=== PATIENT | male | born 1970 | race Caucasian/White ===

== ENCOUNTER 2020-11-17 01:09 | Emergency (ER) | payer SELFPAY ==
[2020-11-17] VITALS (7 sets, daily range): BP systolic 122–178; BP diastolic 88–105; PULSE 73–99; RESP 14–18; TEMP 36.5; O2SAT 95–97
--- NOTE | 2020-11-17 01:19 | ED.GENADULT ---
HPI - General Adult General Chief complaint: Overdose Stated complaint: OD Time Seen by Provider: 11/17/20 01:13 History of Present Illness HPI narrative: Patient a 50-year-old gentleman who presents the emergency department chief complaint of overdose. The patient states that he felt he was using some cocaine the night and snorted a line and then became unresponsive. Patient woke up after receiving Narcan by EMS and then started to get drowsy again and received an additional dose of Narcan. Patient was with 2 other individuals both of which required intubation. The patient currently states that is not suicidal or homicidal patient reports he is never used opiates like this before in the past Review of Systems Review of Systems: Narrative: A 10 system review of systems was completed on the patient and is negative except for what is stated in the HPI. Nursing and ancillary documentation was reviewed. [facility] Social History Social History Substance use type: crack/cocaine and methamphetamine Comments Past medical history significant for hypertension Social history the patient reports he has sporadic history of using cocaine and methamphetamine Exam Narrative: Exam Narrative: GENERAL: Well-appearing, well-nourished, and in no acute distress. HEAD: Normocephalic, atraumatic. EYES: PERRLA and EOMI. ENT: Nares clear, no rhinorrhea or epistaxis. Mucous membranes moist. NECK: Supple. CHEST: Clear to auscultation. No respiratory distress. HEART: Regular rate and rhythm. No murmur heard. Normal peripheral pulses. ABDOMEN: Soft, nontender, nondistended, normal active bowel sounds. EXTREMITIES: Normal range of motion. No edema. SKIN: Warm, dry, no rash. NEURO: No focal deficits. Alert and oriented x3. PSYCH: Normal mood and affect. Course Vital Signs Vital signs: Vital Signs Temperature 36.5 C 11/17/20 01:12 Pulse Rate 75 11/17/20 01:12 Respiratory Rate 14 11/17/20 01:12 Blood Pressure 178/105 H 11/17/20 01:12 Pulse Oximetry 97 11/17/20 01:12 Temperature 36.5 C 11/17/20 01:12 Pulse Rate 74 11/17/20 06:38 Respiratory Rate 18 11/17/20 06:38 Blood Pressure 122/102 H 11/17/20 06:38 Pulse Oximetry 95 11/17/20 06:38 Medical Decision Making Vital Signs Vital Signs: Vital Signs Temperature 36.5 C 11/17/20 01:12 Pulse Rate 75 11/17/20 01:12 Respiratory Rate 14 11/17/20 01:12 Blood Pressure 178/105 H 11/17/20 01:12 Pulse Oximetry 97 11/17/20 01:12 Temperature 36.5 C 11/17/20 01:12 Pulse Rate 74 11/17/20 06:38 Respiratory Rate 18 11/17/20 06:38 Blood Pressure 122/102 H 11/17/20 06:38 Pulse Oximetry 95 11/17/20 06:38 Discharge Plan Discharge Clinical Impression: Poisoning by opiate or related narcotic Drug overdose Qualifiers: Encounter type: initial encounter Injury intent: accidental or unintentional Qualified Code(s): T50.901A - Poisoning by unspecified drugs, medicaments and biological substances, accidental (unintentional), initial encounter Patient Disposition: Home, Self-Care Condition: Stable Instructions: Antibiotic Form, Opioid Safety (ED), Adult Overdose (ED) Follow-up/Referrals: Soham Jonas MD [Physician] - 1 Week UNKNOWN,DOCTOR [Primary Care Provider] - Time of Disposition: 04:20
--- NOTE | 2020-11-17 05:31 | PC.NURSE ---
awaiting for a ride, pt is alert and drowsey @ [facility]
--- NOTE | 2020-11-17 09:55 | PCCCNOTE ---
Pt has transportation issues; bus tokens and bus schedule provided to pt.
== END 2020-11-17 10:03 | disposition home or self-care (01) ==
PROVIDERS: Emergency Provider Emergency Medicine
DX: T50.901A Poisoning by unspecified drugs, medicaments and biological substances, accidental (unintentional), initial encounter (principal); I10 Essential (primary) hypertension
CPT/HCPCS: 99281

== ENCOUNTER 2025-07-26 06:25 | Inpatient (IN) | payer OTHER, SELFPAY ==
[2025-07-26] VITALS (14 sets, daily range): BP systolic 80–100; BP diastolic 61–82; PULSE 41–56; RESP 9–16; TEMP 34.1–36.6; O2SAT 95–99
--- NOTE | ~2025-07-26 | XR_ITS ---
XR chest 1V portable 07/26/2025 07:00 Indication: Chest pain Procedure: AP portable chest Comparison: No prior studies for comparison. Findings: Subtle upper lobe infiltrates bilaterally, suspicious for developing pneumonia. Heart size normal. No pleural effusion, edema or pneumothorax. Impression: 1: Subtle upper lobe infiltrates bilaterally, suspicious for developing pneumonia. Reviewed, dictated and finalized at location O. ECT CONTROL OFFICER Impression: 1: Subtle upper lobe infiltrates bilaterally, suspicious for developing pneumon ia.
--- NOTE | ~2025-07-26 | XR_ITS ---
XR chest ET placement 07/26/2025 10:31 Indication: Chest pain. Procedure: AP portable chest Comparison: 07/26/2025 Findings: Endotracheal tube tip 6.5 cm above the frieda. Heart size normal. There is a coronary artery stents. No focal air space disease, pulmonary edema, pleural effusion or suspected pneumothorax. No acute osseous abnormality. Impression: 1: No acute cardiopulmonary disease. Reviewed, dictated and finalized at location O. INE HOSE CUTTER Impression: 1: No acute cardiopulmonary disease.
--- NOTE | ~2025-07-26 | CT_ITS ---
EXAMINATION: CT brain wo con DATE: 07/26/2025 06:54 INDICATION: Head injury. TECHNIQUE: Computed tomography (CT) of the head was performed without intravenous contrast. The mA was adjusted according to patient size. Iterative reconstruction technique was employed. The dose-length product was 756.67 mGy-cm. COMPARISON: None FINDINGS: There is no intracranial hemorrhage, acute infarction, or abnormal intracranial mass lesion. The ventricles are normal in size. There is an old blowout fracture of medial wall of right orbit. The paranasal sinuses are clear. The mastoid air cells are normal. IMPRESSION: 1. Normal brain. Reviewed, dictated and finalized at location E. ENGER CAR CONDUCTOR IMPRESSION: 1. Normal brain.
--- NOTE | 2025-07-26 06:28 | ECG_ITS ---
Test Date: 2025-07-26 06:30:33 Measurements Intervals [place] Rate: 56 P: -73 [place]: 200 QRS: 46 QRSD: 126 T: 97 QT: 440 QTc: 425 Interpretive Statements ECTOPIC ATRIAL BRADYCARDIA BORDERLINE AV CONDUCTION DELAY INFERIOR ST ELEVATION MYOCARIDAL INJURY- ACUTE POSTERIOR INFARCT, ACUTE RECIPROCALST DEPRESSION IN ANT/HIGH LAT LEADS BASELINE ARTIFACT- I, II, III, AVR, AVL, AVF, V4-V6 ABNORMAL ECG No previous ECG available for comparison Electronically Signed On 07-26-2025 09:02:25 CHILD CARE COORDINATOR by Willie Domínguez D.O.
--- NOTE | 2025-07-26 06:38 | ED.GENADULT ---
HPI - General Adult General Chief complaint: Chest Pain Stated complaint: CP Time Seen by Provider: 07/26/25 06:38 History of Present Illness HPI narrative: patient is a 55-year-old gentleman presents emergency department with chief complaint of chest pain and syncopal episode patient reports that he had a heart attack about a month ago had a stent placed in [place] is very the patient reports he is taking Brilinta but thinks he may not have taken it today the patient states he was sitting in the car waiting for his friend to go into the gas station after they had been smoking some marijuana today the patient states that he passed out struck his head and has been diaphoretic and reports that he is having chest pain as well Related Data Home Medications ?Medication ?Instructions ?Recorded ?Confirmed ?Last Taken ?Type No Home Medications 11/17/20 11/17/20 Unknown History Allergies Allergy/AdvReac Type Severity Reaction Status Date / Time No Known Allergies Allergy Verified 11/17/20 07:48 Review of Systems Review of Systems: A 10 system review of systems was completed on the patient and is negative except for what is stated in the HPI. Nursing and ancillary documentation was reviewed. [facility] Social History Social History Substance use type: crack/cocaine and methamphetamine Exam Narrative: GENERAL: diaphoretic, well-nourished, and in moderate acute distress. HEAD: Normocephalic, blood present in the oropharynx on the chin. EYES: PERRLA and EOMI. ENT: Nares clear, no rhinorrhea or epistaxis. Mucous membranes moist. NECK: Supple. CHEST: Clear to auscultation. No respiratory distress. HEART: Regular rate and rhythm. No murmur heard. Normal peripheral pulses. ABDOMEN: Soft, nontender, nondistended, normal active bowel sounds. EXTREMITIES: Normal range of motion. No edema. SKIN: Warm, dry, no rash. NEURO: No focal deficits. Alert and oriented x3. PSYCH: Normal mood and affect. Course Vital Signs Vital signs: Vital Signs Temperature 34.1 C L 07/26/25 06:29 Pulse Rate 56 L 07/26/25 06:29 Respiratory Rate 14 07/26/25 06:29 Blood Pressure 92/62 L 07/26/25 06:29 Pulse Oximetry 96 07/26/25 06:29 Oxygen Delivery Room Air 07/26/25 06:29 Temperature 34.1 C L 07/26/25 06:29 Pulse Rate 56 L 07/26/25 06:29 Respiratory Rate 14 07/26/25 06:29 Blood Pressure 92/62 L 07/26/25 06:29 Pulse Oximetry 96 07/26/25 06:29 Oxygen Delivery Room Air 07/26/25 06:29 MDM Differential Diagnosis Differential Diagnosis: differential diagnosis include ST-elevation [place], syncope, atypical chest pain, EKG showed evidence of acute ST-elevation [place] the case was discussed with business support specialist upon EKG completion the patient was activated as an ST-elevation [place] patient will be given aspirin and heparin although the patient will undergo CT head before heparin is administered due to the possibility of intracranial hemorrhage from the patient striking his head Lab Data [facility] Lab Attestation statement: I personally reviewed the patient's lab results. Critical Care Time Critical Care Time Critical Care Time: Yes Time Type: Intermittent Initial evaluation, discuss w/ involved parties, attempting to gather old records: 20 minutes Documenting medical record: 10 minutes Review of results (EKG's, labs, imaging): 10 minutes Serial repeat bedside evaluation: 10 minutes Discussing case with multiple memebers of the care team and consultants: 10 minutes Total Critical Care Time: 60 Discharge Plan Discharge Clinical Impression: ST elevation (STEMI) myocardial infarction Patient Disposition: Still a Patient Condition: Stable Patient Language: Divehi Prescriptions: No Action No Home Medications Follow-up/Referrals: UNKNOWN,DOCTOR [Primary Care Provider]
[2025-07-26] MEDS: MORPHINE SULFATE (*CRX) 4 MG/ML INJ IV PUSH (06:44)
[2025-07-26 06:50] LABS: Hematocrit 41.5 % (42.0-52.0); Hemoglobin 13.7 g/dL (14.0-18.0); Immature Granulocyte Percent A 0.3 % (0-0.5); Lymphocytes Absolute Auto 2.69 K/mm3 (0.9-3.2); Mean Corpuscular HGB Conc 33.0 g/dl (32-36); Mean Corpuscular Hemoglobin 30.9 pg (26-34); Mean Corpuscular Volume 93.7 fl (80-100); Nucleated Red Blood Cells Absolute Auto 0.000 K/mm3 (0.0-0.012); Nucleated Red Blood Cells Perc 0.0 % (0.0-0.2); Platelet Count Result 408 k/mm3 (150-375); Red Blood Count 4.43 M/mm3 (4.6-6.20); White Blood Count 14.5 K/mm3 (4.5-10.0)
[2025-07-26] MEDS: SODIUM CHLORIDE 0.9% IV 1,000 ML 999 ML IV CONT (06:58)
[2025-07-26 07:02] LABS: INR 1.1; Prothrombin Time 14.2 Seconds (11.1-14.7)
--- NOTE | 2025-07-26 07:02 | PC.NURSE ---
pt last known well @0502
[2025-07-26 07:03] LABS: Alanine Aminotransferase 37 U/L (6-50); Albumin Level 4.2 g/dL (3.5-5.1); Alkaline Phosphatase 125 U/L (38-126); Anion Gap 9 mmol/L (4-12); Aspartate Amino Transferase 29 U/L (17-59); Bilirubin,Total 0.6 mg/dL (0.2-1.3); Blood Urea Nitrogen 22 mg/dL (9-20); Calcium 9.7 mg/dL (8.4-10.2); Carbon Dioxide 24 mmol/L (22-30); Chloride 105 mmol/L (98-107); Estimated CRCL calculation 58 ml/min; Estimated Glomerular Filt Rate > 60; Glucose 170 mg/dL (65-110); Lipase 106 U/L (23-300); Partial Thromboplastin Time 24.5 Seconds (22.3-36.8); Potassium 4.2 mmol/L (3.4-5.0); Sodium 138 mmol/L (137-145); Total Protein 7.4 g/dL (6.3-8.2)
--- OUTSIDE RECORDS SUMMARY | 2025-07-26 07:12 | XMS_ITS | Clinical Summary ---
Author Organization [facility] Address [address] [place] [address] Care Team Providers Care Survey Engineer Name Role Phone Pee Vidales MD Primary Care Provider [phone] Allergies No known active allergies Medications HYDROcodone-amaya taminophen (NORCO) 5-325 mg per tabletIndicatio ns:Pain Take 1-2 tablets by mouth every 4 (four) hours as needed for pain Do not exceed 8 tablets/day. 15 tablet 01/24/2021 Active albuterol HFA (PROVENTIL HFA,VENTOLIN HFA,PROAIR HFA) 90 mcg/actuation inhaler Inhale 2 puffs every 4 (four) hours as needed for wheezing 1 each 02/20/2022 Active benzonatate (TESSALON) 100 mg capsuleIndicati ons:Cough Take 1 capsule (100 mg total) by mouth every 8 (eight) hours 21 capsule 08/16/2023 Active promethazine-DM (PROMETHAZINE-D M) 1.25-3 mg/mL syrup Take 5 mL by mouth 4 (four) times a day as needed for cough 118 mL 08/16/2023 Active Active Problems No known active problems Surgical History Surgery Date Site/Laterality Comments HERNIA REPAIR CARPAL TUNNEL RELEASE Medical History Medical History Date Comments Hypertension Social History Tobacco Use Types Packs/Day Years Used Date Smoking Tobacco: Every Day Cigarettes Smokeless Tobacco: Never Alcohol Use Standard Drinks/Week Comments Never 0 (1 standard drink = 0.6 oz pur e alcohol) Personal Safety Answer Date Recorded Have you ever been in or are you currently in a harmful physical or emotional relationship or is someone making you feel afraid or unsafe? Denies 08/15/2023 Sex and Gender Information Value Date Recorded Sex Assigned at Not on file Legal Sex Male 6:00 PM MACHINE UMBRELLA TIPPER Gender Identity Not on file Sexual Orientation Not on file Last Filed Vital Signs Vital Sign Reading Time Taken Comments Blood Pressure 152/96 08/15/2023 11:55 PM MACHINE UMBRELLA TIPPER Pulse 112 08/15/2023 11:55 PM MACHINE UMBRELLA TIPPER Temperature 37.3 C (99.1 F) 08/15/2023 11:55 PM MACHINE UMBRELLA TIPPER Respiratory Rate 18 08/15/2023 11:55 PM MACHINE UMBRELLA TIPPER Oxygen Saturation 94% 08/15/2023 11:55 PM MACHINE UMBRELLA TIPPER Inhaled Oxygen Concentration - - Weight 72.6 kg (160 lb) 08/15/2023 11:55 PM MACHINE UMBRELLA TIPPER Height 175.3 cm (5' 9) 08/15/2023 11:55 PM MACHINE UMBRELLA TIPPER Body Mass Index 23.63 08/15/2023 11:55 PM MACHINE UMBRELLA TIPPER Plan of Treatment Health Maintenance Due Date Last Done Comments Colon Cancer Screening-Colonoscopy 1970 Depression Screening 1970 Hepatitis C Screening 1970 Prostate Cancer Screening-PSA 1970 DTaP/Tdap/Td Vaccine (1 - Tdap) 1981 Hepatitis B Screening 1988 Regular Well Visit/Exam 18-64 1988 Pneumococcal vaccine <65 (1 of 2 - PCV) 1989 Zoster Vaccine (1 of 2) 2020 Covid-19 Vaccine (3 - season) 2025, 07/01/2021 Influenza Vaccine (#1) 2025 Insurance [facility]/PPO Address: [address] [address] [facility] H[facility]/PPO Address: [address] [address] Care Teams Survey Engineer Relationship Specialty Start Date End Date Pee Vidales MD [address] [address] [place] [address] PCP - General 01/24/21
--- OUTSIDE RECORDS SUMMARY | 2025-07-26 07:12 | XMS_ITS | Encounter Summary ---
Author Organization [facility] Address [address] [place] [address] Care Team Providers Care Tank Riveter Name Role Phone BardalesJohnathan vinesfranklyn PEDRAZA Primary Care Provider [phone] Encounter Details Date Type Department Care Team (Late st Contact Info) Description 03/30/2007 Emergency [facility] Rasta Dawson MD [facility] [place] [id number] Er, Authorized P NO ADDRESS ON FILE Disturbance of Skin Sensation (Primary Dx) Social History Tobacco Use Types Packs/Day Years Used Date Smoking Tobacco: Never Assessed Sex and Gender Information Value Date Recorded Sex Assigned at Not on file Legal Sex Male 4:02 AM AEROSPACE MANAGER Gender Identity Not on file Sexual Orientation Not on file documented as of this encounter Plan of Treatment Upcoming Encounters Date Type Department Care Team (Late Contact Info) Description 09/03/2025 10:00 AM AEROSPACE MANAGER Office Visit [facility] Heart and Vascular - [address] [place] [address] Sina King DO [address] [place] [address] documented as of this encounter Visit Diagnoses Diagnosis Disturbance of skin sensation- Primary documented in this encounter Additional Health Concerns Infection Onset Date Last Indicated Resolved Time R/O Respiratory 05/19/2025 05/19/2025 05/19/2025 1 0:45 PM CDT documented as of this encounter Care Teams Tank Riveter Relationship Specialty Start Date End Date Johnathan Bardales DO [address] [place] [address] PCP - General Family Practice 05/01/25 documented as of this encounter
--- OUTSIDE RECORDS SUMMARY | 2025-07-26 07:12 | XMS_ITS | Encounter Summary ---
Author Organization [facility] Address [address] [place] [address] Care Team Providers Care Helpdesk Technician Name Role Phone JeffyTaeJohnathanrose marie Jeffers DO Primary Care Provider [phone] Encounter Details Date Type Department Care Team (Late st Contact Info) Description 07/24/2025 External Device Data [facility] ABSTRACTION Provider, Abstract NO ADDRESS ON FILE Social History Tobacco Use Types Packs/Day Years Used Date Smoking Tobacco: Every Day Cigarettes Passive Smoke Exposure: Current Alcohol Use Standard Drinks/Week Comments No 0 (1 standard drink = 0.6 oz pur e alcohol) Food Insecurity Answer Date Recorded Do you find you are eating l ess than you should because you can t pay for food? No 05/19/2025 Transportation Needs Answer Date Record ed Have you gone without health care because you didn t have a way to get there? 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 No 2024 Housing Stability Answer Date Recorded Do you worry you won t have a steady place to sleep or struggle to pay rent or mortgage? No 05/19/2025 Utility Needs Answer Date Recorded Do you have difficulty payin g for utility costs (electric, water or gas bills)? No 05/19/2025 Medication Needs Answer Date Recorded Have you skipped taking medi cation due to cost or worry you can t afford new medications? No 05/19/2025 Feeling Safe Answer Date Recorded Are you in a relationship wi th someone who hurts you emotionally and/or physically? No 05/19/2025 Food Insecurity Answer Date Recorded Patient needs follow up regardin 05/19/2025 Transportation Needs Answer Date Record ed Patient needs follow up regardin 05/19/2025 Utility Needs Answer Date Recorded Patient needs follow up regardin 05/19/2025 Sex and Gender Information Value Date Recorded Sex Assigned at Not on file Legal Sex Male 4:02 AM CLAIM ADMINISTRATOR Gender Identity Not on file Sexual Orientation Not on file documented as of this encounter Plan of Treatment Upcoming Encounters Date Type Department Care Team (Late st Contact Info) Description 09/03/2025 10:00 AM CLAIM ADMINISTRATOR Office Visit [facility] Heart and Vascular - [address] [place] [address] Sina King DO [address] [place] [address] documented as of this encounter Visit Diagnoses Not on filedocumented in this encounter Care Teams Helpdesk Technician Relationship Specialty Start Date End Date Johnathan Bardales DO [address] [place] [address] PCP - General Family Practice 05/01/25 documented as of this encounter
--- OUTSIDE RECORDS SUMMARY | 2025-07-26 07:12 | XMS_ITS | Clinical Summary ---
Author Organization [facility] Address [address] [place] [address] Phone Care Team Providers Care Styrene Dehydration Reactor Operator Name Role Phone Tae Bardalesemprasanth Jeffers DO Primary Care Provider [phone] Allergies Active Allergy Reactions Criticality Noted Date Comments Clindamycin Diarrhea Low 10/19/2012 Medications losartan (COZAAR) 100 mg tablet Take 1 Tablet (100 mg) by mouth daily. 30 Tablet 3 05/10/2025 Active ticagrelor (BRILINTA) 90 mg Tablet Take 1 Tablet (90 mg) by mouth 2 times daily. 60 Tablet 11 05/21/2025 Active aspirin (ECOTRIN EC) 81 mg Tablet, Delayed Release (E.C.) Take 1 Tablet (81 mg) by mouth daily. 05/21/2025 Active atorvastatin (LIPITOR) 40 mg tablet Take 1 Tablet (40 mg) by mouth daily. 100 Tablet 3 05/21/2025 Active amLODIPine (NORVASC) 5 mg tablet Take 1 Tablet (5 mg) by mouth daily. 90 Tablet 3 06/01/2025 Active Active Problems Problem Noted Date Diagnosed Date Coronary artery disease invo lving [place] coronary artery of [place] heart without angina pectoris 05/22/2025 Hyperlipidemia 05/21/2025 S/P coronary artery stent placement 05/21/2025 Overview (05/21/2025): 05/21/25 MILLICENT x 1 OM 1, Dr. Gabriel [facility] Chest pain 05/20/2025 Unstable angina 05/19/2025 Non-ST elevation ND (NSTEMI) 05/19/2025 Benign hypertension 05/19/2025 Shortness of breath 05/19/2025 Tobacco dependence 05/19/2025 Dental abscess 10/31/2012 Encounters Date Type Department Care Team Description 07/24/2025 External Device Data STL ABSTRACTION Provider, Abstract 07/24/2025 External Device Data STL ABSTRACTION Provider, Abstract 07/17/2025 External Device Data STL ABSTRACTION Provider, Abstract 07/11/2025 Results Follow-Up [facility] [address] [place] [address] Dara Hidalgo PA-C HOLTER MONITOR 07/10/2025 9:00 AM 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 [place] [address] Clifton Andres MD Discharge Disposition: Home or Self Care 06/19/2025 External Device Data STL ABSTRACTION Provider, Abstract 06/19/2025 External Device Data STL ABSTRACTION Provider, Abstract 06/19/2025 External Device Data STL ABSTRACTION Provider, Abstract 06/01/2025 10:40 AM CDT Office Visit [facility] - [address] [place] [address] Mahogany Rose PA Non-ST elevation ND (NSTEMI) ([facility]) (Primary Dx); Coronary artery disease involving [place] coronary artery of [place] heart without angina pectoris; Benign hypertension; Mixed hyperlipidemia; Tobacco dependence 05/23/2025 External Device Data STL ABSTRACTION Provider, Abstract 05/23/2025 External Device Data STL ABSTRACTION Provider, Abstract 05/22/2025 11:30 AM CDT - 05/22/2025 11:59 PM CDT Hospital Encounter [facility] Support Services Cardiac [address] [place] [address] Discharge Disposition: Home or Self Care 05/22/2025 External Device Data STL ABSTRACTION Provider, Abstract 05/21/2025 9:00 AM CDT - 05/21/2025 9:40 AM CDT Surgery [facility] [employer] [facility] [address] [place] [address] Heri Gabriel MD Left heart cath 05/19/2025 11:03 AM CDT - 05/22/2025 12:05 PM CDT Hospital Encounter [facility] Cardiac Telemetry [address] [place] [address] Omega Gleason MD Parker, Jaya, MD Qureshi, Rocky Rossi MD Non-ST elevation ND (NSTEMI) ([facility]) Discharge Disposition: Home or Self Care 05/19/2025 Travel 05/15/2025 External Device Data STL ABSTRACTION Provider, Abstract 05/10/2025 Nurse Triage [facility] [address] [place] [address] Johnathan Bardales DO 05/01/2025 11:00 AM CDT Office Visit [facility] [address] [place] [address] Johnathan Bardales DO Shipp, Daniel, APN Primary hypertension (Primary Dx); Elevated glucose from Last 3 Months Family History Medical History Relation Name Comments Kidney Disease Father Cancer Mother Heart Disease Paternal Grandfather Relation Name Status Comments Father Mother Paternal Grandfather Social History Tobacco Use Types Packs/Day Years Used Date Smoking Tobacco: Every Day Cigarettes Passive Smoke Exposure: Current Tobacco Cessation:Ready to Q uit: Not Asked; Counseling Given: Not Answered Alcohol Use Standard Drinks/Week Comments No 0 [...] worry about transportation for future doctor visits, sisal picker medication, etc.? 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 Gender Identity Not on file Sexual Orientation Not on file Last Filed Vital Signs Vital Sign Reading Time Taken Comments Blood Pressure 110/60 06/01/2025 10:58 AM CDT Pulse 90 06/01/2025 10:58 AM CDT Temperature 37 C (98.6 F) 05/22/2025 7:09 AM CDT Respiratory Rate 20 06/01/2025 10:58 AM CDT Oxygen Saturation 91% 05/22/2025 3:29 AM CDT Inhaled Oxygen Concentration - - Weight 72.6 kg (160 lb) 06/01/2025 10:58 AM CDT Height 172.7 cm (5' 8) 06/01/2025 10:58 AM CDT Body Mass Index 24.33 06/01/2025 10:58 AM CDT Plan of Treatment Upcoming Encounters Date Type Department Care Team (Late st Contact Info) Description 09/03/2025 10:00 AM 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 DESIGN 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 [employer]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 Office Visit [facility] - [address] [place] [address] Sina King DO [address] [place] [address] Health Maintenance Due Date Last Done Comments DTAP/TDAP/TD VACCINES (1 - Tdap) 1989 HEPATITIS B VACCINES (1 of 3 - 19+ 3-dose series) 04/03 COLORECTAL SCREENING 2015 Colorectal Cancer Screening 2015 FIT-DNA Q 3 years 2015 FIT/FOBT Q 1 year 2015 Flex Sig/CT Colonography Q 5 years 2015 ZOSTER VACCINE (1 of 2) 2020 INFLUENZA VACCINE (#1) 2025 Preventative Visit- Commercial Completed 12/27/2024 Medical Devices Implanted Type Area Anvil Worker Device Identifier Shelf Expiration Date Model / Serial / Lot Dev Closure Angioseal 6fr Vip [id number] - [id number] Implanted:Qty : 1 on 05/21/2025 by Heri Gabriel MD at [facility] Closure Device N/A: Groin TERUMO- CARDIOVASC SYS [id number] 01/16/2026 [id number] / / [id number] Stent Orsiro Bergheim [id number] [facility] Drug Eluting [id number] - [id number] Implanted:Qty : 1 on 05/21/2025 by Heri Gabriel MD at [facility] Stent N/A: Coronary [employer] 11/16/2025 [id number] / / [id number] Procedures Procedure Name Priority Date/Time Associated Diagnosis Comments HOLTER MONITOR Routine 07/10/2025 Atrial rhythm TELEMETRY REPORT 05/25/2025 10:12 AM CDT TELEMETRY REPORT 05/23/2025 10:55 AM CDT EKG 12-LEAD Pending Discharge 05/22/2025 10:28 AM CDT COMPREHENSIVE METABOLIC PANEL Routine 05/22/2025 3:49 AM CDT CBC WITH DIFFERENTIAL Routine 05/22/2025 3:49 AM CDT POC GLUCOSE Routine 05/21/2025 5:43 PM CDT ECHO COMPLETE Routine 05/21/2025 1:11 PM CDT POC GLUCOSE Routine 05/21/2025 12:08 PM CDT PERCUTANEOUS CORONARY INTERVENTION Routine 05/21/2025 9:15 AM CDT LEFT HEART CATH Routine 05/21/2025 9:15 AM CDT POC GLUCOSE Routine 05/21/2025 7:30 AM CDT POC GLUCOSE Routine 05/21/2025 4:35 AM CDT EKG 12-LEAD Pending Discharge 05/21/2025 4:24 AM CDT CBC WITH DIFFERENTIAL Routine 05/21/2025 4:03 AM CDT TROPONIN Routine 05/21/2025 3:52 AM CDT MAGNESIUM LEVEL Routine 05/21/2025 3:52 AM CDT COMPREHENSIVE METABOLIC PANEL Routine 05/21/2025 3:52 AM CDT EKG 12-LEAD Stat 05/21/2025 3:44 AM CDT XR CHEST PA OR AP 1 VW Stat 05/21/2025 3:19 AM CDT POC GLUCOSE Routine 05/21/2025 12:42 AM CDT POC GLUCOSE Routine 05/20/2025 5:50 PM CDT POC GLUCOSE Routine 05/20/2025 4:37 AM CDT TROPONIN BASELINE, 5TH GEN Stat 05/20/2025 3:57 AM CDT LIPID RFLX Routine 05/20/2025 3:57 AM CDT COMPREHENSIVE METABOLIC PANEL Routine 05/20/2025 3:57 AM CDT CBC WITH DIFFERENTIAL Routine 05/20/2025 3:57 AM CDT POC GLUCOSE Routine 05/20/2025 12:39 AM CDT CTA CHEST W AND/OR WO CONTRAST Stat 05/19/2025 7:46 PM CDT TROPONIN 6 HR, 5TH GEN Timed Study 05/19/2025 5:40 PM CDT EKG 12-LEAD Routine 05/19/2025 4:55 PM CDT RESPIRATORY PATHOGEN PCR PANEL Stat 05/19/2025 3:52 PM CDT TROPONIN 2 HR, 5TH GEN Timed Study 05/19/2025 1:08 PM CDT D-DIMER Stat 05/19/2025 12:09 PM CDT XR CHEST PA OR AP 1 VW Stat 05/19/2025 11:43 AM CDT TROPONIN BASELINE, 5TH GEN Stat 05/19/2025 11:11 AM CDT LIPASE Stat 05/19/2025 11:11 AM CDT COMPREHENSIVE METABOLIC PANEL Stat 05/19/2025 11:11 AM CDT CBC WITH DIFFERENTIAL Stat 05/19/2025 11:11 AM CDT EKG 12-LEAD Stat 05/19/2025 11:06 AM CDT CRITICAL CARE Routine 05/19/2025 11:01 AM CDT COMPREHENSIVE METABOLIC PANEL Routine 05/01/2025 11:36 AM CDT Primary hypertension TSH Routine 05/01/2025 11:36 AM CDT Primary hypertension CBC WITH DIFFERENTIAL Routine 05/01/2025 11:36 AM CDT Primary hypertension LIPID PANEL Routine 05/01/2025 11:36 AM CDT Primary hypertension HEMOGLOBIN A1C Routine 05/01/2025 11:36 AM CDT Elevated glucose from Last 3 Months Results * HOLTER MONITOR (07/10/2025) us Dara Hidalgo PA-C CARDIAC SERVICES ORDERABLE S Final Result * TELEMETRY REPORT (05/25/2025 10:12 AM CDT) Only the most recent of2 resultswithin the time period is included. us Provider Scanning ECG ORDERABLES Final Result * EKG 12-LEAD (05/22/2025 10:28 AM CDT) Only the most recent of5 resultswithin the time period is included. 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: : 1970 Requested By: OMEGA GLEASON Order Number: [id number] Reading MD: Karlo Ramos MD Measurements Intervals [place] Rate: 94 P: 85 IN: 170 QRS: -81 QRSD: 85 T: 97 QT: 344 QTc: 432 Interpretive Statements Sinus rhythm Right atrial enlargement Left atrial enlargement Inferior myocardial infarction , of indeterminate age Electronically Signed On 06-01-2025 14:08:46 CDT by Karlo Ramos MD Procedure Note Karlo Ramos MD - 06/01/[address] [address] Test Date: 2025-05-22 Pat Name: SOCORRO URBANO Department: 17 Room: [address] [place] [address] Gender: M 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: : 1970 Requested By: OMEGA GLEASON Order Number: [id number] Reading MD: Maci GREGORIO Measurements Intervals [place] Rate: 94 P: 85 IN: 170 QRS: -81 QRSD: 85 T: 97 QT: 344 QTc: 432 Interpretive Statements Sinus rhythm Right atrial enlargement Left atrial enlargement Inferior myocardial infarction , of indeterminate age Electronically Signed On 06-01-2025 14:08:46 CDT by Maci GREGORIO us Dara Hidalgo PA-C ECG ORDERABLES Final Resu lt INTERFACE SYSTEM Refer to clinic/hospital department * (ABNORMAL) CBC WITH DIFFERENTIAL (05/22/2025 3:49 AM CDT) Only the most recent of5 resultswithin the time period is included. WBC 10.1(H) 4.0 - 9.8 K/uL 05/22/2025 4:16 AM CDT [facility] Comment:ANC = 6.45K/uL RBC 5.27 4.50 - 5.40 M/uL 05/22/2025 4:16 AM CDT [facility] HEMOGLOBIN 16.0 13.6 - 16.5 g/dL 05/22/2025 4:16 AM CDT [facility] HEMATOCRIT 48.8(H) 40.0 - 48.0 % 05/22/2025 4:16 AM CDT [facility] MCV 92.6 82.0 - 99.0 fL 05/22/2025 4:16 AM CDT [facility] MCH 30.4 27.2 - 32.6 pg 05/22/2025 4:16 AM CDT [facility] MCHC 32.8 31.5 - 35.5 g/dL 05/22/2025 4:16 AM CDT [facility] RDW 11.6 11.5 - 14.5 % 05/22/2025 4:16 AM CDT [facility] RDW-STDEV 39.8 37.1 - 48.7 fL 05/22/2025 4:16 AM CDT [facility] [place] PLATELETS 356(H) 140 - 350 K/uL 05/22/2025 4:16 AM CDT [facility] [place] MPV 9.1(L) 9.3 - 12.4 fL 05/22/2025 4:16 AM CDT [facility] [place] NEUTROPHILS 64 % 05/22/2025 4:16 AM CDT [facility] [place] LYMPHOCYTES 23 % 05/22/2025 4:16 AM CDT [facility] [place] MONOCYTES 9 % 05/22/2025 4:16 AM CDT [facility] [place] EOSINOPHILS 3 % 05/22/2025 4:16 AM CDT [facility] [place] BASOPHILS 1 % 05/22/2025 4:16 AM CDT [facility] [place] IMMATURE GRANULOCYTES 1 % 05/22/2025 4:16 AM CDT [facility] [place] NEUTROPHIL ABSOLUTE 6.45 1.90 - 7.00 K/uL 05/22/2025 4:16 AM CDT [facility] [place] LYMPHOCYTE ABSOLUTE 2.30 0.70 - 4.50 K/uL 05/22/2025 4:16 AM CDT [facility] [place] MONOCYTE ABSOLUTE 0.86 0.10 - 1.30 K/uL 05/22/2025 4:16 AM CDT [facility] [place] EOSINOPHIL ABSOLUTE 0.34 0.00 - 0.70 K/uL 05/22/2025 4:16 AM CDT [facility] [place] BASOPHILS ABSOLUTE 0.06 0.00 - 0.20 K/uL 05/22/2025 4:16 AM CDT [facility] [place] IMMATURE GRANULOCYTES ABSOLUTE 0.05(H) 0.00 - 0.03 K/uL 05/22/2025 4:16 AM CDT [facility] [place] Blood Venipuncture / Unknown 05/22/2025 3:49 AM CDT 05/22/2025 4:14 AM CDT us Rocky Coles MD HEMATOLOGY ORDERABLES Final Result [facility] [place] CLIA# [id number] [address] [place] [address] * (ABNORMAL) COMPREHENSIVE METABOLIC PANEL (05/22/2025 3:49 AM CDT) Only the most recent of5 resultswithin the time period is included. SODIUM 140 136 - 145 mmol/L 05/22/2025 4:44 AM CDT [facility] [place] POTASSIUM 3.7 3.5 - 4.9 mmol/L 05/22/2025 4:44 AM CDT [facility] [place] CHLORIDE 105 98 - 107 mmol/L 05/22/2025 4:44 AM CDT [facility] [place] CO2 26 22 - 29 mmol/L 05/22/2025 4:44 AM CDT [facility] CALCIUM 9.0 8.6 - 10.2 mg/dL 05/22/2025 4:44 AM T [facility] BUN 21(H) 6 - 20 mg/dL 05/22/2025 4:44 AM CDT [facility] CREATININE 0.86 0.67 - 1.17 mg/dL 05/22/2025 4:44 AM CDT [facility] GLUCOSE 156(H) 74 - 99 mg/dL 05/22/2025 4:44 AM T [facility] TOTAL PROTEIN 6.8 6.0 - 8.3 g/dL 05/22/2025 4:44 AM CDT [facility] ALBUMIN 3.9 3.4 - 4.8 g/dL 05/22/2025 4:44 AM CDT [facility] BILIRUBIN TOTAL 0.4 0.0 - 1.0 mg/dL 05/22/2025 4:44 AM CDT [facility] ALKALINE PHOSPHATASE 112 40 - 129 U/L 05/22/2025 4:44 AM T [facility] AST 32 12 - 38 U/L 05/22/2025 4:44 AM CDT [facility] ALT 21 <41 U/L 05/22/2025 4:44 AM CDT [facility] GFR >60 >=60 mL/min/1.7 3 sq meter 05/22/2025 4:44 AM CDT [facility] Comment:eGFR calculated with 2020 CKD-EPI equation. Vegetarian diet, extremely high or low muscle mass, and may affect results. Cystatin C with Glomerular Filtration Rate is a suitable alternative for these patients. ANION GAP 9 8 - 16 mmol/L 05/22/2025 4:44 AM CDT [facility] Blood Venipuncture / Unknown 05/22/2025 3:49 AM CDT 05/22/2025 4:14 AM CDT Rocky Coles MD CHEMISTRY ORDERABLES F inal Result Performing Organization Address [facility]/ZIP Co de Phone Number [facility] CLIA# [id number] [address] [place] [address] * (ABNORMAL) POC GLUCOSE (05/21/2025 5:43 PM CDT) Only the most recent of8 resultswithin the time period is included. GLUCOSE POC 141(H) 74 - 99 mg/dL 05/21/2025 5:43 PM CDT [facility] SPECIMEN SOURCE, GLUCOSE POC Whole Blood 05/21/2025 5:43 PM CDT [facility] Blood, whole 05/21/2025 5:43 PM CDT 05/21/2025 5:52 PM CDT Rocky Coles MD POINT OF CARE TESTING Final Result Performing Organization Address [facility]/ZIP Co de Phone Number [facility] CLIA# [id number] [address] [place] [address] * ECHO COMPLETE - CONTRAST AND STRAIN IF INDICATED (05/21/2025 1:11 PM CDT) EJECTION FRACTION 60 INTERFACE SYSTEM 05/21/2025 12:1 9 PM CDT Narrative INTERFACE SYSTEM - 05/21/2025 3:28 PM CDT [address] [address] [email or web address] Transthoracic Echocardiogram Patient: Socorro Urbano Study ID: [id number] Gender: Jeanna : 1970 Age: 55 Race: JOSE Height 172.7cm Study Date: 05/21/2025 Weight: 70.9kg Access. #: [id number] BP: 160 / 95 *Referring Physician:* Mackenzie Samuel *Ordering Physician:* Mackenzie Samuel *Audiovisual Production Specialist:Josefa Quinn hot worker: Nurse: Indications: Acute Coronary Syndrome. History: Risk factors: The patient is a current tobacco user. Hypertension. STUDY CONCLUSIONS: SUMMARY: - Left ventricle: The cavity size was normal. Wall thickness was normal. Global systolic function is normal. For Epic reporting: the left ventricular ejection fraction is 60% . Diastolic function assessment consistent with abnormal left ventricular relaxation (grade 1 diastolic dysfunction). - Aortic valve: Mild regurgitation. - Mitral valve: Mild regurgitation. - Left atrium: The atrium is normal in size. - Right ventricle: The cavity size is normal. Systolic function is normal. - Tricuspid valve: Mild regurgitation. - Pulmonic valve: Mild regurgitation. - Frequent episodes of abnormally low HR - Can't rule out ASD. Cardiac Anatomy: LEFT VENTRICLE: The cavity size was normal. Wall thickness was normal. Global systolic function is normal. For Epic reporting: the left ventricular ejection fraction is 60% . Diastolic function assessment consistent with abnormal left ventricular relaxation (grade 1 diastolic dysfunction). AORTIC VALVE: Structurally normal valve. Trileaflet. Mild regurgitation. The mean systolic gradient is 3mm Hg. The peak systolic gradient is 6mm Hg. The LVOT to aortic valve VTI ratio is 0.88. The valve area is 3.0cm^2. The ratio of LVOT to aortic valve peak velocity is 0.92. AORTA: Aortic root: The root is normal-sized. MITRAL VALVE: Structurally normal valve. Mild regurgitation. The peak diastolic gradient is 2mm Hg. LEFT ATRIUM: The atrium is normal in size. RIGHT VENTRICLE: The cavity size is normal. Systolic function is normal. PULMONIC VALVE: Structurally normal valve. Mild regurgitation. TRICUSPID VALVE: Structurally normal valve. Mild regurgitation. RIGHT ATRIUM: The atrium was normal in size. SYSTEMIC VEINS: Inferior vena cava: The IVC is normal-sized. PERICARDIUM: There is no pericardial effusion. Measurements Left ventricle Value Ref IVS, ED, LAX (H) 1.1 cm 0.6 - 1.0 MOLLY, LAX (L) 2.6 cm 4.2 - 5.8 MOLLY/bsa, LAX (L) 1.4 cm/m^2 2.2 - 3.0 MOLLY, LAX chord (L) 3.7 cm 4.2 - 5.8 ESD, LAX chord (N) 2.6 cm 2.5 - 4.0 MOLLY/bsa, LAX chord (L) 2.0 cm/m^2 2.2 - 3.0 ESD/bsa, LAX chord (N) 1.4 cm/m^2 1.3 - 2.1 FS, LAX chord (N) 29 % 25 - 43 IVS, ED (H) 1.1 cm 0.6 - 1.0 PW, ED (N) 0.8 cm 0.6 - 1.0 EDV, 2-p (N) 74 ml 62 - 150 ESV, 2-p (N) 32 ml 21 - 61 EF, 2-p (N) 56 % 52 - 72 SV, 2-p 41 ml --------- SV/bsa, 2-p 22.4 ml/m^2 --------- E', lat mavis, TDI (L) 7.1 cm/sec >=10.0 E/e', lat mavis, TDI (N) 11 <=13 E', med mavis, TDI (L) 5.7 cm/sec >=7.0 E/e', med mavis, TDI 14 --------- E', avg, TDI 6.4 cm/sec --------- E/e', avg, TDI (N) 12 <=14 LVOT Value Ref Diam, S 2.1 cm --------- Area 3.5 cm^2 --------- Peak haritha, S 1.16 m/sec --------- VTI, S 21.2 cm --------- Peak grad, S 5 mm Hg --------- Right ventricle Value Ref TAPSE, MM (N) 2.1 cm >=1.7 Pressure, S 22 mm Hg --------- Left atrium Value Ref LA ID 3.0 cm --------- SI dim, A4C 4.2 cm --------- Area ES, A4C (N) 12 cm^2 <=20 Area/bsa ES, A4C 6.36 cm^2/m^2 --------- SI dim, A2C 4.1 cm --------- SI dim, shorter 4.1 cm --------- Vol, ES, 1-p A2C (N) 31 ml 18 - 58 Vol/bsa, ES, 1-p A2C (N) 17 ml/m^2 11 - 43 Vol, ES, 2-p 28 ml --------- Vol/bsa, ES, 2-p (L) 15 ml/m^2 16 - 34 Right atrium Value Ref SI dim, ES, A4C (N) 4.0 cm 3.4 - 5.3 SI dim/bsa, ES, A4C (N) 2.2 cm/m^2 1.8 - 3.0 Area, ES, A4C (N) 10 cm^2 10 - 18 Vol, ES, 1-p A4C 21 ml --------- Vol/bsa, ES, 1-p A4C (N) 12 ml/m^2 11 - 39 Aortic valve Value Ref Peak v, S 1.3 m/sec --------- Mean v, S 0.84 m/sec --------- VTI, S 24.1 cm --------- Mean grad, S 3 mm Hg --------- Peak grad, S 6 mm Hg --------- LVOT/AV, VTI ratio 0.88 --------- RACQUEL, VTI 3.0 cm^2 --------- RACQUEL/bsa, VTI 1.65 cm^2/m^2 --------- LVOT/AV, Vpeak ratio 0.92 --------- RACQUEL, Vmax 3.4 cm^2 --------- RACQUEL/bsa, Vmax 1.86 cm^2/m^2 --------- Mitral valve Value Ref Peak E 0.77 m/sec --------- Peak A 1.07 m/sec --------- Decel time 180 ms --------- Peak grad, D 2 mm Hg --------- Peak E/A ratio 0.7 --------- Pulmonic valve Value Ref Peak v, S 1 m/sec --------- Peak grad, S 4 mm Hg --------- Tricuspid valve Value Ref TR peak v (N) 1.9 m/sec <=2.8 Peak RV-RA grad, S 17 mm Hg --------- Aortic root Value Ref Root diam, 3.2 cm --------- Pulmonary artery Value Ref Pressure, S 18 mm Hg --------- Systemic veins Value Ref Estimated RA pressure 5 mm Hg --------- Legend: (L) and (H) tonya values outside specified reference range. (N) baez values inside specified reference range. Procedure data: No prior study was available for comparison. Study status: Routine. Procedure information: A transthoracic echocardiogram was performed. Image quality was adequate. The study was technically limited due to poor acoustic window availability. The parasternal window was low. Scanning was performed from the parasternal, apical, and subcostal acoustic windows. Transthoracic echocardiogram. Complete 2D, complete spectral Doppler, and color Doppler. Birthdate: Patient birthdate: 1970. Age: Patient is 55year(s) old. Sex: gender: male. Height: 172.7cm. 68in. Weight: 70.9kg. 156.4lb. Body mass index: 23.8kg/m^2. Body surface area: 1.84m^2. Blood pressure: 160/95 Patient status: Inpatient. Study date: Study date: 05/21/2025. Study time: 12:19 PM. Location: Bedside. Prepared and Electronically Authenticated Vaughn Rodriguez [id number] Procedure Note Vaughn Rodriguez DO - 05/21/2025 [place] [address] [email or web address] Transthoracic Echocardiogram Patient: Socorro Urbano Study ID: [id number] Gender: M : 1970 Age: 55 Race: CAU Height 172.7cm Study Date: 05/21/2025 Weight: 70.9kg Access. #: [id number] BP: 160 / 95 *Referring Physician:* Mackenzie Samuel *Ordering Physician:* Mackenzie Samuel *Audiovisual Production Specialist:* Josefa Nails hot worker: Nurse: Indications: Acute Coronary Syndrome. History: Risk factors: The patient is a current tobacco user. Hypertension. STUDY CONCLUSIONS: SUMMARY: - Left ventricle: The cavity size was normal. Wall thickness was normal. Global systolic function is normal. For Epic reporting: the leftventricular ejection fraction is 60% . Diastolic function assessment consistentwith abnormal left ventricular relaxation (grade 1 diastolic dysfunction). - Aortic valve: Mild regurgitation. - Mitral valve: Mild regurgitation. - Left atrium: The atrium is normal in size. - Right ventricle: The cavity size is normal. Systolic function isnormal. - Tricuspid valve: Mild regurgitation. - Pulmonic valve: Mild regurgitation. - Frequent episodes of abnormally low HR - Can't rule out ASD. Cardiac Anatomy: LEFT VENTRICLE: The cavity size was normal. Wall thickness was normal.Global systolic function is normal. For Epic reporting: the left ventricularejection fraction is 60% . Diastolic function assessment consistent with abnormalleft ventricular relaxation (grade 1 diastolic dysfunction). AORTIC VALVE: Structurally normal valve. Trileaflet. Mildregurgitation. The mean systolic gradient is 3mm Hg. The peak systolic gradient is 6mmHg. The LVOT to aortic valve VTI ratio is 0.88. The valve area is 3.0cm^2.The ratio of LVOT to aortic valve peak velocity is 0.92. AORTA: Aortic root: The root is normal-sized. MITRAL VALVE: Structurally normal valve. Mild regurgitation. Thepeak diastolic gradient is 2mm Hg. LEFT ATRIUM: The atrium is normal in size. RIGHT VENTRICLE: The cavity size is normal. Systolic function isnormal. PULMONIC VALVE: Structurally normal valve. Mild regurgitation. TRICUSPID VALVE: Structurally normal valve. Mild regurgitation. RIGHT ATRIUM: The atrium was normal in size. SYSTEMIC VEINS: Inferior vena cava: The IVC is normal-sized. PERICARDIUM: There is no pericardial effusion. Measurements Left ventricle Value Ref IVS, ED, LAX (H) 1.1 cm 0.6 - 1.0 MOLLY, LAX (L) 2.6 cm 4.2 - 5.8 MOLLY/bsa, LAX (L) 1.4 cm/m^2 2.2 - 3.0 MOLLY, LAX chord (L) 3.7 cm 4.2 - 5.8 ESD, LAX chord (N) 2.6 cm 2.5 - 4.0 MOLLY/bsa, LAX chord (L) 2.0 cm/m^2 2.2 - 3.0 ESD/bsa, LAX chord (N) 1.4 cm/m^2 1.3 - 2.1 FS, LAX chord (N) 29 % 25 - 43 IVS, ED (H) 1.1 cm 0.6 - 1.0 PW, ED (N) 0.8 cm 0.6 - 1.0 EDV, 2-p (N) 74 ml 62 - 150 ESV, 2-p (N) 32 ml 21 - 61 EF, 2-p (N) 56 % 52 - 72 SV, 2-p 41 ml --------- SV/bsa, 2-p 22.4 ml/m^2 --------- E', lat mavis, TDI (L) 7.1 cm/sec >=10.0 E/e', lat mavis, TDI (N) 11 <=13 E', med mavis, TDI (L) 5.7 cm/sec >=7.0 E/e', med mavis, TDI 14 --------- E', avg, TDI 6.4 cm/sec --------- E/e', avg, TDI (N) 12 <=14 LVOT Value Ref Diam, S 2.1 cm --------- Area 3.5 cm^2 --------- Peak haritha, S 1.16 m/sec --------- VTI, S 21.2 cm --------- Peak grad, S 5 mm Hg --------- Right ventricle Value Ref TAPSE, MM (N) 2.1 cm >=1.7 Pressure, S 22 mm Hg --------- Left atrium Value Ref LA ID 3.0 cm --------- SI dim, A4C 4.2 cm --------- Area ES, A4C (N) 12 cm^2 <=20 Area/bsa ES, A4C 6.36 cm^2/m^2 --------- SI dim, A2C 4.1 cm --------- SI dim, shorter 4.1 cm --------- Vol, ES, 1-p A2C (N) 31 ml 18 - 58 Vol/bsa, ES, 1-p A2C (N) 17 ml/m^2 11 - 43 Vol, ES, 2-p 28 ml --------- Vol/bsa, ES, 2-p (L) 15 ml/m^2 16 - 34 Right atrium Value Ref SI dim, ES, A4C (N) 4.0 cm 3.4 - 5.3 SI dim/bsa, ES, A4C (N) 2.2 cm/m^2 1.8 - 3.0 Area, ES, A4C (N) 10 cm^2 10 - 18 Vol, ES, 1-p A4C 21 ml --------- Vol/bsa, ES, 1-p A4C (N) 12 ml/m^2 11 - 39 Aortic valve Value Ref Peak v, S 1.3 m/sec --------- Mean v, S 0.84 m/sec --------- VTI, S 24.1 cm --------- Mean grad, S 3 mm Hg --------- Peak grad, S 6 mm Hg --------- LVOT/AV, VTI ratio 0.88 --------- RACQUEL, VTI 3.0 cm^2 --------- RACQUEL/bsa, VTI 1.65 cm^2/m^2 --------- LVOT/AV, Vpeak ratio 0.92 --------- RACQUEL, Vmax 3.4 cm^2 --------- RACQUEL/bsa, Vmax 1.86 cm^2/m^2 --------- Mitral valve Value Ref Peak E 0.77 m/sec --------- Peak A 1.07 m/sec --------- Decel time 180 ms --------- Peak grad, D 2 mm Hg --------- Peak E/A ratio 0.7 --------- Pulmonic valve Value Ref Peak v, S 1 m/sec --------- Peak grad, S 4 mm Hg --------- Tricuspid valve Value Ref TR peak v (N) 1.9 m/sec <=2.8 Peak RV-RA grad, S 17 mm Hg --------- Aortic root Value Ref Root diam, 3.2 cm --------- Pulmonary artery Value Ref Pressure, S 18 mm Hg --------- Systemic veins Value Ref Estimated RA pressure 5 mm Hg --------- Legend: (L) and (H) tonya values outside specified reference range. (N) baez values inside specified reference range. Procedure data: No prior study was available for comparison. Study status: Routine. Procedure information: A transthoracic echocardiogram was performed.Image quality was adequate. The study was technically limited due to pooracoustic window availability. The parasternal window was low. Scanning wasperformed from the parasternal, apical, and subcostal acoustic windows. Transthoracic echocardiogram. Complete 2D, complete spectral Doppler,and color Doppler. Birthdate: Patient birthdate: 1970. Age: Patientis 55year(s) old. Sex: gender: male. Height: 172.7cm. 68in.Weight: 70.9kg. 156.4lb. Body mass index: 23.8kg/m^2. Body surface area: 1.84m^2. Blood pressure: 160/95 Patient status: Inpatient. Studydate: Study date: 05/21/2025. Study time: 12:19 PM. Location: Bedside. Prepared and Electronically Authenticated Vaughn Rodriguez [id number] us Mackenzie MOORE ORDERABLES Bridgett martinez Result INTERFACE SYSTEM Refer to clinic/hospital department * LEFT HEART CATH, PERCUTANEOUS CORONARY INTERVENTION (05/21/2025 9:15 AM CDT) 05/21/2025 8:36 AM CDT Narrative [facility] [address] - 05/21/2025 11:15 AM CDT Successful stenting of the OM1 stenosis with 2.75 x 35 mm drug-eluting stent Procedure Details [place], [place] [employer] Procedure Note (see [employer] or dictated note for full details) Patient Name: Socorro Urbano : 1970 Date of Service: 05/21/2025 Procedures: Conscious sedation with physician supervision Left heart catheterization with coronary angiography CPT code 56808 Ultrasound guided arterial access, cpt code 70503 PCI/stenting of the 75% long OM1 stenosis with 2.75 x 35 mm Osiro MILLICENT Access Site: [email or web address] R Femoral artery Method: Access: Using ultrasound guidance, the R femoral artery was cannulated with a 6F sheath after first introduction with a micropuncture kit. Angiography: Selective coronary angiography was performed with 6F diagnostic catheters. Hemostasis: At the conclusion of the procedure the sheath was removed and hemostasis obtained using Angioseal. Conscious sedation was provided with Versed and fentanyl with my direct supervision throughout the duration of sedation (see associated documents in computer for sedation time). Complications: None Estimated Blood Loss: Minimal Findings: Coronary Angiography: LM -large and widely patent LAD -medium in size with apparent diffuse plaque but no more than 30% stenosis at any point. Very small diagonal branch with severe diffuse disease with up to 80% stenosis. There is a second diagonal branch, likely a branch of the first actually, with a long 50% stenosis. A third diagonal branch is small but patent. Cx -large and dominant vessel. OM1 with very long stenosis of to at least 75% stenosis. Just distal to the ostium of the OM1, the main circumflex demonstrates a discrete 30% stenosis. The remainder of the AV groove branch is patent as is the PDA and Co-PDA. RCA -nondominant with diffuse disease with a mid vessel discrete 50 to 60% stenosis, 2 to 3 mm in length. EDP: 9 mmHg The patient was provided systemic heparinization and had previously been loaded with Brilinta. A CLS 3.5 guide catheter was placed, a Prowater was placed into the OM1 and a BMW in the AV groove, main circumflex. The lesion was predilated followed by stenting with a 2.75 x 35 mm Orsiro drug-eluting stent at 11 franky pressure with excellent result 0% residual stenosis and JYOTHI-3 flow Final Impression: Successful stenting of the OM1 stenosis with 2.75 x 35 mm drug-eluting stent PCI RISK CSHA Frailty Score: Moderately Frail (Require assistance with all ADLs). NYHA Class: Class II: Slight limitation of physical activity. Comfortable at rest, but ordinary physical activity results in symptoms of HF. (CAMILO, walking more than 2 blocks would cause CAMILO) CV Instability: persistent ischemic symptoms (chest pain, BRADLEY). Heri Gabriel MD CUP CATH ORDERABLES Final Result [facility] [address] DOS SANTOS# [id number] [place] [phone] * (ABNORMAL) TROPONIN (05/21/2025 3:52 AM CDT) TROPONIN T, 5TH GEN 243(HH) <=15 ng/L 05/21/2025 10:18 AM CDT [facility] Blood Venipuncture / Unknown 05/21/2025 3:52 AM CDT 05/21/2025 4:22 AM CDT Narrative [facility] - 05/21/2025 10:18 AM CDT Troponin elevated. us Dara Hidalgo PA-C CHEMISTRY ORDERABLES Final Result Performing Organization Address City/[facility]/ZIP Co de Phone Number [facility] CLIA# [id number] [address] [place] [address] * MAGNESIUM LEVEL (05/21/2025 3:52 AM CDT) Pathologist [facility] [place] MAGNESIUM 1.9 1.5 - 2.5 mg/dL 05/21/2025 4:51 AM CDT [facility] Blood Venipuncture / Unknown 05/21/2025 3:52 AM CDT 05/21/2025 4:22 AM CDT Ken Rodrigues MD CHEMISTRY ORDERABLES Fin al Result Performing Organization Address City/[facility]/ZIP Co de Phone Number [facility] CLIA# [id number] [address] [place] [id number] * XR CHEST PA OR AP 1 VW (05/21/2025 3:19 AM CDT) Only the most recent of2 resultswithin the time period is included. Anatomical Region Laterality Modality Chest Computed Radiogr aphy 05/21/2025 3:19 AM CDT Impressions 05/21/2025 8:04 AM CDT IMPRESSION: 1. Normal chest. DICTATION LOCATION: Location [address] [place] [address] Narrative 05/21/2025 8:04 AM CDT XR CHEST PA OR AP 1 VW DATE: 05/21/2025 3:19 AM HISTORY: Difficulty breathing. COMPARISON: 05/19/2025. FINDINGS: No consolidation. No pleural effusion. No pneumothorax. Heart size and mediastinal contour are normal. Procedure Note Mir Patel MD - 05/21/2025 XR CHEST PA OR AP 1 VW DATE: 05/21/2025 3:19 AM HISTORY: Difficulty breathing. COMPARISON: 05/19/2025. FINDINGS: No consolidation. No pleural effusion. No pneumothorax. Heart size and mediastinal contour are normal. IMPRESSION: 1. Normal chest. DICTATION LOCATION: Location [address] [place] [address] Ken Rodrigues MD DIAGNOSTIC IMAGING ORDER JONA Final Result * (ABNORMAL) TROPONIN BASELINE, 5TH GEN (05/20/2025 3:57 AM CDT) Only the most recent of2 resultswithin the time period is included. TROPONIN T, BASELINE 5TH GEN 312(HH) <=15 ng/L 05/20/2025 8:43 AM CDT [facility] Blood Venipuncture / Unknown 05/20/2025 3:57 AM CDT 05/20/2025 4:12 AM CDT Narrative [facility] - 05/20/2025 8:43 AM CDT Troponin elevated. Vaughn Rodriguez DO CHEMISTRY ORDERABLES Fi nal Result [facility] CLIA# [id number] [address] [place] [address] * (ABNORMAL) LIPID RFLX (05/20/2025 3:57 AM CDT) CHOLESTEROL 178 <200 mg/dL [facility]25 [facility] 125 <150 mg/dL 05/20/2025 5:08 AM T [facility] HDL 38(L) 40 - 59 mg/dL 05/20/2025 5:08 AM T [facility] LDL CALCULATED 115(H) <100 mg/dL 05/20/2025 5:08 AM T [facility] NON-HDL CHOLESTEROL 140(H) <130 mg/dL 05/20/2025 5:08 AM CDT [facility] Blood Venipuncture / Unknown 05/20/2025 3:57 AM CDT 05/20/2025 4:12 AM CDT Narrative [facility] - 05/20/2025 5:08 AM CDT TOTAL CHOLESTEROL mg/dL Desirable <200 Borderline high 200-239 High >=240 TRIGLYCERIDES mg/dL Normal <150 Borderline high 150-199 High 200-499 Very high >=500 HDL CHOLESTEROL mg/dL Low <40 Normal 40-59 Desirable >=60 NON HDL CHOLESTEROL mg/dL Optimal <130 Near Optimal 130-159 Borderline High 160-189 Very High >=190 CALCULATED LDL mg/dL LDL <70, OPTIMAL if have Atherosclerotic cardiovascular disease (ASCVD) or intermediate or higher (>7.5%) 10 year risk of ASCVD including most adults with diabetes. LDL <100, Optimal in adult patients with low (<7.5%) 10 year ASCVD risk LDL 100-160, Suboptimal LDL >160, High LDL >190, Very high LDL calculated using the Friedewald equation. ATPIII Guidelines Reference Ranges for Lipid Panels (NCEP/AMA) . Mackenzie MOORE CHEMISTRY ORDERABLES Final Result [facility] CLIA# [id number] [address] [place] [address] * CTA CHEST W AND/OR WO CONTRAST (05/19/2025 7:46 PM CDT) Anatomical Region Laterality Modality Chest Computed Tomogra phy 05/19/2025 7:38 PM CDT Impressions 05/19/2025 7:57 PM CDT IMPRESSION: 1. No pulmonary embolus. 2. Mild emphysema. DICTATION LOCATION: Location 4. Narrative 05/19/2025 7:57 PM CDT EXAMINATION: CTA CHEST W AND/OR WO CONTRAST DATE: 05/19/2025 7:46 PM INDICATION: Pulmonary embolism. TECHNIQUE: Computed tomography angiography (CTA) of the chest was performed with 80 mL Isovue-300 intravenous contrast timed to evaluate the pulmonary arteries. 3D-reconstructions of the arteries were created. The mA was adjusted according to patient size, and/or iterative reconstruction technique was employed. COMPARISON: None. FINDINGS: There is mild emphysema. There is mild atelectasis bilaterally. No pleural effusion. The heart size is normal. No pericardial effusion. There is no pulmonary embolus. There is a 14 mm cyst in left kidney. There is mild thoracic spondylosis. Procedure Note Umberto Alaniz MD - 05/19/2025 EXAMINATION: CTA CHEST W AND/OR WO CONTRAST DATE: 05/19/2025 7:46 PM INDICATION: Pulmonary embolism. TECHNIQUE: Computed tomography angiography (CTA) of the chest was performed with 80 mL Isovue-300 intravenous contrast timed to evaluate the pulmonary arteries. 3D-reconstructions of the arteries were created. The mA was adjusted according to patient size, and/or iterative reconstruction technique was employed. COMPARISON: None. FINDINGS: There is mild emphysema. There is mild atelectasis bilaterally. No pleural effusion. The heart size is normal. No pericardial effusion. There is no pulmonary embolus. There is a 14 mm cyst in left kidney. There is mild thoracic spondylosis. IMPRESSION: 1. No pulmonary embolus. 2. Mild emphysema. DICTATION LOCATION: Location 4. Lencho Silvestre MD CT ORDERABLES Final Result * (ABNORMAL) TROPONIN 6 HR, 5TH GEN (05/19/2025 5:40 PM CDT) TROPONIN T, 6 HR 5TH GEN 135(HH) <=15 ng/L 05/19/2025 6:45 PM CDT [facility] DELTA 6HR TROPONIN T 119(HH) See Interp. 05/19/2025 6:45 PM CDT [facility] Blood Venipuncture / Unknown 05/19/2025 5:40 PM CDT 05/19/2025 6:04 PM CDT Narrative [facility] - 05/19/2025 6:45 PM CDT Troponin elevated. Delta significant change. Omega Gleason MD CHEMISTRY ORDERABLES Final Resu lt [facility] CLIA# [id number] [address] [place] [address] * RESPIRATORY PATHOGEN PCR PANEL (05/19/2025 3:52 PM CDT) Pathologist [facility] [place] Respiratory Pathogen PCR Panel NOT DETECTED No respiratory pathogen nucleic acids detected. 05/19/2025 10:45 PM CDT [facility] COVID-19 PCR NOT DETECTED Not Detected 05/19/2025 10:45 PM CDT [facility] Upper Respiratory ENTIRE NASOPHARYNX / Unknown Collection / Unknown 05/19/2025 3:52 PM CDT 05/19/2025 3:58 PM CDT Narrative [facility] - 05/19/2025 10:45 PM CDT The Film Array Respiratory Panel (RP2.1) is a multiplex nucleic acid detection test for 22 targets. Viruses: Adenovirus Coronavirus HKU1, NL63, 229E, and OC43 COVID-19/Severe Acute Respiratory Syndrome Coronavirus 2 Influenza A with the following subtypes: H1, H1-2009, and H3 Influenza B Human Metapneumovirus Parainfluenza virus 1, 2, 3, and 4 Respiratory Syncytial virus (RSV) Rhinovirus/Enterovirus (cannot differentiate due to genetic similarities) Bacteria: Bordetella pertussis Bordetella parapertussis Chlamydophila pneumoniae Mycoplasma pneumoniae Mackenzie MOORE MICROBIOLOGY - GENER AL ORDERABLES Final Result [facility] CLIA# [id number] [address] [facility] [place] [address] * (ABNORMAL) TROPONIN 2 HR, 5TH GEN (05/19/2025 1:08 PM CDT) TROPONIN T, 2 HR 5TH GEN 42(H) <=15 ng/L 05/19/2025 1:35 PM CDT [facility] DELTA 2HR TROPONIN T 26(HH) See Interp. 05/19/2025 1:35 PM CDT [facility] Blood Venipuncture / Unknown 05/19/2025 1:08 PM CDT 05/19/2025 1:11 PM CDT [facility] - 05/19/2025 1:35 PM CDT Troponin elevated. Delta significant change. us Omega Gleason MD CHEMISTRY ORDERABLES Final Resu lt [facility] CLIA# [id number] [address] [place] [address] * D-DIMER (05/19/2025 12:09 PM CDT) Pathologist [facility] [place] D-DIMER QUANT <0.27 <0.50 ug/mL FEU 05/19/2025 12:39 PM CDT [facility] Blood Venipuncture / Unknown 05/19/2025 12:09 PM CDT 05/19/2025 12:11 PM CDT [facility] - 05/19/2025 12:39 PM CDT D-Dimer assay cutoff value for exclusion of DVT and/or PE is <0.50 ug/mL FEU. As D-Dimer levels increase naturally with age, age stratification for patients over 50 is potentially more appropriate in determining whether a patient should undergo further evaluation for DVT and/or PE than a general cutoff of 0.50 ug/mL FEU. Clinical consideration is recommended. Age Stratified Cutoff Values: 50-60 years: 0.50-0.60 ug/mL FEU 61-70 years: 0.61-0.70 ug/mL FEU 71-80 years: 0.71-0.80 ug/mL FEU Result [facility] Omega Gleason MD HEMATOLOGY ORDERABLES Final Res ult Performing Organization Address City/[facility]/ZIP Co de Phone Number [facility] CLIA# [id number] [address] [place] [address] * LIPASE (05/19/2025 11:11 AM CDT) LIPASE 55 13 - 60 U/L 05/19/2025 11:38 AM CDT [facility] Blood Venipuncture / Unknown 05/19/2025 11:11 AM CDT 05/19/2025 11:15 AM CDT Result [facility] Omega Gleason MD CHEMISTRY ORDERABLES Final Resu lt Performing Organization Address [facility] Co de Phone Number [facility] CLIA# [id number] [address] [place] [address] * Critical Care (05/19/2025 11:01 AM CDT) Narrative Omega Gleason MD - 05/19/2025 11:01 AM CDT Omega Gleason MD 05/19/2025 2:34 PM Critical Care Performed by: Omega Gleason MD Authorized by: Omega Gleason MD Critical care provider statement: Critical care time (minutes): 43 Critical care time was exclusive of: Separately billable procedures and treating other patients Critical care was necessary to treat or prevent imminent or life-threatening deterioration of the following conditions: Chest pain-non-ST elevation ND. Critical care was time spent personally by me on the following activities: Development of treatment plan with patient or surrogate, discussions with consultants, evaluation of patient's response to treatment, examination of patient, obtaining history from patient or surrogate, ordering and performing treatments and interventions, ordering and review of laboratory studies, ordering and review of radiographic studies, pulse oximetry, re-evaluation of patient's condition and review of old charts I assumed direction of critical care for this patient from another provider in my specialty: no Care discussed with: admitting provider Result [facility] Omega Gleason MD PROCEDURE/MINOR SURGICAL ORDERA BLES Final Result * TSH (05/01/2025 11:36 AM CDT) TSH 4.48 0.40 - 4.50 mIU/L [employer] [facility] Comment: Test Performed at: [place] [id number] [place] [phone] Fadia-Sarai Garg Vo Blood 05/01/2025 11:3 6 AM CDT 05/02/2025 2:52 AM CDT Fabian Melvin NUT GRINDER CHEMISTRY ORDERABLES Final Resu lt [facility] [phone] [facility] [place] [address] [address] [place] [phone] * (ABNORMAL) HEMOGLOBIN A1C (05/01/2025 11:36 AM CDT) HEMOGLOBIN A1C 6.5(H) <5.7 % of total Hgb Rakesh [facility] Comment: For someone without known diabetes, a hemoglobin A1c value of 6.5% or greater indicates that they may have diabetes and this should be confirmed with a follow-up test. For someone with known diabetes, a value <7% indicates that their diabetes is well controlled and a value greater than or equal to 7% indicates suboptimal control. A1c targets should be individualized based on duration of diabetes, age, comorbid conditions, and other considerations. Currently, no consensus exists regarding use of hemoglobin A1c for diagnosis of diabetes for children. ESTIMATED AVERAGE GLUCOSE (MG/DL) 140 mg/dL [facility] [place] ESTIMATED AVERAGE GLUCOSE (MMOL/L) 7.7 mmol/L [facility] [place] Comment: Test Performed at: [facility] [address] [place] [phone] Fadia-Robertu Britany Vo Blood 05/01/2025 11:3 6 AM CDT 05/02/2025 2:52 AM CDT [email or web address] NUT GRINDER CHEMISTRY ORDERABLES Final Resu lt [facility] [phone] [place] [address] [address] [place] [phone] * (ABNORMAL) LIPID PANEL (05/01/2025 11:36 AM CDT) CHOLESTEROL 214(H) <200 mg/dL [facility] HDL 56 > OR = 40 mg/dL [facility] TRIGLYCERIDE 82 <150 mg/dL [facility] LDL CALCULATED 140(H) mg/dL (calc) [facility] Comment: Reference range: <100 Desirable range <100 mg/dL for primary prevention; <70 mg/dL for patients with CHD or diabetic patients with > or = 2 CHD risk factors. LDL-C is now calculated using the Alicia calculation, which is a validated novel method providing better accuracy than the Friedewald equation in the estimation of LDL-C. Mohamud SOMMERS et al. CARSON. 2013;310(19): 1078-2637 (http://education.ITADSecurity/faq/HDI127) CHOL/HDL RATIO 3.8 <5.0 (calc) [facility]akes[facility] RichardsNannette [place] NON-HDL CHOLESTEROL 158(H) <130 mg/dL (calc) [facility] Comment: For patients with diabetes plus 1 major ASCVD risk factor, treating to a non-HDL-C goal of <100 mg/dL (LDL-C of <70 mg/dL) is considered a therapeutic option. Test Performed at: [place] [address] [address] [place] [phone] Lacho Garg Blood 05/01/2025 11:3 6 AM CDT 05/02/2025 2:52 AM CDT us Fabian Charles APN CHEMISTRY ORDERABLES Final Resu lt [facility] [phone] [place] [address] [address] [place] [phone] from Last 3 Months Insurance [facility] [place] [id number] Advance Directives For more information, please contact: [phone] * Full Code (Latest Code Status on File) Date Activated Date Inactivated Comments 05/19/2025 6:50 PM 05/22/2025 2:21 PM Care Teams Styrene Dehydration Reactor Operator Relationship Specialty Start Date End Date Johnathan Bardales DO [address] [place] [address] PCP - General Family Practice 05/01/25
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
--- OUTSIDE RECORDS SUMMARY | 2025-07-26 07:12 | XMS_ITS | Encounter Summary ---
Author Organization [facility] Address [address] [place] [address] Care Team Providers Care Research Statistician Name Role Phone Johnathan Bardales Primary Care Provider [phone] Encounter Details Date Type Department Care Team (Late Contact Info) Description 12/22/2004 Outpatient Historical [facility] [id number] [facility] [address] [facility] [place] [address] Gene Tai MD [address] [facility] [address] [facility] [place] [address] Social History Tobacco Use Types Packs/Day Years Used Date Smoking Tobacco: Never Assessed Sex and Gender Information Value Date Recorded Sex Assigned at Not on file Legal Sex Male 4:02 AM VP STRATEGY Gender Identity Not on file Sexual Orientation Not on file documented as of this encounter Plan of Treatment Upcoming Encounters Date Type Department Care Team (Late Contact Info) Description 09/03/2025 10:00 AM VP STRATEGY Office Visit [facility] Heart and Vascular - [address] [place] [address] Sina King DO [address] [place] [address] documented as of this encounter Visit Diagnoses Not on filedocumented in this encounter Additional Health Concerns Infection Onset Date Last Indicated Resolved Time R/O Respiratory 05/19/2025 05/19/2025 05/19/2025 1 0:45 PM CDT documented as of this encounter Care Teams Research Statistician Relationship Specialty Start Date End Date Johnathan Bardales DO [address] [place] [address] PCP - General Family Practice 05/01/25 documented as of this encounter
--- OUTSIDE RECORDS SUMMARY | 2025-07-26 07:12 | XMS_ITS | Encounter Summary ---
Author Organization [facility] Address [address] [place] [address] Care Team Providers Care Nursery School Teacher Name Role Phone eJffyTaeJohnathanrose marie Jeffers DO Primary Care Provider [phone] Encounter Details Date Type Department Care Team [...] worry about transportation for future doctor visits, crop picker medication, etc.? No 2024 Housing Stability [...] on file Legal Sex Male 4:02 AM LOCKSMITH HELPER Gender Identity Not on file Sexual Orientation Not on file documented as of this encounter Plan of Treatment Upcoming Encounters Date Type Department Care Team (Late st Contact Info) Description 09/03/2025 10:00 AM LOCKSMITH HELPER Office Visit [facility] Heart and Vascular - [address] [place] [address] Sina King DO [address] [place] [address] documented as of this encounter Visit Diagnoses Not on filedocumented in this encounter Care Teams Nursery School Teacher Relationship Specialty Start Date End Date Johnathan Bardales DO [address] [place] [address] PCP - General Family Practice 05/01/25 documented as of this encounter
[2025-07-26 07:16] LABS: Troponin I 0.165 ng/mL (0.000-0.034)
--- NOTE | 2025-07-26 07:19 | PM.IMHP2 ---
H&P: HPI History of Present Illness Date/Time: DATE OF SERVICE 07/26/25 07:19 Chief Complaint: CHEST pain Narrative: 55-year-old patient who apparently had a heart attack a month ago in [facility]. Is a smoker. Apparently was in his truck with a friend smoking marijuana and passed out. He was having chest pain. EKG shows inferior ST elevation Past medical history: Hypertension an myocardial infarction Past surgical history: A catheterization a month ago Family history: Denies CAD Social history: Smoker. Review of Systems Review of Systems: Comfortable Constitutional: Comments: Will build Eyes: Comments: No discharge ENT: Comments: no Epistaxis Cardiovascular: Comments: Chest pain syncope Respiratory: Comments: Some dyspnea exertion Gastrointestinal: Comments: No pain Musculoskeletal: Comments: No joint swelling Integumentary/Breasts: Comments: No rash Neurologic: Comments: Had syncope. Psychiatric: Comments: Denies depression Endocrine: Comments: No polyuria Hematologic/Lymphatic: Comments: No bleeding Allergic/Immunologic: Comments: No hives PMFSH Social History Social History Substance use type: crack/cocaine and methamphetamine Meds Home Medications and Allergies Home Medications ?Medication ?Instructions ?Recorded ?Confirmed ?Type No Home Medications 11/17/20 11/17/20 History Allergies Allergy/AdvReac Type Severity Reaction Status Date / Time No Known Allergies Allergy Verified 11/17/20 07:48 Vital Signs Vital Signs - 24 hr 07/26/25 06:29 07/26/25 06:39 07/26/25 06:41 Temperature 34.1 C L 36.6 C Pulse Rate 56 L 56 L 48 L Respiratory Rate 14 16 Blood Pressure 92/62 L 92/62 L Pulse Oximetry 96 99 Oxygen Delivery Room Air 07/26/25 07:01 07/26/25 07:02 07/26/25 07:02 Temperature Pulse Rate 41 L 50 L Respiratory Rate 9 L 13 Blood Pressure 100/65 Pulse Oximetry 96 95 95 Oxygen Delivery Room Air Exam Narrative: Well-built Const: General: well developed HENMT: Head: no hematomas Eyes: Conjunctivae: conjunctivae normal Neck: Neck: full ROM Chest: Chest palpation & inspection: normal palpation of entire chest wall Resp: Auscultation: clear to auscultation bilaterally Cardio: Rhythm: regular rhythm GI: Other: No distension Back/Spine/Pelvis: Back: No CVA tenderness Skin: Other: No Rash Neuro: General: patient oriented x3 Extrem: Other: No Edema Psych: Other: Normal behavior Results Labs Labs: Short CBC 07/26/25 Range/Units 06:44 WBC 14.5 H (4.5-10.0) K/mm3 Hgb 13.7 L (14.0-18.0) g/dL Hct 41.5 L (42.0-52.0) % Plt Count 408 H (150-375) k/mm3 BMP 07/26/25 06:44 Sodium 138 Potassium 4.2 Chloride 105 Carbon Dioxide 24 BUN 22 H Creatinine 1.24 Glucose 170 H Calcium 9.7 Cardiac Enzymes 07/26/25 Range/Units 06:44 Troponin I 0.165 H* (0.000-0.034) ng/mL Liver Function 07/26/25 Range/Units 06:44 Total Bilirubin 0.6 (0.2-1.3) mg/dL AST 29 (17-59) U/L ALT 37 (6-50) U/L Alkaline Phosphatase 125 (38-126) U/L Albumin 4.2 (3.5-5.1) g/dL Assessment and Plan Assessment and plan (1) ST elevation (STEMI) myocardial infarction: Code(s): I21.3 - ST elevation (STEMI) myocardial infarction of unspecified site Status: Acute Assessment and Plan: Inferior ST-elevation with a history of a stent placed a month ago Plan Risks and benefits of cardiac catheterization discussed with the patient agrees to proceed. Will proceed in emergency fashion
--- NOTE | 2025-07-26 07:25 | PC.NURSE ---
Cath team here for pt.
--- NOTE | 2025-07-26 07:29 | WPDCARDPROC ---
Cardiac Cath Procedure Note Date of procedure:: 07/26/25 Performing physician:: Janneth Mar MD Indication:: Inferior STEMI Brief clinical history:: 55-year-old patient who apparently had a heart attack a month ago in [facility]. Apparently was in his truck with a friend smoking marijuana and passed out. He was having chest pain. EKG shows inferior ST elevation Procedure Procedure performed:: 1-Moderate sedation that started at 740 a.m. and ended at 913 am with total duration 93 minutes using 4mg of Versed and 25mcg fentanyl. The registered nurse was alecia lane 2-Selective left and right coronary angiogram. 3-Left heart catheterization with measurement of LVEDP and measurement of gradient across aortic valve. 4-LV angiogram. 5-balloon angioplasty circumflex mid portion. 6-balloon angioplasty of obtuse marginal total stent occlusion. 7-insertion of intra-aortic balloon pump from left common femoral artery site. 4-Right common femoral arterial angiogram. 5-Deployment of 6 Omani Angio-Seal to the right femoral artery. The right femoral artery was closed due to high stick. 6-left common femoral artery angiogram was done. Sedation/Medication given:: Moderate sedation. Access site:: Right common femoral artery. This was done for the angiogram and intervention. It was closed with an Angio-Seal because of high stick. Left common femoral artery. This was used for balloon pump. Estimated blood loss:: 10cc Procedure note:: After informed consent patient was brought in to screedman/laborer with the was draped and prepped in usual manner. Moderate sedation was given and the right groin was infiltrated using 1% lidocaine. six Omani sheath was obtained using micropuncture needle and the modified Seldinger technique. Selective right coronary angiogram was done using JR4 guide catheter and selective right coronary angiogram was done. Subsequently we used EBU 4 and selective left coronary angiogram was done with. Pediatric Psychiatrist 150 wire was advanced with difficulty to the distal left circumflex artery. Again we tried to pass 2.5 x 15 balloon without success as we got stuck at the site of OM stent. The obtuse marginal stent was protruding into the lumen of left circumflex artery preventing passing balloon. We managed to pass 1.25 x 15 balloon and inflated it to 15 atmospheres with 2 inflations for 25 seconds restoring blood flow to the left circumflex artery. Then I passed another Pediatric Psychiatrist 150 wire to the obtuse marginal branch. Then I used a small balloon 1.25 and inflated it the obtuse marginal branch restoring blood flow. Subsequently I tried to pass a larger balloon 2.5 x 15 to the left circumflex artery but we would get stuck at the site of OM protrusion into the left circumflex artery. I used the 3rd wire to try to passed behind the stent to the main left circumflex artery and then tried with the balloon and could not pass it. It I removed that 3rd pilot boat captain 150 wire and passed whisper wire and again try to balloon the left circumflex artery however could not pass the 2.5 mm balloon we could not pass even the 1.25 mm. At this time the JYOTHI flow was [address] segments came down and at this time we proceeded with right common femoral artery angiogram I noticed that the stick was high and I decided to close it with an Angio-Seal. Subsequently I accessed the left common femoral artery and obtained 6 Omani sheath and then five Omani pigtail was advanced into the left ventricle with measurement of LVEDP and measurement of the gradients across aortic valve. LV angiogram was done as well. Intra-aortic balloon pump was inserted through the left common femoral artery and secured in place. During the procedure the patient had 1 episode of ventricular tachycardia and was shocked restoring sinus rhythm. Findings:: 1- left coronary artery is a large artery that divides into large LAD, large circumflex artery. Left main is unremarkable 2- left anterior descending artery is a large artery that runs and wraps around the apex. Distally 50%. There is a medium size diagonal branch has 60% in the mid segment. 3- leftcircumflex artery is a large artery and codominant. It was 100% occluded in the mid segment. I noticed that the OM stent protrudes into the lumen of the left circumflex artery. It is occupying the whole diameter of the left circumflex artery. 4- right coronary artery is medium in caliber with diffuse irregularities. 5- LVEDP was 35 mm Hg and no gradient across aortic valve. 6- opening arterial pressure was 107/65 and closing pressure was 93/74 7- right femoral artery angiogram shows no significant disease in the right common femoral artery. However the stick was high. 8-left common femoral artery angiogram shows no significant disease in the left common femoral artery. 9-LV angiogram shows basal inferior hypokinesis but ejection fraction 60%. Conclusion:: -totally occluded mid left circumflex artery. Mechanism of the occlusion is that the OM stent is protruding into the lumen of the left circumflex artery occupying the whole diameter of the lumen of the left circumflex artery with stent thrombosis. Inability to open the left circumflex artery despite using smallest balloon. Assessment and Plan Assessment and plan (1) ST elevation (STEMI) myocardial infarction: Code(s): I21.3 - ST elevation (STEMI) myocardial infarction of unspecified site Status: Acute Plan -continue Integrilin. -[facility] was called and I spoke to CT surgeon at [facility] and informed that this patient will need an emergent bypass to the left circumflex artery, OM and if possible diagonal branch. However the main focus is the left circumflex artery proper. -patient needs to be transferred in an emergency fashion.
--- NOTE | 2025-07-26 07:30 | WPDMODSED ---
Moderate Sedation Note-Pt Data Patient Data Diagnosis: Inferior STEMI Present Complaint: Chest pain Procedure to be performed/Plan: Coronary Allergies Allergy/AdvReac Type Severity Reaction Status Date / Time No Known Allergies Allergy Verified 11/17/20 07:48 Home Medications ?Medication ?Instructions ?Recorded ?Confirmed ?Type No Home Medications 11/17/20 11/17/20 History Current Medications: Active Medications Sodium Chloride (Normal Saline Iv) 1,000 mls @ 999 mls/hr IV CONT .Q1H1M STA Stop: 07/26/25 07:38 Last Infusion: 07/26/25 07:26 Dose: Infused Sedation/Anesthesia: No previous sedation/anesthesia problems (including family history). [facility] Social History Social History Substance use type: crack/cocaine and methamphetamine Mod Sed Physical Exam Physical Exam Pre Procedural Exam: Normal: Appearance, Eyes, Ears, Nose, Neck, Throat, Airway, Lungs, Heart Size, Heart Rate, Heart Rhythm, Neuro Exam, Abdomen, Liver, Kidneys, Spleen, Breasts, Genitalia, Extremities and Skin Hours since solid foods: 8 Hours since liquid intake: 8 Mallampati Classification: class 1 Internal Medicine - PN: Obj Da Vital Signs Vital Signs: Vital Signs - 24 hr 07/26/25 06:29 07/26/25 06:39 07/26/25 06:41 Temperature 34.1 C L 36.6 C Pulse Rate 56 L 56 L 48 L Respiratory Rate 14 16 Blood Pressure 92/62 L 92/62 L Pulse Oximetry 96 99 Oxygen Delivery Room Air 07/26/25 07:01 07/26/25 07:02 07/26/25 07:02 Temperature Pulse Rate 41 L 50 L Respiratory Rate 9 L 13 Blood Pressure 100/65 Pulse Oximetry 96 95 95 Oxygen Delivery Room Air 07/26/25 07:05 07/26/25 07:06 07/26/25 07:09 Temperature Pulse Rate 44 L 51 L 45 L Respiratory Rate 13 10 L 11 L Blood Pressure 87/65 L 91/64 L 89/73 L Pulse Oximetry 95 96 98 Oxygen Delivery 07/26/25 07:10 07/26/25 07:12 07/26/25 07:15 Temperature Pulse Rate 49 L 51 L 46 L Respiratory Rate 14 12 11 L Blood Pressure 95/72 L 94/71 L 97/82 L Pulse Oximetry 96 96 98 Oxygen Delivery 07/26/25 07:16 07/26/25 07:17 07/26/25 07:21 Temperature Pulse Rate 45 L 46 L 43 L Respiratory Rate 11 L 12 11 L Blood Pressure 85/61 L 80/64 L Pulse Oximetry 97 98 Oxygen Delivery Intake/Output Intake/Output: Intake & Output 07/23/25 07/24/25 07/25/25 07/26/25 23:59 23:59 23:59 23:59 Intake Total 1000 Balance 1000 Meds/Results Medications: Active Medications Generic Name Dose Route Start Last Admin Trade Name Freq PRN Reason Stop Dose Admin Sodium Chloride 1,000 mls @ 999 mls/hr 07/26/25 06:38 07/26/25 07:26 Normal Saline Iv IV CONT 07/26/25 07:38 Infused .Q1H1M STA Infusion Radiology Results: ITS Impressions Head CT 07/26/25 06:56 IMPRESSION: 1. Normal brain. Labs 07/26/25 06:44 07/26/25 06:44 Labs: Laboratory Results - last 24 hr 07/26/25 06:44 WBC 14.5 H RBC 4.43 L Hgb 13.7 L Hct 41.5 L MCV 93.7 MCH 30.9 MCHC 33.0 RDW 12.4 Plt Count 408 H MPV 9.1 Immature Gran % (Auto) 0.3 Neut % (Auto) 74.5 H Lymph % (Auto) 18.6 Page % (Auto) 5.0 Eos % (Auto) 0.9 Baso % (Auto) 0.7 Lymph # (Auto) 2.69 Page # (Auto) 0.7 H Eos # (Auto) 0.1 Baso # (Auto) 0.1 Abs Immat Gran (auto) 0.05 H Absolute Neuts (auto) 10.8 H Absolute Nucleated RBC 0.000 Nucleated RBC % 0.0 PT 14.2 INR 1.1 APTT 24.5 Sodium 138 Potassium 4.2 Chloride 105 Carbon Dioxide 24 Anion Gap 9 BUN 22 H Creatinine 1.24 Estim Creat Clear Calc 58 Estimated GFR > 60 Glucose 170 H Calcium 9.7 Total Bilirubin 0.6 AST 29 ALT 37 Alkaline Phosphatase 125 Troponin I 0.165 H* Total Protein 7.4 Albumin 4.2 Lipase 106 ASA Classification/Sedation ASA Classification/Sedation ASA Class: I Emergent: No Risks: Risks, benefits and alternatives explained and patient/family accepted plan for sedation. Patient re-evaluated immediately prior to sedation.
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
--- OUTSIDE RECORDS SUMMARY | 2025-07-26 07:35 | XMS_ITS | Clinical Summary ---
Author Organization [facility] Address [address] [place] [address] Phone Care Team Providers Care Recovery Advocate Name Role Phone Tae Bardalesemprasanth Jeffers DO Primary Care Provider [phone] Allergies Active Allergy Reactions Criticality Noted Date [...] Diagnosed Date Coronary artery disease invo lving [place] coronary artery of [place] heart without angina pectoris 05/22/2025 Hyperlipidemia 05/21/2025 S/P coronary artery stent placement 05/21/2025 Overview (05/21/2025): 05/21/25 MILLICENT x 1 OM 1, Dr. Gabriel [facility]HW Chest pain 05/20/2025 Unstable angina 05/19/2025 Non-ST elevation OK (NSTEMI) 05/19/2025 Benign hypertension 05/19/2025 Shortness of breath 05/19/2025 Tobacco dependence 05/19/2025 Dental abscess 10/31/2012 Encounters Date Type Department Care Team Description 07/24/2025 External Device Data STL ABSTRACTION Provider, Abstract 07/24/2025 External Device Data STL ABSTRACTION Provider, Abstract 07/17/2025 External Device Data STL ABSTRACTION Provider, Abstract 07/11/2025 Results Follow-Up [facility] Heart and Vascular - [address] [place] [address] Dara Hidalgo PA-C HOLTER MONITOR 07/10/2025 9:00 AM FOOT CASTER - 07/10/2025 11:59 PM FOOT CASTER Hospital [facility] Support Services Cardiac [address] [place] [address] Clifton Andres MD Discharge Disposition: Home or Self Care 06/19/2025 External Device Data STL ABSTRACTION Provider, Abstract 06/19/2025 External Device Data STL ABSTRACTION Provider, Abstract 06/19/2025 External Device Data STL ABSTRACTION Provider, Abstract 06/01/2025 10:40 AM CDT Office Visit [facility] Heart and Vascular - [address] [place] [address] Mahogany Rose PA Non-ST elevation [place] (NSTEMI) (CMS/[facility]ERLY [facility]) (Primary Dx); Coronary artery disease involving [place] coronary artery of [place] heart without angina pectoris; Benign hypertension; Mixed hyperlipidemia; Tobacco dependence 05/23/2025 External Device Data STL ABSTRACTION Provider, Abstract 05/23/2025 External Device Data STL ABSTRACTION Provider, Abstract 05/22/2025 11:30 AM CDT - 05/22/2025 11:59 PM CDT Hospital En[facility] Support Services Cardiac [address] [place] [address] Discharge Disposition: Home or Self Care 05/22/2025 External Device Data STL ABSTRACTION Provider, Abstract 05/21/2025 9:00 AM CDT - 05/21/2025 9:40 AM CDT Surgery [facility] Geospatial Image Analyst [address] [place] [address] Heri Gabriel MD Left heart cath 05/19/2025 11:03 AM CDT - 05/22/2025 12:05 PM CDT Hospital Encounter [facility] Cardiac Telemetry [address] [place] [address] Omega Gleason MD Parker, Jaya, MD Qureshi, Rocky Rossi MD Non-ST elevation [place] (NSTEMI) ([facility]) Discharge Disposition: Home or Self Care 05/19/2025 Travel 05/15/2025 External Device Data STL ABSTRACTION Provider, Abstract 05/10/2025 Nurse Triage [facility] [address] [place] [address] Johnathan Bardales DO 05/01/2025 11:00 AM CDT Office Visit [facility] [address] [place] [address] Johnathan Bardales DO Shipp, Daniel, APN Primary [...] worry about transportation for future doctor visits, vegetable picker medication, etc.? No 2024 Housing Stability [...] on file Legal Sex Male 4:02 AM FOOT CASTER Gender Identity Not on file Sexual Orientation [...] st Contact Info) Description 09/03/2025 10:00 AM FOOT CASTER Office Visit [facility] Heart and Vascular - [address] [place] [address] Sina King DO [address] [place] [address] Health Maintenance Due Date Last [...] Completed 12/27/2024 Medical Devices Implanted Type Area Sports Psychologist Device Identifier Shelf Expiration Date Model / Serial / Lot Dev Closure Angioseal 6fr Vip [id number] - [id number] Implanted:Qty : 1 on 05/21/2025 by Heri Gabriel MD at [facility] Closure Device N/A: Groin TERUMO- CARDIOVASC SYS [id number] 01/16/2026 [id number] / / [id number] Stent [employer] [place] [id number] [facility] Drug Eluting [id number] - [id number] Implanted:Qty : 1 on 05/21/2025 by Heri Gabriel MD at [facility] Stent N/A: Coronary [employer] 11/16/2025 [id number] / / [id number] Procedures Procedure Name Priority Date/Time Associated Diagnosis [...] INTERFACE SYSTEM - 06/01/2025 2:08 PM CDT [address] [address] Test Date: 2025-05-22 Pat Name: SOCORRO URBANO Department: 17 Room: [address] [place] [address] Gender: M 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1970 Requested By: OMEGA GLEASON Order Number: [id number] Reading MD: Karlo Ramos MD Measurements Intervals Deary Rate: 94 P: 85 TN: 170 QRS: -81 QRSD: 85 T: 97 QT: 344 QTc: 432 Interpretive Statements Sinus rhythm Right atrial enlargement Left atrial enlargement Inferior myocardial infarction , of indeterminate age Electronically Signed On 06-01-2025 14:08:46 CDT by Karlo Ramos MD Procedure Note Karlo Ramos MD - 06/01/[address] [address] Test Date: 2025-05-22 Pat Name: SOCORRO URBANO Department: 17 Room: [address] [place] [address] Gender: M 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1970 Requested By: OMEGA GLEASON Order Number: [id number] Reading MD: Maci GREGORIO Measurements Intervals Deary Rate: 94 P: 85 TN: 170 QRS: -81 QRSD: 85 T: 97 [...] - 9.8 K/uL 05/22/2025 4:16 AM CDT [employer] [facility] Comment:ANC = 6.45K/uL RBC 5.27 4.50 - 5.40 M/uL 05/22/2025 4:16 AM CDT [employer] [facility] HEMOGLOBIN 16.0 13.6 - 16.5 g/dL 05/22/2025 4:16 AM CDT [employer] [facility] HEMATOCRIT 48.8(H) 40.0 - 48.0 % 05/22/2025 4:16 AM CDT [employer] [facility] MCV 92.6 82.0 - 99.0 fL 05/22/2025 4:16 AM CDT [employer] [facility] MCH 30.4 27.2 - 32.6 pg 05/22/2025 4:16 AM CDT [employer] [facility] MCHC 32.8 31.5 - 35.5 g/dL 05/22/2025 4:16 AM CDT [employer] [facility] RDW 11.6 11.5 - 14.5 % 05/22/2025 4:16 AM CDT [employer] [facility] RDW-STDEV 39.8 37.1 - 48.7 fL 05/22/2025 4:16 AM CDT [employer] [facility] [place] PLATELETS 356(H) 140 - 350 K/uL 05/22/2025 4:16 AM CDT [employer] [facility] [place] MPV 9.1(L) 9.3 - 12.4 fL 05/22/2025 4:16 AM CDT [employer] [facility] [place] NEUTROPHILS 64 % 05/22/2025 4:16 AM CDT [employer] [facility] [place] LYMPHOCYTES 23 % 05/22/2025 4:16 AM CDT [employer] [facility] [place] MONOCYTES 9 % 05/22/2025 4:16 AM CDT [employer] [facility] [place] EOSINOPHILS 3 % 05/22/2025 4:16 AM CDT [employer] [facility] [place] BASOPHILS 1 % 05/22/2025 4:16 AM CDT [employer] [facility] [place] IMMATURE GRANULOCYTES 1 % 05/22/2025 4:16 AM CDT [employer] [facility] [place] NEUTROPHIL ABSOLUTE 6.45 1.90 - 7.00 K/uL 05/22/2025 4:16 AM CDT [employer] [facility] [place] LYMPHOCYTE ABSOLUTE 2.30 0.70 - 4.50 K/uL 05/22/2025 4:16 AM CDT [employer] [facility] [place] MONOCYTE ABSOLUTE 0.86 0.10 - 1.30 K/uL 05/22/2025 4:16 AM CDT [employer] [facility] [place] EOSINOPHIL ABSOLUTE 0.34 0.00 - 0.70 K/uL 05/22/2025 4:16 AM CDT [employer] [facility] [place] BASOPHILS ABSOLUTE 0.06 0.00 - 0.20 K/uL 05/22/2025 4:16 AM CDT [employer] [facility] [place] IMMATURE GRANULOCYTES ABSOLUTE 0.05(H) 0.00 - 0.03 K/uL 05/22/2025 4:16 AM CDT [employer] [facility] [place] Blood Venipuncture / Unknown 05/22/2025 3:49 AM CDT 05/22/2025 4:14 AM CDT us Rocky Coles MD HEMATOLOGY ORDERABLES Final Result [facility] [place] CLIA# [id number] [address] [place] [address] * (ABNORMAL) COMPREHENSIVE METABOLIC PANEL (05/22/2025 3:49 AM CDT) Only the most recent of5 resultswithin the time period is included. SODIUM 140 136 - 145 mmol/L 05/22/2025 4:44 AM CDT [employer] [facility] [place] POTASSIUM 3.7 3.5 - 4.9 mmol/L 05/22/2025 4:44 AM CDT [facility] [place] CHLORIDE 105 98 - 107 mmol/L 05/22/2025 4:44 AM CDT [facility] [place] CO2 26 22 - 29 mmol/L 05/22/2025 4:44 AM CDT [facility] CALCIUM 9.0 8.6 - 10.2 mg/dL 05/22/2025 4:44 AM T [facility] BUN 21(H) 6 - 20 mg/dL 05/22/2025 4:44 AM CDT [facility] CREATININE 0.86 0.67 - 1.17 mg/dL 05/22/2025 4:44 AM CDT [facility] GLUCOSE 156(H) 74 - 99 mg/dL 05/22/2025 4:44 AM T [facility] TOTAL PROTEIN 6.8 6.0 - 8.3 g/dL 05/22/2025 4:44 AM CDT [facility] ALBUMIN 3.9 3.4 - 4.8 g/dL 05/22/2025 4:44 AM CDT [facility] BILIRUBIN TOTAL 0.4 0.0 - 1.0 mg/dL 05/22/2025 4:44 AM CDT [employer] [facility] ALKALINE PHOSPHATASE 112 40 - 129 U/L 05/22/2025 4:44 AM T [facility] AST 32 12 - 38 U/L 05/22/2025 4:44 AM CDT [facility] ALT 21 <41 U/L 05/22/2025 4:44 AM CDT [facility] GFR >60 >=60 mL/min/1.7 3 sq meter 05/22/2025 4:44 AM CDT [facility] [employer] [facility] Comment:eGFR calculated with 2020 CKD-EPI equation. Vegetarian diet, extremely high or low muscle mass, and may affect results. Cystatin C with Glomerular Filtration Rate is a suitable alternative for these patients. ANION GAP 9 8 - 16 mmol/L 05/22/2025 4:44 AM CDT [facility] Blood Venipuncture / Unknown 05/22/2025 3:49 AM CDT 05/22/2025 4:14 AM CDT Rocky Coles MD CHEMISTRY ORDERABLES F inal Result Performing Organization Address [facility]/ZIP Co de Phone Number [facility] CLIA# [id number] [address] [place] [address] * (ABNORMAL) POC GLUCOSE (05/21/2025 5:43 PM CDT) Only the most recent of8 resultswithin the time period is included. GLUCOSE POC 141(H) 74 - 99 mg/dL 05/21/2025 5:43 PM CDT [facility] SPECIMEN SOURCE, GLUCOSE POC Whole Blood 05/21/2025 5:43 PM CDT [facility] Blood, whole 05/21/2025 5:43 PM CDT 05/21/2025 5:52 PM CDT Rocky Coles MD POINT OF CARE TESTING Final Result Performing Organization Address [facility]/ZIP Co de Phone Number [facility] CLIA# [id number] [address] [place] [address] * ECHO COMPLETE - CONTRAST AND STRAIN IF INDICATED (05/21/2025 1:11 PM CDT) EJECTION FRACTION 60 INTERFACE SYSTEM 05/21/2025 12:1 9 PM CDT Narrative INTERFACE SYSTEM - 05/21/2025 3:28 PM CDT [address] [address] [email or web address] Transthoracic Echocardiogram Patient: Socorro Urbano Study ID: [id number] Gender: Jeanna : 1970 Age: 55 Race: JOSE Height 172.7cm Study Date: 05/21/2025 Weight: 70.9kg Access. #: [id number] BP: 160 / 95 *Referring Physician:* Mackenzie Samuel *Ordering Physician:* Mackenzie Samuel *Instructional Technology Coordinator:Josefa Quinn fiberglass container winding operator: Nurse: Indications: Acute Coronary Syndrome. History: Risk [...] Bedside. Prepared and Electronically Authenticated Vaughn Rodriguez [id number] Procedure Note Vaughn Rodriguez DO - 05/21/2025 [place] [email or web address] [email or web address] Transthoracic Echocardiogram Patient: Socorro Urbano Study ID: [id number] Gender: M : 1970 Age: 55 Race: CAU Height 172.7cm Study Date: 05/21/2025 Weight: 70.9kg Access. #: [id number] BP: 160 / 95 *Referring Physician:* Mackenzie Samuel *Ordering Physician:* Mackenzie Samuel *Instructional Technology Coordinator:* Josefa Nails fiberglass container winding operator: Nurse: Indications: Acute Coronary Syndrome. History: Risk [...] Bedside. Prepared and Electronically Authenticated Vaughn Rodriguez [id number]:27:50 us Mackenzie MOORE ORDERABLES Bridgett martinez Result INTERFACE SYSTEM Refer to clinic/hospital department * LEFT HEART CATH, PERCUTANEOUS CORONARY INTERVENTION (05/21/2025 9:15 AM CDT) 05/21/2025 8:36 AM CDT Narrative [facility] [address] - 05/21/2025 11:15 AM CDT Successful stenting of the OM1 stenosis with 2.75 x 35 mm drug-eluting stent Procedure Details [place], [place] Geospatial Image Analyst Procedure Note (see [employer] or dictated note for full details) Patient Name: Socorro Urbano : 1970 Date of Service: 05/21/2025 Procedures: Conscious sedation with physician supervision Left heart catheterization with coronary angiography CPT code 90662 Ultrasound guided arterial access, cpt code 25960 PCI/stenting of the 75% long OM1 stenosis [...] Gabriel MD CUP CATH ORDERABLES Final Result [facility] HEART AND VASC PTS [address] DOS SANTOS# [id number] [address] [place] [id number] * (ABNORMAL) TROPONIN (05/21/2025 3:52 AM CDT) TROPONIN T, 5TH GEN 243(HH) <=15 ng/L 05/21/2025 10:18 AM CDT [facility] [employer] [facility] Blood Venipuncture / Unknown 05/21/2025 3:52 AM CDT 05/21/2025 4:22 AM CDT Narrative [facility] [employer] [facility] - 05/21/2025 10:18 AM CDT Troponin elevated. us Dara Hidalgo PA-C CHEMISTRY ORDERABLES Final Result Performing Organization Address City/[facility]/ZIP Co de Phone Number [facility] [employer] [facility] CLIA# [id number] [address] [place] [address] * MAGNESIUM LEVEL (05/21/2025 3:52 AM CDT) Pathologist [facility] MAGNESIUM 1.9 1.5 - 2.5 mg/dL 05/21/2025 4:51 AM CDT [facility] [employer] [facility] Blood Venipuncture / Unknown 05/21/2025 3:52 AM CDT 05/21/2025 4:22 AM CDT Ken Rodrigues MD CHEMISTRY ORDERABLES Fin al Result Performing Organization Address City/[facility]/ZIP Co de Phone Number [facility] [employer] [facility] CLIA# [id number] [address] [place] [id number] * XR CHEST PA OR AP 1 VW (05/21/2025 3:19 AM CDT) Only the most recent of2 resultswithin the time period is included. Anatomical Region Laterality Modality Chest Computed Radiogr aphy 05/21/2025 3:19 AM CDT Impressions 05/21/2025 8:04 AM CDT IMPRESSION: 1. Normal chest. DICTATION LOCATION: Location [address] [place] [address] Narrative 05/21/2025 8:04 AM CDT XR CHEST [...] IMPRESSION: 1. Normal chest. DICTATION LOCATION: Location [address] [place] [address] Ken Rodrigues MD DIAGNOSTIC IMAGING ORDER JONA Final Result * (ABNORMAL) TROPONIN BASELINE, 5TH GEN (05/20/2025 3:57 AM CDT) Only the most recent of2 resultswithin the time period is included. TROPONIN T, BASELINE 5TH GEN 312(HH) <=15 ng/L 05/20/2025 8:43 AM CDT [facility] Blood Venipuncture / Unknown 05/20/2025 3:57 AM CDT 05/20/2025 4:12 AM CDT Narrative [facility] - 05/20/2025 8:43 AM CDT Troponin elevated. Vaughn Rodriguez DO CHEMISTRY ORDERABLES Fi nal Result [facility] CLIA# [id number] [address] [place] [address] * (ABNORMAL) LIPID RFLX (05/20/2025 3:57 AM CDT) CHOLESTEROL 178 <200 mg/dL 05/20/2025 5:[facility] TRIGLY[facility]ERIDE 125 <150 mg/dL 05/20/2025 5:08 AM T [facility] HDL 38(L) 40 - 59 mg/dL 05/20/2025 5:08 AM T [facility] LDL CALCULATED 115(H) <100 mg/dL 05/20/2025 5:08 AM T [facility] NON-HDL CHOLESTEROL 140(H) <130 mg/dL 05/20/2025 5:08 AM CDT [facility] Blood Venipuncture / Unknown 05/20/2025 3:57 AM CDT 05/20/2025 4:12 AM CDT Narrative [facility] - 05/20/2025 5:08 AM CDT TOTAL CHOLESTEROL [...] . Mackenzie MOORE CHEMISTRY ORDERABLES Final Result [facility] CLIA# [id number] [address] [place] [address] * CTA CHEST W AND/OR WO CONTRAST [...] 135(HH) <=15 ng/L 05/19/2025 6:45 PM CDT [facility] [employer] [facility] DELTA 6HR TROPONIN T 119(HH) See Interp. 05/19/2025 6:45 PM CDT [facility] [employer] [facility] Blood Venipuncture / Unknown 05/19/2025 5:40 PM CDT 05/19/2025 6:04 PM CDT Narrative [facility] - 05/19/2025 6:45 PM CDT Troponin elevated. Delta significant change. Omega Gleason MD CHEMISTRY ORDERABLES Final Resu lt [facility] [employer] [facility] CLIA# [id number] [address] [place] [address] * RESPIRATORY PATHOGEN PCR PANEL (05/19/2025 3:52 PM CDT) Pathologist [facility] Respiratory Pathogen PCR Panel NOT DETECTED No respiratory pathogen nucleic acids detected. 05/19/2025 10:45 PM CDT [facility] [employer] [facility] COVID-19 PCR NOT DETECTED Not Detected 05/19/2025 10:45 PM CDT [facility] Upper Respiratory ENTIRE NASOPHARYNX / Unknown Collection / Unknown 05/19/2025 3:52 PM CDT 05/19/2025 3:58 PM CDT Narrative [facility] - 05/19/2025 10:45 PM CDT The Film [...] MICROBIOLOGY - GENER AL ORDERABLES Final Result [facility] CLIA# [id number] [address] [place] [address] * (ABNORMAL) TROPONIN 2 HR, 5TH GEN (05/19/2025 1:08 PM CDT) TROPONIN T, 2 HR 5TH GEN 42(H) <=15 ng/L 05/19/2025 1:35 PM CDT [facility] [employer] [facility] DELTA 2HR TROPONIN T 26(HH) See Interp. 05/19/2025 1:35 PM CDT [facility] [employer] [facility] Blood Venipuncture / Unknown 05/19/2025 1:08 PM CDT 05/19/2025 1:11 PM CDT [facility] [employer] [facility] - 05/19/2025 1:35 PM CDT Troponin elevated. Delta significant change. us Omega Gleason MD CHEMISTRY ORDERABLES Final Resu lt [facility] [employer] [facility] CLIA# [id number] [address] [place] [address] * D-DIMER (05/19/2025 12:09 PM CDT) Pathologist [facility] D-DIMER QUANT <0.27 <0.50 ug/mL FEU 05/19/2025 12:39 PM CDT [facility] [employer] [facility] Blood Venipuncture / Unknown 05/19/2025 12:09 PM CDT 05/19/2025 12:11 PM CDT [facility] [employer] [facility] - 05/19/2025 12:39 PM CDT D-Dimer assay [...] FEU 71-80 years: 0.71-0.80 ug/mL FEU Result [facility] Omega Gleason MD HEMATOLOGY ORDERABLES Final Res ult Performing Organization Address City/[facility]/ZIP Co de Phone Number [facility] [employer] [facility] CLIA# [id number] [address] [place] [address] * LIPASE (05/19/2025 11:11 AM CDT) LIPASE 55 13 - 60 U/L 05/19/2025 11:38 AM CDT [facility] [employer] [facility] Blood Venipuncture / Unknown 05/19/2025 11:11 AM CDT 05/19/2025 11:15 AM CDT Result [facility] Omega Gleason MD CHEMISTRY ORDERABLES Final Resu lt Performing Organization Address [facility] Co de Phone Number [facility] [employer] [facility] CLIA# [id number] [address] [place] [address] * Critical Care (05/19/2025 11:01 AM CDT) [...] of the following conditions: Chest pain-non-ST elevation OK. Critical care was time spent personally by [...] no Care discussed with: admitting provider Result [facility] Omega Gleason MD PROCEDURE/MINOR SURGICAL ORDERA BLES Final Result * TSH (05/01/2025 11:36 AM CDT) TSH 4.48 0.40 - 4.50 mIU/L [facility]ided Interventions[facility]ero [facility] Comment: Test Performed at: [place] [id number] Administration [place] [phone] Fadia-Sarai Garg Vo Blood 05/01/2025 11:3 6 AM CDT 05/02/2025 2:52 AM CDT Fabian Melvin INPATIENT PHARMACIST CHEMISTRY ORDERABLES Final Resu lt [facility] [phone] [place] [address] Administration [place] [phone] * (ABNORMAL) HEMOGLOBIN A1C (05/01/2025 11:36 AM CDT) HEMOGLOBIN A1C 6.5(H) <5.7 % of total Hgb Rakesh [facility] [place] Comment: For someone without known diabetes, [...] children. ESTIMATED AVERAGE GLUCOSE (MG/DL) 140 mg/dL [facility] Energy[facility]ann[facility] Sutton ESTIMATED AVERAGE GLUCOSE (MMOL/L) 7.7 mmol/L [employer] [facility] Comment: Test Performed at: [facility] [address] [address] [place] [phone] Fadia-Robertu Britany Vo Blood 05/01/2025 11:3 6 AM CDT 05/02/2025 2:52 AM CDT Slated INPATIENT PHARMACIST CHEMISTRY ORDERABLES Final Resu lt [facility] [phone] [place] [address] Administration [place] [phone] * (ABNORMAL) LIPID PANEL (05/01/2025 11:36 AM CDT) CHOLESTEROL 214(H) <200 mg/dL [facility]annette [place] HDL 56 > OR = 40 mg/dL [facility] TRIGLYCERIDE 82 <150 mg/dL [facility] LDL CALCULATED 140(H) mg/dL (calc) [facility] Comment: Reference range: <100 Desirable range <100 mg/dL for primary prevention; <70 mg/dL for patients with CHD or diabetic patients with > or = 2 CHD risk factors. LDL-C is now calculated using the Alicia calculation, which is a validated novel method providing better accuracy than the Friedewald equation in the estimation of LDL-C. Mohamud SOMMERS et al. CARSON. 2013;310(19): 7785-3522 (http://education.baseclick/faq/WHJ742) CHOL/HDL RATIO 3.8 <5.0 (calc) Rakesh RichardsNannette Sutton NON-HDL CHOLESTEROL 158(H) <130 mg/dL (calc) [facility] Comment: For patients with diabetes plus 1 major ASCVD risk factor, treating to a non-HDL-C goal of <100 mg/dL (LDL-C of <70 mg/dL) is considered a therapeutic option. Test Performed at: [place] [address] Administration [place] [phone] Lacho Garg Blood 05/01/2025 11:3 6 AM CDT 05/02/2025 2:52 AM CDT us Fabian Charles APN CHEMISTRY ORDERABLES Final Resu lt [facility] [phone] [place] [address] Administration [place] [phone] from Last [address] [facility] [place] [phone] Advance Directives For more information, please contact: [phone] * Full Code (Latest Code Status on File) Date Activated Date Inactivated Comments 05/19/2025 6:50 PM 05/22/2025 2:21 PM Care Teams Recovery Advocate Relationship Specialty Start Date End Date Johnathan Bardales DO [address] [place] [address] PCP - General Family Practice 05/01/25
--- OUTSIDE RECORDS SUMMARY | 2025-07-26 07:35 | XMS_ITS | Encounter Summary ---
Author Organization [facility] Address [address] [place] [address] Care Team Providers Care Sleep Medicine Physician Name Role Phone Johnathan Bardales Primary Care Provider [phone] Encounter Details Date Type Department Care Team (Late Contact Info) Description 12/22/2004 Outpatient Historical [facility] [id number] [place] [facility] [address] [address] [facility] [place] [address] Gene Tai MD [address] [address] [facility] [place] [address] Social History Tobacco Use Types Packs/Day Years Used Date Smoking Tobacco: Never Assessed Sex and Gender Information Value Date Recorded Sex Assigned at Not on file Legal Sex Male 4:02 AM 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 Gender Identity Not on file Sexual Orientation Not on file documented as of this encounter Plan of Treatment Upcoming Encounters Date Type Department Care Team (Late Contact Info) Description 09/03/2025 10:00 AM 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 PROFESSOR Office Visit [facility] Heart and Vascular - [address] [place] [address] Sina King DO [address] [place] [address] documented as of this encounter Visit Diagnoses Not on filedocumented in this encounter Additional Health Concerns Infection Onset Date Last Indicated Resolved Time R/O Respiratory 05/19/2025 05/19/2025 05/19/2025 1 0:45 PM CDT documented as of this encounter Care Teams Sleep Medicine Physician Relationship Specialty Start Date End Date Johnathan Bardales DO [address] [place] [address] PCP - General Family Practice 05/01/25 documented as of this encounter
--- OUTSIDE RECORDS SUMMARY | 2025-07-26 07:36 | XMS_ITS | Encounter Summary ---
Author Organization [facility] Address [address] [place] [address] Care Team Providers Care Service Administrator Name Role Phone JeffyTaeJohnathanrose marie Jeffers DO Primary Care Provider [phone] Encounter Details Date Type Department Care Team [...] worry about transportation for future doctor visits, rock picker medication, etc.? 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 Heart and Vascular - [address] [place] [address] Sina King DO [address] [place] [address] documented as of this encounter Visit Diagnoses Not on filedocumented in this encounter Care Teams Service Administrator Relationship Specialty Start Date End Date Johnathan Bardales DO [address] [place] [address] PCP - General Family Practice 05/01/25 documented as of this encounter
--- OUTSIDE RECORDS SUMMARY | 2025-07-26 07:36 | XMS_ITS | Clinical Summary ---
Author Organization [facility] Address [address] [place] [address] Care Team Providers Care Materials Planning Analyst Name Role Phone Pee Vidales MD Primary Care Provider [phone] Allergies No known active allergies Medications HYDROcodone-amaya [...] on file Legal Sex Male 6:00 PM FOUNDRY SUPERINTENDANT Gender Identity Not on file Sexual Orientation Not on file Last Filed Vital Signs Vital Sign Reading Time Taken Comments Blood Pressure 152/96 08/15/2023 11:55 PM FOUNDRY SUPERINTENDANT Pulse 112 08/15/2023 11:55 PM FOUNDRY SUPERINTENDANT Temperature 37.3 C (99.1 F) 08/15/2023 11:55 PM FOUNDRY SUPERINTENDANT Respiratory Rate 18 08/15/2023 11:55 PM FOUNDRY SUPERINTENDANT Oxygen Saturation 94% 08/15/2023 11:55 PM FOUNDRY SUPERINTENDANT Inhaled Oxygen Concentration - - Weight 72.6 kg (160 lb) 08/15/2023 11:55 PM FOUNDRY SUPERINTENDANT Height 175.3 cm (5' 9) 08/15/2023 11:55 PM FOUNDRY SUPERINTENDANT Body Mass Index 23.63 08/15/2023 11:55 PM FOUNDRY SUPERINTENDANT Plan of Treatment Health Maintenance Due Date [...] 2025, 07/01/2021 Influenza Vaccine (#1) 2025 Insurance [facility] Care Teams Materials Planning Analyst Relationship Specialty Start Date End Date Pee Vidales MD [address] [facility] [address] [place] [address] PCP - General 01/24/21
--- OUTSIDE RECORDS SUMMARY | 2025-07-26 07:36 | XMS_ITS | Encounter Summary ---
Author Organization [facility] Address 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
--- OUTSIDE RECORDS SUMMARY | 2025-07-26 07:36 | XMS_ITS | Encounter Summary ---
Author Organization [facility] Address [address] [place] [address] Care Team Providers Care Behavioral Sciences Instructor Name Role Phone BardalesJohnathan vinesfranklyn PEDRAZA Primary Care Provider [phone] Encounter Details Date Type Department Care Team (Late st Contact Info) Description 03/30/2007 Emergency [facility] [place] [place] [id number] [place], Authorized P NO ADDRESS ON FILE Disturbance of Skin Sensation (Primary Dx) Social History Tobacco Use Types Packs/Day Years Used Date Smoking Tobacco: Never Assessed Sex and Gender Information Value Date Recorded Sex Assigned at Not on file 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 Gender Identity Not on file Sexual Orientation Not on file documented as of this encounter Plan of Treatment Upcoming Encounters Date Type Department Care Team (Late Contact Info) Description 09/03/2025 10:00 AM 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 Office Visit [facility] Heart and Vascular - [address] [place] [address] Sina King DO [address] [place] [address] documented as of this encounter Visit Diagnoses Diagnosis Disturbance of skin sensation- Primary documented in this encounter Additional Health Concerns Infection Onset Date Last Indicated Resolved Time R/O Respiratory 05/19/2025 05/19/2025 05/19/2025 1 0:45 PM CDT documented as of this encounter Care Teams Behavioral Sciences Instructor Relationship Specialty Start Date End Date Johnathan Bardales DO [address] [place] [address] PCP - General Family Practice 05/01/25 documented as of this encounter
--- NOTE | 2025-07-26 11:26 | WPDPROCEDUR ---
Procedures Intubation Intubation Date: 07/26/25 Intubation Time: 10:00 A pre-procedural Time-Out was completed immediately before starting the procedure and confirmed: Patient Identification, Site, Procedure, Patient Position and the Availability of Requisite Equipment: Yes Sedative: other (propofol) Mg given: 150 Paralytic: rocuronium (50) Mg given: 50 Laryngoscope: fiber optic video scope ET tube size: 7.5 Tube secured depth (cm): 24 Tube secured location: lips Tube placement confirmation: visualized tube passing through cords Patient tolerated procedure: well Intubation complications: none and hypotension Additional comments: Patient received 1000 mcg of Ammon-Synephrine to support his blood pressure during intubation
--- NOTE | 2025-07-26 11:29 | P.PNCROSS_ITS ---
Event Note Event Note Event Note: I was asked to go to the laboratory animal facility supervisor regarding Mr. Hayden due to respiratory ins ufficiency post cardiac catheterization. Patient has an intra-aortic balloon pump and is scheduled to go to [facility] for bypass surgery. As he was waiting for transportation he developed altered mental status and decreased respiratory effort requiring emergent intubation. (See procedure report) there were no acute issues or complications from the procedure except for mild hypotension which required approximately 1000 mcg of Ammon-Synephrine to support. Chest x-ray revealed adequate positioning of the endotracheal tube.
--- OUTSIDE RECORDS SUMMARY | 2025-07-26 11:33 | XMS_ITS | Encounter Summary ---
Author Organization [facility] Healthcare Address [address] [place] [address] Care Team Providers Care Food Service Counter Clerk Name Role Phone Fuad Vidales MD Primary Care Provider [phone] Reason for Referral * Consultation (Routine) - Pending Review Specialty Diagnoses / Procedures Referred By Contac t Referred To Contact Cardiac Rehabilitation Diagnoses ST 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) Aldo Rodriguez MD [address] [facility] [id number] [place] [address] Phone: tel: fax: [address] [phone] Phone: tel: fax: Referral ID Status Reason Start Date Expiration Date Visits Requested Visits Authorized [id number] Pending Review Specialty Services Required 08/25/2026 1 1 Question Answer Please select the performing region: [facility] [[id number]] Please select the performing department: [facility] REHAB [facility] [[id number]] Phase of Care HCI Intensive Intensive Intensive Cardiac Rehab may be downgraded to Phase 2 if insurance does not cover requirements for coverage # of visits: 1 PRODUCTION SUPERVISOR Reason for Visit * Auth/Cert (Routine) Specialty Diagnoses / Procedures Referred By Contac t Referred To Contact Diagnoses STEMI (ST elevation myocardial infarction) (HCC) CAD, IABP Procedures N/A Referral ID Status Reason Start Date Expiration Date Visits Re quested Visits Authorized [id number] 1 1 Encounter Details Date Type Department Care Team (Latest Contact Info) Description 07/26/2025 11:33 AM TOUR PRODUCTION SUPERVISOR - Present Hospital Encounter [facility] [address] [facility] [place] [address] Fuad Bello MD [address] [place] [address] Darrell Avalos MD [address] [place] [address] ST 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) (Primary Dx); ST elevation myocardial infarction involving left anterior descending (LAD) coronary artery (HCC) [I21.02] Social History Tobacco Use Types Packs/Day Years Used Date Smoking Tobacco: Every Day Cigarettes Smokeless Tobacco: Never Alcohol Use Standard Drinks/Week Comments Never 0 (1 standard drink = 0.6 oz pur e alcohol) Personal Safety Answer Date Recorded Have you ever been in or are you currently in a harmful physical or emotional relationship or is someone making you feel afraid or unsafe? Patient unable to answer 07/27/2025 Sex and Gender Information Value Date Recorded Sex Assigned at Not on file Legal Sex Male 6:00 PM TOUR PRODUCTION SUPERVISOR Gender Identity Not on file Sexual Orientation Not on file documented as of this encounter Last Filed Vital Signs Vital Sign Reading Time Taken Comments Blood Pressure 129/93 07/30/2025 12:00 PM TOUR PRODUCTION SUPERVISOR Pulse 101 07/30/2025 12:00 PM TOUR PRODUCTION SUPERVISOR Temperature 37.5 C (99.5 F) 07/30/2025 12:00 PM TOUR PRODUCTION SUPERVISOR Respiratory Rate 35 07/30/2025 12:00 PM TOUR PRODUCTION SUPERVISOR Oxygen Saturation 100% 07/30/2025 12:00 PM TOUR PRODUCTION SUPERVISOR Inhaled Oxygen Concentration - - Weight 75 kg (165 lb 5.5 oz) 07/27/2025 4:00 AM TOUR PRODUCTION SUPERVISOR Height 172.7 cm (5' 7.99) 07/26/2025 11:[address] Body Mass Index 25.15 07/26/2025 11:45 AM TOUR PRODUCTION SUPERVISOR documented in this encounter Functional Status * ICP/Pressure (1) Question Answer Date of Assessment Author MAP (mmHg) 104 07/30/2025 12:00 PM Aditya Guillen RN * CAGE Alcohol Assessment Question Answer Date of Assessment Author Have you ever felt the need to Cut down on your drinking? HARMEET 07/29/2025 9:00 AM Aditya Campbell RN * Difference in Last Two Jose L Scores Answer Date of Assessment Author -1 07/30/2025 9:10 AM Reagan Campbell RN * Vitals Question Answer Date of Assessment Author BP Location Right arm 07/30/2025 12:00 PM Aditya Guillen RN BP Method Automatic 07/30/2025 12:00 PM Aditya Guillen RN * [place] Fall Risk Question Answer Date of Assessment Author History of Falling 25 07/30/2025 9:10 AM Aditya Campbell RN Secondary Diagnosis 15 07/30/2025 9:10 AM Aditya Kaur RN Ambulatory Aids 0 07/30/2025 9:10 AM Aditya Tolliver RN Intravenous Therapy/Heparin/Saline Lock 20 07/30/2025 9:10 AM Reagan Campbell RN Gait/Transferring 0 07/30/2025 9:10 AM Aditya Campbell RN Mental Status 15 07/30/2025 9:10 AM Aditya Guillen RN [place] Fall Risk Score (Score >= 45 places fall precaution order) 75 07/30/2025 9:10 AM Aditya Campbell RN Prior Fall Event (Autopopulated from EMR) None found 07/30/2025 9:10 AM Jett Campbell RN * Jose L Scale Question Answer Date of Assessment Author Sensory Perceptions 2 07/30/2025 9:10 AM Aditya Kaur RN Moisture 3 07/30/2025 9:10 AM Aditya Pretty RN Activity 2 07/30/2025 9:10 AM Aditya Pretty RN Mobility 2 07/30/2025 9:10 AM Aditya Pretty RN Nutrition 2 07/30/2025 9:10 AM Aditya Pretty RN Friction and Shear 2 07/30/2025 9:10 AM Aditya Campbell RN Jose L Scale Score 13 07/30/2025 9:10 AM Aditya Campbell RN * Art Line Question Answer Date of Assessment Author Arterial Line MAP (mmHg) 84 07/30/2025 10:00 AM Aditya Campbell RN Arterial Line BP 119/65 07/30/2025 10:00 AM Aditya Campbell RN * Art Line (2) Question Answer Date of Assessment Author Arterial Line BP 2 127/38 07/26/2025 5:30 PM Yari Lazo RN Arterial Line MAP (mmHg) 2 74 07/26/2025 5:3 0 PM Yari Lazo RN * Fall Risk Interventions Question Answer Date of Assessment Author All Low Fall Interventions Applied No 07/29/2025 11:00 PM Onofre Nava RN All Low Fall Interventions EXCEPT: Call light in reach 07/29/2025 11:00 PM Onofre Nava RN All Moderate Fall Interventions Applied No 07/29/2025 11:00 PM Onofre Nava RN All Moderate Fall Risk Interventions EXCEPT: Gait belt at bedside 07/29/2025 11:00 PM Onofre Nava RN All High Fall Risk Interventions Applied No 07/29/2025 11:00 PM Onofre Nava RN All High Risk Interventions EXCEPT: Bed alarm 07/29/2025 11:00 PM Onofre Nava RN Additional Interventions Applied Over-bed table on non-exit side 07/29/2025 11:00 PM Onofre Nava RN Reason For Exception(s) intubated, sedated 07/29 11:00 PM Onofre Nava RN Reason For Exception(s) intubated/sedated 2024 11:00 PM Onofre Nava RN Reason For Exception(s) intubated, sedated 07/29 11:00 PM Onofre Nava RN * B.M.A.T. - Bedside Mobility Assessment Tool for Nurses Question Answer Date of Assessment Author Is patient able to participate in the BMAT? No 07/30/2025 9:10 AM Jett Campbell RN Reason patient is unable to participate in BMAT Bed rest orders 07/30/2025 9:10 AM Aditya Campbell RN BMAT Level Level 1 - Red 07/30/2025 9:10 AM Aditya Guillen RN Level 1 Equipment Use friction reducin g devices 07/28/2025 8:00 PM Jonathon Cowart RN * Non-Suicidal Self-Injurious Behavior Risk: Whenever possible, conduct screening in private to create a confidential environment. Question Answer Date of Assessment Author 1. Has the patient self-reported, presented with clinical signs of, or have a documented history of any of the following within the past 30 days? Active substance abuse 07/27/2025 7:50 AM Lawrence Barth RN * Self-Injurious Risk Level Answer Date of Assessment Author Low 07/27/2025 7:50 AM Brianne Barth, GEORGE * Pressure Injury Prevention Question Answer Date of Assessment Author Pressure Ulcer Prevention Interventions Keep skin clean and dry (Sensory Perception/Moisture);Plac e on pressure redistribution surface (Sensory Perception/Activity/Mobil ity);Educate caregivers regarding pressure ulcer prevention (Sensory Perception);Apply moisture barrier product (Moisture);Apply protective foam/adhesive dressing (Sensory Perception/Activity/Moist ure);Establish turning schedule (Sensory Perception/Activity/Mobil ity) 07/30/2025 9:10 AM Aditya Campbell RN 2 Nurse Skin Assessment aditya/jonathon 07/29/20 8:39 AM Aditya Campbell RN Protective Foam Dressing Location Coccyx 07/30/2025 9:10 AM Aditya Campbell RN Special Mattress Low air loss 07/30/2025 9:10 AM Aditya Campbell RN * Transdermal Patch Admission Assessment Question Answer Date of Assessment Author Transdermal Patch Assessment on Admission Not Present 07/27/2025 7:50 AM Brianne Barth RN * Integumentary Question Answer Date of Assessment Author Skin Color [place] 07/30/2025 9:10 AM Aditya Pretty RN Skin Condition/Temp Warm;Dry 07/30/2025 9:10 AM CS T Aditya Pelayo RN Skin Integrity Laceration 07/30/2025 9:10 AM Aditya Luu RN Skin Turgor Non-tenting 07/30/2025 9:10 AM Aditya Pretty RN Integumentary Additional Assessments Yes-Jose L 07/28/2025 8:00 PM Jonathon Cowart RN Integumentary (WDL) X 07/30/2025 9:10 AM Aditya Kaur RN Skin Location chin 07/30/2025 9:10 AM Aditya Guillen RN * Vitals Question Answer Date of Assessment Author BP Location Right arm 07/30/2025 12:00 PM Aditya Guillen RN BP Method Automatic 07/30/2025 12:00 PM Aditya Guillen RN * Psychosocial Question Answer Date of Assessment Author Mood Other (Comment) 07/26/2025 10:00 PM Griffin Canseco RN * Fall Risk Interventions Question Answer Date of Assessment Author All Low Fall Interventions Applied No 07/29/2025 11:00 PM Onofre Nava RN All Low Fall Interventions EXCEPT: Call light in reach 07/29/2025 11:00 PM Onofre Nava RN All Moderate Fall Interventions Applied No 07/29/2025 11:00 PM Onofre Nava RN All Moderate Fall Risk Interventions EXCEPT: Gait belt at bedside 07/29/2025 11:00 PM Onofre Nava RN All High Fall Risk Interventions Applied No 07/29/2025 11:00 PM Onofre Nava RN All High Risk Interventions EXCEPT: Bed alarm 07/29/2025 11:00 PM Onofre Nava RN Additional Interventions Applied Over-bed table on non-exit side 07/29/2025 11:00 PM Onofre Nava RN Reason For Exception(s) intubated, sedated 07/29 11:00 PM Onofre Nava RN Reason For Exception(s) intubated/sedated 2024 11:00 PM Onofre Nava RN Reason For Exception(s) intubated, sedated 07/29 11:00 PM Onofre Nava RN * ADL Screening Question Answer Date of Assessment Author Patient's Vision Adequate to Safely Complete Daily Activities Unable to assess 07/27/2025 7:50 AM Brianne Barth, GEORGE Patient's Judgement Adequate to Safely Complete Daily Activities Unable to assess 07/27/2025 7:50 AM Brianne Barth, GEORGE Patient's Memory Adequate to Safely Complete Daily Activities Unable to assess 07/27/2025 7:50 AM Brianne Barth, GEORGE Patient Able to Express Needs/Desires Unable to assess 07/27/2025 7:50 AM Brianne Barth RN Dressing Unable to assess 07/27/2025 7:50 AM Brianne Magaña, GEORGE Grooming Unable to assess 07/27/2025 7:50 AM Brianne Magaña, GEORGE Feeding Unable to assess 07/27/2025 7:50 AM Brianne Magaña, GEORGE Bathing Unable to assess 07/27/2025 7:50 AM Brianne Magaña, GEORGE Toileting Unable to assess 07/27/2025 7:50 AM Brianne Magaña, GEORGE In/Out Bed Unable to assess 07/27/2025 7:50 AM Brianne Magaña, GEORGE Walks in Home Unable to assess 07/27/2025 7:50 AM Brianne Barth, GEORGE Weakness of Legs Unable to assess 07/27/2025 7:50 AM Brianne Dumont, GEORGE Weakness of Arms/Hands Unable to assess 07/27/2025 7:5 0 AM Brianne Barth RN Hearing - Right Ear Unable to assess 07/27/2025 7:50 A M Brianne Barth, GEORGE Hearing - Left Ear Unable to assess 07/27/2025 7:50 AM Brianne Barth RN Dominant hand? Unable to assess 07/27/2025 7:50 AM Brianne Barth RN Decline in ADLs in last 2 weeks? Unable to assess 07/27/2025 7:50 AM Brianne Barth, GEORGE * Therapy Consults Question Answer Date of Assessment Author PT Evaluation Needed 2 07/27/2025 7:50 AM Brianne Dumont, GEORGE OT Evaluation Needed 2 07/27/2025 7:50 AM Brianne Dumont, GEORGE BOOM STORAGE Evaluation Needed 2 07/27/2025 7:50 AM Brianne Barth, GEORGE * Assistive Devices Question Answer Date of Assessment Author Assistive Devices/DME None 07/27/2025 7:50 AM Brianne Barth, GEORGE * Safe Environment Question Answer Date of Assessment Author Bed In Lowest Position Yes 07/30/2025 11:00 A M Della Schultz Bed Wheels Locked Yes 07/30/2025 11:00 AM Della Schultz * Hygiene Question Answer Date of Assessment Author Oral Care Mouth swabbed 07/30/2025 10:00 AM Della Schultz Hygiene Level of Assistance Dependent 07/27/2025 8:00 AM Brianne Barth, GEORGE Reason not bathed/showered Bath not due on this shift 07/29/2025 9:00 AM Aditya Campbell RN Perineal Care Kaitlin and/or [place] Care 9:09 AM Aditya Campbell RN Linens Complete linen change 07/30/2025 1:00 AM Onofre Nava RN Bath Bathed/showered with chlorhexidine (CHG) 07/30/2025 1:00 AM Onofre Nava RN documented as of this encounter Mental Status * Neurological Question Answer Entry Date Author Level of Consciousness Alert;Awake;Drowsy 2024 9:10 AM Aditya Campbell RN Orientation Oriented to person;Oriented to place 07/30/2025 9:10 AM Aditya Campbell RN Neuro (WDL) X 07/30/2025 9:10 AM Aditya Campbell RN * Confusion Assessment Method-ICU (CAM-ICU): Not Indicated with a RASS of -4/-5 Question Answer Entry Date Author Feature 3: Altered Level of Consciousness Positive 07/29/2025 8:00 PM Onofre Nava RN Feature 1: Acute Onset or Fluctuating Course Positive 07/29/2025 8:00 PM Onofre Nava RN Feature 2: Inattention Positive 07/29/2025 8:00 PM TOUR PRODUCTION SUPERVISOR Onofre Mccall RN Feature 4: Disorganized Thinking Positive 07/29/20 8:00 PM TOUR PRODUCTION SUPERVISOR Onofre Mccall RN Overall CAM-ICU Positive 07/29/2025 8:00 PM TOUR PRODUCTION SUPERVISOR Onofre Abbasi RN documented in this encounter Progress Notes * Beatris Posey RN - 07/30/2025 11:38 AM CST Patient recently extubated, will follow up later this afternoon to obtain initial assessment. PRODUCTION SUPERVISOR * Clarita Nichols RD - 07/30/2025 9:12 AM CST NUTRITION ASSESSMENT Nutrition Status: Patient does not meet AAIM (ASPEN) criteria for malnutrition at this time. REASON FOR ASSESSMENT: Follow Up Encounter Date: 07/30/25 10:13 AM Admission Date: 07/26/2025 LOS: 4 days HPI: Patient is a 55 y.o. male with PMH significant for prior tobacco use, HTN, HLD, CAD s/p MILLICENT to OM1 (05/2025) not compliant with DAPT who presented to OSH 07/27 with STEMI s/p LHC w/ angioplasty of occluded LCx stent c/b VT/VF and respiratory distress requiring emergent intubation and IABP placement. Patient arrived supported 1:1 IABP without additional inotrope or vasopressor support but with severe mottling in all extremities. Objective Past Medical History: Diagnosis Date Hypertension Past Surgical History: Procedure Laterality Date CARDIAC CATHETERIZATION N/A 07/26/2025 Procedure: PCI MILLICENT MAJOR CORONARY C9600 - [id number]; Surgeon: Miko Castro MD; Location: [facility] CARDIAC FEED PROJECT ENGINEER; Service: Cardiovascular; Laterality: N/A; CARDIAC CATHETERIZATION N/A 07/26/2025 Procedure: IVUS/OCT CORS OR GRAFTS, FIRST VESSEL (+) [id number]; Surgeon: Miko Castro MD;Location: [facility] CARDIAC FEED PROJECT ENGINEER; Service: Cardiovascular; Laterality: N/A; CARDIAC CATHETERIZATION N/A 07/26/2025 Procedure: IVUS/OCT CORS OR GRAFTS, EACH ADDTN'L VESSEL (+) [id number]; Surgeon: Miko Castro MD; Location: [facility] CARDIAC FEED PROJECT ENGINEER; Service: Cardiovascular; Laterality: N/A; CARDIAC CATHETERIZATION N/A 07/26/2025 Procedure: [employer] TRADER BALLOON ANGIOPLASTY, 1ST ARTERY [id number]; Surgeon: Miko Castro MD; Location: [facility] CARDIAC FEED PROJECT ENGINEER; Service: Cardiovascular; Laterality: N/A; CARPAL TUNNEL RELEASE HERNIA REPAIR Social History Tobacco Use Smoking status: Every Day Current packs/day: 0.50 Types: Cigarettes Smokeless tobacco: Never Substance and Sexual Activity Drug use: Never Sexual activity: Not on file Alcohol Use: Not on file MEDICATION/LAB REVIEW: Scheduled Meds: aspirin, 300 mg, rectal, Daily cefTRIAXone, 2,000 mg, intravenous, Q24H PAT ipratropium-albuteroL, 3 mL, nebulization, QID (RT) pantoprazole, 40 mg, intravenous, Daily Continuous Infusions: cangrelor (KENGREAL) 50 mg in sodium chloride 0.9% 250 mL (0.2 mg/mL) infusion, 0.75 mcg/kg/min, Last Rate: 0.75 mcg/kg/min (07/30/25 1011) dexmedeTOMIDine, 0-0.7 mcg/kg/hr, Last Rate: 0.2 mcg/kg/hr (07/30/25 1012) norepinephrine, 0-2 mcg/kg/min, Last Rate: Stopped (07/28/25 1838) PRN Meds: acetaminophen bisacodyL bisacodyl EC fentaNYL fentaNYL ondansetron ODT OR ondansetron polyethylene glycol Recent Labs Lab Units 07/30/25 0600 07/30/25 0549 07/29/25 1629 07/29/25 1134 SODIUM mmol/L 138 -- 139 138 POTASSIUM PLASMA mmol/L 4.6 -- 4.2 4.2 CHLORIDE mmol/L 106 -- 106 105 CO2 mmol/L 22 -- 24 22 BUN SERUM mg/dL 21 -- 22 24 CREATININE mg/dL 0.82 -- 1.00 0.97 BMR-[id number]-[id number] mL/min/1.73 m2 >90 -- 89 >90 CALCIUM mg/dL 8.0* -- 7.8* 7.9* ALBUMIN g/dL -- 2.9* -- -- PHOSPHORUS PLASMA mg/dL -- 3.4 -- -- MAGNESIUM mg/dL 2.3 -- 2.4 2.4 Recent Labs Lab Units 07/30/25 0801 07/30/25 0600 07/30/25 0547 07/30/25 0026 07/30/25 0010 07/29/25201307/29/25 1629 GLUCOSE mg/dL -- 92 -- -- -- -- 96 POC GLUCOSE MONITOR mg/dL 76 -- 96 99 57* 72 -- ALT Date Value Ref Range Status 07/30/2025 36 7 - 55 Units/L Final AST Date Value Ref Range Status 07/30/2025 88 (H) 10 - 50 Units/L Final Alk phos Date Value Ref Range Status 07/30/2025 107 40 - 130 Units/L Final No results found for: HGBA1C, HDL, LDLCALC, CHOL, TRIG NURSING ASSESSMENT: Last BM Date: (HARMEET) Bowel Sounds (All Quadrants): Active Jose L Scale Score: 13 Skin Integrity: Laceration Minute Ventilation (L/min): 6.1 L/min Vital Signs @FLOW(5) Temp: 37.9 ??C (100.2 ??F) Pulse: 105 Resp: 22 SpO2: 100 % Intake/Output Summary (Last 24 hours) at 07/30/2025 1013 Last data filed at 07/30/2025 0954 Gross per 24 hour Intake 822.22 ml Output 1035 ml Net -212.78 ml Adult Malnutrition Scoring Tool (MST) Have You Recently Lost Weight Without Trying?: Unsure Have you been eating poorly because of a decreased appetite?: No Malnutrition Screening Tool (MST) Score: 2 Anthropometrics Weight: 75 kg (165 lb 5.5 oz) Admission Weight : 75 kg Weight Change: 2.09 kg (4.62 lbs) IBW/kg (Calculated) : 69.9 kg Height: 172.7 cm (5' 7.99) Weight in (lb) to have BMI = 25: 164 BMI (Calculated): 25.1 Wt Readings from Last 10 Encounters: 07/27/25 75 kg (165 lb 5.5 oz) 08/15/23 72.6 kg (160 lb) 02/20/22 70.3 kg (155 lb) 01/24/21 70.3 kg (155 lb) ESTIMATED NEEDS: Weight Used for Equation Calculations (RD Determined): 75 kg (165 lb 5.5 oz) Total Kcal/kg Estimated Needs : 1875 Kcal/k. Type of Weight Used for Estimated Kcals: Current Total Protein Estimated Needs (gm): 112.5 Protein Needs Based on g/k.5 Type of Weight Used for Estimated Protein : Current Dietary Orders (From admission, onward) Start Ordered 07/27/25 0939 Tube Feeding Diet Continuous; Glucerna 1.5 Olivier; 50; Orogastric tube (OGT); Start at 10 ml/hour, increase by 10 ml Q4 hours to GOAL of 50 ml/hour.; 60; Water; Every 4 hours (Tube FeedingDiet Panel) Diet effective now Question Answer Comment Tube feeding type: Continuous ([facility]) Tube Feeding Formula: Glucerna 1.5 Olivier Tube Feeding Continuous (mL/hr): 50 Per Tube: Orogastric tube (OGT) Tube Feeding Progression: Start at 10 ml/hour, increase by 10 ml Q4 hours to GOAL of 50 ml/hour. Tube Feeding Flush (mL): 60 Flush Type: Water Flush Frequency: Every 4 hours 07/27/25 0939 07/26/25 1135 NPO Diet Diet effective now 07/26/25 1134 Allergies: Reviewed. IMPRESSION: 07/30: Since last visit, pt had tube feeding started on 07/27, working up to goal rate. Got to 20 ml/hour. with elevated residuals noted, however none charted. Unsure what volume was noted. Pt has not had full nutrition in greater than 3 days. Pt was extubated today, monitor for BOOM STORAGE evaluation and diet advancement. +BM today. AAIM (ASPEN) MALNUTRITION ASSESSMENT: Date of completion: 07/27/2025 ASPEN/AND Malnutrition Screening: Patient does not meet malnutrition criteria NUTRITION FOCUSED PHYSICAL EXAM: Not completed, no concerns for malnutrition at this time. NUTRITION DIAGNOSIS: Nutrition Diagnosis 1: Inadequate oral intake Related to: Acute illness/injury, NPO status Evidenced by: Patient interview INTERVENTION(S): Summary: Encouragement, Meals and snacks, Medical food supplement Currently NPO. Monitor for BOOM STORAGE evaluation and diet advancement. Recommend glucerna TID to help meet nutrition needs once diet is advanced. If pt fails BOOM STORAGE evaluation, consider enteral nutrition through NG tube. GOAL(S): Adequate nutrition to meet estimated needs by next assessment MONITORING/EVALUATION: Swallow function, Appetite, Diet advancement, Labs, Plan of care, PO intake, Stool patterns, Supplement tolerance Clarita Nichols, MS RD LD #[phone] PRODUCTION SUPERVISOR * Ziggy Rolle, PT - 07/30/2025 7:33 AM CST Physical Therapy 07/30/25 0730 General PT Missed Visit Reason Sedated;Other (comment);Bedrest (intubated) Recommendation/Plan PT Frequency during current admission Monitor status PT - Next Appointment 08/01/25 PRODUCTION SUPERVISOR * Natalia Ludwig OT - 07/30/2025 7:27 AM CST Occupational Therapy 07/30/25 0727 General OT Missed Visit Reason Sedated;Bedrest (intubated and sedated) Recommendation/Plan OT Frequency during current admission Monitor status OT - Next Appointment 08/01/25 PRODUCTION SUPERVISOR * Mike Conde MD - 07/29/2025 5:51 AM CST CCU DAILY PROGRESS Patient: Praveen Hayden Room: [id number] Date: 07/29/2025 SUBJECTIVE Summary Statement: Praveen Hayden is a 55 y.o. male with PMH significant for prior tobacco use, HTN, HLD, CAD s/p MILLICENT to OM1 (05/2025) not adherent with DAPT who presented to OSH 07/27 with STEMI s/p LHC w/ angioplasty of occluded LCx stent c/b VT/VF and respiratory distress requiring emergent intubation and IABPplacement. Patient arrived supported 1:1 IABP without additional inotrope or vasopressor support but with severe mottling in all extremities. Currently in the unit for mixed shock. Interval Hx: - No major acute events overnight. - Patient had a BM after Lactulose enema. - Has been off levo since 2299, and MAPs have been consistently > 66 since then. Lactate at 0447was elevated to 2.4 (prior was normal). SvO2 at 0400 was 42.6. Unclear why elevated lactate. - Patient is not in need of pressors anymore, therefore, we will remove balloon pump and then proceed with SBT/SAT. - No other events overnight. OBJECTIVE Vitals 24 Hour Min/Max: Temp Min: 36.6 ??C (97.9 ??F) Max: 38.3 ??C (100.9 ??F) Pulse Min: 88 Max: 104 Resp Min: 20 Max: 23 SpO2 Min: 94 % Max: 98 % Vitals (Past 12 Hours): Patient Vitals for the past 12 hrs: Temp Temp src Pulse Resp SpO2 07/29/25 0500 37.5 ??C (99.5 ??F) -- 102 20 94 % 07/29/258 -- -- 95 -- 97 % 07/29/25399 37.4 ??C (99.3 ??F) -- 96 20 98 % 07/29/25 0300 37.3 ??C (99.1 ??F) -- 95 20 98 % 07/29/25 0220 37.2 ??C (99 ??F) -- 94 20 98 % 07/29/25 0200 37.1 ??C (98.8 ??F) -- 93 20 97 % 07/29/25 0100 37 ??C (98.6 ??F) -- 95 20 96 % 07/29/25 0000 37 ??C (98.6 ??F) -- 97 20 96 % 07/28/252317 -- -- 90 20 97 % 07/28/252299 36.9 ??C (98.4 ??F) -- 91 20 96 % 07/28/252199 37 ??C (98.6 ??F) -- 88 23 98 % 07/28/25 2100 37.2 ??C (99 ??F) -- 88 20 96 % 07/28/252009 -- -- 89 -- 97 % 07/28/25 2000 37.1 ??C (98.8 ??F) -- 89 20 97 % 07/28/25 1900 36.6 ??C (97.9 ??F) Bladder 92 20 96 % 07/28/25 1800 37.4 ??C (99.3 ??F) Bladder 95 20 94 % Most Recent: Vitals: 07/29/25 0500 BP: Pulse: 102 Resp: 20 Temp: 37.5 ??C (99.5 ??F) SpO2: 94% Ins and Outs: Intake/Output Summary (Last 24 hours) at 07/29/2025 0551 Last data filed at 07/29/2025 0500 Gross per 24 hour Intake 1576.39 ml Output 1540 ml Net 36.39 ml Vent Settings: Adult Vent Mode: Pressure regulated volume control/assist control/VC+ FiO2 (%): [40 %] 40 % S RR: [20] 20 S VT: [500 mL] 500 mL PEEP/CPAP/EPAP (cm H2O): [5 cm H20] 5 cm H20 MAP (cmH2O): [11-15] 11 pH 7.41, pCO2 34, pO2 145, HCO3 21 Lines & Drains: CVC Quadruple Lumen 07/26/25 Non-tunneled #1 Blue, #2 Wheeler, #3 White, #4 Brown, Right Internal jugular (Active) Number of days: 3 Peripheral IV 07/26/25 20 G Right Antecubital (Active) Number of days: 3 Peripheral IV 07/26/25 20 G Anterior;Left;Upper Arm (Active) Number of days: 3 Peripheral IV 07/26/25 20 G Anterior;Distal;Right Forearm (Active) Number of days: 3 Urethral Catheter (Active) Number of days: 3 ETT (Active) Number of days: 3 Arterial Line 07/26/25 Left Radial (Active) Number of days: 3 IABP (Active) Number of days: 3 NG/OG Tube Orogastric Center mouth (Active) Number of days: 2 Current Medications: Scheduled Meds: Scheduled Medications Medication Dose Route Frequency aspirin suppository 300 mg 300 mg rectal Daily cefTRIAXone (ROCEPHIN) 2,000 mg/20 mL in sterile water (premix) 2,000 mg 2,000 mg intravenous Q24H PAT ipratropium-albuteroL (DUO-NEB) 0.5-2.5 mg/3 mL nebulizer solution 3 mL 3 mL nebulization QID (RT) pantoprazole (PROTONIX) 40 mg in sodium chloride 0.9% 10 mL IV Syringe 40 mg intravenous Daily Continuous Meds: Current Facility-Administered Medications Medication Dose Route Frequency Last Admin cangrelor (KENGREAL) 50 mg in sodium chloride 0.9% 250 mL (0.2 mg/mL) infusion 0.75 mcg/kg/min intravenous Continuous 0.75 mcg/kg/min at 07/28/25 2200 fentaNYL 0-400 mcg/hr intravenous Titrated 75 mcg/hr at 07/28/25 2200 norepinephrine 0-2 mcg/kg/min intravenous Titrated Stopped at 07/28/25 1838 propofol 0-50 mcg/kg/min intravenous Titrated 40 mcg/kg/min at 07/29/25 0220 PRN Meds: PRN Medications Medication Dose Route Frequency Last Admin acetaminophen (TYLENOL) suppository 650 mg 650 mg rectal Q4H PRN 650 mg at 07/28/25 1006 bisacodyL (DULCOLAX) suppository 10 mg 10 mg rectal Daily PRN bisacodyl EC (DULCOLAX EC) tablet 10 mg 10 mg oral Daily PRN fentaNYL (SUBLIMAZE) bolus from bag 50 mcg 50 mcg intravenous Q15 Min PRN 50 mcg at 07/28/25 2155 fentaNYL (SUBLIMAZE) bolus from bag 50 mcg 50 mcg intravenous Q15 Min PRN 50 mcg at 07/27/25 0632 ondansetron ODT (ZOFRAN-ODT) disintegrating tablet 4 mg 4 mg oral Q6H PRN Or ondansetron (ZOFRAN) injection 4 mg 4 mg intravenous Q6H PRN polyethylene glycol (MIRALAX) packet 17 g 17 g oral Daily PRN Physical Exam: Gen : intubated, sedated HENT : NCAT, oropharynx nl, moist mucus membranes Eyes : anicteric, EOMI. Pulm : intubated CV : rrr, no m/r/g Abd : soft, NT/ND. Extr : Warm extremities, intact distal pulses, no cyanosis/clubbing/edema. Groin sites clean without bleeding. Skin : pale bilateral lower and upper extremities. Mottling of lower legs still present. Neuro : RAAS -3, sedated, non responsive to verbal and touch LABORATORY DATA CBC Recent Labs Lab Units 07/29/25 0020 07/26/25 2151 07/26/25 2124 WBC K/cumm 11.64* < > 12.00* HEMOGLOBIN, POC -- < > -- HEMOGLOBIN g/dL 8.3* < > 10.4* HEMATOCRIT % 25.2* < > 31.3* HEMATOCRIT POC -- < > -- PLATELETS K/cumm 183 < > 273 NEUTROS PCT % -- -- 76.3 LYMPHS PCT % -- -- 17.2 MONOS PCT % -- -- 4.1 EOS PCT % -- -- 1.6 < > = values in this interval not displayed. Chem Recent Labs Lab Units 07/29/25 0445 07/29/25 0125 07/29/25 0020 SODIUM mmol/L -- -- 135 POTASSIUM PLASMA mmol/L -- -- 4.3 CHLORIDE mmol/L -- -- 104 CO2 mmol/L -- -- 20* ANIONGAP mmol/L -- -- 11 BUN SERUM mg/dL -- -- 24 CREATININE mg/dL -- -- 0.99 GLUCOSE mg/dL -- -- 110 POC GLUCOSE MONITOR mg/dL 95 < > -- CALCIUM mg/dL -- -- 7.8* < > = values in this interval not displayed. LFTs Recent Labs Lab Units 07/28/25 0551 ALK PHOS Units/L 87 BILIRUBIN TOTAL mg/dL 0.3 BILIRUBIN DIRECT mg/dL <0.2 TOTAL PROTEIN g/dL 5.3* ALT Units/L 51 AST Units/L 266* Coags Recent Labs Lab Units 07/28/25 0551 APTT sec 21* INR 1.23* Cardiac Enzymes No results found for: TROPONINT No results found for: TROPONINI Urine Analysis Recent Labs Lab Units 07/26/25 1746 COLOR U Yellow CLARITY U Clear SPEC GRAV U >1.042* PH, URINE 6.5 PROTEIN UR QL 1+* GLUCOSE URQL Negative KETONES UR Negative BLOOD UR 3+* NITRITE UR Negative LEUKOCYTE ESTERASE UR Negative ABG Recent Labs Lab Units 07/28/25 0553 PH ART 7.41 PCO2 ART mmHg 34* PO2 ART mmHg 145* HCO3 ART (CALC) mmol/L 21 BASE EXC ART mmol/L -2 O2 SAT ART (DANIELA) % 99* Screening Labs: Iron Studies Cholesterol Hgb A1C Radiology and Other Diagnostics: XR Abdomen 1 View AP Result Date: 07/28/2025 Gastric tube with side-port and tip overlying the gastric body. Intra-aortic balloon pump with proximal radiopaque marker overlying the L2 vertebral body and the distal radiopaque marker outside of the field of view. Temperature probe Pemberton catheter. Normal bowel gas pattern without evidence of obstruction. Dictated by: Elgin Rubin M.D. The radiology attending physician has personally reviewed this study, and had reviewed and/or edited this written report and agrees with it. Electronically signed by: Jhon Gay M.D. XR Chest 1 View Result Date: 07/28/2025 The current study is compared with the prior radiograph dated 07/27/2025. Endotracheal tube tip is 6 cm above the frieda. Right internal jugular approach central venous catheter tip over the superiorcavoatrial junction. Gastric tube terminates below the diaphragm and outside the [id number]. Radiopaque marker of intra-aortic balloon pump projects 1 cm below the top of the aortic knob, slightlycurved toward the aortic arch. No pulmonary consolidation, pleural effusion or pneumothorax. Stablecardiomediastinal silhouette. Dictated by: Tamika Rashid M.D. The radiology attending physician haspersonally reviewed this study, and had reviewed and/or edited this written report and agrees with it. Electronically signed by: Mir Castano M.D. XR Abdomen Ap 1 Vw Result Date: 07/27/2025 Gastric tube projects over the fundus of the stomach, side port projects over the body. Intra-aortic balloon pump with proximal radiopaque marker overlying the L2 vertebral body, unchanged when accounting for patient rotation. Dictated by: Carlin Sales M.D. The radiology attending physician has personally reviewed this study, and had reviewed and/or edited this written report and agrees with it. Electronically signed by: Carrie Riley M.D. XR Abdomen Ap 1 Vw Result Date: 07/27/2025 Intra-aortic balloon pump with proximal radiopaque marker overlying the L2 vertebral body and the distal radiopaque marker additional 8 mm below the superior aspect of the aortic knob. An endotracheal tube is approximately 5 centimeters above the frieda. Right internal jugular central venous catheter tip overlies the distal superior vena cava. Contrast material within the renal collecting system.Vicarious excretion of contrast within the gallbladder. Dictated by: Elgin Rubin M.D. The radiology attending physician has personally reviewed this study, and had reviewed and/or edited this written report and agrees with it. Electronically signed by: Yenni Nelson M.D. ASSESSMENT and PLAN Praveen Hayden is a 55 y.o. male with PMH significant for prior tobacco use, HTN, HLD, prediabetes, CAD, recent STEMI s/p MILLICENT to OM1 (05/2025) not compliant with DAPT who presented to OSH earliertoday with STEMI. The patient is transferred to [facility] for HLOC. # STEMI (100% occulusion of LCx) # Hx recent NSTEMI, s/p MILLICENT to OM # CAD Recent NSTEMI, s/p MILLICENT to OM1 on 05/21/2025. TTE post PCI showed LVEF 60%. On discharge, the patient was sent home with amlodipine, aspirin, atorvastatin, Brilinta, losartan. Recent OP cards follow up on 06/01. C/f medication noncompliance, with DAPT. Presented to [facility] on 07/26/2025 for syncopal episode. Passed out, hitting his head, with diaphoresis and CP after. EKG c/f for acute ST-elevation. S/p LHC with 100% occlusion in the mid LCx with concern with OM stent protruding into the lumen. balloon pump placed and transferred to [facility] for HLOC. Troponin trending on admission, record label internship reactivated after CTH not concerning for acute intracranial process. Trend troponin -> uptrending -> activated record label internship 07/25 -s/p successful IVUS guided PCI using a 3.0 x 30 mm drug-eluting stent the AV groove circumflex proximally optimized to high pressure with a 4.0 mm balloon post dilated at 3.5 mm in the mid segment. The obtuse marginal branch was ballooned using a 2.75 mm NC emerge balloon in the proximal and mid segment and high pressure as well as an NC Sapphire balloon Continue trending post cath troponins and serial ECGs Remove balloon today. Fellow will be contacted. Levo for MAP > 65 if needed. But so far patient is off. Continue ASA, cangrelor Holding heparin in setting of increased bleed risk (oral bleeding, groin oozing, down trending Hgb) Serial EKGs Telemetry CAD Risk factor screening: A1c, lipid panel, TSH, UTox, LFTs, coags Daily BMP, Mg; replete PRN K >4.0 and Mg >2.0 Plaque stabilization: atorvastatin 80mg qhs Defer cardiac remodeling prevention iso shock # AHRF Concerns for acute hypoxic respiratory failure requiring intubation in the record label internship at OSH. On arrival, ventilator settings were tidal volume 500, respiratory rate 15, FiO2 100, peep 5. Wean vent and sedation as able SAT/ SBT once balloon pump is removed Daily CXR Treating pneumonia as below # Pneumonia Febrile with leukocytosis. Pneumonia PCR+ MSSA. - CTX started on 07/27, plan for 5 day course. # Gastroparesis/Ileus Residual tube feeds and crushed pills from OGT overnight. KUB with no obstruction but notable stoolburden. -Aggressive bowel regimen -Consider small bowel tube placement if continued residuals despite BMs -Avoid oral meds # Upper airway bleed On presentation, there was significant blood coming out of his mouth, reportedly from placement of an OG tube, around 300ccs. ENT consulted Likely 2/2 superficial lower lip laceration Trend CBC # HTN Home regimen losartan and amlodipine. Hold iso shock # Tobacco use 26 pack year history of tobacco use Social work consult Consider Chantix on discharge Checklist: CVC Quadruple Lumen 07/26/25 Non-tunneled #1 Blue, #2 Wheeler, #3 White, #4 Brown, Right Internal jugular (Active) Placement Date/Time: 07/26/25 1436 Catheter Time Out Checklist Completed: Yes Hand Hygiene Performed: Yes Site Prep: Chlorhexidine Site Prep Agent has Completely Dried Before Insertion: Yes All 5 Sterile Barriers or Appropriate Barriers Used (Gl... Number of days: 2 Arterial Line 07/26/25 Left Radial (Active) Placement Date/Time: 07/26/25 1345 Site Prep: Chlorhexidine Orientation: Left Location: Radial Securement Method: Sutured Inserted by: MD Insertion attempts: 1 Patient Tolerance: Tolerated well Number of days: 2 IABP (Active) Placement Date: 07/26/25 Placed by External Staff?: Other hospital Insertion Site: Left femoral Sutured: Yes Number of days: 3 ETT (Active) Placement Date: 07/26/25 Placed by External Staff?: Other hospital Location: Oral Number of days: 3 Urethral Catheter (Active) Placement Date/Time: 07/26/25 1230 Inserted by: Jackson VAZQUEZ Tube Size (Fr.): 16 Fr Catheter Balloon Size: 10 mL Urine Returned: Yes Number of days: 2 NG/OG Tube Orogastric Center mouth (Active) Placement Date/Time: 07/27/25 1315 Inserted by: GEORGE Decker NG/OG Tube Type: Orogastric Tube Location: Center mouth Number of days: 1 F (Feeding): NPO Diet A (Analgesia)/ S (Sedation): Propofol: 40 mcg/kg/min, Precedex: , and Fentanyl: *50 mcg T (Thromboembolic) ppx: heparin gtt H (Head of Bed Elevation): 30 degrees U (stress Ulcer ppx): pantoprazole IV G (Glycemic control): SSI B (Bowel Regimen): Enema Lactulose; Last BM Date: (HARMEET) I (Indwelling Catheters): See Above D (Drug De-escalation): See above Mike Irwin MD 07/29/25 Cosigned by Darrell Avalos MD at 07/29/2025 2:34 PM TOUR PRODUCTION SUPERVISOR PRODUCTION SUPERVISOR PRODUCTION SUPERVISOR Associated attestation - Darrell Avalso MD - 07/29/2025 2:34 PM TOUR PRODUCTION SUPERVISOR Critical Care Time: I have spent 45 minutes in full attendance with this critically ill patient making frequent reassessments and decisions regarding this patient's complex medical care. Critical care time was exclusive of separately billable procedures, treating other patients and teaching time. Critical care was necessary to treat or prevent imminent or life-threatening deterioration of the following conditions: My Assessment and Plan: Shock, mixed, primarily distributive Status post intra-aortic balloon pump MSSA pneumonia Oropharyngeal bleeding, secondary to lower lip laceration, stabilized Recent VT episode, status post defibrillatory shock Recent inferior STEMI, status post failed PCI attempt at outside hospital, status post complex PCI to left circumflex and obtuse marginal on July 26 2025 Recent NSTEMI, status post PCI at outside hospital on May 21 2025 Constipation History of nonadherence to dual antiplatelet therapy following PCI Severe coronary artery disease Hypertension Hyperlipidemia History of tobacco use, 26 pack years Monitoring hemodynamics. Vasopressors as needed. Maintaining intra-aortic balloon pump - will remove today. Maintaining mechanical ventilatory support. Adjusting ventilator settings to me oxygenation and ventilatory needs. Applying sedation. Daily SAT/SBT. Dual antiplatelet therapy - aspirin and cangrelor. Monitoring heart rhythm. No antiarrhythmics for now. Ceftriaxone. High-intensity statin. Holding IV heparin. Monitoring cell counts. Will transfuse as needed. PPI. TFs as able. Bowel regimen. Attending Documentation: I have seen and examined this patient on the day of service. I have reviewed and confirmed the history, physical exam, laboratory and radiographic data with the house staff as documented in the ICU resident note. I have reviewed and discussed my treatment plan with the ICU team and other medical/managed security sales consultant staff. * Gail Stanford MD - 07/28/2025 3:08 AM CST CCU DAILY PROGRESS Patient: Praveen Hayden Room: [id number] Date: 07/28/2025 SUBJECTIVE Summary Statement: Praveen Hayden is a 55 y.o. male with PMH significant for prior tobacco use, HTN, HLD, CAD s/p MILLICENT to OM1 (05/2025) not compliant with DAPT who presented to OSH 07/27 with STEMI s/p LHC w/ angioplasty of occluded LCx stent c/b VT/VF and respiratory distress requiring emergent intubation and IABP placement. Patient arrived supported 1:1 IABP without additional inotrope or vasopressor support bu t with severe mottling in all extremities. Interval Hx: Yesterday: -Seen by ENT. Packing removed. Noted to have superficial lower lip laceration with abrasion and thelower gingiva. Ok to use OGT. -OGT placed -TTE with LVEF 65% Overnight: -Switched cangrelor to ticagrelor -Febrile to 100.8F. Pneumonia PCR + for MSSA. Started on CTX. -500mL LR bolus given at 2300. Low CVP (1-2), levo 0.09. - Improvement of levo to 0.05 -Hgb downtrend 8.8 (9.6). No visible bleeding. Groin sites clean. - 0430 noted to have residual tube feeds and crushed meds (last meds given via tube feeds at 2200).KUB ordered. ASA changed to suppository. Ticag switched back to cangrelor. - IABP assisted 74/49 with augmented diastolic of 95. IABP mode auto, 1:1. Na 138 Cl 107 BUN 24 K 4.0 CO2 24 Cr 1.22 Mg 2.2, G AST 266 ALT 51 Alk Phos 87 Ca 7.8 TP - Alb 2.7 Total Bili: 0.3 Direct Bili: <0.2 \ Hgb 8.6 / WBC 13.10 -------- Plt 222 / MCV 92.8 \ INR 1.23 NT-proBNP 288 ABG pH 7.41 CO2 34 PO2 145 SpO2 99 pHCO3 21 pH 7.37 pCO2 - pO2 31 O2 Sat - pHCO3 - Lactate 1.3 SVCO2 84.4 OxyHgbPA - OBJECTIVE Vitals 24 Hour Min/Max: Temp Min: 37.7 ??C (99.9 ??F) Max: 38.3 ??C (100.9 ??F) Pulse Min: 90 Max: 108 Resp Min: 18 Max: 20 SpO2 Min: 95 % Max: 100 % Vitals (Past 12 Hours): Patient Vitals for the past 12 hrs: Temp Temp src Pulse Resp SpO2 07/28/25 0800 (!) 38.2 ??C (100.8 ??F) Bladder 97 20 96 % 07/28/25 0700 (!) 38.1 ??C (100.6 ??F) -- 97 20 97 % 07/28/25 0600 (!) 38 ??C (100.4 ??F) -- 98 20 96 % 07/28/25 0500 (!) 38 ??C (100.4 ??F) -- 101 20 97 % 07/28/25 0435 -- -- 96 20 97 % 07/28/25 0400 (!) 38.2 ??C (100.8 ??F) -- 93 20 98 % 07/28/25 0341 (!) 38.1 ??C (100.6 ??F) -- 99 20 97 % 07/28/25 0300 (!) 38 ??C (100.4 ??F) -- 99 20 97 % 07/28/25 0200 37.9 ??C (100.2 ??F) -- 101 20 96 % 07/28/25 0100 (!) 38 ??C (100.4 ??F) -- 103 20 96 % 07/28/25 0005 -- -- 101 -- 96 % 07/28/25 0000 (!) 38.2 ??C (100.8 ??F) -- 101 20 96 % 07/27/25 2300 (!) 38.3 ??C (100.9 ??F) -- 102 20 96 % 07/27/25 2200 (!) 38.2 ??C (100.8 ??F) -- 101 20 98 % 07/27/25 2100 (!) 38.2 ??C (100.8 ??F) -- 102 20 97 % 07/27/252035 (!) 38.2 ??C (100.8 ??F) -- 101 18 97 % Most Recent: Vitals: 07/28/25 0800 BP: Pulse: 97 Resp: 20 Temp: (!) 38.2 ??C (100.8 ??F) SpO2: 96% Ins and Outs: Intake/Output Summary (Last 24 hours) at 07/28/2025 0813 Last data filed at 07/28/2025 0800 Gross per 24 hour Intake 1970.18 ml Output 720 ml Net 1250.18 ml Vent Settings: Adult Vent Mode: Pressure regulated volume control/assist control/VC+ FiO2 (%): [40 %] 40 % S RR: [20] 20 S VT: [500 mL] 500 mL PEEP/CPAP/EPAP (cm H2O): [5 cm H20] 5 cm H20 MAP (cmH2O): [11-15] 12 pH 7.41, pCO2 34, pO2 145, HCO3 21 Lines & Drains: CVC Quadruple Lumen 07/26/25 Non-tunneled #1 Blue, #2 Wheeler, #3 White, #4 Brown, Right Internal jugular (Active) Number of days: 2 Peripheral IV 07/26/25 20 G Right Antecubital (Active) Number of days: 2 Peripheral IV 07/26/25 20 G Anterior;Left;Upper Arm (Active) Number of days: 2 Peripheral IV 07/26/25 20 G Anterior;Distal;Right Forearm (Active) Number of days: 2 Urethral Catheter (Active) Number of days: 2 ETT (Active) Number of days: 2 Arterial Line 07/26/25 Left Radial (Active) Number of days: 2 IABP (Active) Number of days: 2 NG/OG Tube Orogastric Center mouth (Active) Number of days: 1 Current Medications: Scheduled Meds: Scheduled Medications Medication Dose Route Frequency aspirin suppository 300 mg 300 mg rectal Daily cefTRIAXone (ROCEPHIN) 2,000 mg/20 mL in sterile water (premix) 2,000 mg 2,000 mg intravenous Q24H PAT ipratropium-albuteroL (DUO-NEB) 0.5-2.5 mg/3 mL nebulizer solution 3 mL 3 mL nebulization QID (RT) pantoprazole (PROTONIX) 40 mg in sodium chloride 0.9% 10 mL IV Syringe 40 mg intravenous Daily Continuous Meds: Current Facility-Administered Medications Medication Dose Route Frequency Last Admin cangrelor (KENGREAL) 50 mg in sodium chloride 0.9% 250 mL (0.2 mg/mL) infusion 0.75 mcg/kg/min intravenous Continuous 0.75 mcg/kg/min at 07/28/25 0800 fentaNYL 0-400 mcg/hr intravenous Titrated 100 mcg/hr at 07/28/25 0800 norepinephrine 0-2 mcg/kg/min intravenous Titrated 0.05 mcg/kg/min at 07/28/25 0800 propofol 0-50 mcg/kg/min intravenous Titrated 20 mcg/kg/min at 07/28/25 0800 PRN Meds: PRN Medications Medication Dose Route Frequency Last Admin acetaminophen (TYLENOL) suppository 650 mg 650 mg rectal Q4H PRN bisacodyL (DULCOLAX) suppository 10 mg 10 mg rectal Daily PRN bisacodyl EC (DULCOLAX EC) tablet 10 mg 10 mg oral Daily PRN fentaNYL (SUBLIMAZE) bolus from bag 50 mcg 50 mcg intravenous Q15 Min PRN fentaNYL (SUBLIMAZE) bolus from bag 50 mcg 50 mcg intravenous Q15 Min PRN 50 mcg at 07/27/25 0632 ondansetron ODT (ZOFRAN-ODT) disintegrating tablet 4 mg 4 mg oral Q6H PRN Or ondansetron (ZOFRAN) injection 4 mg 4 mg intravenous Q6H PRN polyethylene glycol (MIRALAX) packet 17 g 17 g oral Daily PRN Physical Exam: Gen : intubated, sedated HENT : NCAT, oropharynx nl, moist mucus membranes Eyes : anicteric, EOMI. Pulm : intubated CV : rrr, no m/r/g Abd : soft, NT/ND. Extr : Warm extremities, intact distal pulses, no cyanosis/clubbing/edema. Groin sites clean without bleeding. Skin : pale bilateral lower and upper extremities Neuro : RAAS -3, sedated, non responsive to verbal and touch LABORATORY DATA CBC Recent Labs Lab Units 07/28/25 0551 07/26/25 2151 07/26/25 2124 WBC K/cumm 13.10* < > 12.00* HEMOGLOBIN, POC -- < > -- HEMOGLOBIN g/dL 8.6* < > 10.4* HEMATOCRIT % 25.8* < > 31.3* HEMATOCRIT POC -- < > -- PLATELETS K/cumm 222 < > 273 NEUTROS PCT % -- -- 76.3 LYMPHS PCT % -- -- 17.2 MONOS PCT % -- -- 4.1 EOS PCT % -- -- 1.6 < > = values in this interval not displayed. Chem Recent Labs Lab Units 07/28/25 0551 SODIUM mmol/L 138 POTASSIUM PLASMA mmol/L 4.0 CHLORIDE mmol/L 107 CO2 mmol/L 24 ANIONGAP mmol/L 7 BUN SERUM mg/dL 24 CREATININE mg/dL 1.22 GLUCOSE mg/dL 123 CALCIUM mg/dL 7.8* LFTs Recent Labs Lab Units 07/28/25 0551 ALK PHOS Units/L 87 BILIRUBIN TOTAL mg/dL 0.3 BILIRUBIN DIRECT mg/dL <0.2 TOTAL PROTEIN g/dL 5.3* ALT Units/L 51 AST Units/L 266* Coags Recent Labs Lab Units 07/28/25 0551 APTT sec 21* INR 1.23* Cardiac Enzymes No results found for: TROPONINT No results found for: TROPONINI Urine Analysis Recent Labs Lab Units 07/26/25 1746 COLOR U Yellow CLARITY U Clear SPEC GRAV U >1.042* PH, URINE 6.5 PROTEIN UR QL 1+* GLUCOSE URQL Negative KETONES UR Negative BLOOD UR 3+* NITRITE UR Negative LEUKOCYTE ESTERASE UR Negative ABG Recent Labs Lab Units 07/28/25 0553 PH ART 7.41 PCO2 ART mmHg 34* PO2 ART mmHg 145* HCO3 ART (CALC) mmol/L 21 BASE EXC ART mmol/L -2 O2 SAT ART (DANIELA) % 99* Radiology and Other Diagnostics: Cardiac Catheterization Result Date: 07/26/2025 High-grade lesion of the AV groove circumflex as well as the major obtuse marginal branch status post complicated, successful IVUS guided PCI using a 3.0 x 30 mm esteban [place] drug-eluting stent the AV groove circumflex proximally optimized to high pressure with a 4.0 mm balloon post dilated at 3.5mm in the mid segment. The obtuse marginal branch was ballooned using a 2.75 mm NC emerge balloon in the proximal and mid segment and high pressure as well as an NC Sapphire balloon THERAPEUTIC RECOMMENDATIONS: Continue aspirin 81 mg daily indefinitely. Continue cangrelor and heparin given intra-aortic balloon pump Right femoral artery sheath was removed and closed with CELT ACD. Patient may sit up in 2 hours. Aggressive risk factor modification and medical therapy for secondary prevention of coronary artery disease. The case was reviewed and discussed with the referring physician and patient. The referring physician will determine the future therapy and follow-up. I was present during the entire procedure and personally dictated or confirmed the above report. IR Outside Reference Result Date: 07/26/2025 These images are for Reference purposes only and have not been reviewed by [facility] Radiology. There will be no report generated by a [facility] Radiologist. CT Head WO Contrast Result Date: 07/26/2025 No acute intracranial process. If there is concern for hypoxic ischemic injury in the setting of resuscitation, consider follow-up head CT. The Non Critical results were discussed with Dr. Rainey by Dr. Bobby Marshall MD on 07/26/2025 5:03 PM. Dictated by: Bobby Marshall MD The radiology attendingphysician has personally reviewed this study, and had reviewed and/or edited this written report and agrees with it. Electronically signed by: Ming Polo M.D. XR Chest 1 View Result Date: 07/26/2025 Comparison 07/26/2025 at 12:05 PM. Intra-aortic balloon pump remains in place with tip approximately 1 cm below the top of the aortic knob. Endotracheal tube tip approximately 7 cm above the frieda. Interval placement of a right internal jugular central venous catheter with tip overlying superior vena cava. The lungs are hyperexpanded as before. Subtle right perihilar opacity again seen, compatible with atelectasis versus subtle pneumonia. Attention on follow-up examination recommended. No focal consolidation. No pneumothorax or pleural effusion seen. Heart size remains within normal limits. Electronically signed by: Stanley Colby M.D. XR chest 1 view (Portable) Urgent Result Date: 07/26/2025 Comparison 08/16/2023. Interval placement of intra-aortic balloon pump with the tip approximately 1 cm below the top of the aortic knob. Endotracheal tube tip 5 cm above the frieda. The lungs are hyperexpanded as before. No focal consolidation or pulmonary edema seen. No pneumothorax or pleural effusion seen. Heart size remains within normal limits. Electronically signed by: Stanley Colby M.D. ASSESSMENT and PLAN Praveen Hayden is a 55 y.o. male with PMH significant for prior tobacco use, HTN, HLD, prediabetes, CAD, recent STEMI s/p MILLICENT to OM1 (05/2025) not compliant with DAPT who presented to OSH earliertoday with STEMI. The patient is transferred to [facility] for HLOC. # STEMI (100% occulusion of LCx) # Hx recent NSTEMI, s/p MILLICENT to OM/2024 # CAD Recent NSTEMI, s/p MILLICENT to OM1 on 05/21/2025. TTE post PCI showed LVEF 60%. On discharge, the patient was sent home with amlodipine, aspirin, atorvastatin, Brilinta, losartan. Recent OP cards follow up on 06/01. C/f medication noncompliance, with DAPT. Presented to [facility] on 07/26/2025 for syncopal episode. Passed out, hitting his head, with diaphoresis and CP after. EKG c/f for acute ST-elevation. S/p LHC with 100% occlusion in the mid LCx with concern with OM stent protruding into the lumen. balloon pump placed and transferred to [facility] for HLOC. Troponin trending on admission, record label internship reactivated after CTH not concerning for acute intracranial process. Trend troponin -> uptrending -> activated record label internship 07/25 -s/p successful IVUS guided PCI using a 3.0 x 30 mm drug-eluting stent the AV groove circumflex proximally optimized to high pressure with a 4.0 mm balloon post dilated at 3.5 mm in the mid segment. The obtuse marginal branch was ballooned using a 2.75 mm NC emerge balloon in the proximal and mid segment and high pressure as well as an NC Sapphire balloon Continue trending post cath troponins and serial ECGs Levo for MAP > 65 Continue ASA, cangrelor Holding heparin in setting of increased bleed risk (oral bleeding, groin oozing, down trending Hgb) Serial EKGs Telemetry CAD Risk factor screening: A1c, lipid panel, TSH, UTox, LFTs, coags Daily BMP, Mg; replete PRN K >4.0 and Mg >2.0 Plaque stabilization: atorvastatin 80mg qhs Defer cardiac remodeling prevention iso shock # AHRF Concerns for acute hypoxic respiratory failure requiring intubation in the record label internship at OSH. On arrival, ventilator settings were tidal volume 500, respiratory rate 15, FiO2 100, peep 5. Wean vent and sedation as able SAT/ SBT Daily CXR Treating pneumonia as below # Pneumonia Febrile with leukocytosis. Pneumonia PCR+ MSSA. - CTX started on 07/27, plan for 5 day course. # Gastroparesis/Ileus Residual tube feeds and crushed pills from OGT overnight. KUB with no obstruction but notable stoolburden. -Aggressive bowel regimen -Consider small bowel tube placement if continued residuals despite BMs -Avoid oral meds # Upper airway bleed On presentation, there was significant blood coming out of his mouth, reportedly from placement of an OG tube, around 300ccs. ENT consulted Likely 2/2 superficial lower lip laceration Trend CBC # HTN Home regimen losartan and amlodipine. Hold iso shock # Tobacco use 26 pack year history of tobacco use Social work consult Consider Chantix on discharge Checklist: CVC Quadruple Lumen 07/26/25 Non-tunneled #1 Blue, #2 Wheeler, #3 White, #4 Brown, Right Internal jugular (Active) Placement Date/Time: 07/26/25 1436 Catheter Time Out Checklist Completed: Yes Hand Hygiene Performed: Yes Site Prep: Chlorhexidine Site Prep Agent has Completely Dried Before Insertion: Yes All 5 Sterile Barriers or Appropriate Barriers Used (Gl... Number of days: 1 Arterial Line 07/26/25 Left Radial (Active) Placement Date/Time: 07/26/25 1345 Site Prep: Chlorhexidine Orientation: Left Location: Radial Securement Method: Sutured Inserted by: Insertion attempts: 1 Patient Tolerance: Tolerated well Number of days: 1 IABP (Active) Placement Date: 07/26/25 Placed by External Staff?: Other hospital Insertion Site: Left femoral Sutured: Yes Number of days: 2 ETT (Active) Placement Date: 07/26/25 Placed by External Staff?: Other hospital Location: Oral Number of days: 2 Urethral Catheter (Active) Placement Date/Time: 07/26/25 1230 Inserted by: Jackson VAZQUEZ Tube Size (Fr.): 16 Fr Catheter Balloon Size: 10 mL Urine Returned: Yes Number of days: 1 NG/OG Tube Orogastric Center mouth (Active) Placement Date/Time: 07/27/25 1315 Inserted by: GEORGE Decker NG/OG Tube Type: Orogastric Tube Location: Center mouth Number of days: 0 F (Feeding): NPO Diet A (Analgesia)/ S (Sedation): Propofol: 20 mcg/kg/min and Fentanyl: 100 mcg/hr T (Thromboembolic) ppx: pharmacological contraindicated (in setting of bleeding) H (Head of Bed Elevation): 30 degrees U (stress Ulcer ppx): pantoprazole IV G (Glycemic control): NA B (Bowel Regimen): miralax daily when feeding tube placed; Last BM Date: (HARMEET) I (Indwelling Catheters): See Above D (Drug De-escalation): As tolerated Gail Stanford MD 07/28/25 Cosigned by Darrell Avalos MD at 07/28/2025 2:44 PM TOUR PRODUCTION SUPERVISOR PRODUCTION SUPERVISOR PRODUCTION SUPERVISOR PRODUCTION SUPERVISOR PRODUCTION SUPERVISOR PRODUCTION SUPERVISOR Associated attestation - Darrell Avalos MD - 07/28/2025 2:44 PM TOUR PRODUCTION SUPERVISOR Critical Care Time: I have spent 45 minutes in full attendance with this critically ill patient making frequent reassessments and decisions regarding this patient's complex medical care. Critical care time was exclusive of separately billable procedures, treating other patients and teaching time. Critical care was necessary to treat or prevent imminent or life-threatening deterioration of the following conditions: My Assessment and Plan: Shock, mixed, primarily distributive Status post intra-aortic balloon pump MSSA pneumonia Oropharyngeal bleeding, secondary to lower lip laceration, stabilized Recent VT episode, status post defibrillatory shock Recent inferior STEMI, status post failed PCI attempt at outside hospital, status post complex PCI to left circumflex and obtuse marginal on July 26 2025 Recent NSTEMI, status post PCI at outside hospital on May 21 2025 Constipation History of nonadherence to dual antiplatelet therapy following PCI Severe coronary artery disease Hypertension Hyperlipidemia History of tobacco use, 26 pack years Monitoring hemodynamics. Vasopressors as needed. Gentle volume resuscitation. Maintaining intra-aortic balloon pump. Maintaining mechanical ventilatory support. Adjusting ventilator settings to me oxygenation and ventilatory needs. Applying sedation. Daily SAT/SBT. Dual antiplatelet therapy-aspirin and cangrelor. Monitoring heart rhythm. No antiarrhythmics for now. Ceftriaxone. High-intensity statin. Holding IV heparin. Monitoring cell counts. Will transfuse as needed. PPI. TFs as able. Aggressive bowel regimen. Attending Documentation: I have seen and examined this patient on the day of service. I have reviewed and confirmed the history, physical exam, laboratory and radiographic data with the house staff as documented in the ICU resident note. I have reviewed and discussed my treatment plan with the ICU team and other medical/managed security sales consultant staff. * Luisa Mccord OT - 07/27/2025 3:07 PM CST 07/27/25 1507 General OT Missed Visit Reason (Pt intubated and sedated at this time, will continue to follow along as able and appropriate.) PRODUCTION SUPERVISOR * Radha Munoz, PT - 07/27/2025 3:02 PM CST Physical Therapy 07/27/25 0830 General PT Missed Visit Reason Sedated (Intubated/sedated and IABP) PRODUCTION SUPERVISOR * Beatris Posey RN - 07/27/2025 2:29 PM CST Unable to complete initial assessment due to not medically appropriate at this time, patient is intubated and sedated. Attempted to contact patient's mother Devin who is listed as an emergency contact, but unable to reach her at listed number. Will attempt to obtain assessment at later date. Admission Source: outside hospital Impression: 55 y.o. male with history of prior tobacco use, HTN, HLD, CAD s/p MILLICENT to OM1 (05/2025) not compliant with DAPT who presented to OSH earlier today with STEMI s/p LHC w/ angioplasty of occluded LCx stent c/b VT/VF and respiratory distress requiring emergent intubation and IABP placement. Plan & Referrals made/in place: to be determined ADD: to be determined policy and planning manager will continue to follow and assist with discharge planning as needed. PRODUCTION SUPERVISOR PRODUCTION SUPERVISOR * Gail Stanford MD - 07/27/2025 4:32 AM CST CCU DAILY PROGRESS Patient: Praveen Hayden Room: [id number] Date: 07/27/2025 SUBJECTIVE Summary Statement: Praveen Hayden is a 55 y.o. male with PMH significant for prior tobacco use, HTN, HLD, CAD s/p MILLICENT to OM1 (05/2025) not compliant with DAPT who presented to OSH 07/27 with STEMI s/p LHC w/ angioplasty of occluded LCx stent c/b VT/VF and respiratory distress requiring emergent intubation and IABP placement. Patient arrived supported 1:1 IABP without additional inotrope or vasopressor support bu t with severe mottling in all extremities. 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 -[facility] with high-grade lesion of the AV groove circumflex as well as the major obtuse marginal branchstatus post complicated, successful IVUS guided PCI using a 3.0 x 30 mm drug-eluting stent the AV groove circumflex proximally optimized to high pressure with a 4.0 mm balloon post dilated at 3.5 mm in the mid segment. The obtuse marginal branch was ballooned using a 2.75 mm NC emerge balloon in the proximal and mid segment and high pressure as well as an NC Sapphire balloon -Transferred back to ICU intubated and sedated with recommendation to continue cangrelor drip for at least 24 hours prior to transition to oral P2Y12. Cangrelor drip continued at 4mcg for 2 hours prior to decreasing to 0.75mcg -On arrival to floor patient notably has cool left hand without skin changes. Distal pulses intact.Intermittent nonsustained episodes of VT. Reported bleeding from left PIV. Dressings changed. -IABP 70/51 with augmented diastole of 95. IABP mode auto with ratio 1:1. -Troponin post cath 169k ->99k ->175k without ST interval changes on ECG Na 139 Cl 107 BUN 23 K 4.0 CO2 21 Cr 1.27 Mg 1.7, G AST 508 ALT 57 Alk Phos 85 Ca 7.7 TP - Alb 2.7 Total Bili: 0.6 Direct Bili: - \ Hgb 11.5 / WBC 12.00 -------- Plt 273 / MCV 90.5 \ INR 1.38 Trop - 99,160 NT-proBNP 288 ABG pH 7.43 CO2 34 PO2 131 SpO2 99 pHCO3 22 pH 7.37 pCO2 - pO2 31 O2 Sat - pHCO3 - Lactate 2.2 1.3 SVCO2 68.9 OxyHgbPA - OBJECTIVE Vitals 24 Hour Min/Max: Temp Min: 32.5 ??C (90.5 ??F) Max: 37.8 ??C (100 ??F) Pulse Min: 46 Max: 100 BP Min: 70/35 Max: 189/106 Resp Min: 15 Max: 23 SpO2 Min: 97 % Max: 100 % Vitals (Past 12 Hours): Patient Vitals for the past 12 hrs: Temp Temp src Pulse Resp SpO2 07/27/25 0300 37.8 ??C (100 ??F) Bladder 100 20 97 % 07/27/25 0200 37.5 ??C (99.5 ??F) Bladder 95 20 100 % 07/27/25 0100 36.9 ??C (98.4 ??F) Bladder 90 20 100 % 07/27/25 0000 36.1 ??C (97 ??F) Bladder 82 20 100 % 07/26/252357 -- -- 80 -- 99 % 07/26/252314 (!) 35.6 ??C (96.1 ??F) Bladder 76 20 98 % 07/26/252299 (!) 35.6 ??C (96.1 ??F) Bladder 76 20 98 % 07/26/252244 (!) 35.5 ??C (95.9 ??F) Bladder 74 20 97 % 07/26/252214 (!) 35.4 ??C (95.7 ??F) Bladder 86 20 99 % 07/26/252203 -- -- 76 -- 100 % 07/26/252199 (!) 35.3 ??C (95.5 ??F) Bladder 79 22 100 % 07/26/252144 (!) 35.3 ??C (95.5 ??F) Bladder 84 22 100 % 07/26/252129 (!) 35.3 ??C (95.5 ??F) Bladder 82 22 100 % 07/26/252113 (!) 35.3 ??C (95.5 ??F) Bladder 83 15 100 % 07/26/252107 -- -- 81 -- 100 % 07/26/251729 36.4 ??C (97.5 ??F) -- 86 22 100 % 07/26/251714 36.5 ??C (97.7 ??F) -- 86 22 100 % 12/25/25 1700 36.5 ??C (97.7 ??F) -- 82 22 100 % 07/26/25 1658 -- -- 83 22 100 % 07/26/25 1630 36.2 ??C (97.2 ??F) -- 85 22 100 % 07/26/25 1600 (!) 35.9 ??C (96.6 ??F) -- 75 22 100 % 07/26/25 1546 (!) 35.7 ??C (96.3 ??F) -- 81 22 100 % 07/26/25 1533 (!) 35.6 ??C (96.1 ??F) -- 83 22 100 % Most Recent: Vitals: 07/27/25 0300 BP: Pulse: 100 Resp: 20 Temp: 37.8 ??C (100 ??F) SpO2: 97% Ins and Outs: Intake/Output Summary (Last 24 hours) at 07/27/2025 0332 Last data filed at 07/27/2025 0300 Gross per 24 hour Intake 431.72 ml Output 734 ml Net -302.28 ml Vent Settings: Adult Vent Mode: Pressure regulated volume control/assist control/VC+ FiO2 (%): [40 %-60 %] 40 % S RR: [18-22] 20 S VT: [500 mL] 500 mL PEEP/CPAP/EPAP (cm H2O): [5 cm H20] 5 cm H20 MAP (cmH2O): [9.2-20] 12 pH 7.43, pCO2 34, pO2 131, HCO3 22 Lines & Drains: CVC Quadruple Lumen 07/26/25 Non-tunneled #1 Blue, #2 Wheeler, #3 White, #4 Brown, Right Internal jugular (Active) Number of days: 1 Peripheral IV 07/26/25 20 G Right Antecubital (Active) Number of days: 1 Peripheral IV 07/26/25 20 G Anterior;Left;Upper Arm (Active) Number of days: 1 Peripheral IV 07/26/25 20 G Anterior;Distal;Right Forearm (Active) Number of days: 1 Urethral Catheter (Active) Number of days: 1 ETT (Active) Number of days: 1 Arterial Line 07/26/25 Left Radial (Active) Number of days: 1 IABP (Active) Number of days: 1 Current Medications: Scheduled Meds: Scheduled Medications Medication Dose Route Frequency aspirin suppository 300 mg 300 mg rectal Daily atropine 0.1 mg/mL injection - ADS Override Pull ipratropium-albuteroL (DUO-NEB) 0.5-2.5 mg/3 mL nebulizer solution 3 mL 3 mL nebulization QID (RT) [Held by Provider] pantoprazole (PROTONIX) 40 mg in sodium chloride 0.9% 10 mL IV Syringe 40 mg intravenous Daily phenylephrine (ALIE-SYNEPHRINE) 1 mg/10 mL (100 mcg/mL) in sodium chloride 0.9% (premix) 200 mcg 200mcg intravenous Once Continuous Meds: Current Facility-Administered Medications Medication Dose Route Frequency Last Admin cangrelor (KENGREAL) 50 mg in sodium chloride 0.9% 250 mL (0.2 mg/mL) infusion 0.75 mcg/kg/min intravenous Continuous 0.75 mcg/kg/min at 07/27/25199 fentaNYL 0-400 mcg/hr intravenous Titrated 100 mcg/hr at 07/27/25 0300 norepinephrine 0-2 mcg/kg/min intravenous Titrated 0.02 mcg/kg/min at 07/27/25 020 propofol 0-50 mcg/kg/min intravenous Titrated 30 mcg/kg/min at 07/27/25 030 PRN Meds: PRN Medications Medication Dose Route Frequency Last Admin acetaminophen (TYLENOL) tablet 650 mg 650 mg oral Q4H PRN atropine 0.1 mg/mL injection - ADS Override Pull bisacodyL (DULCOLAX) suppository 10 mg 10 mg rectal Daily PRN bisacodyl EC (DULCOLAX EC) tablet 10 mg 10 mg oral Daily PRN fentaNYL (SUBLIMAZE) bolus from bag 50 mcg 50 mcg intravenous Q15 Min PRN fentaNYL (SUBLIMAZE) bolus from bag 50 mcg 50 mcg intravenous Q15 Min PRN ondansetron ODT (ZOFRAN-ODT) disintegrating tablet 4 mg 4 mg oral Q6H PRN Or ondansetron (ZOFRAN) injection 4 mg 4 mg intravenous Q6H PRN polyethylene glycol (MIRALAX) packet 17 g 17 g oral Daily PRN Physical Exam: Gen : intubated, sedated, oral packing present HENT : NCAT, oropharynx nl, moist mucus membranes Eyes : anicteric, EOMI. Pulm : intubated CV : rrr, no m/r/g Abd : soft, NT/ND. Extr : Cool left hand, intact distal pulses, no cyanosis/clubbing/edema. Groin sites clean without bleeding. Skin : cyanotic changes on bilateral lower and upper extremities Neuro : RAAS -3, sedated, non responsive to verbal and touch LABORATORY DATA CBC Recent Labs Lab Units 07/26/25215007/26/252123 WBC K/cumm -- 12.00* HEMOGLOBIN, POC g/dL 11.5* -- HEMOGLOBIN g/dL -- 10.4* HEMATOCRIT % -- 31.3* HEMATOCRIT POC % 35.0* -- PLATELETS K/cumm -- 273 NEUTROS PCT % -- 76.3 LYMPHS PCT % -- 17.2 MONOS PCT % -- 4.1 EOS PCT % -- 1.6 Chem Recent Labs Lab Units 07/26/25215007/26/252123 SODIUM mmol/L -- 139 POTASSIUM PLASMA mmol/L -- 4.0 CHLORIDE mmol/L -- 107 CO2 mmol/L -- 21* ANIONGAP mmol/L -- 11 BUN SERUM mg/dL -- 23 CREATININE mg/dL -- 1.27 GLUCOSE mg/dL -- 108 POC GLUCOSE MONITOR mg/dL 125 -- CALCIUM mg/dL -- 7.7* LFTs Recent Labs Lab Units 07/26/252123 ALK PHOS Units/L 85 BILIRUBIN TOTAL mg/dL 0.6 TOTAL PROTEIN g/dL 4.8* ALT Units/L 57* AST Units/L 508* Coags Recent Labs Lab Units 07/26/25 1225 APTT sec 45* INR 1.38* Cardiac Enzymes No results found for: TROPONINT No results found for: TROPONINI Urine Analysis Recent Labs Lab Units 07/26/25 1746 COLOR U Yellow CLARITY U Clear SPEC GRAV U >1.042* PH, URINE 6.5 PROTEIN UR QL 1+* GLUCOSE URQL Negative KETONES UR Negative BLOOD UR 3+* NITRITE UR Negative LEUKOCYTE ESTERASE UR Negative ABG Recent Labs Lab Units 07/27/25 0012 PH ART 7.43 PCO2 ART mmHg 34* PO2 ART mmHg 131* HCO3 ART (CALC) mmol/L 22 BASE EXC ART mmol/L -1 O2 SAT ART (DANIELA) % 99* Screening Labs: Iron Studies Cholesterol Hgb A1C Radiology and Other Diagnostics: Cardiac Catheterization Result Date: 07/26/2025 High-grade lesion of the AV groove circumflex as well as the major obtuse marginal branch status post complicated, successful IVUS guided PCI using a 3.0 x 30 mm esteban [place] drug-eluting stent the AV groove circumflex proximally optimized to high pressure with a 4.0 mm balloon post dilated at 3.5mm in the mid segment. The obtuse marginal branch was ballooned using a 2.75 mm NC emerge balloon in the proximal and mid segment and high pressure as well as an NC Sapphire balloon THERAPEUTIC RECOMMENDATIONS: Continue aspirin 81 mg daily indefinitely. Continue cangrelor and heparin given intra-aortic balloon pump Right femoral artery sheath was removed and closed with CELT ACD. Patient may sit up in 2 hours. Aggressive risk factor modification and medical therapy for secondary prevention of coronary artery disease. The case was reviewed and discussed with the referring physician and patient. The referring physician will determine the future therapy and follow-up. I was present during the entire procedure and personally dictated or confirmed the above report. IR Outside Reference Result Date: 07/26/2025 These images are for Reference purposes only and have not been reviewed by [facility] Radiology. There will be no report generated by a [facility] Radiologist. CT Head WO Contrast Result Date: 07/26/2025 No acute intracranial process. If there is concern for hypoxic ischemic injury in the setting of resuscitation, consider follow-up head CT. The Non Critical results were discussed with Dr. Rainey by Dr. Bobby Marshall MD on 07/26/2025 5:03 PM. Dictated by: Bobby Marshall MD The radiology attendingphysician has personally reviewed this study, and had reviewed and/or edited this written report and agrees with it. Electronically signed by: Ming Polo M.D. XR Chest 1 View Result Date: 07/26/2025 Comparison 07/26/2025 at 12:05 PM. Intra-aortic balloon pump remains in place with tip approximately 1 cm below the top of the aortic knob. Endotracheal tube tip approximately 7 cm above the frieda. Interval placement of a right internal jugular central venous catheter with tip overlying superior vena cava. The lungs are hyperexpanded as before. Subtle right perihilar opacity again seen, compatible with atelectasis versus subtle pneumonia. Attention on follow-up examination recommended. No focal consolidation. No pneumothorax or pleural effusion seen. Heart size remains within normal limits. Electronically signed by: Stanley Colby M.D. XR chest 1 view (Portable) Urgent Result Date: 07/26/2025 Comparison 08/16/2023. Interval placement of intra-aortic balloon pump with the tip approximately 1 cm below the top of the aortic knob. Endotracheal tube tip 5 cm above the frieda. The lungs are hyperexpanded as before. No focal consolidation or pulmonary edema seen. No pneumothorax or pleural effusion seen. Heart size remains within normal limits. Electronically signed by: Stanley Colby M.D. ASSESSMENT and PLAN Praveen Hayden is a 55 y.o. male with PMH significant for prior tobacco use, HTN, HLD, prediabetes, CAD, recent STEMI s/p MILLICENT to OM1 (05/2025) not compliant with DAPT who presented to OSH earliertoday with STEMI. The patient is transferred to [facility] for HLOC. # STEMI (100% occulusion of LCx) # Hx recent NSTEMI, s/p MILLICENT to OM # CAD Recent NSTEMI, s/p MILLICENT to OM1 on 05/21/2025. TTE post PCI showed LVEF 60%. On discharge, the patient was sent home with amlodipine, aspirin, atorvastatin, Brilinta, losartan. Recent OP cards follow up on 06/01. C/f medication noncompliance, with DAPT. Presented to [facility] on 07/26/2025 for syncopal episode. Passed out, hitting his head, with diaphoresis and CP after. EKG c/f for acute ST-elevation. S/p LHC with 100% occlusion in the mid LCx with concern with OM stent protruding into the lumen. balloon pump placed and transferred to [facility] for HLOC. Troponin trending on admission, record label internship reactivated after CTH not concerning for acute intracranial process. Trend troponin -> uptrending -> activated record label internship 07/25 -s/p successful IVUS guided PCI using a 3.0 x 30 mm drug-eluting stent the AV groove circumflex proximally optimized to high pressure with a 4.0 mm balloon post dilated at 3.5 mm in the mid segment. The obtuse marginal branch was ballooned using a 2.75 mm NC emerge balloon in the proximal and mid segment and high pressure as well as an NC Sapphire balloon Continue trending post cath troponins and serial ECGs Levo for MAP > 65 Continue ASA, cangrelor Holding heparin in setting of increased bleed risk (oral bleeding, groin oozing, down trending Hgb) Continue IV cangrelor for 24 hours post cath, then switch to oral brelinta Serial EKGs Telemetry TTE post [facility] ordered CAD Risk factor screening: A1c, lipid panel, TSH, UTox, LFTs, coags Daily BMP, Mg; replete PRN K >4.0 and Mg >2.0 Plaque stabilization: atorvastatin 80mg qhs Unable to start in setting of no OGT (oral bleeding) Defer cardiac remodeling prevention iso shock\ # AHRF Concerns for acute hypoxic respiratory failure requiring intubation in the record label internship at OSH. On arrival, ventilator settings were tidal volume 500, respiratory rate 15, FiO2 100, peep 5. Wean vent as able SAT/ SBT Daily CXR Consider diuresis # Upper airway bleed On presentation, there was significant blood coming out of his mouth, reportedly from placement of an OG tube, around 300ccs. ENT consult with packing Reassess today and OGT placement if able Trend CBC # HTN Home regimen losartan and amlodipine. Hold iso shock # Tobacco use 26 pack year history of tobacco use Social work consult Consider Chantix on discharge Checklist: CVC Quadruple Lumen 07/26/25 Non-tunneled #1 Blue, #2 Wheeler, #3 White, #4 Brown, Right Internal jugular (Active) Placement Date/Time: 07/26/25 1436 Catheter Time Out Checklist Completed: Yes Hand Hygiene Performed: Yes Site Prep: Chlorhexidine Site Prep Agent has Completely Dried Before Insertion: Yes All 5 Sterile Barriers or Appropriate Barriers Used (Gl... Number of days: 0 Arterial Line 07/26/25 Left Radial (Active) Placement Date/Time: 07/26/25 1345 Site Prep: Chlorhexidine Orientation: Left Location: Radial Securement Method: Sutured Inserted by: Insertion attempts: 1 Patient Tolerance: Tolerated well Number of days: 0 IABP (Active) Placement Date: 07/26/25 Placed by External Staff?: Other hospital Insertion Site: Left femoral Sutured: Yes Number of days: 1 ETT (Active) Placement Date: 07/26/25 Placed by External Staff?: Other hospital Location: Oral Number of days: 1 Urethral Catheter (Active) Placement Date/Time: 07/26/25 1230 Inserted by: data lead Tube Size (Fr.): 16 Fr Catheter Balloon Size: 10 mL Urine Returned: Yes Number of days: 0 F (Feeding): NPO Diet A (Analgesia)/ S (Sedation): Propofol: 30 mcg/kg/min and Fentanyl: 100 mcg/hr T (Thromboembolic) ppx: pharmacological contraindicated (in setting of bleeding) H (Head of Bed Elevation): 30 degrees U (stress Ulcer ppx): pantoprazole IV G (Glycemic control): NA B (Bowel Regimen): miralax daily when feeding tube placed; Last BM Date: (HARMEET) I (Indwelling Catheters): See Above D (Drug De-escalation): As tolerated Gail Stanford MD 07/27/25 Cosigned by Fuad Bello MD at 07/27/2025 4:29 PM TOUR PRODUCTION SUPERVISOR PRODUCTION SUPERVISOR PRODUCTION SUPERVISOR PRODUCTION SUPERVISOR PRODUCTION SUPERVISOR Associated attestation - Fuad Bello MD - 07/27/2025 4:29 PM TOUR PRODUCTION SUPERVISOR Critical Care Time: I have spent 40 minutes in full attendance with this critically ill patient making frequent reassessments and decisions regarding this patient's complex medical care. Critical care time was exclusive of separately billable procedures, treating other patients and teaching time. Critical care was necessary to treat or prevent imminent or life-threatening deterioration of the following conditions: Acute inferior STEMI/late stent thrombosis, acute hypoxemic respiratory failure, VT, VT arrest: Attending Documentation: 55 year old male with history of CAD and recent hospitalization at OSH foracute NSTEMI in May 2025 and s/p PCI of OM1 on 05/21/2025. TTE post PCI showed LVEF 60%. The patient had reported intermittent bradycardia with 2 distinct P wave morphologies on telemetry with associated episodic shortness of breath and chest heaviness during bradycardic episodes. Metoprolol was discontinued. On discharge, the patient was sent home with amlodipine, losartan, atorvastatin, aspirin, and ticagrelor. Daughter reports patient was inconsistently taking his medications at home. This AM the pt reportedly had syncopal episode at a gas station. When he regained consciousness he wasdiaphoretic and c/o chest pain. He presented to [facility]. On presentation, the patient washemodynamically stable. EKG was concerning for acute inferior ST-elevation. He was transferred to [facility] and underwent emergency cardiac cath that showed 100% occlusion in the proximal left circumflex and OM1 at the prior stent site. PCI was attempted and partial patency restored into the mid to distal circumflex and OM1 but with JYOTHI 1-2 flow. There was inability to achieve fullpatency. He was given IV eptifibatide. The patient reportedly had sustained VT requiring defib shock. He also required intubation, possibly for acute hypoxemic respiratory failure and altered mental status. The PCI procedure was aborted and an IABP catheter was placed via the LFA. He was then transferred here top the [facility] CICU for management. On arrival pt intubated, sedated, and unresponsive. There was active oropharyngeal bleeding reportedly due to trauma with attempted OG tube placement. Seenby ENT and oropharynx packed. On afternoon 07/26 he underwent successful urgent complex salvage PCIby Dr. Castro of the LCx and OM1 bifurcation and proximal OM1. Returned to CICU on cangrelor gtt; heparin held. Remains on IV norepinephrine and IABP. This AM on vent, sedated, unresponsive. Physical exam: On vent via ETT; VS reviewed; Chest: coarse BS bilat; Cor: reg distant S1 and S2, prob S4; Abd: soft, +BS; Ext: no edema, left hand cool Labs reviewed. Impression/Plan: Acute inferior STEMI/late stent thrombosis: acute inferior STEMI in setting of acute thrombotic occlusion of proximal LCx due to late stent thrombosis; had attempted primary PCI at OSH but unsuccessful and complicated by potential coronary dissection at attempted lesion with residual high grade stenosis and subtotal occlusions of LCx and OM1; ECG ST elevations improved but had rapidly rising serum troponin; discussed with CTS and ICS; underwent complex PCI; hold BB or ACEi/ARB due to hypotension; cont IABP at present. CAD/Complicated unsuccessful PCI of LCx/OM1: residual high grade lesion at bifurcation of LCx and OM1; cont cangrelor; discussed at length with CTS and Dr. Castro of ICS; referred to record label internship for urgent salvage PCI and had successful PTCA and stent placement of LCx at bifurcation and successful PTCA of proximal to mid OM1; per ICS, cont cangrelor x 24 hours then switch to ticagrelor, cont ASA 81mg daily Shock: poss mixed septic and cardiogenic shock; suspect aspiration PNA as source of sepsis; TTE notable for preserved LVEF and ScVO2 ~60% suggest not purely cardiogenic shock; start abx for aspiration pneumonia Acute hypoxemic respiratory failure/aspiration PNA: intubated on vent and arrived on FiO2 100%; nowon 40% FiO2; wean vent as tolerates VT arrest: sustained VT during PCI at OSH requiring DCCV; if recurs, start amiodarone Oropharyngeal bleeding: prob local trauma from attempted OG placement; ENT consulted on 07/26; removed packing today and no active bleeding. Tobacco use Substance abuse: per daughter poss methamphetamine use; UDS pending I have seen and examined this patient on the day of service. I have reviewed and confirmed the history, physical exam, laboratory and radiographic data with the house staff as documented in the ICU resident note. I have reviewed and discussed my treatment plan with the ICU team and other medical/managed security sales consultant staff. documented in this encounter H&P Notes * Alli Rae MD - 07/26/2025 5:16 PM CST History and Physical Division of Cardiovascular Medicine Name: Praveen Hayden : 1970 Service Date: July 26, 2025 Age: 55 y.o. male Admit Date: 07/26/2025 Bed: [id number] LOS: 0 days Subjective Mr. Hayden is a 55 y.o. male with chief complaint of chest pain. HPI Praveen Hayden is a 55 y.o. male with history of prior tobacco use, HTN, HLD, CAD s/p MILLICENT to OM1 (05/2025) not compliant with DAPT who presented to OSH earlier today with STEMI s/p LHC w/ angioplasty of occluded LCx stent c/b VT/VF and respiratory distress requiring emergent intubation and IABPplacement. 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 for rising troponins and cardiogenic shock Review of Systems Unable to perform ROS: Intubated Past Medical History Past Medical History: Diagnosis Date Hypertension Past Surgical History: Procedure Laterality Date CARPAL TUNNEL RELEASE HERNIA REPAIR Current Facility-Administered Medications Medication Dose Route Frequency Provider Last Rate Last Admin acetaminophen (TYLENOL) tablet 650 mg 650 mg oral Q4H PRN Cece Rainey MD [START ON 07/27/2025] aspirin chewable tablet 81 mg 81 mg feeding tube Daily Cece Rainey MD bisacodyL (DULCOLAX) suppository 10 mg 10 mg rectal Daily PRN Cece Rainey MD bisacodyl EC (DULCOLAX EC) tablet 10 mg 10 mg oral Daily PRN Cece Rainey MD cangrelor (KENGREAL) 50 mg in sodium chloride 0.9% 250 mL (0.2 mg/mL) infusion 0.75 mcg/kg/min intravenous Continuous Cece Rainey MD 16.4 mL/hr at 07/26/25 1715 0.75 mcg/kg/min at 07/26/25 1715 fentaNYL (SUBLIMAZE) bolus from bag 50 mcg 50 mcg intravenous Q15 Min PRN Cece Rainey MD fentaNYL (SUBLIMAZE) bolus from bag 50 mcg 50 mcg intravenous Q15 Min PRN Cece Rainey MD fentaNYL 2500 mcg/50 mL (50 mcg/mL) infusion syringe (premix) 0-400 mcg/hr intravenous Titrated Cece Rainey MD 2 mL/hr at 07/26/25 1715 100 mcg/hr at 07/26/25 1715 ipratropium-albuteroL (DUO-NEB) 0.5-2.5 mg/3 mL nebulizer solution 3 mL 3 mL nebulization QID (RT) Cece Rainey MD 3 mL at 07/26/25 1658 norepinephrine in dextrose 5% (LEVOPHED) 8,000 mcg/250 mL (32 mcg/mL) infusion (premix) 0-2 mcg/kg/min intravenous Titrated Cece Rainey MD 4.1 mL/hr at 07/26/25 1715 0.03 mcg/kg/minat 07/26/25 1715 ondansetron ODT (ZOFRAN-ODT) disintegrating tablet 4 mg 4 mg oral Q6H PRN Cece Rainey MD Or ondansetron (ZOFRAN) injection 4 mg 4 mg intravenous Q6H PRN Cece Rainey MD phenylephrine (ALIE-SYNEPHRINE) 1 mg/10 mL (100 mcg/mL) in sodium chloride 0.9% (premix) 200 mcg 200mcg intravenous Once Cece Rainey MD polyethylene glycol (MIRALAX) packet 17 g 17 g oral Daily PRN Cece Rainey MD propofol (DIPRIVAN) 10 mg/mL infusion 0-50 mcg/kg/min intravenous Titrated Cece Rainey MD 21.9 mL/hr at 07/26/25 1715 50 mcg/kg/min at 07/26/25 1715 sodium chloride 0.9% 0.9% infusion - ADS Override Pull No Known Allergies Social and Family History Social History Tobacco Use Smoking status: Every Day Current packs/day: 0.50 Types: Cigarettes Smokeless tobacco: Never Substance and Sexual Activity Drug use: Never Sexual activity: Not on file Alcohol Use: Not on file No family history on file. Objective Vitals Most Recent Vitals: T 36.5 ??C (97.7 ??F), HR 86, BP 105/71, RR 22, SpO2 100 %. 24hr Min/Max: Temp Min: 32.5 ??C (90.5 ??F) Max: 36.5 ??C (97.7 ??F) Pulse Min: 46 Max: 93 BP Min: 70/35 Max: 189/106 Resp Min: 15 Max: 23 SpO2 Min: 99 % Max: 100 % Intake/Output Summary (Last 24 hours) at 07/26/2025 1716 Last data filed at 07/26/2025 1715 Gross per 24 hour Intake 166.42 ml Output 300 ml Net -133.58 ml Physical Exam Vitals reviewed. Constitutional: Appearance: He is well-developed. HENT: Head: Normocephalic. Cardiovascular: Rate and Rhythm: Normal rate and regular rhythm. Heart sounds: Normal heart sounds. No murmur heard. Comments: Balloon pump sounds Pulmonary: Effort: Pulmonary effort is normal. Comments: Intubated. Vented breath sounds Abdominal: General: Bowel sounds are normal. There is no distension. Palpations: Abdomen is soft. Tenderness: There is no abdominal tenderness. Musculoskeletal: Cervical back: Normal range of motion. Skin: General: Skin is warm and dry. Lines, Drains, Airways CVC Quadruple Lumen 07/26/25 Non-tunneled #1 Blue, #2 Wheeler, #3 White, #4 Brown, Right Internal jugular (Active) Peripheral IV 07/26/25 20 G Right Antecubital (Active) Peripheral IV 07/26/25 20 G Anterior;Left;Upper Arm (Active) Peripheral IV 07/26/25 20 G Anterior;Distal;Right Forearm (Active) Urethral Catheter (Active) ETT (Active) Arterial Line 07/26/25 Left Radial (Active) IABP (Active) Labs/Diagnostic Review Na 133 Cl 101 BUN 18 K See Comment CO2 22 Cr 1.08 Mg 1.9, G AST See Comment ALT See Comment Alk Phos 93 Ca 7.9 TP - Alb 3.3 Total Bili: 0.5 Direct Bili: - \ Hgb 11.5 / WBC 14.30 -------- Plt 336 / MCV 93.2 \ INR 1.38 (Labs above are the most recent result obtained in the last 24 hours. For additional labs/trends, see Epic.) I have reviewed the laboratory results. Imaging Review CT Head WO Contrast Result Date: 07/26/2025 No acute intracranial process. If there is concern for hypoxic ischemic injury in the setting of resuscitation, consider follow-up head CT. The Non Critical results were discussed with Dr. Rainey by Dr. Bobby Marshall MD on 07/26/2025 5:03 PM. Dictated by: Bobby Marshall MD XR Chest 1 View Result Date: 07/26/2025 Comparison 07/26/2025 at 12:05 PM. Intra-aortic balloon pump remains in place with tip approximately 1 cm below the top of the aortic knob. Endotracheal tube tip approximately 7 cm above the frieda. Interval placement of a right internal jugular central venous catheter with tip overlying superior vena cava. The lungs are hyperexpanded as before. Subtle right perihilar opacity again seen, compatible with atelectasis versus subtle pneumonia. Attention on follow-up examination recommended. No focal consolidation. No pneumothorax or pleural effusion seen. Heart size remains within normal limits. Electronically signed by: Stanley Colby M.D. XR chest 1 view (Portable) Urgent Result Date: 07/26/2025 Comparison 08/16/2023. Interval placement of intra-aortic balloon pump with the tip approximately 1 cm below the top of the aortic knob. Endotracheal tube tip 5 cm above the frieda. The lungs are hyperexpanded as before. No focal consolidation or pulmonary edema seen. No pneumothorax or pleural effusion seen. Heart size remains within normal limits. Electronically signed by: Stanley Colby M.D. 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 Benefits and risks were discussed with the patients family. Discussed care with cardiology Alli Rae MD Cosigned by Miko Castro MD at 07/26/2025 8:34 PM TOUR PRODUCTION SUPERVISOR PRODUCTION SUPERVISOR PRODUCTION SUPERVISOR * Cece Rainey MD - 07/26/2025 3:38 PM CST CCU History and Physical Name: Praveen Hayden Today: July 26, 2025 : 1970 Age: 55 y.o. male Admit: 07/26/2025 Unit: [id number] CCU LOS: 4h Primary Care Physician: Fuad Vidales MD Service Attending: Fuad Bello MD Subjective Source: Chart and family Chief Complaint: Syncopal event HPI: Praveen Hayden is a 55 y.o. male with PMH significant for prior tobacco use, HTN, HLD, prediabetes, CAD, recent STEMI s/p MILLICENT to OM1 (05/2025) not compliant with DAPT who presented to OSH earliertoday with STEMI. The patient is transferred to [facility] for HLOC. Of note, the patient has a history of a recent NSTEMI, s/p MILLICENT to OM1 on 05/21/2025. The patient was hospitalized at [facility] from 25. He presented with acute onset chest pain and troponins elevated to 312, left axis deviation, no acute findings on chest x-ray or CTA chest. Cardiology was consulted and the patient was placed on DAPT, statin, beta-liliana, Lovenox. He underwent left heart catheterization on 05/21/2025 with PCI to OM1. TTE post PCI showed LVEF 60%. The patient had intermittent bradycardia with 2 distinct P wave morphology is on telemetry with associated shortness of breath and chest heaviness during bradycardic episodes. Metoprolol was discontinued. On discha rge, the patient was sent home with amlodipine, aspirin, atorvastatin, Brilinta, losartan. The patient followed up with his outpatient cardiology clinic on 06/01/2025. At that visit, he feltwell overall and denied any chest pain, discomfort. He is continued on DAPT, statin, losartan, amlodipine. The patient presented to [facility] on 07/26/2025 for syncopal episode. Per the patient's daughter and outside records, the patient was with his friend in a truck smoking marijuana and passed out, hitting his head, specifically the bottom part of his mandible. The patient woke up and was diaphoretic and having chest pain, prompting him to present to the hospital for further evaluation. Per the patient's daughter, he was inconsistently taking his medications at home. On presentation, the patient was hemodynamically stable, saturating appropriately on room air. EKG was concerning for acute ST-elevation. Initial labs: WBC 14.5, hemoglobin 13.7, INR 1.1, APTT 24.5, creatinine 1.24, electrolytes unremarkable, LFT is normal. He underwent left heart catheterization that was significant for 100% occlusion in the mid left circumflex with concern that the OM stent was protruding into the lumen of the left circumflex artery occupying the whole diameter of the lumen. There was difficulty opening the left circumflex occlusion, a balloon pump was placed, and the patient was transferred to [facility] for further evaluation management. Per handoff, the patient had an episode of VT requiring shock. There was also concerns for acute hypoxic respiratory failure requiring intubation in the record label internship. Per the patient's daughter, he has a history of tobacco use, 26 pack years, methamphetamine use. Hedoes not have history of alcohol use. He takes albuterol at home. He also has a history of salivarygland cancer in his mother and dialysis and end-stage renal disease in his father. On arrival to [facility], the patient was intubated and sedated. He was on 20 of propofol and receiving Integrilin. His ventilator settings were tidal volume 500, respiratory rate 15, FiO2 100, peep 5. The patient has significant blood coming out of his mouth, reportedly from placement of an OG tube. Arterial line and R IJ CVC was placed. XR chest 1 view (Portable) Urgent Result Date: 07/26/2025 Comparison 08/16/2023. Interval placement of intra-aortic balloon pump with the tip approximately 1 cm below the top of the aortic knob. Endotracheal tube tip 5 cm above the frieda. The lungs are hyperexpanded as before. No focal consolidation or pulmonary edema seen. No pneumothorax or pleural effusion seen. Heart size remains within normal limits. Electronically signed by: Stanley Colby M.D. Lines: CVC Quadruple Lumen 07/26/25 Non-tunneled #1 Blue, #2 Wheeler, #3 White, #4 Brown, Right Internal jugular (Active) Peripheral IV 07/26/25 20 G Right Antecubital (Active) Peripheral IV 07/26/25 20 G Anterior;Left;Upper Arm (Active) Peripheral IV 07/26/25 20 G Anterior;Distal;Right Forearm (Active) Urethral Catheter (Active) ETT (Active) Arterial Line 07/26/25 Left Radial (Active) IABP (Active) PMH: Past Medical History: Diagnosis Date Hypertension PSH: None contributory Past Surgical History: Procedure Laterality Date CARPAL TUNNEL RELEASE HERNIA REPAIR FHx: None contributory No family history on file. HOME MEDICATIONS: albuterol HFA (PROVENTIL HFA,VENTOLIN HFA,PROAIR HFA) 90 mcg/actuation inhaler benzonatate (TESSALON) 100 mg capsule HYDROcodone-acetaminophen (NORCO) 5-325 mg per tablet promethazine-DM (PROMETHAZINE-DM) 1.25-3 mg/mL syrup No Known Allergies SHx: Social History Tobacco Use Smoking status: Every Day Current packs/day: 0.50 Types: Cigarettes Smokeless tobacco: Never Substance and Sexual Activity Drug use: Never Sexual activity: Not on file Alcohol Use: Not on file MEDICATIONS Scheduled Meds PRN Meds Infusions [START ON 07/27/2025] aspirin, 81 mg, feeding tube, Daily ipratropium-albuteroL, 3 mL, nebulization, QID (RT) phenylephrine, 200 mcg, intravenous, Once acetaminophen, 650 mg, Q4H PRN bisacodyL, 10 mg, Daily PRN bisacodyl EC, 10 mg, Daily PRN fentaNYL, 50 mcg, Q15 Min PRN fentaNYL, 50 mcg, Q15 Min PRN ondansetron ODT, 4 mg, Q6H PRN Or ondansetron, 4 mg, Q6H PRN polyethylene glycol, 17 g, Daily PRN sodium chloride 0.9%, , cangrelor (KENGREAL) 50 mg in sodium chloride 0.9% 250 mL (0.2 mg/mL) infusion, 0.75 mcg/kg/min, Last Rate: 0.75 mcg/kg/min (07/26/25 1500) fentaNYL, 0-400 mcg/hr, Last Rate: 100 mcg/hr (07/26/25 1500) norepinephrine, 0-2 mcg/kg/min, Last Rate: 0.03 mcg/kg/min (07/26/25 1533) propofol, 0-50 mcg/kg/min, Last Rate: 50 mcg/kg/min (07/26/25 1500) sodium chloride 0.9%, Objective T (!) 35.3 ??C (95.5 ??F) BP 105/71 HR 81 RR 22 SpO2 100 % on Pressure regulated volume control/assist control/VC+ 500 mL 22 60 % 5 cm H20, ETCO2: 20 mmHg. No intake/output data recorded. Intake/Output Summary (Last 24 hours) at 07/26/20251537 Last data filed at 07/26/2025 1500 Gross per 24 hour Intake 67.89 ml Output 300 ml Net -232.11 ml Net IO Since Admission: -232.11 mL [07/26/25 1538] Physical Exam: Gen : intubated, sedated, blood oozing from mouth HENT : NCAT, oropharynx nl, moist mucus membranes Eyes : anicteric, EOMI. Pulm : intubated CV : rrr, no m/r/g Abd : soft, NT/ND. Extr : Cool extremities, 2/2 distal pulses, no cyanosis/clubbing/edema Skin : cyanotic changes on bilateral lower and upper extremities Neuro : RAAS -3, sedated, non responsive to verbal and touch [place]: KEMI-USE WITH PA CATHETER ONLY PaO2 from Lab: (!) 68 (07/26/25 1217) Hgb from Lab: (!) 11.5 (07/26/25 1431) Lactate 2.2 - ScVO2 - OxyHgbPA - Lab/Radiology/Diagnostic Review: All labs reviewed and notable for Na 133 Cl 101 BUN 18 K See Comment CO2 22 Cr 1.08 Mg 1.9, G AST See Comment ALT See Comment Alk Phos 93 Ca 7.9 TP - Alb 3.3 Total Bili: 0.5 Direct Bili: - \ Hgb 11.5 / WBC 14.30 -------- Plt 336 / MCV 93.2 \ INR 1.38 Trop - 40,331 NT-proBNP 288 ABG pH 7.26 CO2 - PO2 68 SpO2 - pHCO3 26 pH 7.37 pCO2 - pO2 31 O2 Sat - pHCO3 - Lactate 2.2 - SVCO2 - OxyHgbPA - Imaging Results: XR chest 1 view (Portable) Urgent Narrative: EXAMINATION: 1 view chest radiograph Impression: Comparison 08/16/2023. Interval placement of intra-aortic balloon pump with the tip approximately 1 cm below the top of the aortic knob. Endotracheal tube tip 5 cm above the frieda. The lungs are hyperexpanded as before. No focal consolidation or pulmonary edema seen. No pneumothorax or pleural effusion seen. Heart size remains within normal limits. Electronically signed by: Stanley Colby M.D. Assessment/Plan Praveen Hayden is a 55 y.o. male with PMH significant for prior tobacco use, HTN, HLD, prediabetes, CAD, recent STEMI s/p MILLICENT to OM1 (05/2025) not compliant with DAPT who presented to OSH earliertoday with STEMI. The patient is transferred to [facility] for HLOC. # STEMI (100% occulusion of LCx) # Hx recent NSTEMI, s/p MILLICENT to OM/2024 # CAD Recent NSTEMI, s/p MILLICENT to OM1 on 05/21/2025. TTE post PCI showed LVEF 60%. On discharge, the patient was sent home with amlodipine, aspirin, atorvastatin, Brilinta, losartan. Recent OP cards follow up on 06/01. C/f medication noncompliance, with DAPT. Presented to [facility] on 07/26/2025 for syncopal episode. Passed out, hitting his head, with diaphoresis and CP after. EKG c/f for acute ST-elevation. S/p LHC with 100% occlusion in the mid LCx with concern with OM stent protruding into the lumen. balloon pump placed and transferred to [facility] for HLOC. Troponin trending on admission, record label internship reactivated after CTH not concerning for acute intracranial process. Trend troponin -> uptrending -> activate record label internship Levo for MAP > 65 Continue ASA, change Integrilin -> cangrelor Serial EKGs Telemetry TTE post C CAD Risk factor screening: A1c, lipid panel, TSH, UTox, LFTs, coags Daily BMP, Mg; replete PRN K >4.0 and Mg >2.0 Plaque stabilization: atorvastatin 80mg qhs Defer cardiac remodeling prevention iso shock # AHRF Concerns for acute hypoxic respiratory failure requiring intubation in the record label internship. On arrival, ventilator settings were tidal volume 500, respiratory rate 15, FiO2 100, peep 5. ABG with Wean vent Consider PNA PCR SAT/ SBT Consider diuresis Daily CXR # Upper airway bleed On presentation, there was significant blood coming out of his mouth, reportedly from placement of an OG tube, around 300ccs. ENT consult with packing Trend CBC # HTN Home regimen losartan and amlodipine. Hold iso shock # Tobacco use 26 pack year history of tobacco use Social work consult Consider Chantix on discharge Dispo: ICU Code Status: Full Code Active Consults : NA Building Drafter services : NA F (Feeding) : NPO Diet A (Analgesia) : Fent S (Sedation) : Prop, Fent T (Thromboembolic) ppx: Heparin H (Head of Bed Elevation): Goal: 30 if intubated. Last charted: U (stress Ulcer ppx) : PPI G (Glycemic control) : NA Last BM : Contact : Primary Emergency Contact: devin hayden Attending MD to make comment on patient risk/complexity. Cece Rainey MD 07/26/25 Cosigned by Fuad Bello MD at 07/26/2025 11:21 PM TOUR PRODUCTION SUPERVISOR PRODUCTION SUPERVISOR PRODUCTION SUPERVISOR PRODUCTION SUPERVISOR Associated attestation - Fuad Bello MD - 07/26/2025 11:21 PM TOUR PRODUCTION SUPERVISOR Critical Care Time: I have spent 60 minutes in full attendance with this critically ill patient making frequent reassessments and decisions regarding this patient's complex medical care. Critical care time was exclusive of separately billable procedures, treating other patients and teaching time. Critical care was necessary to treat or prevent imminent or life-threatening deterioration of the following conditions: Acute inferior STEMI/late stent thrombosis, acute hypoxemic respiratory failure, VT, VT arrest: Attending Documentation: 55 year old male with history of CAD and recent hospitalization at OSH foracute NSTEMI in May 2025 and s/p PCI of OM1 on 05/21/2025. TTE post PCI showed LVEF 60%. The patient had reported intermittent bradycardia with 2 distinct P wave morphologies on telemetry with associated episodic shortness of breath and chest heaviness during bradycardic episodes. Metoprolol was discontinued. On discharge, the patient was sent home with amlodipine, losartan, atorvastatin, aspirin, and ticagrelor. Daughter reports patient was inconsistently taking his medications at home. This AM the pt reportedly had syncopal episode at a gas station. When he regained consciousness he wasdiaphoretic and c/o chest pain. He presented to [facility]. On presentation, the patient washemodynamically stable. EKG was concerning for acute inferior ST-elevation. He was transferred to [facility] and underwent emergency cardiac cath that showed 100% occlusion in the proximal left circumflex and OM1 at the prior stent site. PCI was attempted and partial patency restored into the mid to distal circumflex and OM1 but with JYOTHI 1-2 flow. There was inability to achieve fullpatency. He was given IV eptifibatide. The patient reportedly had sustained VT requiring defib shock. He also required intubation, possibly for acute hypoxemic respiratory failure and altered mental status. The PCI procedure was aborted and an IABP catheter was placed via the LFA. He was then transferred here top the [facility] CICU for management. On arrival pt intubated, sedated, and unresponsive. There was active oropharyngeal bleeding reportedly due to trauma with attempted OG tube placement. Physical exam: WD/WN, on vent via ETT; VS reviewed; Chest: coarse BS bilat; Cor: reg distant S1 andS2, prob S4; Abd: soft, +BS; Ext: no edema Labs reviewed. ECG: OSH: SR, MILLIE inferior leads ECG: [facility]: SR, ST elevations subsided Cath reviewed: complex residual subtotal occlusion of Lcx just beyond origin of OM1 and hazy subtotal occlusion of proximal OM1; also has 60% mid RCA, severe proximal diagonal artery Impression/Plan: Acute inferior STEMI/late stent thrombosis: acute inferior STEMI in setting of acute thrombotic occlusion of proximal Lcx due to late stent thrombosis; had attempted primary PCI at OSH but unsuccessful and complicated by potential coronary dissection at attempted lesion with residual high grade stenosis and subtotal occlusions of Lcx and OM1; ECG ST elevations improved but has rapidly rising serum troponin; discussed with CTS and ICS CAD/Complicated unsuccessful PCI of LCx/OM1: residual high grade lesion at bifurcation of Lcx and OM1; cont cangrelor; discussed at length with CTS and Dr. Castro of ICS; referred to record label internship for urgent salvage PCI Acute hypoxemic respiratory failure: intubated on vent and arrive on FiO2 100% VT arrest: sustained VT during PCI at OSH requiring DCCV; if recurs, start amiodarone Oropharyngeal bleeding: prob local trauma from attempted OG placement; if persists ask ENT to evaluate Tobacco use Substance abuse: per daughter poss methamphetamine use; check UDS I have seen and examined this patient on the day of service. I have reviewed and confirmed the history, physical exam, laboratory and radiographic data with the house staff as documented in the ICU resident note. I have reviewed and discussed my treatment plan with the ICU team and other medical/managed security sales consultant staff. documented in this encounter Procedure Notes * Cece Rainey MD - 07/26/2025 3:41 PM CSTAssociated Order(s): Arterial Line Insertion Post-Procedure Diagnose(s): ST 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) Arterial Line Insertion Date/Time: 07/26/2025 3:43 PM Performed by: Cece Rainey MD Authorized by: Cece Rainey MD [place] Protocol: RN Notified of Procedure: yes Informed consent: Risks, benefits, alternatives discussed and patient/footwear sales representative/guardian agrees and accepts Patient's stated name/ matches armband: Yes Consent form signed, dated, timed; matches correct patient, intended procedure and site: Yes Imaging: Pertinent imaging reviewed, correctly oriented and match to patient identifiers Lab/Diag test results: Pertinent lab/diag tests reviewed and match to patient identifiers Supplies, devices and special equipment are available: yes Site/side marked: yes Immediately prior to the procedure a time out was called: a verbal verification by the procedure participants confirmed correct patient identity, correct site/side marked and visible (if applicable);agreement on procedure to be done; and correct patient positioning Indications: multiple ABGs and hemodynamic monitoring Location: Left radial Anesthesia: None Patient skin preparation: chlorhexidine Ultrasound guidance: Real-time needle guidance Patient preparation: Cap, full body drape, gloves, gown, handwashing, mask, towels and sterile probe cover Catheter gauge: 20 Single percutaneous needle puncture: Yes Seldinger technique used: Yes Number of attempts: 1 Placement confirmed with arterial waveform: Yes Post-procedure: Line sutured, dressing applied and securement device afixed Post-procedure CMS: Normal Patient tolerance: Patient tolerated the procedure well with no immediate complications Complications: no complications noted during insertion Post Procedure Debrief: All guidewires, needles, sponges or other items are accounted for: yes All specimens identified, labeled and matched to patient identification: yes Responsible republican for transporting specimen(s) to lab determined: yes Cosigned by Fuad Bello MD at 07/26/2025 10:00 PM TOUR PRODUCTION SUPERVISOR PRODUCTION SUPERVISOR PRODUCTION SUPERVISOR Associated attestation - Fuad Bello MD - 07/26/2025 10:00 PM TOUR PRODUCTION SUPERVISOR I was present for the fernandes portion of the procedure: The fernandes portions were arterial line insertion. I was immediately available for the remainder of the procedure. * Cece Rainey MD - 07/26/2025 3:39 PM CSTAssociated Order(s): Central Line Insertion Post-Procedure Diagnose(s): ST 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) Central Line Insertion Date/Time: 07/26/2025 3:39 PM Performed by: Cece Rainey MD Authorized by: Cece Rainey MD [place] Protocol: RN Notified of Procedure: yes Informed consent: Risks, benefits, alternatives discussed and patient/footwear sales representative/guardian agrees and accepts Patient's stated name/ matches armband: Yes Allergies confirmed: yes Consent form signed, dated, timed; matches correct patient, intended procedure and site: Yes Imaging: Pertinent imaging reviewed, correctly oriented and match to patient identifiers Lab/Diag test results: Pertinent lab/diag tests reviewed and match to patient identifiers Supplies, devices and special equipment are available: yes Site/side marked: yes Immediately prior to the procedure a time out was called: a verbal verification by the procedure participants confirmed correct patient identity, correct site/side marked and visible (if applicable);agreement on procedure to be done; and correct patient positioning Indications: Vascular access, administer vasoactive medications and central pressure monitoring Anesthesia (see MAR for exact dosage) Anesthesia method: Local infiltration Local anesthetic: Lidocaine 1% Patient position: Flat Skin preparation: Skin prepped with 2% chlorhexidine Provider preparation: Cap, full body drape, gloves, handwashing, gown, mask and towels Location: Right internal jugular Ultrasound guidance: Real-time needle guidance Assessment: Placement verified by x-ray Catheter type: Quadruple lumen Catheter placed through introducer: Single Catheter size: 7 Fr Needle inserted, vein idenitified then guidewire inserted easily into vein: Yes Number of attempts: 1 Successful placement: Yes Catheter secured at (cm): Hub Line securement: Securement device, line sutured and dressing applied Patient tolerance: Patient tolerated the procedure well with no immediate complications Post Procedure Debrief: All guidewires, needles, sponges or other items are accounted for: yes All specimens identified, labeled and matched to patient identification: yes Responsible republican for transporting specimen(s) to lab determined: yes Cosigned by Fuad Bello MD at 07/26/2025 9:59 PM TOUR PRODUCTION SUPERVISOR PRODUCTION SUPERVISOR PRODUCTION SUPERVISOR Associated attestation - Fuad Bello MD - 07/26/2025 9:59 PM TOUR PRODUCTION SUPERVISOR I was present for the fernandes portion of the procedure: The fernandes portions were CVL insertion with US guidance.. I was immediately available for the remainder of the procedure. documented in this encounter Consult Notes * Clarita Nichols RD - 07/27/2025 9:21 AM CSTAssociated Order(s): IP CONSULT TO NUTRITION SERVICES NUTRITION ASSESSMENT Nutrition Status: Patient does not meet AAIM (ASPEN) criteria for malnutrition at this time. REASON FOR ASSESSMENT: Consult/Referral - Tube Feeding Assessment Encounter Date: 07/27/25 9:33 AM Admission Date: 07/26/2025 LOS: 1 days HPI: Patient is a 55 y.o. male with PMH significant for prior tobacco use, HTN, HLD, CAD s/p MILLICENT to OM1 (05/2025) not compliant with DAPT who presented to OSH 07/27 with STEMI s/p LHC w/ angioplasty of occluded LCx stent c/b VT/VF and respiratory distress requiring emergent intubation and IABP placement. Patient arrived supported 1:1 IABP without additional inotrope or vasopressor support but with severe mottling in all extremities. Objective Past Medical History: Diagnosis Date Hypertension Past Surgical History: Procedure Laterality Date CARPAL TUNNEL RELEASE HERNIA REPAIR Social History Tobacco Use Smoking status: Every Day Current packs/day: 0.50 Types: Cigarettes Smokeless tobacco: Never Substance and Sexual Activity Drug use: Never Sexual activity: Not on file Alcohol Use: Not on file MEDICATION/LAB REVIEW: Scheduled Meds: aspirin, 300 mg, rectal, Daily atropine, , , ipratropium-albuteroL, 3 mL, nebulization, QID (RT) pantoprazole, 40 mg, intravenous, Daily Continuous Infusions: cangrelor (KENGREAL) 50 mg in sodium chloride 0.9% 250 mL (0.2 mg/mL) infusion, 0.75 mcg/kg/min, Last Rate: 0.75 mcg/kg/min (07/27/25 0700) fentaNYL, 0-400 mcg/hr, Last Rate: 100 mcg/hr (07/27/25 0700) norepinephrine, 0-2 mcg/kg/min, Last Rate: 0.08 mcg/kg/min (07/27/25 0834) propofol, 0-50 mcg/kg/min, Last Rate: 40 mcg/kg/min (07/27/25 0700) PRN Meds: acetaminophen atropine bisacodyL bisacodyl EC fentaNYL fentaNYL ondansetron ODT OR ondansetron perflutren protein-a polyethylene glycol Recent Labs Lab Units 07/27/25 0358 07/26/25 2124 07/26/25 1746 SODIUM mmol/L 139 139 141 POTASSIUM PLASMA mmol/L 4.1 4.0 4.1 CHLORIDE mmol/L 108 107 108 CO2 mmol/L 21* 21* 22 BUN SERUM mg/dL 25 23 24 CREATININE mg/dL 1.36* 1.27 1.31* [id number] mL/min/1.73 m2 61 67 64 CALCIUM mg/dL 7.9* 7.7* 8.2* ALBUMIN g/dL 2.8* 2.7* -- PHOSPHORUS PLASMA mg/dL 2.3 3.1 2.9 MAGNESIUM mg/dL 1.7 1.7 1.8 Recent Labs Lab Units 07/27/25 0358 07/26/25 2151 07/26/25 2124 07/26/25 1746 07/26/25 1431 07/26/25 1225 07/26/25 1217 GLUCOSE mg/dL 107 -- 108 123 -- 120 -- POC GLUCOSE MONITOR mg/dL -- 125 -- -- 128 -- 153 ALT Date Value Ref Range Status 07/27/2025 67 (H) 7 - 55 Units/L Final AST Date Value Ref Range Status 07/27/2025 578 (H) 10 - 50 Units/L Final Alk phos Date Value Ref Range Status 07/27/2025 93 40 - 130 Units/L Final No results found for: HGBA1C, HDL, LDLCALC, CHOL, TRIG NURSING ASSESSMENT: Last BM Date: (HARMEET) Bowel Sounds (All Quadrants): Hypoactive Jose L Scale Score: 12 Skin Integrity: Laceration, Puncture Minute Ventilation (L/min): 8.4 L/min Vital Signs @FLOW(5) Temp: 37.5 ??C (99.5 ??F) Pulse: 90 Resp: 20 SpO2: 100 % Intake/Output Summary (Last 24 hours) at 07/27/2025 0933 Last data filed at 07/27/2025 0835 Gross per 24 hour Intake 1132.48 ml Output 872 ml Net 260.48 ml Adult Malnutrition Scoring Tool (MST) Have You Recently Lost Weight Without Trying?: Unsure Have you been eating poorly because of a decreased appetite?: No Malnutrition Screening Tool (MST) Score: 2 Anthropometrics Weight: 75 kg (165 lb 5.5 oz) Admission Weight : 75 kg Weight Change: 2.09 kg (4.62 lbs) IBW/kg (Calculated) : 69.9 kg Height: 172.7 cm (5' 7.99) Weight in (lb) to have BMI = 25: 164 BMI (Calculated): 25.1 Wt Readings from Last 10 Encounters: 07/27/25 75 kg (165 lb 5.5 oz) 08/15/23 72.6 kg (160 lb) 02/20/22 70.3 kg (155 lb) 01/24/21 70.3 kg (155 lb) ESTIMATED NEEDS: Weight Used for Equation Calculations (RD Determined): 75 kg (165 lb 5.5 oz) Total Kcal/kg Estimated Needs : 1875 Kcal/k. Type of Weight Used for Estimated Kcals: Current Total Protein Estimated Needs (gm): 112.5 Protein Needs Based on g/k.5 Type of Weight Used for Estimated Protein : Current Dietary Orders (From admission, onward) Start Ordered 07/26/25 1135 NPO Diet Diet effective now 07/26/25 1134 Allergies: Reviewed. IMPRESSION: Pt is intubated, sedated, on levo 0.08 mcg/kg/min, prop at 17.5 ml/hour to provide 462 calories. Ptwith stable weight. Last BM prior to admission. No edema noted. Will provide tube feeding recommendations. OG tube now in place. Sodium 139. AAIM (ASPEN) MALNUTRITION ASSESSMENT: Date of completion: 07/27/2025 ASPEN/AND Malnutrition Screening: Patient does not meet malnutrition criteria NUTRITION FOCUSED PHYSICAL EXAM: Not completed, no concerns for malnutrition at this time. NUTRITION DIAGNOSIS: Nutrition Diagnosis 1: Inadequate oral intake Related to: NPO status Evidenced by: Need for full tube feeding, Mechanical ventilation INTERVENTION(S): Summary: Enteral nutrition administration Tube feeding: Recommend Glucerna 1.5 @ 50 ml/hour via orogastric tube Start at 10 ml/hour, increase by 10 ml Q4 hours to GOAL of 50 ml/hour. Flush with 60 mL water Q4 hours, adjust per hydration status. Nutrition Additives: N/A Glucerna 1.5 @ 50mL/hr. Provides 1800 kcal (24 kcal/kg), 99 g protein (1.32 g/kg), 160 g CHO, 90 g fat, and 910mL free water. Monitor electrolytes replete PRN. Follow aspiration precautions. GOAL(S): Adequate nutrition to meet estimated needs by next assessment MONITORING/EVALUATION: Labs, Plan of care, Stool patterns, TF tolerance, Weight changes Clarita Nichols MS RD LD #[phone] PRODUCTION SUPERVISOR PRODUCTION SUPERVISOR * Nicole Acosta MD - 07/26/2025 7:02 PM CST Images from the original note were not included. CARDIOTHORACIC SURGERY [facility] HISTORY AND PHYSICAL NOTE Admit Date: 07/26/2025 Current Service: Cardiology Current Location: [place] [id number] [address] Attending Physician: Fuad Bello MD Chief Complaint: Occluded LCx stent Patient Name: Praveen Hayden Age: 55 y.o. : 1970 Information was obtained from relative(s) and past medical records. History of Present Illness: Praveen Hayden is a 55 y.o. male with history of prior tobacco use, HTN, HLD, CAD s/p MILLICENT to OM1 (05/2025) not compliant with DAPT who presented to OSH earlier today with STEMI. OSH cardiologistsreportedly were able to cross occluded stent lesion and partially reconstitute some flow but patient developed respiratory distress with mottling on the table prompting emergent intubation and developed VT/VF prompting IABP placement. Patient subsequently transferred to [facility] for further evaluation. The following conditions are also being currently evaluated or treated: Cardiac Disease: CAD (Specify): S/p stent to left circumflex coronary artery Coagulopathy: Hemorrhagic disorder D/T extrinsic circulation anticoagulants Respiratory Conditions: Acute Respiratory Failure 2. Abuse: habitual consumption - clinical manifestations are evident as sign(s)/symptom(s) develop . Smokes meth Unable to assess. Past Medical History: has a past medical history of Hypertension. Past Surgical History: has a past surgical history that includes Hernia repair and Carpal tunnel release. Home Medications: has a current medication list which includes the following long-term medication(s): albuterol hfa. Allergies: No Known Allergies Family History: Reviewed. No family history on file. Social History: Social History Tobacco Use Smoking status: Every Day Current packs/day: 0.50 Types: Cigarettes Smokeless tobacco: Never Substance and Sexual Activity Alcohol use: Never Drug use: Never Sexual activity: Not on file Review of Systems: Unable to be obtained due to patient being intubated. Objective: Ht:172.7 cm (5' 8) Wt:72.9 kg (160 lb 11.5 oz) Body mass index is 24.44 kg/m??. BP (!) 143/124 Pulse 75 Resp 18 Ht 172.7 cm (5' 8) Wt 72.9 kg (160 lb 11.5 oz) SpO2 100% BMI 24.44 kg/m?? Physical exam: General: intubated, critically ill appearing Neuro: sedated, pupils 1mm and nonreactive bilaterally HEENT: MMM, ETT secured in place; 2 cm bleeding laceration on chin CV: regular rate and rhythm; IABP in place via left femoral (EKG - 1:1) Pulmonary: symmetric chest rise, on mechanical ventilation FiO2 (%): 40 % Abdominal: soft, mildly distended, no apparent tenderness to palpation : pemberton in place Extremities: cold, mottling in fingers and toes DATA REVIEW: I have independently reviewed all findings below with notable findings addressed in Assessment/Plan. Lab Results Component Value Date GLUCOSE 157 02/20/2022 CALCIUM 9.3 02/20/2022 SODIUM 137 02/20/2022 POTASSIUM 4.0 02/20/2022 CO2 30 02/20/2022 CHLORIDE 98 02/20/2022 BUNSER 18 02/20/2022 CREATININE 0.90 02/20/2022 Lab Results Component Value Date WBC 14.6 (H) 02/20/2022 HGB 15.1 02/20/2022 HCT 45.6 02/20/2022 MCV 91.0 02/20/2022 LABPLAT 437 (H) 02/20/2022 Imaging: I have independently reviewed findings highlighted below: 05/21/25 TTE: - Left ventricle: The cavity size was [...] low HR - Can't rule out ASD. 10/20/25 LHC: LM -large and widely patent LAD -medium in size with apparent diffuse plaque but no more than 30% stenosis at any point. Very small diagonal branch with severe diffuse disease with up to 80% stenosis. There is a second diagonalbranch, likely a branch of the first actually, with a long 50% stenosis. A third diagonal branch issmall but patent. Cx -large and dominant vessel. OM1 with very long stenosis of to at least 75% stenosis. Just distalto the ostium of the OM1, the main [...] and a BMW in the AV groove, maincircumflex. The lesion was predilated followed by stenting with a 2.75 x 35 mm Orsiro drug-eluting stent at 11 franky pressure with excellent result 0% residual stenosis and JYOTHI-3 flow Final Impression:Successful stenting of the OM1 stenosis with 2.75 x 35 mm drug- eluting stent Procedure Type: Isolated CABG Perioperative Outcome Estimate % Operative Mortality 1.93% Morbidity & Mortality 22.4% Stroke 0.615% Renal Failure 0.819% Reoperation 5.84% Prolonged Ventilation 16.8% Deep Sternal Wound Infection 0.095% Long Hospital Stay (>14 days) 3.25% Short Hospital Stay (<6 days) 47% Clinical Summary Planned Surgery: Isolated CABG, First cardiovascular surgery Demographics: 55 year old, White, male, 73kg, 173cm, BMI: 24.4 kg/m?? Insurance/Payor: Commercial Lab Values: Creatinine: 0.86 mg/dL, Hematocrit: 49%, WBC Count: 10 10??/?L, Platelet Count: 152668 cells/?L Substance Abuse: Current smoker, Alcohol use: Unknown, Illicit Drug Use Risk Factors / Comorbidities: Hypertension, Unresponsive State Cardiac Status: Cardiogenic Shock, Preop IABP, Ejection Fraction = 60% Coronary Artery Disease: 1 vessel disease, STEMI, AL: <= 6 Hrs Arrhythmia: Recent V. Tach / V. Fib Prev. Cardiac Interv: Previous PCI: Not at this facility <= 6 hours Assessment/Plan: Praveen Hayden is a 55 y.o. male with history of prior tobacco use, HTN, HLD, CAD s/p MILLICENT to OM1 (05/2025) not compliant with DAPT who presented to OSH earlier today with STEMI s/p LHC w/ angioplasty of occluded LCx stent c/b VT/VF and respiratory distress requiring emergent intubation and IABPplacement. Patient arrives supported 1:1 IABP without additional inotrope or vasopressor support but with severe mottling in all extremities. -Now s/p PCI and stenting by cardiology -Cardiac surgery will sign off The care plan above has been or will be discussed with attending physician, Dr. Abreu. Nicole Acosta MD Cardiothoracic Surgery Fellow [phone] Cosigned by Gio Abreu MD at 07/27/2025 2:36 PM TOUR PRODUCTION SUPERVISOR PRODUCTION SUPERVISOR PRODUCTION SUPERVISOR PRODUCTION SUPERVISOR PRODUCTION SUPERVISOR Associated attestation - Gio Abreu MD - 07/27/2025 2:36 PM TOUR PRODUCTION SUPERVISOR I have seen and examined the patient on 07/26/2025. I agree with the findings and plan of care as documented in the resident's/fellow's note. The patient was taken to the record label internship with the diagnosis of STEMI. He has a history of AL, and PCI was performed for OM. An emergent cath showed occlusion of proximal circumflex. They could open the vessel, however, because of the presence of stent in OM, they could not open the vessel appropriately. Cardiac surgery was consulted for an emergent CABG. I reviewed the cardiac cath. There was a stent in OM and residual stenosis in the proximal segment of AV groove branch. The AV groove branch is not a bypass target. OM could be a bypass target, however, that vessel was already infarcted previously. I am not sure if the territory of OM is still viable. I discussed the case extensively with Dr. Bello and Dr. Castro. I think percutaneous treatment for OM/AV groove branch would be the first choice. If PCI is not successful, we can try a one-vessel CABG, but I am not sure how much benefit the patient can obtain from that. * Sony Silvestre MD - 07/26/2025 3:22 PM CSTAssociated Order(s): IP CONSULT TO ENT Otolaryngology - Head & Neck Surgery Consult Attending Physician: Emi Jacobs MD Reason for Consult: bleeding from upper airway Requesting Team: CTICU Requesting Provider: Cece Rainey MD Subjective Praveen Hayden is a 55 y.o. male w/hx STEMI transferred from OSH after cardiac catheterization attempt. Unable to extubate and developed persistent oropharyngeal bleeding after attempted OG tube placement at OSH. Currently anticoagulated on cangrelor and received therapeutic heparin in record label internship. Past Medical History: Diagnosis Date Hypertension Patient Active Problem List Diagnosis STEMI (ST elevation myocardial infarction) (HCC) Past Surgical History: Procedure Laterality Date CARPAL TUNNEL RELEASE HERNIA REPAIR Social History Tobacco Use Smoking status: Every Day Current packs/day: 0.50 Types: Cigarettes Smokeless tobacco: Never Substance and Sexual Activity Drug use: Never Sexual activity: Not on file Alcohol Use: Not on file No family history on file. No Known Allergies Medications Prior to Admission Medication Sig Dispense Refill Last Dose/Taking albuterol HFA (PROVENTIL HFA,VENTOLIN HFA,PROAIR HFA) 90 mcg/actuation inhaler Inhale 2 puffs every4 (four) hours as needed for wheezing 1 each 0 benzonatate (TESSALON) 100 mg capsule Take 1 capsule (100 mg total) by mouth every 8 (eight) hours 21 capsule 0 HYDROcodone-acetaminophen (NORCO) 5-325 mg per tablet Take 1-2 tablets by mouth every 4 (four) hours as needed for pain Do not exceed 8 tablets/day. 15 tablet 0 promethazine-DM (PROMETHAZINE-DM) 1.25-3 mg/mL syrup Take 5 mL by mouth 4 (four) times a day as needed for cough 118 mL 0 Current Outpatient Medications Medication Instructions albuterol HFA (PROVENTIL HFA,VENTOLIN HFA,PROAIR HFA) 90 mcg/actuation inhaler 2 puffs, inhalation,Every 4 hours PRN benzonatate (TESSALON) 100 mg, oral, Every 8 hours HYDROcodone-acetaminophen (NORCO) 5-325 mg per tablet 1-2 tablets, oral, Every 4 hours PRN, Do not exceed 8 tablets/day. promethazine-DM (PROMETHAZINE-DM) 1.25-3 mg/mL syrup 5 mL, oral, 4 times daily PRN Review of Systems: Unable to be obtained due to patient's status Objective Physical Exam: Vitals: 07/26/25 1430 07/26/25 1435 07/26/25 1445 07/26/25 1500 BP: Pulse: 78 93 81 79 Resp: 22 22 22 22 Temp: (!) 35 ??C (95 ??F) (!) 35 ??C (95 ??F) (!) 35.1 ??C (95.2 ??F) (!) 35.2 ??C (95.4 ??F) TempSrc: Bladder SpO2: 100% 100% 100% 100% Weight: Height: General: Intubated and sedated Head: NC, AT Eyes: Sclera white, no injection or chemosis, no periorbital edema Ears: External ears normal Nose: No nasal bleeding, no flaring Mouth: Fresh blood and clot present in oropharynx, small superficial laceration on lower lip which is not actively bleeding, no obvious source of bleeding identified Neck: Soft and flat CV: RRR Pulm: Mechanically ventilated Skin: WWP Neuro: Sedated Exam due to patient being taken to record label internship Lab/Radiology/Diagnostic Review: Laboratory review: Lab results in the last 24 hours: Recent Results (from the past 24 hours) POC Blood Gas and Chemistries, Arterial - Collection Time: 07/26/25 12:17 PM Result Value Ref Range pH, Art POC 7.26 (L) 7.35 - 7.45 pCO2, Art POC 58 (H) 35 - 45 mmHg pO2, Art POC 68 (L) 83 - 108 mmHg Na, POC 142 135 - 145 mmol/L K POC 4.5 3.3 - 4.9 mmol/L Cl, POC 108 97 - 110 mmol/L Ionized Ca, POC 4.93 4.50 - 5.10 mg/dL Glucose, POC 153 70 - 199 mg/dL Lactate POC 1.6 0.7 - 2.0 mmol/L SO2 (daniela) arterial 93 90 - 95 % Base excess, POC -2.0 mmol/L HCO3, Art POC 26 20 - 30 mmol/L Hct, POC 39.0 (L) 41.4 - 51.6 % Total Hb, POC 12.9 (L) 13.8 - 17.2 g/dL Comprehensive metabolic panel Collection Time: 07/26/25 12:25 PM Result Value Ref Range Sodium 133 (L) 135 - 145 mmol/L Potassium, pl See Comment 3.3 - 4.9 mmol/L Chloride 101 97 - 110 mmol/L CO2 22 22 - 32 mmol/L Anion gap 10 2 - 15 mmol/L BUN 18 6 - 25 mg/dL Creatinine 1.08 0.80 - 1.30 mg/dL Glucose 120 70 - 199 mg/dL Calcium 7.9 (L) 8.5 - 10.3 mg/dL Bilirubin, total 0.5 0.1 - 1.2 mg/dL Protein, pl 6.3 (L) 6.5 - 8.5 g/dL Albumin 3.3 (L) 3.5 - 5.0 g/dL Alk phos 93 40 - 130 Units/L ALT See Comment 7 - 55 Units/L AST See Comment 10 - 50 Units/L Magnesium Collection Time: 07/26/25 12:25 PM Result Value Ref Range Magnesium 1.9 1.4 - 2.5 mg/dL CBC without differential Collection Time: 07/26/25 12:25 PM Result Value Ref Range WBC 14.30 (H) 3.80 - 9.90 K/cumm Hgb 12.4 (L) 13.0 - 17.5 g/dL Hct 35.4 (L) 38.9 - 50.3 % Plt 336 150 - 400 K/cumm MPV 9.9 9.1 - 12.3 fL RBC 3.80 (L) 4.30 - 5.80 M/cumm MCV 93.2 81.3 - 96.4 fL MCH 32.6 27.1 - 33.3 pg MCHC 35.0 32.3 - 35.7 g/dL RDW CV 12.6 11.1 - 14.9 % RDW SD 43.4 35.7 - 48.1 fL NRBC abs 0.00 0.00 - 0.01 K/cumm Pro B-type natriuretic peptide Collection Time: 07/26/25 12:25 PM Result Value Ref Range NT-proBNP 288 <=300 pg/mL aPTT Collection Time: 07/26/25 12:25 PM Result Value Ref Range aPTT 45 (H) 26 - 38 sec Protime-INR Collection Time: 07/26/25 12:25 PM Result Value Ref Range PT 15.5 (H) 10.2 - 13.5 sec INR 1.38 (H) 0.90 - 1.20 Lactate Collection Time: 07/26/25 12:25 PM Result Value Ref Range Lactate 2.2 (H) 0.7 - 2.0 mmol/L Troponin I high-sensitivity series (baseline, 2hr, 4hr, 6hr) Collection Time: 07/26/25 12:25 PM Result Value Ref Range Trop I hs 11,543 (Critical) <=35 ng/L Type and screen Collection Time: 07/26/25 12:25 PM Result Value Ref Range ABO Rh O Positive Zac, indirect Negative Critical result callback Cardio chemistry Collection Time: 07/26/25 12:25 PM Result Value Ref Range Date Notified [id number] Time Notified 1332 Test name Trop I hs base Called/Read Back Efrain Jessica Credentials RN Called By TP eGFR Collection Time: 07/26/25 12:25 PM Result Value Ref Range eGFR 81 >=60 mL/min/1.73 m2 Troponin I high-sensitivity 2-hour Collection Time: 07/26/25 2:27 PM Result Value Ref Range Trop I hs 40,331 (Critical) <=35 ng/L Trop I hs pct delta 249 (Critical) % Trop I hs interp Significant (Critical) POC Blood Gas and Chemistries, Venous - Collection Time: 07/26/25 2:31 PM Result Value Ref Range pH, Lenard POC 7.37 7.32 - 7.43 pCO2, lenard POC 49 40 - 50 mmHg pO2, lenard POC 31 mmHg Na, POC 141 135 - 145 mmol/L K POC 5.0 (H) 3.3 - 4.9 mmol/L Cl, POC 108 97 - 110 mmol/L Ionized Ca, POC 4.77 4.50 - 5.10 mg/dL Glucose, POC 128 70 - 199 mg/dL Lactate POC 1.4 0.7 - 2.0 mmol/L O2 Sat, Lenard POC (Daniela) 43 % Base excess, POC 2.3 mmol/L HCO3, Lenard POC 28 20 - 30 mmol/L Hct, POC 35.0 (L) 41.4 - 51.6 % Total Hb, POC 11.5 (L) 13.8 - 17.2 g/dL Urinalysis reflex to microscopic and culture Urine Collection Time: 07/26/25 5:46 PM Specimen: Urine Result Value Ref Range Color, ur Yellow Yellow Clarity, ur Clear Clear Specific gravity, ur >1.042 (H) 1.003 - 1.030 pH, urine 6.5 Protein, ur ql 1+ (A) Negative Glucose, ur ql Negative Negative Ketones, ur Negative Negative Bilirubin, ur Negative Negative Blood, ur 3+ (A) Negative Urobilinogen, ur <2.0 <2.0 mg/dL Nitrite, ur Negative Negative Leukocyte esterase, ur Negative Negative UA reflex comment Reflex to microscopic UA will be performed. Basic metabolic panel Collection Time: 07/26/25 5:46 PM Result Value Ref Range Sodium 141 135 - 145 mmol/L Potassium, pl 4.1 3.3 - 4.9 mmol/L Chloride 108 97 - 110 mmol/L CO2 22 22 - 32 mmol/L Anion gap 11 2 - 15 mmol/L BUN 24 6 - 25 mg/dL Creatinine 1.31 (H) 0.80 - 1.30 mg/dL Glucose 123 70 - 199 mg/dL Calcium 8.2 (L) 8.5 - 10.3 mg/dL Magnesium Collection Time: 07/26/25 5:46 PM Result Value Ref Range Magnesium 1.8 1.4 - 2.5 mg/dL Phosphorus Collection Time: 07/26/25 5:46 PM Result Value Ref Range Phosphorus, pl 2.9 2.3 - 4.5 mg/dL Urinalysis, microscopic only Collection Time: 07/26/25 5:46 PM Result Value Ref Range WBC, ur 0-5 0 - 5 /HPF RBC, ur >50 (A) 0 - 2 /HPF Mucous, ur Present (A) Culture Reflex Comment Reflex conditions for urine culture (WBC >10) not met. eGFR Collection Time: 07/26/25 5:46 PM Result Value Ref Range eGFR 64 >=60 mL/min/1.73 m2 POCT Activated clotting time, low range Collection Time: 07/26/25 6:14 PM Result Value Ref Range ACT 395 (H) 123 - 168 sec POC Device Number [id number] POCT Activated clotting time, low range Collection Time: 07/26/25 6:35 PM Result Value Ref Range ACT 298 (H) 123 - 168 sec POC Device Number [id number] Procedures performed: Pharyngeal packing: Due to patient actively bleeding into oropharynx, nasopharynx and oropharynx were packed with 1 role of quick clot prior to patient being taken to record label internship. The packing was taped to the face on the right side. Assessment/Plan 55 y.o. male with 55 y.o. M w/hx STEMI transferred from OSH after cardiac catheterization attempt. Unable to extubate and developed persistent oropharyngeal bleeding after attempted OG tube placementat OSH. Currently anticoagulated on cangrelor and received therapeutic heparin in record label internship. On exam, both fresh and dried blood were present in the oropharynx. As he was being taken to record label internship, 1 roll of QuikClot was used to pack the oropharynx and nasopharynx.. - Remove quickclot 07/27 pm by ENT - Remainder of care per [facility] Sony Silvestre MD PGY-2 Otolaryngology-Head & Neck Surgery QUESTIONS: Sony Silvestre MD For Questions during Weekdays Daytime: Epic secure chat or phone call: AMION>Otolaryngology> [facility] Existing Consults After Hours: AMION>Otolaryngology> [facility] Resident Primary (New Consults) ENT scheduling line: [phone] (please include in discharge paperwork as needed) This encoutner was conducted by a resident physician. I did evaluate the patient, at the time of evaluation there was no active bleeding. I was available for consultation. I agree with the assessmentand plan as documented by the resident physician. Arlene Hoover MD, MHS Clinical Fellow Division of Facial Plastic & Reconstructive Surgery Department of Otolaryngology - Head & Neck Surgery PRODUCTION SUPERVISOR PRODUCTION SUPERVISOR PRODUCTION SUPERVISOR documented in this encounter Nursing Notes * Griffin Norton RN - 07/27/2025 6:00 AM CST Providers at bedside assessing a-line and perfusion. PRODUCTION SUPERVISOR documented in this encounter Miscellaneous Notes * Plan of Care - My Cavazos RRT - 07/30/2025 9:19 AM CST EXTUBATION Situation: Per MD/MONICA order, the patient was extubated without incident, and is on supplemental oxygen for post-extubation support. Pt placed on 6L NC.The therapist will continue to monitor patient's respiratory status and intervene as necessary Plan: Continue to monitor patients respiratory status and intervene as necessary. PRODUCTION SUPERVISOR * Plan of Care - Jolene Brink RRT - 07/30/2025 3:24 AM CST Respiratory Medication Plan Situation: Patient is currently scheduled to receive Nebulized Duo-Neb (Albuterol/Ipratropium), QID. Home Medications: Current Outpatient Medications Medication Instructions albuterol HFA (PROVENTIL HFA,VENTOLIN HFA,PROAIR HFA) 90 mcg/actuation inhaler 2 puffs, inhalation,Every 4 hours PRN benzonatate (TESSALON) 100 mg, oral, Every 8 hours HYDROcodone-acetaminophen (NORCO) 5-325 mg per tablet 1-2 tablets, oral, Every 4 hours PRN, Do not exceed 8 tablets/day. promethazine-DM (PROMETHAZINE-DM) 1.25-3 mg/mL syrup 5 mL, oral, 4 times daily PRN Bronchodilator Assessment Score: 15 Pulmonary Status Smoking less than or equal to 1 PPD, former smoker, FEV1 Greater than or equal to 65% predicted Surgical Status No Surgery Chest X-Ray Infiltrates, Lung Mass, Atelectasis, Pleural Effusion, CHF, Pulm Edema Resp. Pattern Increased Respiratory Rate 21-25 Mental Status Obtunded Cough No Spontaneous Cough or May Require Suctioning Breath Sounds Clear Level of Activity Non-Ambulatory O2 Requirement 4-6 Liters, or greater than or equal to 35% to 50% Oxygen therapy: SpO2 97 % O2 Therapy Patient Vitals: Pulse 90 Resp. Rate 20 Respiratory Assessment: Resp. Effort Depth & Rhythm Chest Assessment BRONCHODILATOR EVALUATION /ASSESSMENT SCORE 0-6 Q4 PRN Therapy* or Home Regimen, Intermittent wheezing, or SOB 7-13 QID Therapy Wheezing or periodic SOB 14-19 Q6 Therapy Increased wheezing and/or SOB 20-26 Q4 Therapy Increased wheezing and/or SOB, Difficulty sleeping >26 Contact MD/MONICA Severe Wheezing, SOB, Difficulty sleeping Note: Score gives a general indication of pulmonary risk. Clinical judgement may yield a different recommended frequency. Toleration: Patient tolerated treatment well. Patient Plan: The patient is mechanically ventilated. We will be keeping the current orders, without change. RT will continue to monitor the patient's progress. PRODUCTION SUPERVISOR * Plan of Care - Jolene Brink RRT - 07/30/2025 3:23 AM CST Mechanical Ventilation Note Situation: This patient will be participating in the SAT/SBT wean during the daytime hours. Patient is currently on mechanical support and resting comfortably. Airway: ET Tube - 7.5, 25 cm, at the Gum Current Mechanical Vent Settings: Vent Type: PB 980 Vent Mode: Pressure regulated volume control/assist control/VC+ Resp Rate: 12 Set VT: 450 mL Vent Peep: 5 cm H20 Insp. Time: 0.8 sec FIO2: 40 % Patient WEAN / PSV / O2 Trials: The patient will conduct their WEAN on day shift. Suction: Patient provided with PRN suctioning to assist in removal of tracheal secretions. Will assess lung sounds and monitor cough. Suctioning will be provided as needed for secretion clearance and airway patency. Plan: Patient is synchronous with the ventilator at this time. Will continue to monitor and evaluate the patient PRODUCTION SUPERVISOR * Plan of Care - Onofre Mccall RN - 07/29/2025 11:55 PM CST Goals: Clinical goals for the shift: monitor hemodynamics, pain control, fall prevention, trend labs. Summary: hemodynamic monitong, frequent rounding. PRODUCTION SUPERVISOR * Plan of Care - Aditya Pelayo RN - 07/29/2025 4:36 PM CST Goals: Clinical Goals for the Shift: monitor labs, VS and I/O. Wean sedation and vent as tolerated. SAT/SBT today. [facility] Patient Cent[facility] Goal for Treatment: DC home Summary: Problem: Neurosensory Goal: Achieves stable or improved neurological status Outcome: Progressing Goal: Achieves maximal functionality and self care Outcome: Progressing Problem: Respiratory Goal: Achieves optimal ventilation and oxygenation Outcome: Progressing Goal: Mechanical Ventilation will be safely managed Outcome: Progressing Problem: Cardiovascular Goal: Maintains optimal cardiac output and hemodynamic stability Outcome: Progressing Goal: Absence of cardiac dysrhythmias or at baseline Outcome: Progressing Goal: Cardiovascular status will improve Outcome: Progressing Problem: Skin/Tissue Integrity Goal: Skin integrity remains intact Outcome: Progressing Goal: Incisions, wounds, or drain sites healing without S/S of infection Outcome: Progressing Goal: Oral mucous membranes remain intact Description: Outcome: Progressing Problem: Musculoskeletal Goal: Return mobility to safest level of function Outcome: Progressing Goal: Maintain proper alignment of affected body part Outcome: Progressing Goal: Return ADL status to a safe level of function Outcome: Progressing Goal: Ability to perform activities at highest level will improve Outcome: Progressing Goal: Mobility, ROM and muscle strength will improve Outcome: Progressing Problem: Gastrointestinal Goal: Maintains or returns to baseline bowel function Outcome: Progressing Goal: Maintains adequate nutritional intake Outcome: Progressing Goal: Will show no signs and symptoms of gastrointestinal bleeding Outcome: Progressing Problem: Genitourinary Goal: Urinary catheter remains patent Outcome: Progressing Problem: Infection Goal: Absence of infection during hospitalization Outcome: Progressing Goal: Absence of fever/infection during anticipated neutropenic period Outcome: Progressing Problem: Metabolic/Fluid and Electrolytes Goal: Electrolytes maintained within normal limits Outcome: Progressing Goal: Hemodynamic stability and optimal renal function maintained Outcome: Progressing Problem: Hematologic Goal: Maintains hematologic stability Outcome: Progressing Problem: Skin Integrity Impairment Risk Goal: Mobility will improve Outcome: Progressing Goal: Understanding of ways to prevent future skin breakdown will improve Outcome: Progressing Goal: Nutritional status will improve Outcome: Progressing Goal: Risk for impaired skin integrity will decrease Outcome: Progressing Problem: Discharge Planning Goal: Understanding discharge needs will improve Outcome: Progressing Problem: Self-injurious Low Risk Goal: Knowledge of safety and abstaining from self-injurious behavior will increase Outcome: Progressing Goal: Knowledge of therapies/resources will increase Outcome: Progressing Goal: Ability to manage health-related needs will improve Outcome: Progressing Goal: Ability to remain free from injury will improve Outcome: Progressing Problem: Restraint for Interference with Medical Safety Goal: Knowledge of restraints will improve Outcome: Progressing Goal: Remains free from injury from restraints Outcome: Progressing Goal: Free from restraint(s) Outcome: Progressing Problem: Fall Risk Goal: Ability to state ways to decrease the risk of falls will improve Outcome: Progressing Goal: Will remain free from falls Outcome: Progressing Goal: Will remain free from injury from falls Outcome: Progressing PRODUCTION SUPERVISOR * Plan of Care - Jolene Brink RRT - 07/29/2025 4:10 AM CST Mechanical Ventilation Note Situation: This patient will be participating in the SAT/SBT wean during the daytime hours. Patient is currently on mechanical support and resting comfortably. Airway: ET Tube - 7.5, 25 cm, at the Gum Current Mechanical Vent Settings: Vent Type: PB 980 Vent Mode: Pressure regulated volume control/assist control/VC+ Resp Rate: 20 Set VT: 500 mL Vent Peep: 5 cm H20 Insp. Time: 0.8 sec FIO2: 40 % Patient WEAN / PSV / O2 Trials: The patient will conduct their WEAN on day shift. Suction: Patient provided with PRN suctioning to assist in removal of tracheal secretions. Will assess lung sounds and monitor cough. Suctioning will be provided as needed for secretion clearance and airway patency. Plan: Patient is synchronous with the ventilator at this time. Will continue to monitor and evaluate the patient PRODUCTION SUPERVISOR * Plan of Care - Yari Bermudez RN - 07/28/2025 2:41 PM CST Problem: Restraint for Interference with Medical Safety Goal: Knowledge of restraints will improve Outcome: Not Progressing Goal: Free from restraint(s) Outcome: Not Progressing Problem: Respiratory Goal: Mechanical Ventilation will be safely managed Outcome: Progressing Problem: Cardiovascular Goal: Absence of cardiac dysrhythmias or at baseline Outcome: Progressing Goal: Cardiovascular status will improve Outcome: Progressing Problem: Skin/Tissue Integrity Goal: Skin integrity remains intact Outcome: Progressing Goal: Incisions, wounds, or drain sites healing without S/S of infection Outcome: Progressing Problem: Genitourinary Goal: Urinary catheter remains patent Outcome: Progressing Problem: Restraint for Interference with Medical Safety Goal: Remains free from injury from restraints Outcome: Progressing Goals: Clinical Goals for the Shift: Maintain hemodynamics, manage IABP, monitor for bleeding, trend labs,manage infusions, and promote rest, safety, and comfort. [facility] Goal for Treatment: D/C home PRODUCTION SUPERVISOR * Plan of Care - Mara Baugh RRT - 07/28/2025 3:08 AM CST Mechanical Ventilation Note Situation: This patient will be participating in the SAT/SBT wean during the daytime hours. Patient is currently on mechanical support and resting comfortably. Airway: ET Tube - 7.5, 25 cm, at the Lips Current Mechanical Vent Settings: Vent Type: PB 980 Vent Mode: Pressure regulated volume control/assist control/VC+ Resp Rate: 20 Set VT: 500 mL Vent Peep: 5 cm H20 Insp. Time: 0.8 sec FIO2: 40 % Patient WEAN / PSV / O2 Trials: The patient will conduct their WEAN on day shift. Suction: Patient provided with PRN suctioning to assist in removal of tracheal secretions. Will assess lung sounds and monitor cough. Suctioning will be provided as needed for secretion clearance and airway patency. Plan: Patient is synchronous with the ventilator at this time. Will continue to monitor and evaluate the patient PRODUCTION SUPERVISOR * Plan of Care - Brianne Molina RN - 07/27/2025 6:48 PM CST Goals: Monitor hemodynamics, titrate levo as able. Wean sedation. Summary: Problem: Neurosensory Goal: Achieves stable or improved neurological status Outcome: Progressing Goal: Achieves maximal functionality and self care Outcome: Progressing Problem: Respiratory Goal: Achieves optimal ventilation and oxygenation Outcome: Progressing Goal: Mechanical Ventilation will be safely managed Outcome: Progressing Problem: Cardiovascular Goal: Maintains optimal cardiac output and hemodynamic stability Outcome: Progressing Goal: Absence of cardiac dysrhythmias or at baseline Outcome: Progressing Goal: Cardiovascular status will improve Outcome: Progressing Problem: Skin/Tissue Integrity Goal: Skin integrity remains intact Outcome: Progressing Goal: Incisions, wounds, or drain sites healing without S/S of infection Outcome: Progressing Goal: Oral mucous membranes remain intact Description: Outcome: Progressing Problem: Musculoskeletal Goal: Return mobility to safest level of function Outcome: Progressing Goal: Maintain proper alignment of affected body part Outcome: Progressing Goal: Return ADL status to a safe level of function Outcome: Progressing Goal: Ability to perform activities at highest level will improve Outcome: Progressing Goal: Mobility, ROM and muscle strength will improve Outcome: Progressing Problem: Gastrointestinal Goal: Maintains or returns to baseline bowel function Outcome: Progressing Goal: Maintains adequate nutritional intake Outcome: Progressing Goal: Will show no signs and symptoms of gastrointestinal bleeding Outcome: Progressing Problem: Genitourinary Goal: Urinary catheter remains patent Outcome: Progressing Problem: Infection Goal: Absence of infection during hospitalization Outcome: Progressing Goal: Absence of fever/infection during anticipated neutropenic period Outcome: Progressing Problem: Metabolic/Fluid and Electrolytes Goal: Electrolytes maintained within normal limits Outcome: Progressing Goal: Hemodynamic stability and optimal renal function maintained Outcome: Progressing Problem: Hematologic Goal: Maintains hematologic stability Outcome: Progressing Problem: Skin Integrity Impairment Risk Goal: Mobility will improve Outcome: Progressing Goal: Understanding of ways to prevent future skin breakdown will improve Outcome: Progressing Goal: Nutritional status will improve Outcome: Progressing Goal: Risk for impaired skin integrity will decrease Outcome: Progressing Problem: Discharge Planning Goal: Understanding discharge needs will improve Outcome: Progressing Problem: Self-injurious Low Risk Goal: Knowledge of safety and abstaining from self-injurious behavior will increase Outcome: Progressing Goal: Knowledge of therapies/resources will increase Outcome: Progressing Goal: Ability to manage health-related needs will improve Outcome: Progressing Goal: Ability to remain free from injury will improve Outcome: Progressing Problem: Restraint for Interference with Medical Safety Goal: Knowledge of restraints will improve Outcome: Progressing Goal: Remains free from injury from restraints Outcome: Progressing Goal: Free from restraint(s) Outcome: Progressing PRODUCTION SUPERVISOR * Plan of Care - Nancy Clement RRT - 07/27/2025 6:06 PM CST Respiratory Medication Plan Situation: Patient is currently scheduled to receive Nebulized Duo-Neb (Albuterol/Ipratropium), QID. Home Medications: Current Outpatient Medications Medication Instructions albuterol HFA (PROVENTIL HFA,VENTOLIN HFA,PROAIR HFA) 90 mcg/actuation inhaler 2 puffs, inhalation,Every 4 hours PRN benzonatate (TESSALON) 100 mg, oral, Every 8 hours HYDROcodone-acetaminophen (NORCO) 5-325 mg per tablet 1-2 tablets, oral, Every 4 hours PRN, Do not exceed 8 tablets/day. promethazine-DM (PROMETHAZINE-DM) 1.25-3 mg/mL syrup 5 mL, oral, 4 times daily PRN Bronchodilator Assessment Score: 15 Pulmonary Status Smoking less than or equal to 1 PPD, former smoker, FEV1 Greater than or equal to 65% predicted Surgical Status No Surgery Chest X-Ray Infiltrates, Lung Mass, Atelectasis, Pleural Effusion, CHF, Pulm Edema Resp. Pattern Increased Respiratory Rate 21-25 Mental Status Obtunded Cough No Spontaneous Cough or May Require Suctioning Breath Sounds Clear Level of Activity Non-Ambulatory O2 Requirement 4-6 Liters, or greater than or equal to 35% to 50% Oxygen therapy: SpO2 96 % O2 Therapy Patient Vitals: Pulse 101 Resp. Rate Respiratory Assessment: Resp. Effort Depth & Rhythm Chest Assessment BRONCHODILATOR EVALUATION /ASSESSMENT SCORE 0-6 Q4 PRN Therapy* or Home Regimen, Intermittent wheezing, or SOB 7-13 QID Therapy Wheezing or periodic SOB 14-19 Q6 Therapy Increased wheezing and/or SOB 20-26 Q4 Therapy Increased wheezing and/or SOB, Difficulty sleeping >26 Contact MD/MONICA Severe Wheezing, SOB, Difficulty sleeping Note: Score gives a general indication of pulmonary risk. Clinical judgement may yield a different recommended frequency. Toleration: Patient tolerated treatment well. Patient Plan: The patient is mechanically ventilated. We will be keeping the current orders, without change. RT will continue to monitor the patient's progress. PRODUCTION SUPERVISOR * Plan of Care - Isadora Patel RRT - 07/27/2025 12:00 AM CST Mechanical Ventilation Note Situation: This patient will be participating in the SAT/SBT wean during the daytime hours. Patient is currently on mechanical support and resting comfortably. Airway: ET Tube - 7.5, 25 cm, at the Lips Current Mechanical Vent Settings: Vent Type: PB 980 Vent Mode: Pressure regulated volume control/assist control/VC+ Resp Rate: 20 Set VT: 500 mL Vent Peep: 5 cm H20 Insp. Time: 0.9 sec FIO2: 40 % Patient WEAN / PSV / O2 Trials: The patient will conduct their WEAN on day shift. Suction: Patient provided with PRN suctioning to assist in removal of tracheal secretions. Will assess lung sounds and monitor cough. Suctioning will be provided as needed for secretion clearance and airway patency. Plan: Patient is synchronous with the ventilator at this time. Will continue to monitor and evaluate the patient PRODUCTION SUPERVISOR * Plan of Care - Griffin Norton RN - 07/26/2025 11:15 PM TOUR PRODUCTION SUPERVISOR Problem: Neurosensory Goal: Achieves stable or improved neurological status Outcome: Ongoing Goal: Achieves maximal functionality and self care Outcome: Ongoing Problem: Respiratory Goal: Achieves optimal ventilation and oxygenation Outcome: Ongoing Goal: Mechanical Ventilation will be safely managed Outcome: Ongoing Problem: Cardiovascular Goal: Maintains optimal cardiac output and hemodynamic stability Outcome: Ongoing Goal: Absence of cardiac dysrhythmias or at baseline Outcome: Ongoing Goal: Cardiovascular status will improve Outcome: Ongoing Problem: Skin/Tissue Integrity Goal: Skin integrity remains intact Outcome: Ongoing Goal: Incisions, wounds, or drain sites healing without S/S of infection Outcome: Ongoing Goal: Oral mucous membranes remain intact Description: Outcome: Ongoing Problem: Musculoskeletal Goal: Return mobility to safest level of function Outcome: Ongoing Goal: Maintain proper alignment of affected body part Outcome: Ongoing Goal: Return ADL status to a safe level of function Outcome: Ongoing Goal: Ability to perform activities at highest level will improve Outcome: Ongoing Goal: Mobility, ROM and muscle strength will improve Outcome: Ongoing Problem: Gastrointestinal Goal: Maintains or returns to baseline bowel function Outcome: Ongoing Goal: Maintains adequate nutritional intake Outcome: Ongoing Goal: Will show no signs and symptoms of gastrointestinal bleeding Outcome: Ongoing Problem: Genitourinary Goal: Urinary catheter remains patent Outcome: Ongoing Problem: Infection Goal: Absence of infection during hospitalization Outcome: Ongoing Goal: Absence of fever/infection during anticipated neutropenic period Outcome: Ongoing Problem: Metabolic/Fluid and Electrolytes Goal: Electrolytes maintained within normal limits Outcome: Ongoing Goal: Hemodynamic stability and optimal renal function maintained Outcome: Ongoing Problem: Hematologic Goal: Maintains hematologic stability Outcome: Ongoing Goals: Clinical Goals for the Shift: Maintain hemodynamics, manage IABP, monitor for bleeding, trend labs,manage infusions, and promote rest, safety, and comfort. [facility] Patient Centered Goal for Treatment: D/C home PRODUCTION SUPERVISOR * Pre-Sedation Documentation - Alli Rae MD - 07/26/2025 5:18 PM CST Sedation Plan ASA 4 - Severe const threat to life Sedation/Anesthesia Plan - deep sedation Mallampati class: unable to assess. Plan/risks discussed with: daughter. healthcare decision maker. History of sedation/Anesthesia complications:Unknown History of transfusion reaction: Unknown Current Facility-Administered Medications Medication Dose Route Frequency Provider Last Rate Last Admin acetaminophen (TYLENOL) tablet 650 mg 650 mg oral Q4H PRN Cece Rainey MD [START ON 07/27/2025] aspirin chewable tablet 81 mg 81 mg feeding tube Daily Cece Rainey MD bisacodyL (DULCOLAX) suppository 10 mg 10 mg rectal Daily PRN Cece Rainey MD bisacodyl EC (DULCOLAX EC) tablet 10 mg 10 mg oral Daily PRN Cece Rainey MD cangrelor (KENGREAL) 50 mg in sodium chloride 0.9% 250 mL (0.2 mg/mL) infusion 0.75 mcg/kg/min intravenous Continuous Cece Rainey MD 16.4 mL/hr at 07/26/25 1715 0.75 mcg/kg/min at 07/26/25 1715 fentaNYL (SUBLIMAZE) bolus from bag 50 mcg 50 mcg intravenous Q15 Min PRN Cece Rainey MD fentaNYL (SUBLIMAZE) bolus from bag 50 mcg 50 mcg intravenous Q15 Min PRN Cece Rainey MD fentaNYL 2500 mcg/50 mL (50 mcg/mL) infusion syringe (premix) 0-400 mcg/hr intravenous Titrated Cece Rainey MD 2 mL/hr at 07/26/25 1715 100 mcg/hr at 07/26/25 1715 ipratropium-albuteroL (DUO-NEB) 0.5-2.5 mg/3 mL nebulizer solution 3 mL 3 mL nebulization QID (RT) Cece Rainey MD 3 mL at 07/26/25 1658 norepinephrine in dextrose 5% (LEVOPHED) 8,000 mcg/250 mL (32 mcg/mL) infusion (premix) 0-2 mcg/kg/min intravenous Titrated Cece Rainey MD 4.1 mL/hr at 07/26/25 1715 0.03 mcg/kg/minat 07/26/25 1715 ondansetron ODT (ZOFRAN-ODT) disintegrating tablet 4 mg 4 mg oral Q6H PRN Cece Rainey MD Or ondansetron (ZOFRAN) injection 4 mg 4 mg intravenous Q6H PRN Cece Rainey MD phenylephrine (ALIE-SYNEPHRINE) 1 mg/10 mL (100 mcg/mL) in sodium chloride 0.9% (premix) 200 mcg 200mcg intravenous Once Cece Rainey MD polyethylene glycol (MIRALAX) packet 17 g 17 g oral Daily PRN Cece Rainey MD propofol (DIPRIVAN) 10 mg/mL infusion 0-50 mcg/kg/min intravenous Titrated Cece Rainey MD 21.9 mL/hr at 07/26/25 1715 50 mcg/kg/min at 07/26/25 1715 sodium chloride 0.9% 0.9% infusion - ADS Override Pull Laboratory review: Lab results in the last 24 hours: Recent Results (from the past 24 hours) POC Blood Gas and Chemistries, Arterial - Collection Time: 07/26/25 12:17 PM Result Value Ref Range pH, Art POC 7.26 (L) 7.35 - 7.45 pCO2, Art POC 58 (H) 35 - 45 mmHg pO2, Art POC 68 (L) 83 - 108 mmHg Na, POC 142 135 - 145 mmol/L K POC 4.5 3.3 - 4.9 mmol/L Cl, POC 108 97 - 110 mmol/L Ionized Ca, POC 4.93 4.50 - 5.10 mg/dL Glucose, POC 153 70 - 199 mg/dL Lactate POC 1.6 0.7 - 2.0 mmol/L SO2 (daniela) arterial 93 90 - 95 % Base excess, POC -2.0 mmol/L HCO3, Art POC 26 20 - 30 mmol/L Hct, POC 39.0 (L) 41.4 - 51.6 % Total Hb, POC 12.9 (L) 13.8 - 17.2 g/dL Comprehensive metabolic panel Collection Time: 07/26/25 12:25 PM Result Value Ref Range Sodium 133 (L) 135 - 145 mmol/L Potassium, pl See Comment 3.3 - 4.9 mmol/L Chloride 101 97 - 110 mmol/L CO2 22 22 - 32 mmol/L Anion gap 10 2 - 15 mmol/L BUN 18 6 - 25 mg/dL Creatinine 1.08 0.80 - 1.30 mg/dL Glucose 120 70 - 199 mg/dL Calcium 7.9 (L) 8.5 - 10.3 mg/dL Bilirubin, total 0.5 0.1 - 1.2 mg/dL Protein, pl 6.3 (L) 6.5 - 8.5 g/dL Albumin 3.3 (L) 3.5 - 5.0 g/dL Alk phos 93 40 - 130 Units/L ALT See Comment 7 - 55 Units/L AST See Comment 10 - 50 Units/L Magnesium Collection Time: 07/26/25 12:25 PM Result Value Ref Range Magnesium 1.9 1.4 - 2.5 mg/dL CBC without differential Collection Time: 07/26/25 12:25 PM Result Value Ref Range WBC 14.30 (H) 3.80 - 9.90 K/cumm Hgb 12.4 (L) 13.0 - 17.5 g/dL Hct 35.4 (L) 38.9 - 50.3 % Plt 336 150 - 400 K/cumm MPV 9.9 9.1 - 12.3 fL RBC 3.80 (L) 4.30 - 5.80 M/cumm MCV 93.2 81.3 - 96.4 fL MCH 32.6 27.1 - 33.3 pg MCHC 35.0 32.3 - 35.7 g/dL RDW CV 12.6 11.1 - 14.9 % RDW SD 43.4 35.7 - 48.1 fL NRBC abs 0.00 0.00 - 0.01 K/cumm Pro B-type natriuretic peptide Collection Time: 07/26/25 12:25 PM Result Value Ref Range NT-proBNP 288 <=300 pg/mL aPTT Collection Time: 07/26/25 12:25 PM Result Value Ref Range aPTT 45 (H) 26 - 38 sec Protime-INR Collection Time: 07/26/25 12:25 PM Result Value Ref Range PT 15.5 (H) 10.2 - 13.5 sec INR 1.38 (H) 0.90 - 1.20 Lactate Collection Time: 07/26/25 12:25 PM Result Value Ref Range Lactate 2.2 (H) 0.7 - 2.0 mmol/L Troponin I high-sensitivity series (baseline, 2hr, 4hr, 6hr) Collection Time: 07/26/25 12:25 PM Result Value Ref Range Trop I hs 11,543 (Critical) <=35 ng/L Type and screen Collection Time: 07/26/25 12:25 PM Result Value Ref Range ABO Rh O Positive Zac, indirect Negative Critical result callback Cardio chemistry Collection Time: 07/26/25 12:25 PM Result Value Ref Range Date Notified [id number] Time Notified 1332 Test name Trop I hs base Called/Read Back Efrain Chackoentials RN Called By TP eGFR Collection Time: 07/26/25 12:25 PM Result Value Ref Range eGFR 81 >=60 mL/min/1.73 m2 Troponin I high-sensitivity 2-hour Collection Time: 07/26/25 2:27 PM Result Value Ref Range Trop I hs 40,331 (Critical) <=35 ng/L Trop I hs pct delta 249 (Critical) % Trop I hs interp Significant (Critical) POC Blood Gas and Chemistries, Venous - Collection Time: 07/26/25 2:31 PM Result Value Ref Range pH, Lenard POC 7.37 7.32 - 7.43 pCO2, lenard POC 49 40 - 50 mmHg pO2, lenard POC 31 mmHg Na, POC 141 135 - 145 mmol/L K POC 5.0 (H) 3.3 - 4.9 mmol/L Cl, POC 108 97 - 110 mmol/L Ionized Ca, POC 4.77 4.50 - 5.10 mg/dL Glucose, POC 128 70 - 199 mg/dL Lactate POC 1.4 0.7 - 2.0 mmol/L O2 Sat, Lenard POC (Daniela) 43 % Base excess, POC 2.3 mmol/L HCO3, Elnard POC 28 20 - 30 mmol/L Hct, POC 35.0 (L) 41.4 - 51.6 % Total Hb, POC 11.5 (L) 13.8 - 17.2 g/dL Current meds/Labs/Test Results that may affect sedation reviewed: Yes Last PO Intake: prior to midnight HEENT Exam: negative Sedation Plan: intubated Cosigned by Miko Castro MD at 07/26/2025 8:34 PM TOUR PRODUCTION SUPERVISOR PRODUCTION SUPERVISOR PRODUCTION SUPERVISOR documented in this encounter Plan of Treatment Pending Results Name Type Priority Associated Diagnoses Date /Time Blood culture Blood Microbiology Routine 1:04 PM TOUR PRODUCTION SUPERVISOR Blood culture Blood Microbiology Routine 1:04 PM TOUR PRODUCTION SUPERVISOR Pneumonia PCR with aerobic culture and Gram stain Sputum Microbiology Routine 07/26/2025 3:3 5 PM TOUR PRODUCTION SUPERVISOR Check Sample Lab STAT 07/26/2025 9 :24 PM TOUR PRODUCTION SUPERVISOR Type and screen Lab Timed 4:29 PM TOUR PRODUCTION SUPERVISOR Oxyhemoglobin, central venous Lab Timed 07/29/2025 4:29 PM TOUR PRODUCTION SUPERVISOR Magnesium Lab Timed 07/26/2025 9:2 4 PM TOUR PRODUCTION SUPERVISOR Phosphorus Lab Timed 07/26/2025 9:2 4 PM TOUR PRODUCTION SUPERVISOR CBC without differential Lab Timed 07/27/2025 11:39 PM TOUR PRODUCTION SUPERVISOR Pneumonia PCR with aerobic culture and Gram stain Sputum Microbiology Routine 07/27/2025 5:4 0 PM TOUR PRODUCTION SUPERVISOR Blood culture Blood Microbiology Routine 9:12 PM TOUR PRODUCTION SUPERVISOR Blood culture Blood Microbiology Routine 9:12 PM TOUR PRODUCTION SUPERVISOR Lactate, whole blood Lab Timed 07/03 11:39 PM TOUR PRODUCTION SUPERVISOR CBC without differential Lab Timed 07/29/2025 4:29 PM TOUR PRODUCTION SUPERVISOR Lactate, whole blood Lab Timed 07/03 5:51 AM TOUR PRODUCTION SUPERVISOR Basic metabolic panel Lab Routine 4:47 AM TOUR PRODUCTION SUPERVISOR Magnesium Lab Routine 07/29/2025 4:4 7 AM TOUR PRODUCTION SUPERVISOR Scheduled Orders Name Type Priority Associated Diagnoses Order Schedule ECG 12 lead ECG STAT As needed unt il discontinued starting 07/26/2025 Pneumonia PCR with aerobic culture and Gram stain Sputum Microbiology Routine Once for 1 Occurrences starting 07/26/2025 until 07/26/2025 Adult Bronchodilator Therapy Protocol Respiratory Care Routine Until discontinued until discontinued starting 07/26/2025 Check Sample Lab STAT Once for 1 Occurrences starting 07/26/2025 until 07/26/2025 Blood gas, arterial Lab STAT Lab o rders - as needed, STAT collection until discontinued starting 07/26/2025, 5 completed Hemoglobin, plasma Lab Routine AM krissy w - collect with morning lab draw until discontinued starting 07/27/2025, 3 completed aPTT Lab Routine AM draw - soniya ect with morning lab draw until discontinued starting 07/27/2025, 4 completed Protime-INR Lab Routine AM draw - col lect with morning lab draw until discontinued starting 07/27/2025, 4 completed Type and screen Lab Timed Now then every 3 days until discontinued starting 07/26/2025, 1 completed Hepatic function panel Lab Routine AM draw - collec t with morning lab draw until discontinued starting 07/27/2025, 4 completed Potassium, whole blood Lab STAT Lab orders - as needed, STAT collection until discontinued starting 07/26/2025 Oxyhemoglobin, central venous Lab Timed Every 6hr until discontinued starting 07/26/2025, 14 completed Lactate, whole blood Lab STAT Lab orders - as needed, STAT collection until discontinued starting 07/26/2025, 1 completed Lactate, whole blood Lab Timed Ever y 6hr until discontinued starting 07/26/2025, 12 completed Phosphorus Lab Routine AM draw - soniya ect with morning lab draw until discontinued starting 07/27/2025, 4 completed XR Chest 1 View Imaging ED Urgent/IP Urgent Daily for 7 Days starting 07/27/2025 until 08/02/2025, 3 completed XR Chest 1 View Imaging ED Urgent/IP Urgent Daily for 7 Days starting 07/27/2025 until 08/02/2025, 1 completed Magnesium Lab Timed Once for 1 Occurrences starting 07/26/2025 until 07/26/2025 Phosphorus Lab Timed Once for 1 Occurrences starting 07/26/2025 until 07/26/2025 CBC without differential Lab Timed Every 6hr until discontinued starting 07/27/2025, 13 completed Basic metabolic panel Lab Timed Every 6hr until discontinued starting 07/27/2025, 12 completed Magnesium Lab Timed Every 6hr unti l discontinued starting 07/27/2025, 12 completed POCT glucose Point of Care Testing-Docked Device Routine Every 4 hours until discontinued starting 07/27/2025, 17 completed Lactate, whole blood Lab Timed Once for 1 Occurrences starting 07/27/2025 until 07/27/2025 Lactate, whole blood Lab Timed Once for 1 Occurrences starting 07/28/2025 until 07/28/2025 Basic metabolic panel Lab Routine Once for 1 Occurrences starting 07/29/2025 until 07/29/2025 Magnesium Lab Routine Once for 1 Occurrences starting 07/29/2025 until 07/29/2025 Mechanical Ventilation - Vent Mode: VC/AC; FiO2: 40%; Set Resp Rate (bpm): 12; Set Tidal Volume (mL): 450; PEEP (cmH20): 5.0 Respiratory Care Routine Continuous un til discontinued starting 07/29/2025 Adult Spontaneous Awakening Trial (SAT) and Spontaneous Breathing Trial (SBT) Respiratory Care Routine Daily 0600 starting tomorrow (S+1) until discontinued starting 07/30/2025 NPPV (Noninvasive positive-pressure ventilation) -NPPV Settings: Per Protocol; Home Unit: Yes; Titrate FiO2 to keep SpO2 (saturation) greater than or equal to: 94% Respiratory Care Routine As needed until discontinued starting 07/30/2025 Scheduled Referrals Name Type Priority Associated Diagnoses Order Schedule Ambulatory referral to Cardiac Rehab Outpatient Referral Routine ST 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 The information in this section might not be complete until the patient is discharged. Procedure Name Priority Date/Time Associated Diagnosis Comments XR CHEST 1 VIEW ED Urgent/IP Urgent 07/30/2025 11:46 AM TOUR PRODUCTION SUPERVISOR POCT GLUCOSE DEVICE Routine 07/30/2025 1 0:56 AM TOUR PRODUCTION SUPERVISOR OXYHEMOGLOBIN, CENTRAL VENOUS Timed 07/30/2025 10:54 AM TOUR PRODUCTION SUPERVISOR EGFR Timed 07/30/2025 10:54 AM TOUR PRODUCTION SUPERVISOR LACTATE, WHOLE BLOOD Timed 07/30/2025 10:54 AM TOUR PRODUCTION SUPERVISOR CBC WITHOUT DIFFERENTIAL Timed 07/30/2025 10:54 AM TOUR PRODUCTION SUPERVISOR MAGNESIUM Timed 07/30/2025 10:54 AM TOUR PRODUCTION SUPERVISOR BASIC METABOLIC PANEL Timed 07/30/2025 10:54 AM TOUR PRODUCTION SUPERVISOR EXTUBATION Routine 07/30/2025 8:31 AM TOUR PRODUCTION SUPERVISOR POCT GLUCOSE DEVICE Routine 07/30/2025 8 :01 AM TOUR PRODUCTION SUPERVISOR EGFR Timed 07/30/2025 6:00 AM TOUR PRODUCTION SUPERVISOR MAGNESIUM Timed 07/30/2025 6:00 AM TOUR PRODUCTION SUPERVISOR BASIC METABOLIC PANEL Timed 07/30/2025 6:00 AM TOUR PRODUCTION SUPERVISOR CBC WITHOUT DIFFERENTIAL Timed 07/30/2025 5:49 AM TOUR PRODUCTION SUPERVISOR PHOSPHORUS Routine 07/30/2025 5:49 AM TOUR PRODUCTION SUPERVISOR HEPATIC FUNCTION PANEL Routine 07/30/2025 5:49 AM TOUR PRODUCTION SUPERVISOR POCT GLUCOSE DEVICE Routine 07/30/2025 5 :47 AM TOUR PRODUCTION SUPERVISOR XR CHEST 1 VIEW IP Routine 07/30/2025 5:30 AM TOUR PRODUCTION SUPERVISOR OXYHEMOGLOBIN, CENTRAL VENOUS Timed 07/30/2025 12:30 AM TOUR PRODUCTION SUPERVISOR HEMOGLOBIN, PLASMA Routine 07/30/2025 12 :30 AM TOUR PRODUCTION SUPERVISOR LACTATE, WHOLE BLOOD Timed 07/30/2025 12:30 AM TOUR PRODUCTION SUPERVISOR APTT Routine 07/30/2025 12:30 AM TOUR PRODUCTION SUPERVISOR PROTIME-INR Routine 07/30/2025 12:30 AM TOUR PRODUCTION SUPERVISOR CBC WITHOUT DIFFERENTIAL Timed 07/30/2025 12:30 AM TOUR PRODUCTION SUPERVISOR POCT GLUCOSE DEVICE Routine 07/30/2025 1 2:26 AM TOUR PRODUCTION SUPERVISOR POCT GLUCOSE DEVICE Routine 07/30/2025 1 2:10 AM TOUR PRODUCTION SUPERVISOR POCT GLUCOSE DEVICE Routine 07/29/2025 8 :14 PM TOUR PRODUCTION SUPERVISOR OXYHEMOGLOBIN, CENTRAL VENOUS Timed 07/29/2025 8:04 PM TOUR PRODUCTION SUPERVISOR LACTATE, WHOLE BLOOD Timed 07/29/2025 8:04 PM TOUR PRODUCTION SUPERVISOR BLOOD GAS, ARTERIAL STAT 07/29/2025 8 :04 PM TOUR PRODUCTION SUPERVISOR OXYHEMOGLOBIN, CENTRAL VENOUS Timed 07/29/2025 4:29 PM TOUR PRODUCTION SUPERVISOR EGFR Timed 07/29/2025 4:29 PM TOUR PRODUCTION SUPERVISOR CBC WITHOUT DIFFERENTIAL Timed 07/29/2025 4:29 PM TOUR PRODUCTION SUPERVISOR MAGNESIUM Timed 07/29/2025 4:29 PM TOUR PRODUCTION SUPERVISOR BASIC METABOLIC PANEL Timed 07/29/2025 4:29 PM TOUR PRODUCTION SUPERVISOR POCT GLUCOSE DEVICE Routine 07/29/2025 4 :27 PM TOUR PRODUCTION SUPERVISOR TYPE AND SCREEN Timed 07/29/2025 4:27 PM TOUR PRODUCTION SUPERVISOR POCT GLUCOSE DEVICE Routine 07/29/2025 4 :18 PM TOUR PRODUCTION SUPERVISOR POCT GLUCOSE DEVICE Routine 07/29/2025 1 1:37 AM TOUR PRODUCTION SUPERVISOR OXYHEMOGLOBIN, CENTRAL VENOUS Timed 07/29/2025 11:34 AM TOUR PRODUCTION SUPERVISOR EGFR Timed 07/29/2025 11:34 AM TOUR PRODUCTION SUPERVISOR LACTATE, WHOLE BLOOD Timed 07/29/2025 11:34 AM TOUR PRODUCTION SUPERVISOR CBC WITHOUT DIFFERENTIAL Timed 07/29/2025 11:34 AM TOUR PRODUCTION SUPERVISOR MAGNESIUM Timed 07/29/2025 11:34 AM TOUR PRODUCTION SUPERVISOR BASIC METABOLIC PANEL Timed 07/29/2025 11:34 AM TOUR PRODUCTION SUPERVISOR BLOOD GAS, ARTERIAL Routine 07/29/2025 1 0:17 AM TOUR PRODUCTION SUPERVISOR POCT GLUCOSE DEVICE Routine 07/29/2025 7 :51 AM TOUR PRODUCTION SUPERVISOR POCT GLUCOSE DEVICE Routine 07/29/2025 7 :50 AM TOUR PRODUCTION SUPERVISOR XR CHEST 1 VIEW Timed 07/29/2025 5:36 AM TOUR PRODUCTION SUPERVISOR OXYHEMOGLOBIN, CENTRAL VENOUS Timed 07/29/2025 4:47 AM TOUR PRODUCTION SUPERVISOR HEMOGLOBIN, PLASMA Routine 07/29/2025 4: 47 AM TOUR PRODUCTION SUPERVISOR EGFR Routine 07/29/2025 4:47 AM TOUR PRODUCTION SUPERVISOR LACTATE, WHOLE BLOOD Timed 07/29/2025 4:47 AM TOUR PRODUCTION SUPERVISOR APTT Routine 07/29/2025 4:47 AM TOUR PRODUCTION SUPERVISOR PROTIME-INR Routine 07/29/2025 4:47 AM TOUR PRODUCTION SUPERVISOR CBC WITHOUT DIFFERENTIAL Timed 07/29/2025 4:47 AM TOUR PRODUCTION SUPERVISOR PHOSPHORUS Routine 07/29/2025 4:47 AM TOUR PRODUCTION SUPERVISOR MAGNESIUM Routine 07/29/2025 4:47 AM TOUR PRODUCTION SUPERVISOR HEPATIC FUNCTION PANEL Routine 07/29/2025 4:47 AM TOUR PRODUCTION SUPERVISOR BASIC METABOLIC PANEL Routine 07/29/2025 4:47 AM TOUR PRODUCTION SUPERVISOR POCT GLUCOSE DEVICE Routine 07/29/2025 4 :45 AM TOUR PRODUCTION SUPERVISOR POCT GLUCOSE DEVICE Routine 07/29/2025 1 :25 AM TOUR PRODUCTION SUPERVISOR EGFR Timed 07/29/2025 12:20 AM TOUR PRODUCTION SUPERVISOR CBC WITHOUT DIFFERENTIAL Timed 07/29/2025 12:20 AM TOUR PRODUCTION SUPERVISOR MAGNESIUM Timed 07/29/2025 12:20 AM TOUR PRODUCTION SUPERVISOR BASIC METABOLIC PANEL Timed 07/29/2025 12:20 AM TOUR PRODUCTION SUPERVISOR OXYHEMOGLOBIN, CENTRAL VENOUS Timed 07/28/2025 11:42 PM TOUR PRODUCTION SUPERVISOR LACTATE, WHOLE BLOOD Timed 07/28/2025 11:42 PM TOUR PRODUCTION SUPERVISOR POCT GLUCOSE DEVICE Routine 07/28/2025 8 :04 PM TOUR PRODUCTION SUPERVISOR POCT GLUCOSE DEVICE Routine 07/28/2025 8 :02 PM TOUR PRODUCTION SUPERVISOR EGFR Timed 07/28/2025 5:14 PM TOUR PRODUCTION SUPERVISOR MAGNESIUM Timed 07/28/2025 5:14 PM TOUR PRODUCTION SUPERVISOR BASIC METABOLIC PANEL Timed 07/28/2025 5:14 PM TOUR PRODUCTION SUPERVISOR OXYHEMOGLOBIN, CENTRAL VENOUS Timed 07/28/2025 5:13 PM TOUR PRODUCTION SUPERVISOR LACTATE, WHOLE BLOOD Timed 07/28/2025 5:13 PM TOUR PRODUCTION SUPERVISOR CBC WITHOUT DIFFERENTIAL Timed 07/28/2025 5:13 PM TOUR PRODUCTION SUPERVISOR EGFR Timed 07/28/2025 12:11 PM TOUR PRODUCTION SUPERVISOR MAGNESIUM Timed 07/28/2025 12:11 PM TOUR PRODUCTION SUPERVISOR BASIC METABOLIC PANEL Timed 07/28/2025 12:11 PM TOUR PRODUCTION SUPERVISOR POCT GLUCOSE DEVICE Routine 07/28/2025 1 2:08 PM TOUR PRODUCTION SUPERVISOR OXYHEMOGLOBIN, CENTRAL VENOUS Timed 07/28/2025 11:09 AM TOUR PRODUCTION SUPERVISOR LACTATE, WHOLE BLOOD Timed 07/28/2025 11:09 AM TOUR PRODUCTION SUPERVISOR XR ABDOMEN AP 1 VIEW ED Urgent/IP Urgent 07/28/2025 6:45 AM TOUR PRODUCTION SUPERVISOR XR CHEST 1 VIEW Timed 07/28/2025 6:33 AM TOUR PRODUCTION SUPERVISOR BLOOD GAS, ARTERIAL STAT 07/28/2025 5 :53 AM TOUR PRODUCTION SUPERVISOR OXYHEMOGLOBIN, CENTRAL VENOUS Timed 07/28/2025 5:51 AM TOUR PRODUCTION SUPERVISOR HEMOGLOBIN, PLASMA Routine 07/28/2025 5: 51 AM TOUR PRODUCTION SUPERVISOR EGFR Timed 07/28/2025 5:51 AM TOUR PRODUCTION SUPERVISOR LACTATE, WHOLE BLOOD Timed 07/28/2025 5:51 AM TOUR PRODUCTION SUPERVISOR APTT Routine 07/28/2025 5:51 AM TOUR PRODUCTION SUPERVISOR PROTIME-INR Routine 07/28/2025 5:51 AM TOUR PRODUCTION SUPERVISOR CBC WITHOUT DIFFERENTIAL Timed 07/28/2025 5:51 AM TOUR PRODUCTION SUPERVISOR PHOSPHORUS Routine 07/28/2025 5:51 AM TOUR PRODUCTION SUPERVISOR MAGNESIUM Timed 07/28/2025 5:51 AM TOUR PRODUCTION SUPERVISOR HEPATIC FUNCTION PANEL Routine 07/28/2025 5:51 AM TOUR PRODUCTION SUPERVISOR BASIC METABOLIC PANEL Timed 07/28/2025 5:51 AM TOUR PRODUCTION SUPERVISOR POCT GLUCOSE DEVICE Routine 07/28/2025 3 :49 AM TOUR PRODUCTION SUPERVISOR POCT GLUCOSE DEVICE Routine 07/27/2025 1 1:44 PM TOUR PRODUCTION SUPERVISOR OXYHEMOGLOBIN, CENTRAL VENOUS Timed 07/27/2025 11:39 PM TOUR PRODUCTION SUPERVISOR EGFR Timed 07/27/2025 11:39 PM TOUR PRODUCTION SUPERVISOR LACTATE, WHOLE BLOOD Timed 07/27/2025 11:39 PM TOUR PRODUCTION SUPERVISOR CBC WITHOUT DIFFERENTIAL Timed 07/27/2025 11:39 PM TOUR PRODUCTION SUPERVISOR MAGNESIUM Timed 07/27/2025 11:39 PM TOUR PRODUCTION SUPERVISOR BASIC METABOLIC PANEL Timed 07/27/2025 11:39 PM TOUR PRODUCTION SUPERVISOR BLOOD CULTURE Routine 07/27/2025 9:12 PM TOUR PRODUCTION SUPERVISOR BLOOD CULTURE Routine 07/27/2025 9:12 PM TOUR PRODUCTION SUPERVISOR POCT GLUCOSE DEVICE Routine 07/27/2025 8 :47 PM TOUR PRODUCTION SUPERVISOR PNEUMONIA PCR Routine 07/27/2025 5:40 PM TOUR PRODUCTION SUPERVISOR PNEUMONIA PCR WITH AEROBIC CULTURE AND GRAM STAIN Routine 07/27/2025 5:40 PM TOUR PRODUCTION SUPERVISOR OXYHEMOGLOBIN, CENTRAL VENOUS Timed 07/27/2025 5:40 PM TOUR PRODUCTION SUPERVISOR EGFR Timed 07/27/2025 5:40 PM TOUR PRODUCTION SUPERVISOR LACTATE, WHOLE BLOOD Timed 07/27/2025 5:40 PM TOUR PRODUCTION SUPERVISOR CBC WITHOUT DIFFERENTIAL Timed 07/27/2025 5:40 PM TOUR PRODUCTION SUPERVISOR MAGNESIUM Timed 07/27/2025 5:40 PM TOUR PRODUCTION SUPERVISOR BLOOD GAS, ARTERIAL STAT 07/27/2025 5 :40 PM TOUR PRODUCTION SUPERVISOR BASIC METABOLIC PANEL Timed 07/27/2025 5:40 PM TOUR PRODUCTION SUPERVISOR XR ABDOMEN AP 1 VIEW IP Routine 07/27/2025 3:01 PM TOUR PRODUCTION SUPERVISOR TROPONIN I HIGH-SENSITIVITY Timed 07/27/2025 12:58 PM TOUR PRODUCTION SUPERVISOR OXYHEMOGLOBIN, CENTRAL VENOUS Timed 07/27/2025 11:34 AM TOUR PRODUCTION SUPERVISOR EGFR Timed 07/27/2025 11:34 AM TOUR PRODUCTION SUPERVISOR LACTATE, WHOLE BLOOD Timed 07/27/2025 11:34 AM TOUR PRODUCTION SUPERVISOR CBC WITHOUT DIFFERENTIAL Timed 07/27/2025 11:34 AM TOUR PRODUCTION SUPERVISOR MAGNESIUM Timed 07/27/2025 11:34 AM TOUR PRODUCTION SUPERVISOR BLOOD GAS, ARTERIAL STAT 07/27/2025 1 1:34 AM TOUR PRODUCTION SUPERVISOR BASIC METABOLIC PANEL Timed 07/27/2025 11:34 AM TOUR PRODUCTION SUPERVISOR BENZODIAZEPINE CONFIRMATION BY MS Routine 07/27/2025 10:16 AM TOUR PRODUCTION SUPERVISOR FENTANYL CONFIRMATION, MS URINE Routine 07/27/2025 10:16 AM TOUR PRODUCTION SUPERVISOR DRUGS OF ABUSE SCREEN, URINE WITH REFLEX CONFIRMATION Routine 07/27/2025 10:16 AM TOUR PRODUCTION SUPERVISOR OPIATES CONFIRMATION MS, URINE Routine 07/27/2025 10:16 AM TOUR PRODUCTION SUPERVISOR AMPHETAMINE, URINE, CONFIRMATION Routine 07/27/2025 10:16 AM TOUR PRODUCTION SUPERVISOR TRANSTHORACIC ECHO (TTE) COMPLETE W DOPPLER/CF W CONTRAST Routine 07/27/2025 10:10 AM TOUR PRODUCTION SUPERVISOR XR ABDOMEN AP 1 VIEW ED Urgent/IP Urgent 07/27/2025 8:51 AM TOUR PRODUCTION SUPERVISOR INFECTION PREVENTION KAREEM AURIS PCR, SURVEILLANCE Routine 07/27/2025 8:26 AM TOUR PRODUCTION SUPERVISOR TROPONIN I HIGH-SENSITIVITY Timed 07/27/2025 8:26 AM TOUR PRODUCTION SUPERVISOR LACTATE, WHOLE BLOOD STAT 07/27/2025 8:26 AM TOUR PRODUCTION SUPERVISOR BLOOD GAS, ARTERIAL STAT 07/27/2025 8 :26 AM TOUR PRODUCTION SUPERVISOR TROPONIN I HIGH-SENSITIVITY Timed 07/27/2025 6:35 AM TOUR PRODUCTION SUPERVISOR XR CHEST 1 VIEW Timed 07/27/2025 4:59 AM TOUR PRODUCTION SUPERVISOR TROPONIN I HIGH-SENSITIVITY 6-HOUR Timed 07/27/2025 3:58 AM TOUR PRODUCTION SUPERVISOR OXYHEMOGLOBIN, CENTRAL VENOUS Timed 07/27/2025 3:58 AM TOUR PRODUCTION SUPERVISOR HEMOGLOBIN, PLASMA Timed 07/27/2025 3: 58 AM TOUR PRODUCTION SUPERVISOR EGFR Timed 07/27/2025 3:58 AM TOUR PRODUCTION SUPERVISOR LACTATE, WHOLE BLOOD Timed 07/27/2025 3:58 AM TOUR PRODUCTION SUPERVISOR APTT Routine 07/27/2025 3:58 AM TOUR PRODUCTION SUPERVISOR PROTIME-INR Routine 07/27/2025 3:58 AM TOUR PRODUCTION SUPERVISOR CBC WITHOUT DIFFERENTIAL Timed 07/27/2025 3:58 AM TOUR PRODUCTION SUPERVISOR PHOSPHORUS Routine 07/27/2025 3:58 AM TOUR PRODUCTION SUPERVISOR MAGNESIUM Timed 07/27/2025 3:58 AM TOUR PRODUCTION SUPERVISOR BLOOD GAS, ARTERIAL Timed 07/27/2025 3 :58 AM TOUR PRODUCTION SUPERVISOR HEPATIC FUNCTION PANEL Routine 07/27/2025 3:58 AM TOUR PRODUCTION SUPERVISOR BASIC METABOLIC PANEL Timed 07/27/2025 3:58 AM TOUR PRODUCTION SUPERVISOR TROPONIN I HIGH-SENSITIVITY 4-HOUR Timed 07/27/2025 1:43 AM TOUR PRODUCTION SUPERVISOR OXYHEMOGLOBIN, CENTRAL VENOUS Timed 07/27/2025 12:15 AM TOUR PRODUCTION SUPERVISOR LACTATE, WHOLE BLOOD Timed 07/27/2025 12:12 AM TOUR PRODUCTION SUPERVISOR BLOOD GAS, ARTERIAL Timed 07/27/2025 1 2:12 AM TOUR PRODUCTION SUPERVISOR ECG 12-LEAD Routine 07/27/2025 12:05 AM TOUR PRODUCTION SUPERVISOR POC BLOOD GAS AND CHEMISTRIES, ARTERIAL Routine 07/26/2025 9:51 PM TOUR PRODUCTION SUPERVISOR XR CHEST 1 VIEW ED Urgent/IP Urgent 07/26/2025 9:47 PM TOUR PRODUCTION SUPERVISOR TROPONIN I HIGH-SENSITIVITY SERIES (BASELINE, 2HR, 4HR, 6HR) Routine 07/26/2025 9:24 PM TOUR PRODUCTION SUPERVISOR OXYHEMOGLOBIN, CENTRAL VENOUS Timed 07/26/2025 9:24 PM TOUR PRODUCTION SUPERVISOR EGFR Timed 07/26/2025 9:24 PM TOUR PRODUCTION SUPERVISOR DIFFERENTIAL AUTO Timed 07/26/2025 9:2 4 PM TOUR PRODUCTION SUPERVISOR CBC WITH AUTO DIFFERENTIAL Timed 07/26/2025 9:24 PM TOUR PRODUCTION SUPERVISOR LACTATE, WHOLE BLOOD Timed 07/26/2025 9:24 PM TOUR PRODUCTION SUPERVISOR PHOSPHORUS Timed 07/26/2025 9:24 PM TOUR PRODUCTION SUPERVISOR MAGNESIUM Timed 07/26/2025 9:24 PM TOUR PRODUCTION SUPERVISOR COMPREHENSIVE METABOLIC PANEL Timed 07/26/2025 9:24 PM TOUR PRODUCTION SUPERVISOR ECG 12-LEAD Routine 07/26/2025 9:11 PM TOUR PRODUCTION SUPERVISOR TRLUML BALO ANGIOP 1ST ARTERY S&I [id number] Routine 07/26/2025 8:51 [address] 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) CORONARY OCT, EA ADD'I VESSEL Routine 07/26/2025 8:51 [address] [address] [address] 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) CORONARY OCT, 1ST VESSEL Routine 07/26/2025 8:51 [address] 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) MILLICENT MAJOR CORONARY Routine 07/26/2025 8: 51 [address] [employer] [address] 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) POCT ACTIVATED CLOTTING TIME, LOW RANGE Routine 07/26/2025 8:22 PM TOUR PRODUCTION SUPERVISOR POCT ACTIVATED CLOTTING TIME, LOW RANGE Routine 07/26/2025 6:35 PM TOUR PRODUCTION SUPERVISOR POCT ACTIVATED CLOTTING TIME, LOW RANGE Routine 07/26/2025 6:14 PM TOUR PRODUCTION SUPERVISOR EGFR Routine 07/26/2025 5:46 PM TOUR PRODUCTION SUPERVISOR URINALYSIS AND REFLEX TO MICROSCOPIC AND CULTURE Routine 07/26/2025 5:46 PM TOUR PRODUCTION SUPERVISOR URINALYSIS, MICROSCOPIC ONLY Routine 07/26/2025 5:46 PM TOUR PRODUCTION SUPERVISOR PHOSPHORUS Routine 07/26/2025 5:46 PM TOUR PRODUCTION SUPERVISOR MAGNESIUM Routine 07/26/2025 5:46 PM TOUR PRODUCTION SUPERVISOR BASIC METABOLIC PANEL Routine 07/26/2025 5:46 PM TOUR PRODUCTION SUPERVISOR IR OUTSIDE REFERENCE Routine 07/26/2025 5:40 [address] HEAD WO CONTRAST ED Urgent/IP Urgent 07/26/2025 4:51 PM TOUR PRODUCTION SUPERVISOR IA ARTL CATHJ/CANNULJ MNTR/TRANSFUSION SPX PRQ Routine 07/26/2025 3:43 PM [address] [employer] [address] 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) IA INSJ NON-TUNNELED CENTRAL VENOUS CATH AGE 5 YR/> Routine 07/26/2025 3:39 PM [employer] ST 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) XR CHEST 1 VIEW ED Urgent/IP Urgent 07/26/2025 3:13 PM TOUR PRODUCTION SUPERVISOR POC BLOOD GAS AND CHEMISTRIES, VENOUS Routine 07/26/2025 2:31 PM TOUR PRODUCTION SUPERVISOR TROPONIN I HIGH-SENSITIVITY 2-HOUR Timed 07/26/2025 2:27 PM TOUR PRODUCTION SUPERVISOR BLOOD CULTURE Routine 07/26/2025 1:04 PM TOUR PRODUCTION SUPERVISOR BLOOD CULTURE Routine 07/26/2025 1:04 PM TOUR PRODUCTION SUPERVISOR TROPONIN I HIGH-SENSITIVITY SERIES (BASELINE, 2HR, 4HR, 6HR) Routine 07/26/2025 12:25 PM TOUR PRODUCTION SUPERVISOR LACTATE Routine 07/26/2025 12:25 PM TOUR PRODUCTION SUPERVISOR CRITICAL RESULT CALLBACK CARDIO CHEM Routine 07/26/2025 12:25 PM TOUR PRODUCTION SUPERVISOR EGFR STAT 07/26/2025 12:25 PM TOUR PRODUCTION SUPERVISOR PRO B-TYPE NATRIURETIC PEPTIDE STAT 07/26/2025 12:25 PM TOUR PRODUCTION SUPERVISOR APTT STAT 07/26/2025 12:25 PM TOUR PRODUCTION SUPERVISOR PROTIME-INR STAT 07/26/2025 12:25 PM TOUR PRODUCTION SUPERVISOR CBC WITHOUT DIFFERENTIAL STAT 07/26/2025 12:25 PM TOUR PRODUCTION SUPERVISOR TYPE AND SCREEN Timed 07/26/2025 12:25 PM TOUR PRODUCTION SUPERVISOR MAGNESIUM STAT 07/26/2025 12:25 PM TOUR PRODUCTION SUPERVISOR COMPREHENSIVE METABOLIC PANEL STAT 07/26/2025 12:25 PM TOUR PRODUCTION SUPERVISOR POC BLOOD GAS AND CHEMISTRIES, ARTERIAL Routine 07/26/2025 12:17 PM TOUR PRODUCTION SUPERVISOR XR CHEST 1 VIEW ED Urgent/IP Urgent 07/26/2025 12:10 PM TOUR PRODUCTION SUPERVISOR documented in this encounter Results * XR Chest 1 View (07/30/2025 11:46 AM TOUR PRODUCTION SUPERVISOR) Anatomical Region Laterality Modality Body, Chest N/A Digital Radiogra phy 07/30/2025 11:5 1 AM TOUR PRODUCTION SUPERVISOR Impressions 07/30/2025 11:51 AM TOUR PRODUCTION SUPERVISOR Removal of endotracheal and gastric tubes. Right internal jugular catheter tip at superior cavoatrial junction. Increased streaky and patchy opacities in the lung bases which could be due to mild atelectasis or aspiration. Indistinct right costophrenic angle opacity could be due to trace pleural effusion or atelectasis. No pneumothorax. Electronically signed by: Mir Castano M.D. Narrative 07/30/2025 11:51 AM TOUR PRODUCTION SUPERVISOR EXAMINATION: 1 view chest radiograph COMPARISON: 07/30/2025 at 0503 Procedure Note Mir Castano MD - 07/30/2025 EXAMINATION: 1 view chest radiograph COMPARISON: 07/30/2025 at 0503 IMPRESSION: Removal of endotracheal and gastric tubes. Right internal jugular catheter tip at superior cavoatrial junction. Increased streaky and patchy opacities in the lung bases which could be due to mild atelectasis or aspiration. Indistinct right costophrenic angle opacity could be due to trace pleural effusion or atelectasis. No pneumothorax. Electronically signed by: Mir Castano M.D. us Darrell Avalos MD IMG XR PROCEDURES Final Resu lt * POCT glucose (07/30/2025 10:56 AM TOUR PRODUCTION SUPERVISOR) Glucose, POC 98 70 - 199 mg/dL Blood 07/30/2025 10:5 6 AM TOUR PRODUCTION SUPERVISOR 07/30/2025 10:56 AM TOUR PRODUCTION SUPERVISOR us Darrell Avalos MD LAB POCT ORDERABLES - DEVICE Final Result [facility] Department [place] [address] * eGFR (07/30/2025 10:54 AM TOUR PRODUCTION SUPERVISOR) eGFR >90 >=60 mL/min/1. 73 m2 Comment: Interpretive Data Reference Interval Normal >/= 90 mL/min/1.73m2 Mildly decreased* 60 - 89 mL/min/1.73m2 Mildly to moderately decreased 45 - 59 mL/min/1.73m2 Moderately to severely decreased 30 - 44 mL/min/1.73m2 Severely decreased 15 - 29 mL/min/1.73m2 Kidney Failure < 15 mL/min/1.73m2 *Relative to young adult level Estimated glomerular filtration rate is determined by the 2020 CKD-EPI equation recommended by the National Kidney Foundation (A Unifying Approach to GFR Estimation: Recommendations of the NKF-ASK Task Force on Reassessing the Inclusion of Race in Diagnosing Kidney Disease, JASN 2020). The CKD-EPI equation should not be used for patients with unstable renal function and has not been validated in children and those over 70. Current interpretive data was last reviewed 2021. Blood 07/30/2025 10:5 4 AM TOUR PRODUCTION SUPERVISOR 07/30/2025 11:23 AM TOUR PRODUCTION SUPERVISOR Fuad Bello MD LAB BLOOD ORDERABLES Final Re sult Performing Organization Address [facility] Co de Phone Number [facility] Department [place] [address] * Magnesium (07/30/2025 10:54 AM TOUR PRODUCTION SUPERVISOR) Pathologist [facility] Magnesium 1.8 1.4 - 2.5 mg/dL Blood 07/30/2025 10:5 4 AM TOUR PRODUCTION SUPERVISOR 07/30/2025 11:23 AM TOUR PRODUCTION SUPERVISOR Fuad Bello MD LAB BLOOD ORDERABLES Final Re sult Performing Organization Address [facility] de Phone Number [facility] [place] [address] * (ABNORMAL) Basic metabolic panel (07/30/2025 10:54 AM TOUR PRODUCTION SUPERVISOR) Pathologist [facility] Sodium 140 135 - 145 mmol/L Potassium, pl 4.1 3.3 - 4.9 mmol/L [facility] Chloride 106 97 - 110 mmol/L [facility] CO2 20(L) 22 - 32 mmol/L [facility] Anion gap 14 2 - 15 mmol/L [facility] BUN 20 6 - 25 mg/dL [facility] Creatinine 0.79(L) 0.80 - 1.30 mg/dL [facility] Glucose 87 70 - 199 mg/dL [facility] Comment: Interpretive Data Fasting glucose >/= 126 mg/dl is diagnostic for diabetes. Fasting is defined as no caloric intake for at least 8 hours. Fasting glucose between 100 mg/dl to 125 mg/dl is diagnostic of prediabetes. In a patient with classic symptoms of hyperglycemia or hyperglycemic crisis, a random glucose >/= 200 mg/dl is diagnostic for diabetes. In the absence of unequivocal hyperglycemia, results should be confirmed by repeat testing. The classification and Diagnosis of Diabetes Diabetes Care 2021; 46: S19-S40. Current interpretive data was last revised 2022. Calcium 7.5(L) 8.5 - 10.3 mg/dL [facility] Blood 07/30/2025 10:5 4 AM TOUR PRODUCTION SUPERVISOR 07/30/2025 11:23 AM TOUR PRODUCTION SUPERVISOR us Fuad Bello MD LAB BLOOD ORDERABLES Final Re sult [facility] Department [place] [address] * (ABNORMAL) CBC without differential (07/30/2025 10:54 AM TOUR PRODUCTION SUPERVISOR) WBC 11.91(H) 3.80 - 9.90 K/cumm Hgb 8.5(L) 13.0 - 17.5 g/dL [facility] Hct 26.1(L) 38.9 - 50.3 % [facility] Plt 225 150 - 400 K/cumm [facility] MPV 10.0 9.1 - 12.3 fL [facility] RBC 2.78(L) 4.30 - 5.80 M/cumm [facility] MCV 93.9 81.3 - 96.4 fL [facility] MCH 30.6 27.1 - 33.3 pg [facility] MCHC 32.6 32.3 - 35.7 g/dL [facility] RDW CV 12.8 11.1 - 14.9 % [facility] RDW SD 43.8 35.7 - 48.1 fL [facility] NRBC abs 0.00 0.00 - 0.01 K/cumm [facility] Blood 07/30/2025 10:5 4 AM TOUR PRODUCTION SUPERVISOR 07/30/2025 11:23 AM TOUR PRODUCTION SUPERVISOR us Fuad Bello MD LAB BLOOD ORDERABLES Final Re sult [facility] [place] [address] * Lactate, whole blood (07/30/2025 10:54 AM TOUR PRODUCTION SUPERVISOR) Lactate, bld 1.3 0.7 - 2.0 mmol/L Blood 07/30/2025 10:5 4 AM TOUR PRODUCTION SUPERVISOR 07/30/2025 11:20 AM TOUR PRODUCTION SUPERVISOR us Fuad Bello MD LAB BLOOD ORDERABLES Final Re sult Performing Organization Address [facility] [place] [address] * Oxyhemoglobin, central venous (07/30/2025 10:54 AM TOUR PRODUCTION SUPERVISOR) Pathologist [facility] Oxyhemoglobin, CV 60.9 % Comment: Interpretive Data No reference range established. Current interpretive data was last revised 2019. Blood 07/30/2025 10:5 4 AM TOUR PRODUCTION SUPERVISOR 07/30/2025 11:20 AM TOUR PRODUCTION SUPERVISOR us Fuad Bello MD LAB BLOOD ORDERABLES Final Re sult Performing Organization Address [facility] Co de Phone Number [facility] [place] [address] * POCT glucose (07/30/2025 8:01 AM TOUR PRODUCTION SUPERVISOR) Glucose, POC 76 70 - 199 mg/dL Blood 07/30/2025 8:01 AM TOUR PRODUCTION SUPERVISOR 07/30/2025 8:01 AM TOUR PRODUCTION SUPERVISOR us Darrell Avalos MD LAB POCT ORDERABLES - DEVICE Final Result Performing Organization Address [facility] Co de Phone Number [facility] [place] [address] * eGFR (07/30/2025 6:00 AM TOUR PRODUCTION SUPERVISOR) eGFR >90 >=60 mL/min/1. 73 m2 Comment: Interpretive Data Reference Interval Normal >/= 90 mL/min/1.73m2 Mildly decreased* 60 - 89 mL/min/1.73m2 Mildly to moderately decreased 45 - 59 mL/min/1.73m2 Moderately to severely decreased 30 - 44 mL/min/1.73m2 Severely decreased 15 - 29 mL/min/1.73m2 Kidney Failure < 15 mL/min/1.73m2 *Relative to young adult level Estimated glomerular filtration rate is determined by the 2020 CKD-EPI equation recommended by the National Kidney Foundation (A Unifying Approach to GFR Estimation: Recommendations of the NKF-ASK Task Force on Reassessing the Inclusion of Race in Diagnosing Kidney Disease, JASN 2020). The CKD-EPI equation should not be used for patients with unstable renal function and has not been validated in children and those over 70. Current interpretive data was last reviewed 2021. Blood 07/30/2025 6:00 AM TOUR PRODUCTION SUPERVISOR 07/30/2025 12:44 AM TOUR PRODUCTION SUPERVISOR us Fuad Bello MD LAB BLOOD ORDERABLES Final Re sult Performing Organization Address [facility] Co de Phone Number [facility] Department [place] [address] * Magnesium (07/30/2025 6:00 AM TOUR PRODUCTION SUPERVISOR) Magnesium 2.3 1.4 - 2.5 mg/dL Blood 07/30/2025 6:00 AM TOUR PRODUCTION SUPERVISOR 07/30/2025 12:44 AM TOUR PRODUCTION SUPERVISOR Fuad Bello MD LAB BLOOD ORDERABLES Final Re sult Performing Organization Address [facility] Co de Phone Number [facility] [place] [address] * (ABNORMAL) Basic metabolic panel (07/30/2025 6:00 AM TOUR PRODUCTION SUPERVISOR) Sodium 138 135 - 145 mmol/L Potassium, pl 4.6 3.3 - 4.9 mmol/L [facility] Chloride 106 97 - 110 mmol/L [facility] CO2 22 22 - 32 mmol/L [facility] Anion gap 10 2 - 15 mmol/L [facility] BUN 21 6 - 25 mg/dL [facility] Creatinine 0.82 0.80 - 1.30 mg/dL [facility] Glucose 92 70 - 199 mg/dL [facility] Comment: Interpretive Data Fasting glucose >/= 126 mg/dl is diagnostic for diabetes. Fasting is defined as no caloric intake for at least 8 hours. Fasting glucose between 100 mg/dl to 125 mg/dl is diagnostic of prediabetes. In a patient with classic symptoms of hyperglycemia or hyperglycemic crisis, a random glucose >/= 200 mg/dl is diagnostic for diabetes. In the absence of unequivocal hyperglycemia, results should be confirmed by repeat testing. The classification and Diagnosis of Diabetes Diabetes Care 2021; 46: S19-S40. Current interpretive data was last revised 2022. Calcium 8.0(L) 8.5 - 10.3 mg/dL [facility] Blood 07/30/2025 6:00 AM TOUR PRODUCTION SUPERVISOR 07/30/2025 12:44 AM TOUR PRODUCTION SUPERVISOR Fuad Bello MD LAB BLOOD ORDERABLES Final Re sult [facility] Department [place] [address] * (ABNORMAL) CBC without differential (07/30/2025 5:49 AM TOUR PRODUCTION SUPERVISOR) [facility] WBC 11.98(H) 3.80 - 9.90 K/cumm Hgb 9.5(L) 13.0 - 17.5 g/dL [facility] Hct 28.9(L) 38.9 - 50.3 % [facility] Plt 214 150 - 400 K/cumm [facility] MPV 9.7 9.1 - 12.3 fL [facility] RBC 3.09(L) 4.30 - 5.80 M/cumm [facility] MCV 93.5 81.3 - 96.4 fL [facility] MCH 30.7 27.1 - 33.3 pg [facility] MCHC 32.9 32.3 - 35.7 g/dL [facility] RDW CV 13.2 11.1 - 14.9 % [facility] RDW SD 45.2 35.7 - 48.1 fL [facility] NRBC abs 0.00 0.00 - 0.01 K/cumm [facility] Blood 07/30/2025 5:49 AM TOUR PRODUCTION SUPERVISOR 07/30/2025 6:02 AM TOUR PRODUCTION SUPERVISOR Fuad Bello MD LAB BLOOD ORDERABLES Final Re sult Performing Organization Address [facility] Co de Phone Number [facility] Department [place] [address] * Phosphorus (07/30/2025 5:49 AM TOUR PRODUCTION SUPERVISOR) Pathologist [facility] Phosphorus, pl 3.4 2.3 - 4.5 mg/dL Blood 07/30/2025 5:49 AM TOUR PRODUCTION SUPERVISOR 07/30/2025 6:02 AM TOUR PRODUCTION SUPERVISOR Fuad Bello MD LAB BLOOD ORDERABLES Final Re sult Performing Organization Address [facility] de Phone Number [facility] Department [place] [address] * (ABNORMAL) Hepatic function panel (07/30/2025 5:49 AM TOUR PRODUCTION SUPERVISOR) Bilirubin, total 0.3 0.1 - 1.2 mg/dL Bilirubin, direct <0.2 0.1 - 0.3 mg/dL [facility] Protein, pl 6.2(L) 6.5 - 8.5 g/dL [facility] Albumin 2.9(L) 3.5 - 5.0 g/dL [facility] Alk phos 107 40 - 130 Units/L [facility] ALT 36 7 - 55 Units/L [facility] AST 88(H) 10 - 50 Units/L [facility] Blood 07/30/2025 5:49 AM TOUR PRODUCTION SUPERVISOR 07/30/2025 6:02 AM TOUR PRODUCTION SUPERVISOR us Fuad Bello MD LAB BLOOD ORDERABLES Final Re sult Performing Organization Address [facility] Co de Phone Number [facility] [place] [address] * POCT glucose (07/30/2025 5:47 AM TOUR PRODUCTION SUPERVISOR) Glucose, POC 96 70 - 199 mg/dL Blood 07/30/2025 5:47 AM TOUR PRODUCTION SUPERVISOR 07/30/2025 5:47 AM TOUR PRODUCTION SUPERVISOR us Darrell Avalos MD LAB POCT ORDERABLES - DEVICE Final Result Performing Organization Address [facility] Phone Number [facility] Department [place] [address] * XR Chest 1 View (07/30/2025 5:30 AM TOUR PRODUCTION SUPERVISOR) Anatomical Region Laterality Modality Body, Chest N/A Computed Radiogr aphy 07/30/2025 10:2 8 AM TOUR PRODUCTION SUPERVISOR Impressions 07/30/2025 10:28 AM TOUR PRODUCTION SUPERVISOR Endotracheal tube tip 4.5 cm above frieda. Right internal jugular catheter tip at superior cavoatrial junction. Gastric tube in left upper quadrant with tip below field of view. Removal of intra-aortic balloon pump. Normal heart size. Clear lungs. No edema, pneumonia, or other pulmonary disease. No pleural effusion or pneumothorax. Electronically signed by: Mir Castano M.D. Narrative 07/30/2025 10:28 AM TOUR PRODUCTION SUPERVISOR EXAMINATION: 1 view chest radiograph COMPARISON: 07/29/2025 Procedure Note Mir Castano MD - 07/30/2025 EXAMINATION: 1 view chest radiograph COMPARISON: 07/29/2025 IMPRESSION: Endotracheal tube tip 4.5 cm above frieda. Right internal jugular catheter tip at superior cavoatrial junction. Gastric tube in left upper quadrant with tip below field of view. Removal of intra-aortic balloon pump. Normal heart size. Clear lungs. No edema, pneumonia, or other pulmonary disease. No pleural effusion or pneumothorax. Electronically signed by: Mir Castano M.D. us Fuad Bello MD IMG XR PROCEDURES Final Resul t * (ABNORMAL) CBC without differential (07/30/2025 12:30 AM TOUR PRODUCTION SUPERVISOR) [facility] WBC 12.69(H) 3.80 - 9.90 K/cumm Hgb 9.1(L) 13.0 - 17.5 g/dL [facility] Hct 28.5(L) 38.9 - 50.3 % [facility] Plt 184 150 - 400 K/cumm [facility] MPV 9.9 9.1 - 12.3 fL [facility] RBC 2.99(L) 4.30 - 5.80 M/cumm [facility] MCV 95.3 81.3 - 96.4 fL [facility] MCH 30.4 27.1 - 33.3 pg [facility] MCHC 31.9(L) 32.3 - 35.7 g/dL [facility] RDW CV 13.2 11.1 - 14.9 % [facility] RDW SD 45.9 35.7 - 48.1 fL [facility] NRBC abs 0.00 0.00 - 0.01 K/cumm [facility] Blood 07/30/2025 12:3 0 AM TOUR PRODUCTION SUPERVISOR 07/30/2025 12:38 AM TOUR PRODUCTION SUPERVISOR us Fuad Bello MD LAB BLOOD ORDERABLES Final Re sult [facility] [place] [address] * Lactate, whole blood (07/30/2025 12:30 AM TOUR PRODUCTION SUPERVISOR) [facility] Lactate, bld 1.1 0.7 - 2.0 mmol/L Blood 07/30/2025 12:3 0 AM TOUR PRODUCTION SUPERVISOR 07/30/2025 12:39 AM TOUR PRODUCTION SUPERVISOR us Fuad Bello MD LAB BLOOD ORDERABLES Final Re sult Performing Organization Address [facility] de Phone Number [facility] Department [place] [address] * Oxyhemoglobin, central venous (07/30/2025 12:30 AM TOUR PRODUCTION SUPERVISOR) Oxyhemoglobin, CV 67.1 % Comment: Interpretive Data No reference range established. Current interpretive data was last revised 2019. Blood 07/30/2025 12:3 0 AM TOUR PRODUCTION SUPERVISOR 07/30/2025 12:39 AM TOUR PRODUCTION SUPERVISOR us Fuad Bello MD LAB BLOOD ORDERABLES Final Re sult Performing Organization Address [facility] Phone Number [facility] [place] [address] * (ABNORMAL) Protime-INR (07/30/2025 12:30 AM TOUR PRODUCTION SUPERVISOR) PT 13.6(H) 10.2 - 13.5 sec INR 1.21(H) 0.90 - 1.20 [facility] Comment: Interpretive data Oral anticoagulant therapeutic ranges: Venous thromboembolism prophylaxis or treatment: 2.0-3.0 CARDIOLOGY Standard range: 2.0-3.0 High-intensity range: 2.5-3.5 Refer to indication-specific guidelines for appropriate target ranges for prosthetic heart valve replacement. Current interpretive data was last revised on 2019. Blood 07/30/2025 12:3 0 AM TOUR PRODUCTION SUPERVISOR 07/30/2025 12:51 AM TOUR PRODUCTION SUPERVISOR us Fuad Bello MD LAB BLOOD ORDERABLES Final Re sult Performing Organization Address [facility] Phone Number [facility] Department [place] [address] * (ABNORMAL) aPTT (07/30/2025 12:30 AM TOUR PRODUCTION SUPERVISOR) aPTT 25(L) 26 - 38 sec Comment: Interpretive Data Heparin therapeutic range: 66.0 - 100.0 seconds. Range based on correlation with therapeutic heparin activity range of 0.3 - 0.7 Units/mL. Blood 07/30/2025 12:3 0 AM TOUR PRODUCTION SUPERVISOR 07/30/2025 12:51 AM TOUR PRODUCTION SUPERVISOR us Fuad Bello MD LAB BLOOD ORDERABLES Final Re sult Performing Organization Address [facility] [place] [address] * Hemoglobin, plasma (07/30/2025 12:30 AM TOUR PRODUCTION SUPERVISOR) Pathologist [facility] Hemoglobin, Plasma <30 <=50 mg/dL Blood 07/30/2025 12:3 0 AM TOUR PRODUCTION SUPERVISOR 07/30/2025 12:38 AM TOUR PRODUCTION SUPERVISOR us Fuad Bello MD LAB BLOOD ORDERABLES Final Re sult Performing Organization Address [facility] Co de Phone Number [facility] [place] [address] * POCT glucose (07/30/2025 12:26 AM TOUR PRODUCTION SUPERVISOR) Glucose, POC 99 70 - 199 mg/dL Blood 07/30/2025 12:2 6 AM TOUR PRODUCTION SUPERVISOR 07/30/2025 12:26 AM TOUR PRODUCTION SUPERVISOR us Darrell Avalos MD LAB POCT ORDERABLES - DEVICE Final Result Performing Organization Address [facility] Co de Phone Number [facility] [place] [address] * (ABNORMAL) POCT glucose (07/30/2025 12:10 AM TOUR PRODUCTION SUPERVISOR) Glucose, POC 57(L) 70 - 199 mg/dL Blood 07/30/2025 12:1 0 AM TOUR PRODUCTION SUPERVISOR 07/30/2025 12:10 AM TOUR PRODUCTION SUPERVISOR Darrell Avalos MD LAB POCT ORDERABLES - DEVICE Final Result Performing Organization Address [facility] de Phone Number [facility] [place] [address] * POCT glucose (07/29/2025 8:14 PM TOUR PRODUCTION SUPERVISOR) Glucose, POC 72 70 - 199 mg/dL Blood 07/29/2025 8:14 PM TOUR PRODUCTION SUPERVISOR 07/29/2025 8:14 PM TOUR PRODUCTION SUPERVISOR Darrell Avalos MD LAB POCT ORDERABLES - DEVICE Final Result Performing Organization Address [facility] de Phone Number [facility] [place] [address] * Lactate, whole blood (07/29/2025 8:04 PM TOUR PRODUCTION SUPERVISOR) Pathologist [facility] Lactate, bld 0.9 0.7 - 2.0 mmol/L Blood 07/29/2025 8:04 PM TOUR PRODUCTION SUPERVISOR 07/29/2025 8:11 PM TOUR PRODUCTION SUPERVISOR Fuad Bello MD LAB BLOOD ORDERABLES Final Re sult Performing Organization Address [facility] Co de Phone Number [facility] [place] [address] * Oxyhemoglobin, central venous (07/29/2025 8:04 PM TOUR PRODUCTION SUPERVISOR) Oxyhemoglobin, CV 71.8 % Comment: Interpretive Data No reference range established. Current interpretive data was last revised 2019. Blood 07/29/2025 8:04 PM TOUR PRODUCTION SUPERVISOR 07/29/2025 8:11 PM TOUR PRODUCTION SUPERVISOR us Fuad Bello MD LAB BLOOD ORDERABLES Final Re sult [facility] [place] [address] * (ABNORMAL) Blood gas, arterial (07/29/2025 8:04 PM TOUR PRODUCTION SUPERVISOR) pH, Art 7.33(L) 7.35 - 7.45 PCO2, Arterial 42 35 - 45 mmHg [facility] PO2, Arterial 143(H) 83 - 108 mmHg [facility] HCO3 Art (Calculated) 22 20 - 30 mmol/L [facility] BE, art -3 mmol/L [facility] Comment: Interpretive Data No Reference Range Established Current Interpretive Data was last revised on 2017 O2 Sat Art (Measured) 99(H) 90 - 95 % [facility] Blood 07/29/2025 8:04 PM TOUR PRODUCTION SUPERVISOR 07/29/2025 8:10 PM TOUR PRODUCTION SUPERVISOR us Fuad Bello MD LAB BLOOD ORDERABLES Final Re sult [facility] Department [place] [address] * eGFR (07/29/2025 4:29 PM TOUR PRODUCTION SUPERVISOR) eGFR 89 >=60 mL/min/1. 73 m2 Comment: Interpretive Data Reference Interval Normal >/= 90 mL/min/1.73m2 Mildly decreased* 60 - 89 mL/min/1.73m2 Mildly to moderately decreased 45 - 59 mL/min/1.73m2 Moderately to severely decreased 30 - 44 mL/min/1.73m2 Severely decreased 15 - 29 mL/min/1.73m2 Kidney Failure < 15 mL/min/1.73m2 *Relative to young adult level Estimated glomerular filtration rate is determined by the 2020 CKD-EPI equation recommended by the National Kidney Foundation (A Unifying Approach to GFR Estimation: Recommendations of the NKF-ASK Task Force on Reassessing the Inclusion of Race in Diagnosing Kidney Disease, JASN 202). The CKD-EPI equation should not be used for patients with unstable renal function and has not been validated in children and those over 70. Current interpretive data was last reviewed 2021. Blood 07/29/2025 4:29 PM TOUR PRODUCTION SUPERVISOR 07/29/2025 4:51 PM TOUR PRODUCTION SUPERVISOR us Fuad Bello MD LAB BLOOD ORDERABLES Final Re sult [facility] [place] [employer] [place] [address] * Magnesium (07/29/2025 4:29 PM TOUR PRODUCTION SUPERVISOR) Pathologist [facility] Magnesium 2.4 1.4 - 2.5 mg/dL Blood 07/29/2025 4:29 PM TOUR PRODUCTION SUPERVISOR 07/29/2025 4:51 PM TOUR PRODUCTION SUPERVISOR Fuad Bello MD LAB BLOOD ORDERABLES Final Re sult Performing Organization Address City/[facility] Co de Phone Number [facility] Department [place] [employer] [place] [address] * (ABNORMAL) Basic metabolic panel (07/29/2025 4:29 PM TOUR PRODUCTION SUPERVISOR) Sodium 139 135 - 145 mmol/L Potassium, pl 4.2 3.3 - 4.9 mmol/L [facility] Chloride 106 97 - 110 mmol/L [facility] CO2 24 22 - 32 mmol/L [facility] Anion gap 9 2 - 15 mmol/L [facility] BUN 22 6 - 25 mg/dL [facility] Creatinine 1.00 0.80 - 1.30 mg/dL [facility] Glucose 96 70 - 199 mg/dL [facility] Comment: Interpretive Data Fasting glucose >/= 126 mg/dl is diagnostic for diabetes. Fasting is defined as no caloric intake for at least 8 hours. Fasting glucose between 100 mg/dl to 125 mg/dl is diagnostic of prediabetes. In a patient with classic symptoms of hyperglycemia or hyperglycemic crisis, a random glucose >/= 200 mg/dl is diagnostic for diabetes. In the absence of unequivocal hyperglycemia, results should be confirmed by repeat testing. The classification and Diagnosis of Diabetes Diabetes Care 2021; 46: S19-S40. Current interpretive data was last revised 2022. Calcium 7.8(L) 8.5 - 10.3 mg/dL [facility] Blood 07/29/2025 4:29 PM TOUR PRODUCTION SUPERVISOR 07/29/2025 4:51 PM TOUR PRODUCTION SUPERVISOR us Fuad Bello MD LAB BLOOD ORDERABLES Final Re sult [facility] Department [place] [address] * (ABNORMAL) CBC without differential (07/29/2025 4:29 PM TOUR PRODUCTION SUPERVISOR) Pathologist [facility] WBC 11.51(H) 3.80 - 9.90 K/cumm Hgb 8.2(L) 13.0 - 17.5 g/dL [facility] Hct 25.3(L) 38.9 - 50.3 % [facility] Plt 172 150 - 400 K/cumm [facility] MPV 10.1 9.1 - 12.3 fL [facility] RBC 2.67(L) 4.30 - 5.80 M/cumm [facility] MCV 94.8 81.3 - 96.4 fL [facility] MCH 30.7 27.1 - 33.3 pg [facility] MCHC 32.4 32.3 - 35.7 g/dL [facility] RDW CV 13.3 11.1 - 14.9 % [facility] RDW SD 45.9 35.7 - 48.1 fL [facility] NRBC abs 0.00 0.00 - 0.01 K/cumm [facility] Blood 07/29/2025 4:29 PM TOUR PRODUCTION SUPERVISOR 07/29/2025 4:51 PM TOUR PRODUCTION SUPERVISOR us Fuad Bello MD LAB BLOOD ORDERABLES Final Re sult Performing Organization Address [facility] Co de Phone Number [facility] [place] [address] * Oxyhemoglobin, central venous (07/29/2025 4:29 PM TOUR PRODUCTION SUPERVISOR) Oxyhemoglobin, CV 72.5 % Comment: Interpretive Data No reference range established. Current interpretive data was last revised 2019. Blood 07/29/2025 4:29 PM TOUR PRODUCTION SUPERVISOR 07/29/2025 4:35 PM TOUR PRODUCTION SUPERVISOR us Fuad Bello MD LAB BLOOD ORDERABLES Final Re sult Performing Organization Address [facility] Co de Phone Number [facility] [place] [address] * POCT glucose (07/29/2025 4:27 PM TOUR PRODUCTION SUPERVISOR) Glucose, POC 100 70 - 199 mg/dL Blood 07/29/2025 4:27 PM TOUR PRODUCTION SUPERVISOR 07/29/2025 4:27 PM TOUR PRODUCTION SUPERVISOR us Darrell Avalos MD LAB POCT ORDERABLES - DEVICE Final Result Performing Organization Address [facility] Co de Phone Number [facility] [place] [address] * Type and screen (07/29/2025 4:27 PM TOUR PRODUCTION SUPERVISOR) Zac, indirect Negative ABO Rh O Positive [facility] Blood 07/29/2025 4:27 PM TOUR PRODUCTION SUPERVISOR 07/29/2025 4:57 PM TOUR PRODUCTION SUPERVISOR Narrative [facility] - 07/29/2025 5:40 PM TOUR PRODUCTION SUPERVISOR Has the patient had Daratumumab or Isatuximab in the past 6 months?->Unknown us Fuad Bello MD LAB BLOOD BANK TEST ORDERABLE S Final Result Performing Organization Address [facility] Co de Phone Number [facility] [place] [address] * (ABNORMAL) POCT glucose (07/29/2025 4:18 PM TOUR PRODUCTION SUPERVISOR) Glucose, POC 68(L) 70 - 199 mg/dL Comment:Glu2: RN/MD Notified Glucose comment 1 Glu2: RN/MD Notified [facility] Blood 07/29/2025 4:18 PM TOUR PRODUCTION SUPERVISOR 07/29/2025 4:18 PM TOUR PRODUCTION SUPERVISOR us Darrell Avalos MD LAB POCT ORDERABLES - DEVICE Final Result Performing Organization Address [facility] Co de Phone Number [facility] [place] [address] * POCT glucose (07/29/2025 11:37 AM TOUR PRODUCTION SUPERVISOR) Pathologist [facility] Glucose, POC 77 70 - 199 mg/dL Blood 07/29/2025 11:3 7 AM TOUR PRODUCTION SUPERVISOR 07/29/2025 11:37 AM TOUR PRODUCTION SUPERVISOR us Darrell Avalos MD LAB POCT ORDERABLES - DEVICE Final Result Performing Organization Address [facility] Co de Phone Number [facility] [place] [place] [address] * eGFR (07/29/2025 11:34 AM TOUR PRODUCTION SUPERVISOR) eGFR >90 >=60 mL/min/1. 73 m2 Comment: Interpretive Data Reference Interval Normal >/= 90 mL/min/1.73m2 Mildly decreased* 60 - 89 mL/min/1.73m2 Mildly to moderately decreased 45 - 59 mL/min/1.73m2 Moderately to severely decreased 30 - 44 mL/min/1.73m2 Severely decreased 15 - 29 mL/min/1.73m2 Kidney Failure < 15 mL/min/1.73m2 *Relative to young adult level Estimated glomerular filtration rate is determined by the 2020 CKD-EPI equation recommended by the National Kidney Foundation (A Unifying Approach to GFR Estimation: Recommendations of the NKF-ASK Task Force on Reassessing the Inclusion of Race in Diagnosing Kidney Disease, JASN 2020). The CKD-EPI equation should not be used for patients with unstable renal function and has not been validated in children and those over 70. Current interpretive data was last reviewed 2021. Blood 07/29/2025 11:3 4 AM TOUR PRODUCTION SUPERVISOR 07/29/2025 11:47 AM TOUR PRODUCTION SUPERVISOR us Fuad Bello MD LAB BLOOD ORDERABLES Final Re sult Performing Organization Address City/[facility]/ZIP Co de Phone Number [facility] Department [place] [address] * Magnesium (07/29/2025 11:34 AM TOUR PRODUCTION SUPERVISOR) Pathologist [facility] Magnesium 2.4 1.4 - 2.5 mg/dL Blood 07/29/2025 11:3 4 AM TOUR PRODUCTION SUPERVISOR 07/29/2025 11:47 AM TOUR PRODUCTION SUPERVISOR us Fuad Bello MD LAB BLOOD ORDERABLES Final Re sult Performing Organization Address [facility] Co de Phone Number [facility] [place] [address] * (ABNORMAL) Basic metabolic panel (07/29/2025 11:34 AM TOUR PRODUCTION SUPERVISOR) Sodium 138 135 - 145 mmol/L Potassium, pl 4.2 3.3 - 4.9 mmol/L [facility] Chloride 105 97 - 110 mmol/L [facility] CO2 22 22 - 32 mmol/L [facility] Anion gap 11 2 - 15 mmol/L [facility] BUN 24 6 - 25 mg/dL [facility] Creatinine 0.97 0.80 - 1.30 mg/dL [facility] Glucose 102 70 - 199 mg/dL [facility] Comment: Interpretive Data Fasting glucose >/= 126 mg/dl is diagnostic for diabetes. Fasting is defined as no caloric intake for at least 8 hours. Fasting glucose between 100 mg/dl to 125 mg/dl is diagnostic of prediabetes. In a patient with classic symptoms of hyperglycemia or hyperglycemic crisis, a random glucose >/= 200 mg/dl is diagnostic for diabetes. In the absence of unequivocal hyperglycemia, results should be confirmed by repeat testing. The classification and Diagnosis of Diabetes Diabetes Care 2021; 46: S19-S40. Current interpretive data was last revised 2022. Calcium 7.9(L) 8.5 - 10.3 mg/dL [facility] Blood 07/29/2025 11:3 4 AM TOUR PRODUCTION SUPERVISOR 07/29/2025 11:47 AM TOUR PRODUCTION SUPERVISOR us Fuad Bello MD LAB BLOOD ORDERABLES Final Re sult [facility] Department [place] [address] * (ABNORMAL) CBC without differential (07/29/2025 11:34 AM TOUR PRODUCTION SUPERVISOR) WBC 14.15(H) 3.80 - 9.90 K/cumm Hgb 8.8(L) 13.0 - 17.5 g/dL [facility] Hct 26.7(L) 38.9 - 50.3 % [facility] Plt 171 150 - 400 K/cumm [facility] MPV 9.8 9.1 - 12.3 fL [facility] RBC 2.85(L) 4.30 - 5.80 M/cumm [facility] MCV 93.7 81.3 - 96.4 fL [facility] MCH 30.9 27.1 - 33.3 pg [facility] MCHC 33.0 32.3 - 35.7 g/dL [facility] RDW CV 13.1 11.1 - 14.9 % [facility] RDW SD 45.1 35.7 - 48.1 fL [facility] NRBC abs 0.00 0.00 - 0.01 K/cumm [facility] Blood 07/29/2025 11:3 4 AM TOUR PRODUCTION SUPERVISOR 07/29/2025 11:47 AM TOUR PRODUCTION SUPERVISOR us Fuad Bello MD LAB BLOOD ORDERABLES Final Re sult Performing Organization Address [facility] Co de Phone Number [facility] [place] [address] * Lactate, whole blood (07/29/2025 11:34 AM TOUR PRODUCTION SUPERVISOR) Lactate, bld 1.7 0.7 - 2.0 mmol/L Blood 07/29/2025 11:3 4 AM TOUR PRODUCTION SUPERVISOR 07/29/2025 11:40 AM TOUR PRODUCTION SUPERVISOR us Fuad Bello MD LAB BLOOD ORDERABLES Final Re sult Performing Organization Address [facility] de Phone Number [facility] [place] [address] * Oxyhemoglobin, central venous (07/29/2025 11:34 AM TOUR PRODUCTION SUPERVISOR) Oxyhemoglobin, CV 73.5 % Comment: Interpretive Data No reference range established. Current interpretive data was last revised 2019. Blood 07/29/2025 11:3 4 AM TOUR PRODUCTION SUPERVISOR 07/29/2025 11:40 AM TOUR PRODUCTION SUPERVISOR us Fuad Bello MD LAB BLOOD ORDERABLES Final Re sult Performing Organization Address [facility] [place] [address] * (ABNORMAL) Blood gas, arterial (07/29/2025 10:17 AM TOUR PRODUCTION SUPERVISOR) pH, Art 7.35 7.35 - 7.45 PCO2, Arterial 40 35 - 45 mmHg [facility] PO2, Arterial 131(H) 83 - 108 mmHg [facility] HCO3 Art (Calculated) 22 20 - 30 mmol/L [facility] BE, art -3 mmol/L [facility] Comment: Interpretive Data No Reference Range Established Current Interpretive Data was last revised on 2017 O2 Sat Art (Measured) 99(H) 90 - 95 % [facility] Blood 07/29/2025 10:1 7 AM TOUR PRODUCTION SUPERVISOR 07/29/2025 10:23 AM TOUR PRODUCTION SUPERVISOR us Darrell Avalos MD LAB BLOOD ORDERABLES Final R esult Performing Organization Address City/[facility] Co de Phone Number [facility] [place] [address] * POCT glucose (07/29/2025 7:51 AM TOUR PRODUCTION SUPERVISOR) Glucose, POC 106 70 - 199 mg/dL Blood 07/29/2025 7:51 AM TOUR PRODUCTION SUPERVISOR 07/29/2025 7:51 AM TOUR PRODUCTION SUPERVISOR us Darrell Avalos MD LAB POCT ORDERABLES - DEVICE Final Result Performing Organization Address [facility] Co de Phone Number [facility] [place] [place] [address] * (ABNORMAL) POCT glucose (07/29/2025 7:50 AM TOUR PRODUCTION SUPERVISOR) Glucose, POC 43(C) 70 - 199 mg/dL Comment:Glu2: RN/MD Notified Glucose comment 1 Glu2: RN/MD Notified [facility] Blood 07/29/2025 7:50 AM TOUR PRODUCTION SUPERVISOR 07/29/2025 7:50 AM TOUR PRODUCTION SUPERVISOR us Darrell Avalos MD LAB POCT ORDERABLES - DEVICE Final Result Performing Organization Address [facility] Co de Phone Number [facility] [place] [place] [address] * XR Chest 1 View (07/29/2025 5:36 AM TOUR PRODUCTION SUPERVISOR) Anatomical Region Laterality Modality Body, Chest N/A Digital Radiogra phy 07/29/2025 6:01 AM TOUR PRODUCTION SUPERVISOR Impressions 07/29/2025 6:01 AM TOUR PRODUCTION SUPERVISOR Comparison is made to prior from 07/28/2025. Intra-aortic balloon pump marker is 2 cm below the aortic arch. A nasogastric tube extends below the hemidiaphragm. A right internal jugular catheter is in place, tip overlies the superior vena cava. Endotracheal tube is displaced laterally to the left, which may be due to patient rotation. The tip is approximately 5 cm above the frieda. A right internal jugular catheter is in place, tip overlies the superior vena cava. Heart size normal. There is increasing moderate pulmonary edema. No pleural effusion or pneumothorax. Electronically signed by: Gene Kolb M.D. Narrative 07/29/2025 6:01 AM TOUR PRODUCTION SUPERVISOR EXAMINATION: 1 view chest radiograph Procedure Note Gene Kolb MD - 07/29/2025 EXAMINATION: 1 view chest radiograph IMPRESSION: Comparison is made to prior from 07/28/2025. Intra-aortic balloon pump marker is 2 cm below the aortic arch. A nasogastric tube extends below the hemidiaphragm. A right internal jugular catheter is in place, tip overlies the superior vena cava. Endotracheal tube is displaced laterally to the left, which may be due to patient rotation. The tip is approximately 5 cm above the frieda. A right internal jugular catheter is in place, tip overlies the superior vena cava. Heart size normal. There is increasing moderate pulmonary edema. No pleural effusion or pneumothorax. Electronically signed by: Gene Kolb M.D. Fuad Bello MD IMG XR PROCEDURES Final Resul t * (ABNORMAL) Basic metabolic panel (07/29/2025 4:47 AM TOUR PRODUCTION SUPERVISOR) Sodium 136 135 - 145 mmol/L Potassium, pl 4.2 3.3 - 4.9 mmol/L [facility] Chloride 104 97 - 110 mmol/L [facility] CO2 21(L) 22 - 32 mmol/L [facility] Anion gap 11 2 - 15 mmol/L [facility] BUN 23 6 - 25 mg/dL [facility] Creatinine 0.95 0.80 - 1.30 mg/dL [facility] Glucose 91 70 - 199 mg/dL [facility] Comment: Interpretive Data Fasting glucose >/= 126 mg/dl is diagnostic for diabetes. Fasting is defined as no caloric intake for at least 8 hours. Fasting glucose between 100 mg/dl to 125 mg/dl is diagnostic of prediabetes. In a patient with classic symptoms of hyperglycemia or hyperglycemic crisis, a random glucose >/= 200 mg/dl is diagnostic for diabetes. In the absence of unequivocal hyperglycemia, results should be confirmed by repeat testing. The classification and Diagnosis of Diabetes Diabetes Care 2021; 46: S19-S40. Current interpretive data was last revised 2022. Calcium 7.9(L) 8.5 - 10.3 mg/dL [facility] Blood 07/29/2025 4:47 AM TOUR PRODUCTION SUPERVISOR 07/29/2025 5:50 AM TOUR PRODUCTION SUPERVISOR Darrell Avalos MD LAB BLOOD ORDERABLES Final R esult [facility] Department [place] [address] * eGFR (07/29/2025 4:47 AM TOUR PRODUCTION SUPERVISOR) eGFR >90 >=60 mL/min/1. 73 m2 Comment: Interpretive Data Reference Interval Normal >/= 90 mL/min/1.73m2 Mildly decreased* 60 - 89 mL/min/1.73m2 Mildly to moderately decreased 45 - 59 mL/min/1.73m2 Moderately to severely decreased 30 - 44 mL/min/1.73m2 Severely decreased 15 - 29 mL/min/1.73m2 Kidney Failure < 15 mL/min/1.73m2 *Relative to young adult level Estimated glomerular filtration rate is determined by the 2020 CKD-EPI equation recommended by the National Kidney Foundation (A Unifying Approach to GFR Estimation: Recommendations of the NKF-ASK Task Force on Reassessing the Inclusion of Race in Diagnosing Kidney Disease, JASN 2020). The CKD-EPI equation should not be used for patients with unstable renal function and has not been validated in children and those over 70. Current interpretive data was last reviewed 2021. Blood 07/29/2025 4:47 AM TOUR PRODUCTION SUPERVISOR 07/29/2025 6:20 AM TOUR PRODUCTION SUPERVISOR us Darrell Avalos MD LAB BLOOD ORDERABLES Final R esult Performing Organization Address City/[facility] Co de Phone Number [facility] [place] [address] * Magnesium (07/29/2025 4:47 AM TOUR PRODUCTION SUPERVISOR) Pathologist [facility] Magnesium 2.3 1.4 - 2.5 mg/dL Blood 07/29/2025 4:47 AM TOUR PRODUCTION SUPERVISOR 07/29/2025 5:50 AM TOUR PRODUCTION SUPERVISOR us Darrell Avalos MD LAB BLOOD ORDERABLES Final R esult Performing Organization Address [facility] de Phone Number [facility] [place] [address] * (ABNORMAL) CBC without differential (07/29/2025 4:47 AM TOUR PRODUCTION SUPERVISOR) Pathologist [facility] WBC 13.16(H) 3.80 - 9.90 K/cumm Hgb 8.5(L) 13.0 - 17.5 g/dL [facility] Hct 25.4(L) 38.9 - 50.3 % [facility] Plt 181 150 - 400 K/cumm [facility] MPV 10.3 9.1 - 12.3 fL [facility] RBC 2.72(L) 4.30 - 5.80 M/cumm [facility] MCV 93.4 81.3 - 96.4 fL [facility] MCH 31.3 27.1 - 33.3 pg [facility] MCHC 33.5 32.3 - 35.7 g/dL [facility] RDW CV 13.2 11.1 - 14.9 % [facility] RDW SD 44.7 35.7 - 48.1 fL [facility] NRBC abs 0.00 0.00 - 0.01 K/cumm [facility] Blood 07/29/2025 4:47 AM TOUR PRODUCTION SUPERVISOR 07/29/2025 5:35 AM TOUR PRODUCTION SUPERVISOR Fuad Bello MD LAB BLOOD ORDERABLES Final Re sult Performing Organization Address [facility] de Phone Number [facility] [place] [address] * Phosphorus (07/29/2025 4:47 AM TOUR PRODUCTION SUPERVISOR) Pathologist [facility] Phosphorus, pl 3.2 2.3 - 4.5 mg/dL Blood 07/29/2025 4:47 AM TOUR PRODUCTION SUPERVISOR 07/29/2025 5:50 AM TOUR PRODUCTION SUPERVISOR Fuad Bello MD LAB BLOOD ORDERABLES Final Re sult Performing Organization Address [facility] de Phone Number [facility] [place] [address] * (ABNORMAL) Lactate, whole blood (07/29/2025 4:47 AM TOUR PRODUCTION SUPERVISOR) Pathologist [facility] Lactate, bld 2.4(H) 0.7 - 2.0 mmol/L Blood 07/29/2025 4:47 AM TOUR PRODUCTION SUPERVISOR 07/29/2025 5:39 AM TOUR PRODUCTION SUPERVISOR us Fuad Bello MD LAB BLOOD ORDERABLES Final Re sult Performing Organization Address [facility] de Phone Number [facility] [place] [address] * Oxyhemoglobin, central venous (07/29/2025 4:47 AM TOUR PRODUCTION SUPERVISOR) Pathologist [facility] Oxyhemoglobin, CV 42.6 % Comment: Interpretive Data No reference range established. Current interpretive data was last revised 2019. Blood 07/29/2025 4:47 AM TOUR PRODUCTION SUPERVISOR 07/29/2025 5:39 AM TOUR PRODUCTION SUPERVISOR Fuad Bello MD LAB BLOOD ORDERABLES Final Re sult Performing Organization Address [facility] de Phone Number [facility] [place] [address] * (ABNORMAL) Hepatic function panel (07/29/2025 4:47 AM TOUR PRODUCTION SUPERVISOR) Bilirubin, total 0.3 0.1 - 1.2 mg/dL Bilirubin, direct <0.2 0.1 - 0.3 mg/dL [facility] Protein, pl 5.5(L) 6.5 - 8.5 g/dL [facility] Albumin 2.6(L) 3.5 - 5.0 g/dL [facility] Alk phos 93 40 - 130 Units/L [facility] ALT 37 7 - 55 Units/L [facility] AST 137(H) 10 - 50 Units/L [facility] Blood 07/29/2025 4:47 AM TOUR PRODUCTION SUPERVISOR 07/29/2025 5:50 AM TOUR PRODUCTION SUPERVISOR Fuad Bello MD LAB BLOOD ORDERABLES [facility] Performing Organization Address [facility] de Phone Number [facility] [place] [address] * (ABNORMAL) Protime-INR (07/29/2025 4:47 AM TOUR PRODUCTION SUPERVISOR) PT 13.7(H) 10.2 - 13.5 sec INR 1.22(H) 0.90 - 1.20 [facility] Comment: Interpretive data Oral anticoagulant therapeutic ranges: Venous thromboembolism prophylaxis or treatment: 2.0-3.0 CARDIOLOGY Standard range: 2.0-3.0 High-intensity range: 2.5-3.5 Refer to indication-specific guidelines for appropriate target ranges for prosthetic heart valve replacement. Current interpretive data was last revised on 2019. Blood 07/29/2025 4:47 AM TOUR PRODUCTION SUPERVISOR 07/29/2025 5:49 AM TOUR PRODUCTION SUPERVISOR us Fuad Bello MD LAB BLOOD ORDERABLES Final Re sult Performing Organization Address [facility] de Phone Number [facility] [place] [place] [address] * aPTT (07/29/2025 4:47 AM TOUR PRODUCTION SUPERVISOR) aPTT 26 26 - 38 sec Comment: Interpretive Data Heparin therapeutic range: 66.0 - 100.0 seconds. Range based on correlation with therapeutic heparin activity range of 0.3 - 0.7 Units/mL. Blood 07/29/2025 4:47 AM TOUR PRODUCTION SUPERVISOR 07/29/2025 5:49 AM TOUR PRODUCTION SUPERVISOR us Fuad Bello MD LAB BLOOD ORDERABLES Final Re sult Performing Organization Address [facility] de Phone Number [facility] [place] [address] * Hemoglobin, plasma (07/29/2025 4:47 AM TOUR PRODUCTION SUPERVISOR) Pathologist [facility] Hemoglobin, Plasma <30 <=50 mg/dL Blood 07/29/2025 4:47 AM TOUR PRODUCTION SUPERVISOR 07/29/2025 5:35 AM TOUR PRODUCTION SUPERVISOR us Fuad Bello MD LAB BLOOD ORDERABLES Final Re sult Performing Organization Address [facility] de Phone Number [facility] [place] [employer] [place] [address] * POCT glucose (07/29/2025 4:45 AM TOUR PRODUCTION SUPERVISOR) Glucose, POC 95 70 - 199 mg/dL Blood 07/29/2025 4:45 AM TOUR PRODUCTION SUPERVISOR 07/29/2025 4:45 AM TOUR PRODUCTION SUPERVISOR us Darrell Avalos MD LAB POCT ORDERABLES - DEVICE Final Result Performing Organization Address [facility] de Phone Number [facility] [place] [address] * POCT glucose (07/29/2025 1:25 AM TOUR PRODUCTION SUPERVISOR) Glucose, POC 113 70 - 199 mg/dL Blood 07/29/2025 1:25 AM TOUR PRODUCTION SUPERVISOR 07/29/2025 1:25 AM TOUR PRODUCTION SUPERVISOR Darrell Avalos MD LAB POCT ORDERABLES - DEVICE Final Result Performing Organization Address [facility] de Phone Number JAYY [facility] [place] [address] * eGFR (07/29/2025 12:20 AM TOUR PRODUCTION SUPERVISOR) eGFR 90 >=60 mL/min/1. 73 m2 Comment: Interpretive Data Reference Interval Normal >/= 90 mL/min/1.73m2 Mildly decreased* 60 - 89 mL/min/1.73m2 Mildly to moderately decreased 45 - 59 mL/min/1.73m2 Moderately to severely decreased 30 - 44 mL/min/1.73m2 Severely decreased 15 - 29 mL/min/1.73m2 Kidney Failure < 15 mL/min/1.73m2 *Relative to young adult level Estimated glomerular filtration rate is determined by the 2020 CKD-EPI equation recommended by the National Kidney Foundation (A Unifying Approach to GFR Estimation: Recommendations of the NKF-ASK Task Force on Reassessing the Inclusion of Race in Diagnosing Kidney Disease, JASN 2020). The CKD-EPI equation should not be used for patients with unstable renal function and has not been validated in children and those over 70. Current interpretive data was last reviewed 2021. Blood 07/29/2025 12:2 0 AM TOUR PRODUCTION SUPERVISOR 07/29/2025 1:07 AM TOUR PRODUCTION SUPERVISOR us Fuad Bello MD LAB BLOOD ORDERABLES Final Re sult [facility] Department [place] [address] * Magnesium (07/29/2025 12:20 AM TOUR PRODUCTION SUPERVISOR) Pathologist [facility] Magnesium 2.3 1.4 - 2.5 mg/dL Blood 07/29/2025 12:2 0 AM TOUR PRODUCTION SUPERVISOR 07/29/2025 1:07 AM TOUR PRODUCTION SUPERVISOR Fuad Bello MD LAB BLOOD ORDERABLES Final Re sult Performing Organization Address [facility] Co de Phone Number [facility] [place] [address] * (ABNORMAL) Basic metabolic panel (07/29/2025 12:20 AM TOUR PRODUCTION SUPERVISOR) [facility] Sodium 135 135 - 145 mmol/L Potassium, pl 4.3 3.3 - 4.9 mmol/L [facility] Chloride 104 97 - 110 mmol/L [facility] CO2 20(L) 22 - 32 mmol/L [facility] Anion gap 11 2 - 15 mmol/L [facility] BUN 24 6 - 25 mg/dL [facility] Creatinine 0.99 0.80 - 1.30 mg/dL [facility] Glucose 110 70 - 199 mg/dL [facility] Comment: Interpretive Data Fasting glucose >/= 126 mg/dl is diagnostic for diabetes. Fasting is defined as no caloric intake for at least 8 hours. Fasting glucose between 100 mg/dl to 125 mg/dl is diagnostic of prediabetes. In a patient with classic symptoms of hyperglycemia or hyperglycemic crisis, a random glucose >/= 200 mg/dl is diagnostic for diabetes. In the absence of unequivocal hyperglycemia, results should be confirmed by repeat testing. The classification and Diagnosis of Diabetes Diabetes Care 2021; 46: S19-S40. Current interpretive data was last revised 2022. Calcium 7.8(L) 8.5 - 10.3 mg/dL [facility] Blood 07/29/2025 12:2 0 AM TOUR PRODUCTION SUPERVISOR 07/29/2025 1:07 AM TOUR PRODUCTION SUPERVISOR us Fuad Bello MD LAB BLOOD ORDERABLES Final Re sult Performing Organization Address City/[facility]/ZIP Co de Phone Number [facility] Department [place] [address] * (ABNORMAL) CBC without differential (07/29/2025 12:20 AM TOUR PRODUCTION SUPERVISOR) Pathologist [facility] WBC 11.64(H) 3.80 - 9.90 K/cumm Hgb 8.3(L) 13.0 - 17.5 g/dL [facility] Hct 25.2(L) 38.9 - 50.3 % [facility] Plt 183 150 - 400 K/cumm [facility] MPV 10.1 9.1 - 12.3 fL [facility] RBC 2.71(L) 4.30 - 5.80 M/cumm [facility] MCV 93.0 81.3 - 96.4 fL [facility] MCH 30.6 27.1 - 33.3 pg [facility] MCHC 32.9 32.3 - 35.7 g/dL [facility] RDW CV 13.1 11.1 - 14.9 % [facility] RDW SD 44.0 35.7 - 48.1 fL [facility] NRBC abs 0.00 0.00 - 0.01 K/cumm [facility] Blood 07/29/2025 12:2 0 AM TOUR PRODUCTION SUPERVISOR 07/29/2025 1:08 AM TOUR PRODUCTION SUPERVISOR us Fuad Bello MD LAB BLOOD ORDERABLES Final Re sult [facility] Department [place] [address] * Lactate, whole blood (07/28/2025 11:42 PM TOUR PRODUCTION SUPERVISOR) Lactate, bld 1.2 0.7 - 2.0 mmol/L Blood 07/28/2025 11:4 2 PM TOUR PRODUCTION SUPERVISOR 07/29/2025 12:31 AM TOUR PRODUCTION SUPERVISOR us Fuad Bello MD LAB BLOOD ORDERABLES Final Re sult Performing Organization Address [facility] de Phone Number [facility] [place] [address] * Oxyhemoglobin, central venous (07/28/2025 11:42 PM TOUR PRODUCTION SUPERVISOR) Oxyhemoglobin, CV 62.7 % Comment: Interpretive Data No reference range established. Current interpretive data was last revised 2019. Blood 07/28/2025 11:4 2 PM TOUR PRODUCTION SUPERVISOR 07/29/2025 12:31 AM TOUR PRODUCTION SUPERVISOR us Fuad Bello MD LAB BLOOD ORDERABLES Final Re sult Performing Organization Address [facility] Phone Number [facility] [place] [address] * POCT glucose (07/28/2025 8:04 PM TOUR PRODUCTION SUPERVISOR) Glucose, POC 117 70 - 199 mg/dL Blood 07/28/2025 8:04 PM TOUR PRODUCTION SUPERVISOR 07/28/2025 8:04 PM TOUR PRODUCTION SUPERVISOR us Darrell Avalos MD LAB POCT ORDERABLES - DEVICE Final Result Performing Organization Address [facility] de Phone Number [facility] [place] [address] * POCT glucose (07/28/2025 8:02 PM TOUR PRODUCTION SUPERVISOR) Glucose, POC 88 70 - 199 mg/dL Blood 07/28/2025 8:02 PM TOUR PRODUCTION SUPERVISOR 07/28/2025 8:02 PM TOUR PRODUCTION SUPERVISOR us Darrell Avalos MD LAB POCT ORDERABLES - DEVICE Final Result Performing Organization Address [facility]/State/ZIP Co de Phone Number CERNER [facility] [place] [address] * eGFR (07/28/2025 5:14 PM TOUR PRODUCTION SUPERVISOR) eGFR 79 >=60 mL/min/1. 73 m2 Comment: Interpretive Data Reference Interval Normal >/= 90 mL/min/1.73m2 Mildly decreased* 60 - 89 mL/min/1.73m2 Mildly to moderately decreased 45 - 59 mL/min/1.73m2 Moderately to severely decreased 30 - 44 mL/min/1.73m2 Severely decreased 15 - 29 mL/min/1.73m2 Kidney Failure < 15 mL/min/1.73m2 *Relative to young adult level Estimated glomerular filtration rate is determined by the 2020 CKD-EPI equation recommended by the National Kidney Foundation (A Unifying Approach to GFR Estimation: Recommendations of the NKF-ASK Task Force on Reassessing the Inclusion of Race in Diagnosing Kidney Disease, JASN 2020). The CKD-EPI equation should not be used for patients with unstable renal function and has not been validated in children and those over 70. Current interpretive data was last reviewed 2021. Blood 07/28/2025 5:14 PM TOUR PRODUCTION SUPERVISOR 07/28/2025 5:44 PM TOUR PRODUCTION SUPERVISOR us Fuad Bello MD LAB BLOOD ORDERABLES Final Re sult Performing Organization Address City/[facility] Co de Phone Number [facility] [place] [employer] [place] [address] * Magnesium (07/28/2025 5:14 PM TOUR PRODUCTION SUPERVISOR) Magnesium 2.1 1.4 - 2.5 mg/dL Blood 07/28/2025 5:14 PM TOUR PRODUCTION SUPERVISOR 07/28/2025 5:44 PM TOUR PRODUCTION SUPERVISOR us Fuad Bello MD LAB BLOOD ORDERABLES Final Re sult [facility] Department [place] [address] * (ABNORMAL) Basic metabolic panel (07/28/2025 5:14 PM TOUR PRODUCTION SUPERVISOR) Pathologist [facility] Sodium 137 135 - 145 mmol/L Potassium, pl 4.3 3.3 - 4.9 mmol/L [facility] Chloride 105 97 - 110 mmol/L [facility] CO2 21(L) 22 - 32 mmol/L [facility] Anion gap 11 2 - 15 mmol/L [facility] BUN 27(H) 6 - 25 mg/dL [facility] Creatinine 1.10 0.80 - 1.30 mg/dL [facility] Glucose 123 70 - 199 mg/dL [facility] Comment: Interpretive Data Fasting glucose >/= 126 mg/dl is diagnostic for diabetes. Fasting is defined as no caloric intake for at least 8 hours. Fasting glucose between 100 mg/dl to 125 mg/dl is diagnostic of prediabetes. In a patient with classic symptoms of hyperglycemia or hyperglycemic crisis, a random glucose >/= 200 mg/dl is diagnostic for diabetes. In the absence of unequivocal hyperglycemia, results should be confirmed by repeat testing. The classification and Diagnosis of Diabetes Diabetes Care 202; 46: S19-S40. Current interpretive data was last revised 2022. Calcium 7.9(L) 8.5 - 10.3 mg/dL [facility] Blood 07/28/2025 5:14 PM TOUR PRODUCTION SUPERVISOR 07/28/2025 5:44 PM TOUR PRODUCTION SUPERVISOR Fuad Bello MD LAB BLOOD ORDERABLES Final Re sult [facility] Department [place] [address] * (ABNORMAL) CBC without differential (07/28/2025 5:13 PM TOUR PRODUCTION SUPERVISOR) [facility] WBC 13.37(H) 3.80 - 9.90 K/cumm Hgb 8.2(L) 13.0 - 17.5 g/dL [facility] Hct 24.3(L) 38.9 - 50.3 % [facility] Plt 185 150 - 400 K/cumm [facility] MPV 9.9 9.1 - 12.3 fL [facility] RBC 2.65(L) 4.30 - 5.80 M/cumm [facility] MCV 91.7 81.3 - 96.4 fL [facility] MCH 30.9 27.1 - 33.3 pg [facility] MCHC 33.7 32.3 - 35.7 g/dL [facility] RDW CV 13.1 11.1 - 14.9 % [facility] RDW SD 43.1 35.7 - 48.1 fL [facility] NRBC abs 0.00 0.00 - 0.01 K/cumm [facility] Blood 07/28/2025 5:1 3 PM TOUR PRODUCTION SUPERVISOR 07/28/2025 5:45 PM TOUR PRODUCTION SUPERVISOR Fuad Bello MD LAB BLOOD ORDERABLES Final Re sult Performing Organization Address [facility] Co de Phone Number [facility] Department [place] [address] * Lactate, whole blood (07/28/2025 5:13 PM TOUR PRODUCTION SUPERVISOR) Lactate, bld 1.2 0.7 - 2.0 mmol/L Blood 07/28/2025 5:13 PM TOUR PRODUCTION SUPERVISOR 07/28/2025 5:28 PM TOUR PRODUCTION SUPERVISOR Fuad Bello MD LAB BLOOD ORDERABLES Final Re sult Performing Organization Address City/[facility] Co de Phone Number [facility] Department [place] [address] * Oxyhemoglobin, central venous (07/28/2025 5:13 PM TOUR PRODUCTION SUPERVISOR) Oxyhemoglobin, CV 85.7 % Comment: Interpretive Data No reference range established. Current interpretive data was last revised 2019. Blood 07/28/2025 5:13 PM TOUR PRODUCTION SUPERVISOR 07/28/2025 5:28 PM TOUR PRODUCTION SUPERVISOR Fuad Bello MD LAB BLOOD ORDERABLES Final Re sult Performing Organization Address City/[facility] Co de Phone Number JAY[facility] [place] [address] * eGFR (07/28/2025 12:11 PM TOUR PRODUCTION SUPERVISOR) eGFR 76 >=60 mL/min/1. 73 m2 Comment: Interpretive Data Reference Interval Normal >/= 90 mL/min/1.73m2 Mildly decreased* 60 - 89 mL/min/1.73m2 Mildly to moderately decreased 45 - 59 mL/min/1.73m2 Moderately to severely decreased 30 - 44 mL/min/1.73m2 Severely decreased 15 - 29 mL/min/1.73m2 Kidney Failure < 15 mL/min/1.73m2 *Relative to young adult level Estimated glomerular filtration rate is determined by the 2020 CKD-EPI equation recommended by the National Kidney Foundation (A Unifying Approach to GFR Estimation: Recommendations of the NKF-ASK Task Force on Reassessing the Inclusion of Race in Diagnosing Kidney Disease, JASN 2020). The CKD-EPI equation should not be used for patients with unstable renal function and has not been validated in children and those over 70. Current interpretive data was last reviewed 2021. Blood 07/28/2025 12:1 1 PM TOUR PRODUCTION SUPERVISOR 07/28/2025 12:34 PM TOUR PRODUCTION SUPERVISOR us Fuad Bello MD LAB BLOOD ORDERABLES Final Re sult JAY[facility] NICO[facility] Department [place] [address] * Magnesium (07/28/2025 12:11 PM TOUR PRODUCTION SUPERVISOR) Magnesium 2.1 1.4 - 2.5 mg/dL Blood 07/28/2025 12:1 1 PM TOUR PRODUCTION SUPERVISOR 07/28/2025 12:34 PM TOUR PRODUCTION SUPERVISOR us Fuad Bello MD LAB BLOOD ORDERABLES Final Re sult [facility] [place] [place] [address] * (ABNORMAL) Basic metabolic panel (07/28/2025 12:11 PM TOUR PRODUCTION SUPERVISOR) Sodium 136 135 - 145 mmol/L Potassium, pl 4.0 3.3 - 4.9 mmol/L [facility] Chloride 107 97 - 110 mmol/L [facility] CO2 21(L) 22 - 32 mmol/L [facility] Anion gap 8 2 - 15 mmol/L [facility] BUN 25 6 - 25 mg/dL [facility] Creatinine 1.14 0.80 - 1.30 mg/dL [facility] Glucose 115 70 - 199 mg/dL [facility] Comment: Interpretive Data Fasting glucose >/= 126 mg/dl is diagnostic for diabetes. Fasting is defined as no caloric intake for at least 8 hours. Fasting glucose between 100 mg/dl to 125 mg/dl is diagnostic of prediabetes. In a patient with classic symptoms of hyperglycemia or hyperglycemic crisis, a random glucose >/= 200 mg/dl is diagnostic for diabetes. In the absence of unequivocal hyperglycemia, results should be confirmed by repeat testing. The classification and Diagnosis of Diabetes Diabetes Care 202; 46: S19-S40. Current interpretive data was last revised 2022. Calcium 7.8(L) 8.5 - 10.3 mg/dL [facility] Blood 07/28/2025 12:1 1 PM TOUR PRODUCTION SUPERVISOR 07/28/2025 12:34 PM TOUR PRODUCTION SUPERVISOR Fuad Bello MD LAB BLOOD ORDERABLES Final Re sult Performing Organization Address City/[facility]/ZIP Co de Phone Number JAYY [facility] Department [place] [employer] [place] [address] * POCT glucose (07/28/2025 12:08 PM TOUR PRODUCTION SUPERVISOR) Glucose, POC 126 70 - 199 mg/dL Blood 07/28/2025 12:0 8 PM TOUR PRODUCTION SUPERVISOR 07/28/2025 12:08 PM TOUR PRODUCTION SUPERVISOR Darrell Avalos MD LAB POCT ORDERABLES - DEVICE Final Result Performing Organization Address [facility] de Phone Number [facility] [place] [address] * Lactate, whole blood (07/28/2025 11:09 AM TOUR PRODUCTION SUPERVISOR) Lactate, bld 1.5 0.7 - 2.0 mmol/L Blood 07/28/2025 11:0 9 AM TOUR PRODUCTION SUPERVISOR 07/28/2025 11:16 AM TOUR PRODUCTION SUPERVISOR us Fuad Bello MD LAB BLOOD ORDERABLES Final Re sult Performing Organization Address [facility] de Phone Number [facility] [place] [place] [address] * Oxyhemoglobin, central venous (07/28/2025 11:09 AM TOUR PRODUCTION SUPERVISOR) Oxyhemoglobin, CV 74.6 % Comment: Interpretive Data No reference range established. Current interpretive data was last revised 2019. Blood 07/28/2025 11:0 9 AM TOUR PRODUCTION SUPERVISOR 07/28/2025 11:16 AM TOUR PRODUCTION SUPERVISOR us Fuad Bello MD LAB BLOOD ORDERABLES Final Re sult Performing Organization Address [facility] de Phone Number [facility] [place] [place] [address] * XR Abdomen 1 View AP (07/28/2025 6:45 AM TOUR PRODUCTION SUPERVISOR) Anatomical Region Laterality Modality Body, Abdomen N/A Digital Radiogra phy 07/28/2025 8:25 AM TOUR PRODUCTION SUPERVISOR Impressions 07/28/2025 9:47 AM TOUR PRODUCTION SUPERVISOR Gastric tube with side-port and tip overlying the gastric body. Intra-aortic balloon pump with proximal radiopaque marker overlying the L2 vertebral body and the distal radiopaque marker outside of the field of view. Temperature probe Pemberton catheter. Normal bowel gas pattern without evidence of obstruction. Dictated by: Elgin Rubin M.D. The radiology attending physician has personally reviewed this study, and had reviewed and/or edited this written report and agrees with it. Electronically signed by: Jhon Gay M.D. Narrative 07/28/2025 9:47 AM TOUR PRODUCTION SUPERVISOR EXAMINATION: Abdomen, one view. HISTORY: Evaluate for obstruction. COMPARISON: 07/27/2025 Procedure Note Jhon Gay MD - 07/28/2025 EXAMINATION: Abdomen, one view. HISTORY: Evaluate for obstruction. COMPARISON: 07/27/2025 IMPRESSION: Gastric tube with side-port and tip overlying the gastric body. Intra-aortic balloon pump with proximal radiopaque marker overlying the L2 vertebral body and the distal radiopaque marker outside of the field of view. Temperature probe Pemberton catheter. Normal bowel gas pattern without evidence of obstruction. Dictated by: Elgin Rubin M.D. The radiology attending physician has personally reviewed this study, and had reviewed and/or edited this written report and agrees with it. Electronically signed by: Jhon Gay M.D. us Fuad Bello MD IMG XR PROCEDURES Final Resul t * XR Chest 1 View (07/28/2025 6:33 AM TOUR PRODUCTION SUPERVISOR) Anatomical Region Laterality Modality Body, Chest N/A Digital Radiogra phy 07/28/2025 8:29 AM TOUR PRODUCTION SUPERVISOR Impressions 07/28/2025 8:46 AM TOUR PRODUCTION SUPERVISOR The current study is compared with the prior radiograph dated 07/27/2025. Endotracheal tube tip is 6 cm above the frieda. Right internal jugular approach central venous catheter tip over the superior cavoatrial junction. Gastric tube terminates below the diaphragm and outside the [id number]. Radiopaque marker of intra-aortic balloon pump projects 1 cm below the top of the aortic knob, slightly curved toward the aortic arch. No pulmonary consolidation, pleural effusion or pneumothorax. Stable cardiomediastinal silhouette. Dictated by: Tamika Rashid M.D. The radiology attending physician has personally reviewed this study, and had reviewed and/or edited this written report and agrees with it. Electronically signed by: Mir Castano M.D. Narrative 07/28/2025 8:46 AM TOUR PRODUCTION SUPERVISOR EXAMINATION: 1 view chest radiograph Procedure Note Mir Castano MD - 07/28/2025 EXAMINATION: 1 view chest radiograph IMPRESSION: The current study is compared with the prior radiograph dated 07/27/2025. Endotracheal tube tip is 6 cm above the frieda. Right internal jugular approach central venous catheter tip over the superior cavoatrial junction. Gastric tube terminates below the diaphragm and outside the [id number]. Radiopaque marker of intra-aortic balloon pump projects 1 cm below the top of the aortic knob, slightly curved toward the aortic arch. No pulmonary consolidation, pleural effusion or pneumothorax. Stable cardiomediastinal silhouette. Dictated by: Tamika Rashid M.D. The radiology attending physician has personally reviewed this study, and had reviewed and/or edited this written report and agrees with it. Electronically signed by: Mir Castano M.D. Fuad Bello MD IMG XR PROCEDURES Final Resul t * (ABNORMAL) Blood gas, arterial (07/28/2025 5:53 AM TOUR PRODUCTION SUPERVISOR) pH, Art 7.41 7.35 - 7.45 PCO2, Arterial 34(L) 35 - 45 mmHg [facility] PO2, Arterial 145(H) 83 - 108 mmHg [facility] HCO3 Art (Calculated) 21 20 - 30 mmol/L [facility] BE, art -2 mmol/L [facility] Comment: Interpretive Data No Reference Range Established Current Interpretive Data was last revised on 2017 O2 Sat Art (Measured) 99(H) 90 - 95 % [facility] Blood 07/28/2025 5:53 AM TOUR PRODUCTION SUPERVISOR 07/28/2025 6:04 AM TOUR PRODUCTION SUPERVISOR us Fuad Bello MD LAB BLOOD ORDERABLES Final Re sult Performing Organization Address [facility] Co de Phone Number JAYY [facility] Department [place] [address] * eGFR (07/28/2025 5:51 AM TOUR PRODUCTION SUPERVISOR) eGFR 70 >=60 mL/min/1. 73 m2 Comment: Interpretive Data Reference Interval Normal >/= 90 mL/min/1.73m2 Mildly decreased* 60 - 89 mL/min/1.73m2 Mildly to moderately decreased 45 - 59 mL/min/1.73m2 Moderately to severely decreased 30 - 44 mL/min/1.73m2 Severely decreased 15 - 29 mL/min/1.73m2 Kidney Failure < 15 mL/min/1.73m2 *Relative to young adult level Estimated glomerular filtration rate is determined by the 2020 CKD-EPI equation recommended by the National Kidney Foundation (A Unifying Approach to GFR Estimation: Recommendations of the NKF-ASK Task Force on Reassessing the Inclusion of Race in Diagnosing Kidney Disease, JASN 2020). The CKD-EPI equation should not be used for patients with unstable renal function and has not been validated in children and those over 70. Current interpretive data was last reviewed 2021. Blood 07/28/2025 5:51 AM TOUR PRODUCTION SUPERVISOR 07/28/2025 6:07 AM TOUR PRODUCTION SUPERVISOR us Fuad Bello MD LAB BLOOD ORDERABLES Final Re sult Performing Organization Address [facility]/ZIP Co de Phone Number JAYY [facility] Department [place] [address] * Lactate, whole blood (07/28/2025 5:51 AM TOUR PRODUCTION SUPERVISOR) Lactate, bld 1.3 0.7 - 2.0 mmol/L Blood 07/28/2025 5:51 AM TOUR PRODUCTION SUPERVISOR 07/28/2025 6:04 AM TOUR PRODUCTION SUPERVISOR us Darrell Avalos MD LAB BLOOD ORDERABLES Final R esult Performing Organization Address City/[facility]/ZIP Co de Phone Number [facility] Department [place] [address] * Magnesium (07/28/2025 5:51 AM TOUR PRODUCTION SUPERVISOR) Pathologist [facility] Magnesium 2.2 1.4 - 2.5 mg/dL Blood 07/28/2025 5:51 AM TOUR PRODUCTION SUPERVISOR 07/28/2025 6:07 AM TOUR PRODUCTION SUPERVISOR us Fuad Bello MD LAB BLOOD ORDERABLES Final Re sult Performing Organization Address [facility] de Phone Number [facility] Department [place] [address] * (ABNORMAL) Basic metabolic panel (07/28/2025 5:51 AM TOUR PRODUCTION SUPERVISOR) [facility] Sodium 138 135 - 145 mmol/L Potassium, pl 4.0 3.3 - 4.9 mmol/L [facility] Chloride 107 97 - 110 mmol/L [facility] CO2 24 22 - 32 mmol/L [facility] Anion gap 7 2 - 15 mmol/L [facility] BUN 24 6 - 25 mg/dL [facility] Creatinine 1.22 0.80 - 1.30 mg/dL [facility] Glucose 123 70 - 199 mg/dL [facility] Comment: Interpretive Data Fasting glucose >/= 126 mg/dl is diagnostic for diabetes. Fasting is defined as no caloric intake for at least 8 hours. Fasting glucose between 100 mg/dl to 125 mg/dl is diagnostic of prediabetes. In a patient with classic symptoms of hyperglycemia or hyperglycemic crisis, a random glucose >/= 200 mg/dl is diagnostic for diabetes. In the absence of unequivocal hyperglycemia, results should be confirmed by repeat testing. The classification and Diagnosis of Diabetes Diabetes Care 2021; 46: S19-S40. Current interpretive data was last revised 2022. Calcium 7.8(L) 8.5 - 10.3 mg/dL [facility] Blood 07/28/2025 5:51 AM TOUR PRODUCTION SUPERVISOR 07/28/2025 6:07 AM TOUR PRODUCTION SUPERVISOR us Fuad Bello MD LAB BLOOD ORDERABLES Final Re sult [facility] Department [place] [address] * (ABNORMAL) CBC without differential (07/28/2025 5:51 AM TOUR PRODUCTION SUPERVISOR) Pathologist [facility] WBC 13.10(H) 3.80 - 9.90 K/cumm Hgb 8.6(L) 13.0 - 17.5 g/dL [facility] Hct 25.8(L) 38.9 - 50.3 % [facility] Plt 222 150 - 400 K/cumm [facility] MPV 10.0 9.1 - 12.3 fL [facility] RBC 2.78(L) 4.30 - 5.80 M/cumm [facility] MCV 92.8 81.3 - 96.4 fL [facility] MCH 30.9 27.1 - 33.3 pg [facility] MCHC 33.3 32.3 - 35.7 g/dL [facility] RDW CV 13.0 11.1 - 14.9 % [facility] RDW SD 43.9 35.7 - 48.1 fL [facility] NRBC abs 0.00 0.00 - 0.01 K/cumm [facility] Blood 07/28/2025 5:51 AM TOUR PRODUCTION SUPERVISOR 07/28/2025 6:07 AM TOUR PRODUCTION SUPERVISOR us Fuad Bello MD LAB BLOOD ORDERABLES Final Re sult [facility] Department [place] [address] * Phosphorus (07/28/2025 5:51 AM TOUR PRODUCTION SUPERVISOR) Pathologist [facility] Phosphorus, pl 2.5 2.3 - 4.5 mg/dL Blood 07/28/2025 5:51 AM TOUR PRODUCTION SUPERVISOR 07/28/2025 6:07 AM TOUR PRODUCTION SUPERVISOR Fuad Bello MD LAB BLOOD ORDERABLES Final Re sult Performing Organization Address [facility] [place] [address] * Oxyhemoglobin, central venous (07/28/2025 5:51 AM TOUR PRODUCTION SUPERVISOR) Oxyhemoglobin, CV 84.4 % Comment: Interpretive Data No reference range established. Current interpretive data was last revised 2019. Blood 07/28/2025 5:51 AM TOUR PRODUCTION SUPERVISOR 07/28/2025 6:04 AM TOUR PRODUCTION SUPERVISOR Fuad Bello MD LAB BLOOD ORDERABLES Final Re sult Performing Organization Address [facility] de Phone Number [facility] [place] [address] * (ABNORMAL) Hepatic function panel (07/28/2025 5:51 AM TOUR PRODUCTION SUPERVISOR) Bilirubin, total 0.3 0.1 - 1.2 mg/dL Bilirubin, direct <0.2 0.1 - 0.3 mg/dL [facility] Comment:Repeated and Verifie d Protein, pl 5.3(L) 6.5 - 8.5 g/dL [facility] Albumin 2.7(L) 3.5 - 5.0 g/dL [facility] Alk phos 87 40 - 130 Units/L [facility] ALT 51 7 - 55 Units/L [facility] AST 266(H) 10 - 50 Units/L [facility] Blood 07/28/2025 5:51 AM TOUR PRODUCTION SUPERVISOR 07/28/2025 6:07 AM TOUR PRODUCTION SUPERVISOR Fuad Bello MD LAB BLOOD ORDERABLES Final Re sult Performing Organization Address [facility] Co de Phone Number [facility] [place] [address] * (ABNORMAL) Protime-INR (07/28/2025 5:51 AM TOUR PRODUCTION SUPERVISOR) PT 13.8(H) 10.2 - 13.5 sec INR 1.23(H) 0.90 - 1.20 [facility] Comment: Interpretive data Oral anticoagulant therapeutic ranges: Venous thromboembolism prophylaxis or treatment: 2.0-3.0 CARDIOLOGY Standard range: 2.0-3.0 High-intensity range: 2.5-3.5 Refer to indication-specific guidelines for appropriate target ranges for prosthetic heart valve replacement. Current interpretive data was last revised on 2019. Blood 07/28/2025 5:51 AM TOUR PRODUCTION SUPERVISOR 07/28/2025 6:20 AM TOUR PRODUCTION SUPERVISOR us Fuad Bello MD LAB BLOOD ORDERABLES Final Re sult Performing Organization Address [facility] Co de Phone Number [facility] [place] [address] * (ABNORMAL) aPTT (07/28/2025 5:51 AM TOUR PRODUCTION SUPERVISOR) Pathologist [facility] aPTT 21(L) 26 - 38 sec Comment: Interpretive Data Heparin therapeutic range: 66.0 - 100.0 seconds. Range based on correlation with therapeutic heparin activity range of 0.3 - 0.7 Units/mL. Blood 07/28/2025 5:51 AM TOUR PRODUCTION SUPERVISOR 07/28/2025 6:20 AM TOUR PRODUCTION SUPERVISOR Fuad Bello MD LAB BLOOD ORDERABLES Final Re sult Performing Organization Address [facility] [place] [address] * Hemoglobin, plasma (07/28/2025 5:51 AM TOUR PRODUCTION SUPERVISOR) Hemoglobin, Plasma <30 <=50 mg/dL Blood 07/28/2025 5:51 AM TOUR PRODUCTION SUPERVISOR 07/28/2025 6:07 AM TOUR PRODUCTION SUPERVISOR us Fuad Bello MD LAB BLOOD ORDERABLES Final Re sult Performing Organization Address City/[facility] Co de Phone Number [facility] [place] [address] * POCT glucose (07/28/2025 3:49 AM TOUR PRODUCTION SUPERVISOR) Glucose, POC 104 70 - 199 mg/dL Blood 07/28/2025 3:49 AM TOUR PRODUCTION SUPERVISOR 07/28/2025 3:49 AM TOUR PRODUCTION SUPERVISOR us Darrell Avalos MD LAB POCT ORDERABLES - DEVICE Final Result Performing Organization Address [facility] Co de Phone Number [facility] [place] [address] * POCT glucose (07/27/2025 11:44 PM TOUR PRODUCTION SUPERVISOR) Glucose, POC 126 70 - 199 mg/dL Blood 07/27/2025 11:4 4 PM TOUR PRODUCTION SUPERVISOR 07/27/2025 11:44 PM TOUR PRODUCTION SUPERVISOR us Fuad Bello MD LAB POCT ORDERABLES - DEVICE Final Result Performing Organization Address [facility] Co de Phone Number [facility] [place] [address] * eGFR (07/27/2025 11:39 PM TOUR PRODUCTION SUPERVISOR) eGFR 71 >=60 mL/min/1. 73 m2 Comment: Interpretive Data Reference Interval Normal >/= 90 mL/min/1.73m2 Mildly decreased* 60 - 89 mL/min/1.73m2 Mildly to moderately decreased 45 - 59 mL/min/1.73m2 Moderately to severely decreased 30 - 44 mL/min/1.73m2 Severely decreased 15 - 29 mL/min/1.73m2 Kidney Failure < 15 mL/min/1.73m2 *Relative to young adult level Estimated glomerular filtration rate is determined by the 2020 CKD-EPI equation recommended by the National Kidney Foundation (A Unifying Approach to GFR Estimation: Recommendations of the NKF-ASK Task Force on Reassessing the Inclusion of Race in Diagnosing Kidney Disease, JASN 2020). The CKD-EPI equation should not be used for patients with unstable renal function and has not been validated in children and those over 70. Current interpretive data was last reviewed 2021. Blood 07/27/2025 11:3 9 PM TOUR PRODUCTION SUPERVISOR 07/27/2025 11:53 PM TOUR PRODUCTION SUPERVISOR Fuad Bello MD LAB BLOOD ORDERABLES Final Re sult Performing Organization Address [facility] Co de Phone Number [facility] [place] [address] * Lactate, whole blood (07/27/2025 11:39 PM TOUR PRODUCTION SUPERVISOR) Lactate, bld 1.3 0.7 - 2.0 mmol/L Blood 07/27/2025 11:3 9 PM TOUR PRODUCTION SUPERVISOR 07/27/2025 11:51 PM TOUR PRODUCTION SUPERVISOR Fuad Bello MD LAB BLOOD ORDERABLES Final Re sult Performing Organization Address [facility] Co de Phone Number [facility] [place] [address] * Magnesium (07/27/2025 11:39 PM TOUR PRODUCTION SUPERVISOR) Magnesium 2.2 1.4 - 2.5 mg/dL Blood 07/27/2025 11:3 9 PM TOUR PRODUCTION SUPERVISOR 07/27/2025 11:53 PM TOUR PRODUCTION SUPERVISOR Fuad Bello MD LAB BLOOD ORDERABLES Final Re sult Performing Organization Address [facility] Co de Phone Number [facility] Department [place] [address] * (ABNORMAL) Basic metabolic panel (07/27/2025 11:39 PM TOUR PRODUCTION SUPERVISOR) Pathologist [facility] Sodium 137 135 - 145 mmol/L Potassium, pl 4.2 3.3 - 4.9 mmol/L [facility] Chloride 106 97 - 110 mmol/L [facility] CO2 22 22 - 32 mmol/L [facility] Anion gap 9 2 - 15 mmol/L [facility] BUN 25 6 - 25 mg/dL [facility] Creatinine 1.21 0.80 - 1.30 mg/dL [facility] Glucose 115 70 - 199 mg/dL [facility] Comment: Interpretive Data Fasting glucose >/= 126 mg/dl is diagnostic for diabetes. Fasting is defined as no caloric intake for at least 8 hours. Fasting glucose between 100 mg/dl to 125 mg/dl is diagnostic of prediabetes. In a patient with classic symptoms of hyperglycemia or hyperglycemic crisis, a random glucose >/= 200 mg/dl is diagnostic for diabetes. In the absence of unequivocal hyperglycemia, results should be confirmed by repeat testing. The classification and Diagnosis of Diabetes Diabetes Care 2021; 46: S19-S40. Current interpretive data was last revised 2022. Calcium 7.8(L) 8.5 - 10.3 mg/dL [facility] Blood 07/27/2025 11:3 9 PM TOUR PRODUCTION SUPERVISOR 07/27/2025 11:53 PM TOUR PRODUCTION SUPERVISOR us Fuad Bello MD LAB BLOOD ORDERABLES Final Re sult [facility] Department [place] [address] * (ABNORMAL) CBC without differential (07/27/2025 11:39 PM TOUR PRODUCTION SUPERVISOR) [facility] WBC 15.64(H) 3.80 - 9.90 K/cumm Hgb 8.8(L) 13.0 - 17.5 g/dL [facility] Hct 27.3(L) 38.9 - 50.3 % [facility] Plt 232 150 - 400 K/cumm [facility] MPV 9.6 9.1 - 12.3 fL [facility] RBC 2.90(L) 4.30 - 5.80 M/cumm [facility] MCV 94.1 81.3 - 96.4 fL [facility] MCH 30.3 27.1 - 33.3 pg [facility] MCHC 32.2(L) 32.3 - 35.7 g/dL [facility] RDW CV 13.0 11.1 - 14.9 % [facility] RDW SD 45.1 35.7 - 48.1 fL [facility] NRBC abs 0.00 0.00 - 0.01 K/cumm [facility] Blood 07/27/2025 11:3 9 PM TOUR PRODUCTION SUPERVISOR 07/27/2025 11:54 PM TOUR PRODUCTION SUPERVISOR Fuad Bello MD LAB BLOOD ORDERABLES Final Re sult Performing Organization Address City/[facility]/ZIP Co de Phone Number [facility] Department [place] [address] * Oxyhemoglobin, central venous (07/27/2025 11:39 PM TOUR PRODUCTION SUPERVISOR) Oxyhemoglobin, CV 67.0 % Comment: Interpretive Data No reference range established. Current interpretive data was last revised 2019. Blood 07/27/2025 11:3 9 PM TOUR PRODUCTION SUPERVISOR 07/27/2025 11:51 PM TOUR PRODUCTION SUPERVISOR Fuad Bello MD LAB BLOOD ORDERABLES Final Re sult [facility] [place] [address] * POCT glucose (07/27/2025 8:47 PM TOUR PRODUCTION SUPERVISOR) Glucose, POC 122 70 - 199 mg/dL Blood 07/27/2025 8:47 PM TOUR PRODUCTION SUPERVISOR 07/27/2025 8:47 PM TOUR PRODUCTION SUPERVISOR Fuad Bello MD LAB POCT ORDERABLES - DEVICE Final Result [facility] Department [place] [address] * Pneumonia PCR Sputum (07/27/2025 5:40 PM TOUR PRODUCTION SUPERVISOR) C. pneumoniae DNA Not Detected Not Detected Legionella pneumophila DNA Not Detected Not Detected [facility] M. pneumoniae DNA Not Detected Not Detected [facility] Adenovirus DNA Not Detected Not Detected [facility] Coronavirus (229E, OC43, HKU1, NL63) RNA Not Detected Not Detected [facility] Metapneumovirus RNA Not Detected Not Detected [facility] Rhinovirus/Enterov irus RNA Not Detected Not Detected [facility] Influenza A RNA Not Detected Not Detected [facility] Influenza B RNA Not Detected Not Detected [facility] Parainfluenza virus (1-4) RNA Not Detected Not Detected [facility] RSV RNA Not Detected Not Detected [facility] Sputum 07/27/2025 5:40 PM TOUR PRODUCTION SUPERVISOR 07/27/2025 7:27 PM TOUR PRODUCTION SUPERVISOR Narrative [facility] - 07/27/2025 8:53 PM TOUR PRODUCTION SUPERVISOR The [employer] Pneumonia Panel is a multiplexed nucleic acid test capable of simultaneous detection and identification of multiple respiratory viruses and bacteria. This panel detects Adenovirus, coronaviruses (Coronavirus HKU1, Coronavirus NL63, Coronavirus 229E, and Coronavirus OC43), Influenza A, Influenza B, Human metapneumovirus, Parainfluenza (1-4), RSV, Rhinovirus/Enterovirus, Chlamydia pneumoniae, Mycoplasma pneumoniae, and Legionella pneumophila. Additional aerobic bacterial targets are reported with the accompanying culture results with the same accession number. Rhinovirus and Enterovirus are genetically similar and cannot be reliably differentiated with this method. Negative adenovirus results should be confirmed by an alternative methodology (i.e. standalone PCR) if the suspicion for adenovirus infection is high. The results of this test must be considered in the clinical context of the patient and should not be used as the sole basis for diagnosis, treatment, or other management decisions. Negative results in the setting of a respiratory illness may be due to infection with pathogens that are not detected by this test. Positive results do not rule out infection/co-infection with other organisms. The [employer] Pneumonia Panel is FDA cleared for lower respiratory tract specimens. The performance characteristics of this assay have been determined by [facility]. Current interpretive data was last revised on 2024. Fuad Bello MD LAB MICROBIOLOGY - GENERAL OR DERABLES Final Result Performing Organization Address [facility] Co de Phone Number JAYY [facility] Department [place] [address] * eGFR (07/27/2025 5:40 PM TOUR PRODUCTION SUPERVISOR) eGFR 65 >=60 mL/min/1. 73 m2 Comment: Interpretive Data Reference Interval Normal >/= 90 mL/min/1.73m2 Mildly decreased* 60 - 89 mL/min/1.73m2 Mildly to moderately decreased 45 - 59 mL/min/1.73m2 Moderately to severely decreased 30 - 44 mL/min/1.73m2 Severely decreased 15 - 29 mL/min/1.73m2 Kidney Failure < 15 mL/min/1.73m2 *Relative to young adult level Estimated glomerular filtration rate is determined by the 2020 CKD-EPI equation recommended by the National Kidney Foundation (A Unifying Approach to GFR Estimation: Recommendations of the NKF-ASK Task Force on Reassessing the Inclusion of Race in Diagnosing Kidney Disease, JASN 2020). The CKD-EPI equation should not be used for patients with unstable renal function and has not been validated in children and those over 70. Current interpretive data was last reviewed 2021. Blood 07/27/2025 5:40 PM TOUR PRODUCTION SUPERVISOR 07/27/2025 6:02 PM TOUR PRODUCTION SUPERVISOR us Fuad Bello MD LAB BLOOD ORDERABLES Final Re sult Performing Organization Address [facility] Co de Phone Number [facility] [place] [address] * Magnesium (07/27/2025 5:40 PM TOUR PRODUCTION SUPERVISOR) Magnesium 2.2 1.4 - 2.5 mg/dL Blood 07/27/2025 5:40 PM TOUR PRODUCTION SUPERVISOR 07/27/2025 6:02 PM TOUR PRODUCTION SUPERVISOR Fuad Bello MD LAB BLOOD ORDERABLES Final Re sult Performing Organization Address City/[facility]/ZIP Co de Phone Number [facility] Department [place] [address] * (ABNORMAL) Basic metabolic panel (07/27/2025 5:40 PM TOUR PRODUCTION SUPERVISOR) [facility] Sodium 139 135 - 145 mmol/L Potassium, pl 4.0 3.3 - 4.9 mmol/L [facility] Chloride 108 97 - 110 mmol/L [facility] CO2 21(L) 22 - 32 mmol/L [facility] Anion gap 10 2 - 15 mmol/L [facility] BUN 28(H) 6 - 25 mg/dL [facility] Creatinine 1.29 0.80 - 1.30 mg/dL [facility] Glucose 118 70 - 199 mg/dL [facility] Comment: Interpretive Data Fasting glucose >/= 126 mg/dl is diagnostic for diabetes. Fasting is defined as no caloric intake for at least 8 hours. Fasting glucose between 100 mg/dl to 125 mg/dl is diagnostic of prediabetes. In a patient with classic symptoms of hyperglycemia or hyperglycemic crisis, a random glucose >/= 200 mg/dl is diagnostic for diabetes. In the absence of unequivocal hyperglycemia, results should be confirmed by repeat testing. The classification and Diagnosis of Diabetes Diabetes Care 2021; 46: S19-S40. Current interpretive data was last revised 2022. Calcium 8.0(L) 8.5 - 10.3 mg/dL [facility] Blood 07/27/2025 5:40 PM TOUR PRODUCTION SUPERVISOR 07/27/2025 6:02 PM TOUR PRODUCTION SUPERVISOR Fuad Bello MD LAB BLOOD ORDERABLES Final Re sult Performing Organization Address [facility]/ZIP Co de Phone Number [facility] Department [place] [employer] [place] [address] * (ABNORMAL) CBC without differential (07/27/2025 5:40 PM TOUR PRODUCTION SUPERVISOR) [facility] WBC 18.17(H) 3.80 - 9.90 K/cumm Hgb 9.6(L) 13.0 - 17.5 g/dL [facility] Hct 28.9(L) 38.9 - 50.3 % [facility] Plt 274 150 - 400 K/cumm [facility] MPV 9.9 9.1 - 12.3 fL [facility] RBC 3.14(L) 4.30 - 5.80 M/cumm [facility] MCV 92.0 81.3 - 96.4 fL [facility] MCH 30.6 27.1 - 33.3 pg [facility] MCHC 33.2 32.3 - 35.7 g/dL [facility] RDW CV 13.1 11.1 - 14.9 % [facility] RDW SD 43.9 35.7 - 48.1 fL [facility] NRBC abs 0.00 0.00 - 0.01 K/cumm [facility] Blood 07/27/2025 5:40 PM TOUR PRODUCTION SUPERVISOR 07/27/2025 6:02 PM TOUR PRODUCTION SUPERVISOR Fuad Bello MD LAB BLOOD ORDERABLES Final Re sult Performing Organization Address [facility] Co de Phone Number [facility] [place] [employer] [address] * Lactate, whole blood (07/27/2025 5:40 PM TOUR PRODUCTION SUPERVISOR) [facility] Lactate, bld 1.5 0.7 - 2.0 mmol/L Blood 07/27/2025 5:40 PM TOUR PRODUCTION SUPERVISOR 07/27/2025 5:47 PM TOUR PRODUCTION SUPERVISOR Fuad Bello MD LAB BLOOD ORDERABLES Final Re sult Performing Organization Address [facility] Co de Phone Number [facility] [place] [address] * Oxyhemoglobin, central venous (07/27/2025 5:40 PM TOUR PRODUCTION SUPERVISOR) Oxyhemoglobin, CV 65.1 % Comment: Interpretive Data No reference range established. Current interpretive data was last revised 2019. Blood 07/27/2025 5:40 PM TOUR PRODUCTION SUPERVISOR 07/27/2025 5:47 PM TOUR PRODUCTION SUPERVISOR Fuad Bello MD LAB BLOOD ORDERABLES Final Re sult Performing Organization Address [facility] de Phone Number [facility] [employer] [place] [address] * (ABNORMAL) Blood gas, arterial (07/27/2025 5:40 PM TOUR PRODUCTION SUPERVISOR) pH, Art 7.36 7.35 - 7.45 PCO2, Arterial 37 35 - 45 mmHg [facility] PO2, Arterial 107 83 - 108 mmHg [facility] HCO3 Art (Calculated) 21 20 - 30 mmol/L [facility] BE, art -4 mmol/L [facility] Comment: Interpretive Data No Reference Range Established Current Interpretive Data was last revised on 2017 O2 Sat Art (Measured) 98(H) 90 - 95 % [facility] Blood 07/27/2025 5:40 PM TOUR PRODUCTION SUPERVISOR 07/27/2025 5:47 PM TOUR PRODUCTION SUPERVISOR Fuad Bello MD LAB BLOOD ORDERABLES Final Re sult Performing Organization Address [facility] Co de Phone Number [facility] [place] [employer] [place] [address] * XR Abdomen Ap 1 Vw (07/27/2025 3:01 PM TOUR PRODUCTION SUPERVISOR) Anatomical Region Laterality Modality Body, Abdomen N/A Computed Radiogr aphy 07/27/2025 4:13 PM TOUR PRODUCTION SUPERVISOR Impressions 07/27/2025 4:19 PM TOUR PRODUCTION SUPERVISOR Gastric tube projects over the fundus of the stomach, side port projects over the body. Intra-aortic balloon pump with proximal radiopaque marker overlying the L2 vertebral body, unchanged when accounting for patient rotation. Dictated by: Carlin Sales M.D. The radiology attending physician has personally reviewed this study, and had reviewed and/or edited this written report and agrees with it. Electronically signed by: Carrie Riley M.D. Narrative 07/27/2025 4:19 PM TOUR PRODUCTION SUPERVISOR EXAMINATION: Abdomen, one view. HISTORY: NG tube placement COMPARISON: 07/27/2025 Procedure Note Carrie Riley MD - 07/27/2025 EXAMINATION: Abdomen, one view. HISTORY: NG tube placement COMPARISON: 07/27/2025 IMPRESSION: Gastric tube projects over the fundus of the stomach, side port projects over the body. Intra-aortic balloon pump with proximal radiopaque marker overlying the L2 vertebral body, unchanged when accounting for patient rotation. Dictated by: Carlin Sales M.D. The radiology attending physician has personally reviewed this study, and had reviewed and/or edited this written report and agrees with it. Electronically signed by: Carrie Riley M.D. Fuad Bello MD IMG XR PROCEDURES Final Resul t * (ABNORMAL) Troponin I high-sensitivity (07/27/2025 12:58 PM TOUR PRODUCTION SUPERVISOR) Trop I hs 157,860(C ) <=35 ng/L Comment: Previous critical value noted within 48 hours ago. Repeated on dilution. Interpretive Data For further hscTnI resources including the diagnostic algorithm and an aid in interpretation, copy and paste this link: [email or web address].testcatalog.org/show/[email or web address] Current Interpretive Data last revised 2020. Blood 07/27/2025 12:5 8 PM TOUR PRODUCTION SUPERVISOR 07/27/2025 1:13 PM TOUR PRODUCTION SUPERVISOR us Fuad Bello MD LAB BLOOD ORDERABLES Final Re sult [facility] [place] [address] * eGFR (07/27/2025 11:34 AM TOUR PRODUCTION SUPERVISOR) eGFR 60 >=60 mL/min/1. 73 m2 Comment: Interpretive Data Reference Interval Normal >/= 90 mL/min/1.73m2 Mildly decreased* 60 - 89 mL/min/1.73m2 Mildly to moderately decreased 45 - 59 mL/min/1.73m2 Moderately to severely decreased 30 - 44 mL/min/1.73m2 Severely decreased 15 - 29 mL/min/1.73m2 Kidney Failure < 15 mL/min/1.73m2 *Relative to young adult level Estimated glomerular filtration rate is determined by the 2020 CKD-EPI equation recommended by the National Kidney Foundation (A Unifying Approach to GFR Estimation: Recommendations of the NKF-ASK Task Force on Reassessing the Inclusion of Race in Diagnosing Kidney Disease, JASN 2020). The CKD-EPI equation should not be used for patients with unstable renal function and has not been validated in children and those over 70. Current interpretive data was last reviewed 2021. Blood 07/27/2025 11:3 4 AM TOUR PRODUCTION SUPERVISOR 07/27/2025 11:53 AM TOUR PRODUCTION SUPERVISOR us Fuad Bello MD LAB BLOOD ORDERABLES Final Re sult Performing Organization Address City/[facility] Co de Phone Number JAYY NICOLE [facility] [place] [address] * Magnesium (07/27/2025 11:34 AM TOUR PRODUCTION SUPERVISOR) Magnesium 2.4 1.4 - 2.5 mg/dL Blood 07/27/2025 11:3 4 AM TOUR PRODUCTION SUPERVISOR 07/27/2025 11:53 AM TOUR PRODUCTION SUPERVISOR us Fuad Bello MD LAB BLOOD ORDERABLES Final Re sult J[facility] NICOLE [facility] [place] [employer] [place] [address] * (ABNORMAL) Basic metabolic panel (07/27/2025 11:34 AM TOUR PRODUCTION SUPERVISOR) [facility] Sodium 138 135 - 145 mmol/L Potassium, pl 4.2 3.3 - 4.9 mmol/L [facility] Chloride 108 97 - 110 mmol/L [facility] CO2 22 22 - 32 mmol/L [facility] Anion gap 8 2 - 15 mmol/L [facility] BUN 29(H) 6 - 25 mg/dL [facility] Creatinine 1.39(H) 0.80 - 1.30 mg/dL [facility] Glucose 116 70 - 199 mg/dL [facility] Comment: Interpretive Data Fasting glucose >/= 126 mg/dl is diagnostic for diabetes. Fasting is defined as no caloric intake for at least 8 hours. Fasting glucose between 100 mg/dl to 125 mg/dl is diagnostic of prediabetes. In a patient with classic symptoms of hyperglycemia or hyperglycemic crisis, a random glucose >/= 200 mg/dl is diagnostic for diabetes. In the absence of unequivocal hyperglycemia, results should be confirmed by repeat testing. The classification and Diagnosis of Diabetes Diabetes Care 2021; 46: S19-S40. Current interpretive data was last revised 2022. Calcium 8.2(L) 8.5 - 10.3 mg/dL [facility] Blood 07/27/2025 11:3 4 AM TOUR PRODUCTION SUPERVISOR 07/27/2025 11:53 AM TOUR PRODUCTION SUPERVISOR Fuad Bello MD LAB BLOOD ORDERABLES Final Re sult [facility] Department [place] [address] * (ABNORMAL) CBC without differential (07/27/2025 11:34 AM TOUR PRODUCTION SUPERVISOR) [facility] WBC 16.25(H) 3.80 - 9.90 K/cumm Hgb 9.4(L) 13.0 - 17.5 g/dL [facility] Hct 27.8(L) 38.9 - 50.3 % [facility] Plt 277 150 - 400 K/cumm [facility] MPV 9.7 9.1 - 12.3 fL [facility] RBC 3.08(L) 4.30 - 5.80 M/cumm [facility] MCV 90.3 81.3 - 96.4 fL [facility] MCH 30.5 27.1 - 33.3 pg [facility] MCHC 33.8 32.3 - 35.7 g/dL [facility] RDW CV 13.1 11.1 - 14.9 % [facility] RDW SD 43.2 35.7 - 48.1 fL [facility] NRBC abs 0.00 0.00 - 0.01 K/cumm [facility] Blood 07/27/2025 11:3 4 AM TOUR PRODUCTION SUPERVISOR 07/27/2025 11:54 AM TOUR PRODUCTION SUPERVISOR Fuad Bello MD LAB BLOOD ORDERABLES Final Re sult Performing Organization Address [facility] de Phone Number [facility] Department [place] [address] * Lactate, whole blood (07/27/2025 11:34 AM TOUR PRODUCTION SUPERVISOR) Lactate, bld 1.1 0.7 - 2.0 mmol/L Blood 07/27/2025 11:3 4 AM TOUR PRODUCTION SUPERVISOR 07/27/2025 11:49 AM TOUR PRODUCTION SUPERVISOR Fuad Bello MD LAB BLOOD ORDERABLES Final Re sult Performing Organization Address [facility] de Phone Number [facility] Department [place] [address] * Oxyhemoglobin, central venous (07/27/2025 11:34 AM TOUR PRODUCTION SUPERVISOR) Oxyhemoglobin, CV 61.5 % Comment: Interpretive Data No reference range established. Current interpretive data was last revised 2019. Blood 07/27/2025 11:3 4 AM TOUR PRODUCTION SUPERVISOR 07/27/2025 11:49 AM TOUR PRODUCTION SUPERVISOR us Fuad Bello MD LAB BLOOD ORDERABLES Final Re sult [facility] Department [place] [address] * (ABNORMAL) Blood gas, arterial (07/27/2025 11:34 AM TOUR PRODUCTION SUPERVISOR) pH, Art 7.43 7.35 - 7.45 PCO2, Arterial 33(L) 35 - 45 mmHg [facility] PO2, Arterial 89 83 - 108 mmHg [facility] HCO3 Art (Calculated) 22 20 - 30 mmol/L [facility] BE, art -2 mmol/L [facility] Comment: Interpretive Data No Reference Range Established Current Interpretive Data was last revised on 2017 O2 Sat Art (Measured) 97(H) 90 - 95 % [facility] Blood 07/27/2025 11:3 4 AM TOUR PRODUCTION SUPERVISOR 07/27/2025 11:49 AM TOUR PRODUCTION SUPERVISOR us Fuad Bello MD LAB BLOOD ORDERABLES Final Re sult [facility] Department [place] [address] * Opiates Confirmation, Urine (07/27/2025 10:16 AM TOUR PRODUCTION SUPERVISOR) Codeine Conf, Ur Does Not Confirm CutOff 50 ng/mL 6- Acetylmorphine Conf, Ur Does Not Confirm CutOff 10 ng/mL [facility] Hydrocodone Conf, Ur Does Not Confirm CutOff 50 ng/mL [facility] Morphine Conf, Ur Does Not Confirm CutOff 50 ng/mL [facility] Hydromorphone Conf, Ur Does Not Confirm CutOff 50 ng/mL [facility] Comment: Interpretive Data This test detects the presence or absence of drug compounds using LC Tandem mass spectrometry and is not intended to assess compliance with prescribed medications. While this test is highly specific, false positive and false negative results may occur in very rare circumstances. Contact the laboratory for consultation, if needed. Performance characteristics were determined by the [facility] in a manner consistent with CLIA requirement and has not been cleared or approved by the U.S. Food and Drug Administration. Current interpretive data was last revised 2020. Urine 07/27/2025 10:1 6 AM TOUR PRODUCTION SUPERVISOR 07/27/2025 10:32 AM TOUR PRODUCTION SUPERVISOR Fuad Bello MD LAB URINE ORDERABLES Final Re sult Performing Organization Address [facility] Co de Phone Number [facility] Department [place] [address] * (ABNORMAL) Fentanyl Confirmation, Urine (07/27/2025 10:16 AM TOUR PRODUCTION SUPERVISOR) Fentanyl Conf, Ur Confirmed Positive(A) Cutoff 0.3ng/mL Acetylfentanyl Conf, Ur Does Not Confirm Cutoff 1 ng/mL [facility] Acrylfentanyl Conf, Ur Does Not Confirm Cutoff 1 ng/mL [facility] Furanylfentanyl Conf, Ur Does Not Confirm Cutoff 1 ng/mL [facility] Fentanyl Metabolite (Norfentanyl) Conf, Ur Confirmed Positive(A) CutOff 5 ng/mL [facility] Xylazine MS Does Not Confirm Cutoff 1 ng/mL [facility] Comment: Interpretive Data This test detects the presence or absence of drug compounds using LC Tandem mass spectrometry and is not intended to assess compliance with prescribed medications. While this test is highly specific, false positive and false negative results may occur in very rare circumstances. Contact the laboratory for consultation, if needed. Performance characteristics were determined by the [facility] in a manner consistent with CLIA requirement and has not been cleared or approved by the U.S. Food and Drug Administration. Current interpretive data was last revised 2020. Urine 07/27/2025 10:1 6 AM TOUR PRODUCTION SUPERVISOR 07/27/2025 10:32 AM TOUR PRODUCTION SUPERVISOR Fuad Bello MD LAB URINE ORDERABLES Final Re sult Performing Organization Address City/[facility]/ZIP Co de Phone Number [facility] Department [place] [address] * (ABNORMAL) Amphetamine Confirmation, Urine (07/27/2025 10:16 AM TOUR PRODUCTION SUPERVISOR) Amphetamine Conf, Ur Confirmed Positive(A) CutOff 150ng/mL Methamphetamine Conf, Ur Confirmed Positive(A) CutOff 150ng/mL [facility] MDA Conf, Ur Does Not Confirm CutOff 150ng/mL [facility] MDMA Conf, Ur Does Not Confirm CutOff 50 ng/mL [facility] H MDEA Conf, Ur Does Not Confirm CutOff 150ng/mL [facility] MBDB Conf, Ur Does Not Confirm CutOff 150ng/mL [facility] Comment: Interpretive Data This test detects the presence or absence of drug compounds using LC Tandem mass spectrometry. While this test is highly specific, false positive and false negative results may occur in very rare circumstances. Contact the laboratory for consultation, if needed. Performance characteristics were determined by the [facility] in a manner consistent with CLIA requirement and has not been cleared or approved by the U.S. Food and Drug Administration. Current interpretive data was last revised on 2020. Urine 07/27/2025 10:1 6 AM TOUR PRODUCTION SUPERVISOR 07/27/2025 10:32 AM TOUR PRODUCTION SUPERVISOR Fuad Bello MD LAB URINE ORDERABLES Final Re sult [facility] Department [place] [address] * (ABNORMAL) Benzodiazepine Confirmation by MS (07/27/2025 10:16 AM TOUR PRODUCTION SUPERVISOR) Alprazolam, ur Does Not Confirm CutOff 20 ng/ml Clonazepam, ur Does Not Confirm CutOff 20 ng/ml [facility] Flunitrazepam, ur Does Not Confirm CutOff 20 ng/ml [facility] Lorazepam, ur Does Not Confirm CutOff 20 ng/ml [facility] Midazolam, ur Confirmed Positive(A) CutOff 100 ng/mL [facility] Nordiazepam, ur Does Not Confirm CutOff 20 ng/ml [facility] Oxazepam, ur Does Not Confirm CutOff 20 ng/ml [facility] Temazepam, ur Does Not Confirm CutOff 20 ng/ml [facility] Comment: Interpretive Data This test is performed by liquid chromatography tandem mass spectrometry and detects both free and conjugated drug metabolites. Questions concerning interpretation should be directed to the laboratory. The results of this test are intended for clinical use. This test was developed and its performance characteristics determined by [facility]. It has not been cleared or approved by the U.S. Food and Drug Administration. Urine 07/27/2025 10:1 6 AM TOUR PRODUCTION SUPERVISOR 07/27/2025 10:32 AM TOUR PRODUCTION SUPERVISOR us Fuad Bello MD LAB URINE ORDERABLES Final Re sult [facility] [place] [address] * (ABNORMAL) Drugs of Abuse Screen, Urine with Reflex Confirmation (07/27/2025 10:16 AM TOUR PRODUCTION SUPERVISOR) Amphetamine, ur Screen Positive, presumptive (A) CutOff 500ng/mL Comment: Interpretive Data - Amphetamines: Samples containing greater than 500 ng/mL d-methamphetamine or other cross-reacting amphetamine compounds are reported as positive. Amphetamine immunoassays are subject to significant false positive rates due to cross-reactivity of non-amphetamine drugs. Confirmatory testing required for definitive results. Current Interpretive Data was last reviewed 2023. Barbiturates, ur Not Detected CutOff 200ng/mL [facility] Comment: Interpretive Data - Barbiturates: Samples containing greater than 200 ng/mL secobarbital or other cross-reacting barbiturate compounds are reported as positive. False positive and false negative results are possible. Confirmatory testing required for definitive results. Current Interpretive Data was last reviewed 2023. Benzodiazepines, ur Screen Positive, presumptive (A) CutOff 100ng/mL [facility] Comment: Interpretive Data - Benzodiazepines: Samples containing greater than 100 ng/mL nordiazepam or other cross-reacting compounds are reported as positive. False positive and false negative results are possible. Confirmatory testing required for definitive results. Current Interpretive Data was last reviewed 2023. Cannabinoids, ur Screen Positive, presumptive (A) CutOff 50 ng/mL [facility] Comment: Interpretive Data - Cannabinoids: Samples containing greater than 50 ng/mL delta-9 THC -COOH or other cross- reacting compounds are reported as positive. False positive and false negative results are possible. Confirmatory testing required for definitive results. Current Interpretive Data was last reviewed 2023. Cocaine, ur Not Detected CutOff 150ng/mL [facility] Comment: Interpretive Data - Cocaine: Samples containing greater than 150 ng/mL benzoylecgonine or other cross- reacting compounds are reported as positive. False positive and false negative results are possible. Confirmatory testing required for definitive results. Current Interpretive Data was last reviewed 2023. Fentanyl, Ur Screen Positive, presumptive (A) CutOff 5 ng/mL [facility] Comment: Interpretive Data - Fentanyl: Samples containing greater than 5 ng/mL norfentanyl, fentanyl, or other cross-reacting fentanyl compounds are reported as positive. False positive and false negative results are possible. Confirmatory testing required for definitive results. Current Interpretive Data was last reviewed 2023. Methadone, ur Not Detected CutOff 300ng/mL [facility] Comment: Interpretive Data - Methadone: Samples containing greater than 300 ng/mL d,l-methadone or other cross-reacting compounds are reported as positive. False positive and false negative results are possible. Confirmatory testing required for definitive results. Current Interpretive Data was last reviewed 2023. Opiates, ur Screen Positive, presumptive (A) CutOff 300ng/mL [facility] Comment: Interpretive Data - Opiates: Samples containing greater than 300 ng/mL morphine or other cross-reacting compounds are reported as positive. False positive and false negative results are possible. Confirmatory testing required for definitive results. Current Interpretive Data was last reviewed 2023. Oxycodone, ur Not Detected CutOff 100ng/mL [facility] Comment: Interpretive Data - Oxycodone: Samples containing greater than 100 ng/mL oxycodone or other cross-reacting compounds are reported as positive. False positive and false negative results are possible. Confirmatory testing required for definitive results. Current Interpretive Data was last reviewed 2023. Phencyclidine, ur Not Detected CutOff 25 ng/mL [facility] Comment: Interpretive Data - Phencyclidine: Samples containing greater than 25 ng/mL phencyclidine or other cross-reacting compounds are reported as positive. False positive and false negative results are possible. Confirmatory testing required for definitive results. Current Interpretive Data was last reviewed 2023. Urine Creatinine 201 mg/dL [facility] Comment: Interpretive Data Urine Creatinine: < 10 mg/dL is extremely dilute = or > 10 but < 20 mg/dL is dilute = or > 20 mg/dL is normal Current Interpretive Data was last revised on 2017. Urine 07/27/2025 10:1 6 AM TOUR PRODUCTION SUPERVISOR 07/27/2025 10:32 AM TOUR PRODUCTION SUPERVISOR Narrative [facility] - 07/27/2025 11:01 AM TOUR PRODUCTION SUPERVISOR Drug Screening is performed by immunoassay for medical purposes. If positive, confirmation testing will be performed for amphetamines, benzodiazepines, cocaine, fentanyl, methadone, opiates, oxycodone, and phencyclidine. us Fuad Bello MD LAB URINE ORDERABLES Final Re sult [facility] Department [place] [address] * TRANSTHORACIC ECHO (TTE) COMPLETE W DOPPLER/CF W CONTRAST (07/27/2025 10:10 AM TOUR PRODUCTION SUPERVISOR) EF Mod BP 65 % CONS SCIMAGE Anatomical Region Laterality Modality Ultrasound 07/27/2025 8:59 AM TOUR PRODUCTION SUPERVISOR Narrative 07/27/2025 1:24 PM TOUR PRODUCTION SUPERVISOR [facility] [place] [place] [address] Transthoracic Echocardiographic Report Patient Name: PRAVEEN HAYDEN M : 1970 (55y 3m) Sex: M Study Date: 07/27/2025 08:59:56 AM Ht(Inch): 68 Wt(Lb): 164.9 BSA: 1.88 Crusher: Kristin Schilling RDCS Location: [id number] Order Provider: FUAD BELLO Heart Rate: 93 BMI: 25.07 Ref Provider: FUAD BELLO PROCEDURES: Echocardiographic Report: Transthoracic complete echo with strain imaging and contrast, 2D, spectral and tissue Doppler, color flow Doppler, M-mode. Contrast: Contrast Enhancement was Employed: After initial imaging due to sub- optimal quality related to co-morbidity defined by patient's body habitus and due to suboptimal image quality with inadequate visualization of at least 2 of 16 LV wall segments in any view after initial imaging. Perflutren contrast was administered using the volume necessary to obtain adequate images. 1.1 ml Optison Administered, (1.9 ml wasted). INDICATIONS: S/P CATH. CONCLUSIONS: 1. The left ventricle cavity is small based on volume index. Concentric LV remodeling. Normal left ventricular systolic function. The Ejection Fraction (Swain's) is measured at 65 %. Grade II diastolic dysfunction (elevated mean LA pressure). 2. Normal right ventricular size. 3. There is no significant valvular heart disease. 4. Normal pericardium without pericardial effusion. 5. Normal aortic root. 6. Inferior vena cava without respiratory collapse, however, patient on ventilator. 7. Unable to determine PASP due to inadequate TR jet. ATTESTATION: I have personally reviewed and interpreted this study without fellow or resident. DISCLAIMER: The study images and the final report will be retained in the patient chart by the Echo Laboratory for the legally required time period. This chart constitutes the legal record of any testing performed. FINDINGS: Left Ventricle: The left ventricle cavity is small based on volume index. Concentric LV remodeling. Normal left ventricular systolic function. The Ejection Fraction (Swain's) is measured at 65 %. Grade II diastolic dysfunction (elevated mean LA pressure). Right Ventricle: Normal right ventricular size. Left Atrium: The left atrium is normal in size. Right Atrium: The right atrium is normal in size. Mitral Valve: Normal mitral valve structure. No mitral regurgitation. No stenosis present. Aortic Valve: Normal trileaflet aortic valve. No aortic regurgitation. No aortic valve stenosis. The mean transaortic gradient is 4 mmHg. The aortic valve area by the continuity equation (using VTI) is 3.1 cm2. Aortic valve dimensionless index is 1.00. Tricuspid Valve: Normal tricuspid valve structure. No tricuspid regurgitation. No tricuspid valve stenosis. Pulmonic Valve: Normal pulmonic valve structure. No pulmonic regurgitation. No pulmonic valve stenosis present. Pericardium: Normal pericardium without pericardial effusion. Aorta: Normal aortic root. IVC: Inferior vena cava without respiratory collapse, however, patient on ventilator. PASP: Unable to determine PASP due to inadequate TR jet. MEASUREMENTS: 2D/MM Value Range Doppler Value Range LVIDd 2D 3.5 cm [ 4.2 - 5.8 ] AV Peak Martinez 1.2 m/s [ 1.0 - 1.7 ] LVIDs 2D 2.5 cm [ 2.5 - 4.0 ] AV Peak PG 6 mmHg IVSd 2D 1.4 cm [ 0.6 - 1.0 ] AV Mean PG 4 mmHg LVPWd 2D 1.4 cm [ 0.6 - 1.0 ] AV VTI 14 cm LV Thickness Ratio 1.0 LVOT Peak Martinez 1.0 m/s [ 0.7 - 1.1 ] LV FS 2D 28.89 % [ 25.00 - 43.00 ] LVOT Peak PG 4 mmHg LV Mass 2D 174.34 g LVOT Mean PG 2 mmHg LV Mass Index 2D 92.59 g/m2 LVOT VTI 14 cm RWT 0.80 LVOT Diam 2.0 cm EDV Mod BP 61 ml [ 62 - 150 ] RACQUEL VTI 3.1 cm2 LV EDV Index 32 ml/m2 LVOT/AV VTI 1.00 - Dimensionless index (DVI) ESV Mod BP 22 ml [ 21 - 61 ] MV E Peak Martinez 0.91 m/s [ 0.60 - 1.30 ] EF Mod BP 65 % [ 52 - 72 ] MV A Peak Martinez 0.79 m/s [ 1.00 - 1.20 ] LA Length 4C 5.1 cm MV E/A 1.2 ratio [ 0.8 - 1.5 ] RV Base Dimen 2D 3.5 cm [ 2.5 - 4.2 ] MV Decel [place] 470 IVC Diam 1.9 cm MV Decel Time 195 msec [ 104 - 258 ] AoR Diam 2D 3.5 cm [ 3.1 - 3.7 ] PV Peak Martinez 0.9 m/s [ 0.4 - 0.8 ] Ao Root Index 1.9 cm/m2 [ 1.0 - 2.0 ] PV Peak PG 3 mmHg Asc Ao Diam 2D 3.6 cm Asc Ao Index 1.9 cm/m2 Electronically Signed By: Deejay Alicia MD 07/27/2025 1:23:54 PM TOUR PRODUCTION SUPERVISOR Procedure Note Deejay Alicia MD - 07/27/2025 [facility] Cardiac [place] [address] Transthoracic Echocardiographic Report Patient Name: PRAVEEN HAYDEN M : 1970 (55y 3m) Sex: M Study Date: 07/27/2025 08:59:56 AM Ht(Inch): 68 Wt(Lb): 164.9 BSA: 1.88 Crusher: Kristin Schilling RDCS Location: [id number] Order Provider:FUAD BELLO Heart Rate: 93 BMI: 25.07 Ref Provider: FUAD BELLO PROCEDURES: Echocardiographic Report: Transthoracic complete echo with strain imagingand contrast, 2D, spectral and tissue Doppler, color flow Doppler, M-mode. Contrast: Contrast Enhancement was Employed: After initial imaging due tosub- optimal quality related to co-morbidity defined by patient's body habitus and dueto suboptimal image quality with inadequate visualization of at least 2 of 16 LV wallsegments in any view after initial imaging. Perflutren contrast was administered using thevolume necessary to obtain adequate images. 1.1 ml Optison Administered, (1.9 mlwasted). INDICATIONS: S/P CATH. CONCLUSIONS: 1. The left ventricle cavity is small based on volume index. Concentric LVremodeling. Normal left ventricular systolic function. The Ejection Fraction(Swain's) is measured at 65 %. Grade II diastolic dysfunction (elevated mean LA pressure). 2. Normal right ventricular size. 3. There is no significant valvular heart disease. 4. Normal pericardium without pericardial effusion. 5. Normal aortic root. 6. Inferior vena cava without respiratory collapse, however, patient onventilator. 7. Unable to determine PASP due to inadequate TR jet. ATTESTATION: I have personally reviewed and interpreted this study without fellow orresident. DISCLAIMER: The study images and the final report will be retained in the patientchart by the Echo Laboratory for the legally required time period. This chart constitutesthe legal record of any testing performed. FINDINGS: Left Ventricle: The left ventricle cavity is small based on volume index.Concentric LV remodeling. Normal left ventricular systolic function. The EjectionFraction (Swain's) is measured at 65 %. Grade II diastolic dysfunction (elevated mean LApressure). Right Ventricle: Normal right ventricular size. Left Atrium: The left atrium is normal in size. Right Atrium: The right atrium is normal in size. Mitral Valve: Normal mitral valve structure. No mitral regurgitation. Nostenosis present. Aortic Valve: Normal trileaflet aortic valve. No aortic regurgitation. Noaortic valve stenosis. The mean transaortic gradient is 4 mmHg. The aortic valve areaby the continuity equation (using VTI) is 3.1 cm2. Aortic valve dimensionlessindex is 1.00. Tricuspid Valve: Normal tricuspid valve structure. No tricuspidregurgitation. No tricuspid valve stenosis. Pulmonic Valve: Normal pulmonic valve structure. No pulmonicregurgitation. No pulmonic valve stenosis present. Pericardium: Normal pericardium without pericardial effusion. Aorta: Normal aortic root. IVC: Inferior vena cava without respiratory collapse, however, patient onventilator. PASP: Unable to determine PASP due to inadequate TR jet. MEASUREMENTS: 2D/MM Value Range DopplerValue Range LVIDd 2D 3.5 cm [ 4.2 - 5.8 ] AV Peak Vel1.2 m/s [ 1.0 - 1.7 ] LVIDs 2D 2.5 cm [ 2.5 - 4.0 ] AV Peak PG6 mmHg IVSd 2D 1.4 cm [ 0.6 - 1.0 ] AV Mean PG4 mmHg LVPWd 2D 1.4 cm [ 0.6 - 1.0 ] AV VTI14 cm LV Thickness Ratio 1.0 LVOT Peak Vel1.0 m/s [ 0.7 - 1.1 ] LV FS 2D 28.89 % [ 25.00 - 43.00 ] LVOT Peak PG4 mmHg LV Mass 2D 174.34 g LVOT Mean PG2 mmHg LV Mass Index 2D 92.59 g/m2 LVOT VTI14 cm RWT 0.80 LVOT Diam2.0 cm EDV Mod BP 61 ml [ 62 - 150 ] RACQUEL VTI3.1 cm2 LV EDV Index 32 ml/m2 LVOT/AV VTI1.00 - Dimensionless index (DVI) ESV Mod BP 22 ml [ 21 - 61 ] MV E Peak Vel0.91 m/s [ 0.60 - 1.30 ] EF Mod BP 65 % [ 52 - 72 ] MV A Peak Vel0.79 m/s [ 1.00 - 1.20 ] LA Length 4C 5.1 cm MV E/A1.2 ratio [ 0.8 - 1.5 ] RV Base Dimen 2D 3.5 cm [ 2.5 - 4.2 ] MV Decel [id number] IVC Diam 1.9 cm MV Decel [id number] msec [ 104 - 258 ] AoR Diam 2D 3.5 cm [ 3.1 - 3.7 ] PV Peak Vel0.9 m/s [ 0.4 - 0.8 ] Ao Root Index 1.9 cm/m2 [ 1.0 - 2.0 ] PV Peak PG3 mmHg Asc Ao Diam 2D3.6 cm Asc Ao Index1.9 cm/m2 Electronically Signed By: Deejay Alicia MD 07/27/2025 1:23:54 PM TOUR PRODUCTION SUPERVISOR Fuad Bello MD CV ECHO PROCEDURES Final Resu lt * XR Abdomen Ap 1 Vw (07/27/2025 8:51 AM TOUR PRODUCTION SUPERVISOR) Anatomical Region Laterality Modality Body, Abdomen N/A Digital Radiogra phy 07/27/2025 9:24 AM TOUR PRODUCTION SUPERVISOR Impressions 07/27/2025 9:24 AM TOUR PRODUCTION SUPERVISOR Intra-aortic balloon pump with proximal radiopaque marker overlying the L2 vertebral body and the distal radiopaque marker additional 8 mm below the superior aspect of the aortic knob. An endotracheal tube is approximately 5 centimeters above the frieda. Right internal jugular central venous catheter tip overlies the distal superior vena cava. Contrast material within the renal collecting system. Vicarious excretion of contrast within the gallbladder. Dictated by: Elgin Rubin M.D. The radiology attending physician has personally reviewed this study, and had reviewed and/or edited this written report and agrees with it. Electronically signed by: Yenni Nelson M.D. Narrative 07/27/2025 9:24 AM TOUR PRODUCTION SUPERVISOR EXAMINATION: Abdomen, one view. HISTORY: Evaluate balloon pump position. COMPARISON: None Procedure Note Yenni Nelson MD - 07/27/2025 EXAMINATION: Abdomen, one view. HISTORY: Evaluate balloon pump position. COMPARISON: None IMPRESSION: Intra-aortic balloon pump with proximal radiopaque marker overlying the L2 vertebral body and the distal radiopaque marker additional 8 mm below the superior aspect of the aortic knob. An endotracheal tube is approximately 5 centimeters above the frieda. Right internal jugular central venous catheter tip overlies the distal superior vena cava. Contrast material within the renal collecting system. Vicarious excretion of contrast within the gallbladder. Dictated by: Elgin Rubin M.D. The radiology attending physician has personally reviewed this study, and had reviewed and/or edited this written report and agrees with it. Electronically signed by: Yenni Nelson M.D. us Fuad Bello MD IMG XR PROCEDURES Final Resul t * Infection Prevention Kareem auris PCR, surveillance Axilla/Groin (07/27/2025 8:26 AM TOUR PRODUCTION SUPERVISOR) Kareem auris DNA Not Detected Not Detected [facility] Comment: Interpretive Data Testing performed by [facility] Molecular Infectious Disease Laboratory using the Glenn pasquale 6800 Kareem auris assay. This assay detects DNA from Kareem auris using Real-Time PCR. This assay is laboratory developed and is not cleared by the [facility] Food and Drug Administration. The performance characteristics have been verified by the [facility] Molecular Infectious Disease Laboratory. Axilla/Groin 07/27/2025 8:26 AM TOUR PRODUCTION SUPERVISOR 07/27/2025 8:45 AM TOUR PRODUCTION SUPERVISOR Narrative JAYY [facility] - 07/27/2025 1:09 PM TOUR PRODUCTION SUPERVISOR Order placed by [facility] due to ring surveillance. us Instant Order Generic Provider LAB MICROBIOLOGY - GENERAL ORDERABLES Final Result Performing Organization Address City/[facility]/ZIP Co de Phone Number [facility] Department [place] [address] [facility] * (ABNORMAL) Troponin I high-sensitivity (07/27/2025 8:26 AM TOUR PRODUCTION SUPERVISOR) Pathologist [facility] Trop I hs 166,960(C ) <=35 ng/L Comment: Previous critical value noted within 48 hours ago. Interpretive Data For further hscTnI resources including the diagnostic algorithm and an aid in interpretation, copy and paste this link: https://bjhlab.testcatalog.org/show/hsTrop-[email or web address] Current Interpretive Data last revised 2020. Blood 07/27/2025 8:26 AM TOUR PRODUCTION SUPERVISOR 07/27/2025 8:42 AM TOUR PRODUCTION SUPERVISOR us Fuad Bello MD LAB BLOOD ORDERABLES Final Re sult [facility] Department [place] [address] * Lactate, whole blood (07/27/2025 8:26 AM TOUR PRODUCTION SUPERVISOR) Pathologist [facility] Lactate, bld 1.2 0.7 - 2.0 mmol/L Blood 07/27/2025 8:26 AM TOUR PRODUCTION SUPERVISOR 07/27/2025 8:38 AM TOUR PRODUCTION SUPERVISOR Fuad Bello MD LAB BLOOD ORDERABLES Final Re sult Performing Organization Address [facility] de Phone Number [facility] Department [place] [address] * (ABNORMAL) Blood gas, arterial (07/27/2025 8:26 AM TOUR PRODUCTION SUPERVISOR) [facility] pH, Art 7.37 7.35 - 7.45 PCO2, Arterial 39 35 - 45 mmHg [facility] PO2, Arterial 124(H) 83 - 108 mmHg [facility] HCO3 Art (Calculated) 22 20 - 30 mmol/L [facility] BE, art -2 mmol/L [facility] Comment: Interpretive Data No Reference Range Established Current Interpretive Data was last revised on 2017 O2 Sat Art (Measured) 99(H) 90 - 95 % [facility] Blood 07/27/2025 8:26 AM TOUR PRODUCTION SUPERVISOR 07/27/2025 8:38 AM TOUR PRODUCTION SUPERVISOR Fuad Bello MD LAB BLOOD ORDERABLES Final Re sult Performing Organization Address [facility] Co de Phone Number [facility] Department [place] [address] * (ABNORMAL) Troponin I high-sensitivity (07/27/2025 6:35 AM TOUR PRODUCTION SUPERVISOR) Pathologist [facility] Trop I hs 164,280(C ) <=35 ng/L Comment: Previous critical value noted within 48 hours ago. Repeated on dilution. Interpretive Data For further hscTnI resources including the diagnostic algorithm and an aid in interpretation, copy and paste this link: https://bjhlab.testcatalog.org/show/hsTrop-[email or web address] Current Interpretive Data last revised 2020. Blood 07/27/2025 6:35 AM TOUR PRODUCTION SUPERVISOR 07/27/2025 6:41 AM TOUR PRODUCTION SUPERVISOR us Fuad Bello MD LAB BLOOD ORDERABLES Final Re sult JAYY [facility] Department [place] [address] * XR Chest 1 View (07/27/2025 4:59 AM TOUR PRODUCTION SUPERVISOR) Anatomical Region Laterality Modality Body, Chest N/A Digital Radiogra phy 07/27/2025 10:1 0 AM TOUR PRODUCTION SUPERVISOR Impressions 07/27/2025 12:26 PM TOUR PRODUCTION SUPERVISOR First exam 07/26/2025 9:42 PM: Comparison made with 07/26/2025 3:05 PM. Endotracheal tube tip at 5.3 cm above frieda. An intra-aortic balloon pump is in place, tip is approximately 1.4 centimeters inferior to the top of the aortic knob. Right central venous catheter tip at the superior vena cava. The cardiomediastinal silhouette is stable from prior. Increased right upper lobe atelectasis versus mild pulmonary edema. No pleural effusion. No pneumothorax. Second exam 07/27/2025 4:58 AM: Endotracheal tube tip at 4.8 cm above frieda. Otherwise no significant interval change. Dictated by: Zach Cleary M.D. The radiology attending physician has personally reviewed this study, and had reviewed and/or edited this written report and agrees with it. Electronically signed by: Stanley Colby M.D. Narrative 07/27/2025 12:26 PM TOUR PRODUCTION SUPERVISOR Examination: 2 portable chests Chest one view portable Chest one view portable Procedure Note Stanley Colby MD - 07/27/2025 Examination: 2 portable chests Chest one view portable Chest one view portable IMPRESSION: First exam 07/26/2025 9:42 PM: Comparison made with 07/26/2025 3:05 PM. Endotracheal tube tip at 5.3 cm above frieda. An intra-aortic balloon pump is in place, tip is approximately 1.4 centimeters inferior to the top of the aortic knob. Right central venous catheter tip at the superior vena cava. The cardiomediastinal silhouette is stable from prior. Increased right upper lobe atelectasis versus mild pulmonary edema. No pleural effusion. No pneumothorax. Second exam 07/27/2025 4:58 AM: Endotracheal tube tip at 4.8 cm above frieda. Otherwise no significant interval change. Dictated by: Zach Cleary M.D. The radiology attending physician has personally reviewed this study, and had reviewed and/or edited this written report and agrees with it. Electronically signed by: Stanley Colby M.D. us Fuad Bello MD IMG XR PROCEDURES Final Resul t * eGFR (07/27/2025 3:58 AM TOUR PRODUCTION SUPERVISOR) eGFR 61 >=60 mL/min/1. 73 m2 Comment: Interpretive Data Reference Interval Normal >/= 90 mL/min/1.73m2 Mildly decreased* 60 - 89 mL/min/1.73m2 Mildly to moderately decreased 45 - 59 mL/min/1.73m2 Moderately to severely decreased 30 - 44 mL/min/1.73m2 Severely decreased 15 - 29 mL/min/1.73m2 Kidney Failure < 15 mL/min/1.73m2 *Relative to young adult level Estimated glomerular filtration rate is determined by the 2020 CKD-EPI equation recommended by the National Kidney Foundation (A Unifying Approach to GFR Estimation: Recommendations of the NKF-ASK Task Force on Reassessing the Inclusion of Race in Diagnosing Kidney Disease, JASN 202). The CKD-EPI equation should not be used for patients with unstable renal function and has not been validated in children and those over 70. Current interpretive data was last reviewed 2021. Blood 07/27/2025 3:58 AM TOUR PRODUCTION SUPERVISOR 07/27/2025 4:24 AM TOUR PRODUCTION SUPERVISOR us Fuad Bello MD LAB BLOOD ORDERABLES Final Re sult [facility] Department [place] [address] * Hemoglobin, plasma (07/27/2025 3:58 AM TOUR PRODUCTION SUPERVISOR) [facility] Hemoglobin, Plasma 40 <=50 mg/dL Blood 07/27/2025 3:58 AM TOUR PRODUCTION SUPERVISOR 07/27/2025 4:17 AM TOUR PRODUCTION SUPERVISOR Fuad Bello MD LAB BLOOD ORDERABLES Final Re sult Performing Organization Address [facility] Co de Phone Number [facility] Department [place] [address] * Magnesium (07/27/2025 3:58 AM TOUR PRODUCTION SUPERVISOR) [facility] Magnesium 1.7 1.4 - 2.5 mg/dL Blood 07/27/2025 3:58 AM TOUR PRODUCTION SUPERVISOR 07/27/2025 4:24 AM TOUR PRODUCTION SUPERVISOR Fuad Bello MD LAB BLOOD ORDERABLES Final Re sult Performing Organization Address [facility] de Phone Number [facility] Department [place] [address] * (ABNORMAL) Basic metabolic panel (07/27/2025 3:58 AM TOUR PRODUCTION SUPERVISOR) [facility] Sodium 139 135 - 145 mmol/L Potassium, pl 4.1 3.3 - 4.9 mmol/L [facility] Chloride 108 97 - 110 mmol/L [facility] CO2 21(L) 22 - 32 mmol/L [facility] Anion gap 10 2 - 15 mmol/L [facility] BUN 25 6 - 25 mg/dL [facility] Creatinine 1.36(H) 0.80 - 1.30 mg/dL [facility] Glucose 107 70 - 199 mg/dL [facility] Comment: Interpretive Data Fasting glucose >/= 126 mg/dl is diagnostic for diabetes. Fasting is defined as no caloric intake for at least 8 hours. Fasting glucose between 100 mg/dl to 125 mg/dl is diagnostic of prediabetes. In a patient with classic symptoms of hyperglycemia or hyperglycemic crisis, a random glucose >/= 200 mg/dl is diagnostic for diabetes. In the absence of unequivocal hyperglycemia, results should be confirmed by repeat testing. The classification and Diagnosis of Diabetes Diabetes Care 2021; 46: S19-S40. Current interpretive data was last revised 2022. Calcium 7.9(L) 8.5 - 10.3 mg/dL [facility] Blood 07/27/2025 3:58 AM TOUR PRODUCTION SUPERVISOR 07/27/2025 4:24 AM TOUR PRODUCTION SUPERVISOR us Fuad Bello MD LAB BLOOD ORDERABLES Final Re sult Performing Organization Address City/[facility]/ZIP Co de Phone Number [facility] Department [place] [address] * (ABNORMAL) CBC without differential (07/27/2025 3:58 AM TOUR PRODUCTION SUPERVISOR) WBC 15.45(H) 3.80 - 9.90 K/cumm Hgb 9.7(L) 13.0 - 17.5 g/dL [facility] Hct 29.7(L) 38.9 - 50.3 % [facility] Plt 302 150 - 400 K/cumm [facility] MPV 9.8 9.1 - 12.3 fL [facility] RBC 3.21(L) 4.30 - 5.80 M/cumm [facility] MCV 92.5 81.3 - 96.4 fL [facility] MCH 30.2 27.1 - 33.3 pg [facility] MCHC 32.7 32.3 - 35.7 g/dL [facility] RDW CV 13.0 11.1 - 14.9 % [facility] RDW SD 44.0 35.7 - 48.1 fL [facility] NRBC abs 0.00 0.00 - 0.01 K/cumm [facility] Blood 07/27/2025 3:58 AM TOUR PRODUCTION SUPERVISOR 07/27/2025 4:24 AM TOUR PRODUCTION SUPERVISOR us Fuad Bello MD LAB BLOOD ORDERABLES Final Re sult Performing Organization Address City/[facility]/ZIP Co de Phone Number [facility] [place] [address] * (ABNORMAL) Troponin I high-sensitivity 6-hour (07/27/2025 3:58 AM TOUR PRODUCTION SUPERVISOR) Trop I hs 175,040(C ) <=35 ng/L Comment: Previous critical value noted within 48 hours ago. Repeated on dilution. Interpretive Data For further hscTnI resources including the diagnostic algorithm and an aid in interpretation, copy and paste this link: https://bjhlab.testcatalog.org/show/hsTrop-1 Current Interpretive Data last revised 2020. Trop I hs pct delta -95(C) % [facility] Trop I hs interp Significa nt(C) [facility] Blood 07/27/2025 3:58 AM TOUR PRODUCTION SUPERVISOR 07/27/2025 4:17 AM TOUR PRODUCTION SUPERVISOR us Fuad Bello MD LAB BLOOD ORDERABLES Final Re sult Performing Organization Address [facility] de Phone Number [facility] Department [place] [address] * (ABNORMAL) Blood gas, arterial (07/27/2025 3:58 AM TOUR PRODUCTION SUPERVISOR) pH, Art 7.43 7.35 - 7.45 PCO2, Arterial 34(L) 35 - 45 mmHg [facility] PO2, Arterial 105 83 - 108 mmHg [facility] HCO3 Art (Calculated) 22 20 - 30 mmol/L [facility] BE, art -1 mmol/L [facility] Comment: Interpretive Data No Reference Range Established Current Interpretive Data was last revised on 2017 O2 Sat Art (Measured) 98(H) 90 - 95 % [facility] Blood 07/27/2025 3:58 AM TOUR PRODUCTION SUPERVISOR 07/27/2025 4:14 AM TOUR PRODUCTION SUPERVISOR us Fuad Bello MD LAB BLOOD ORDERABLES Final Re sult Performing Organization Address [facility]/ZIP Co de Phone Number [facility] [place] [address] * Phosphorus (07/27/2025 3:58 AM TOUR PRODUCTION SUPERVISOR) Pathologist [facility] Phosphorus, pl 2.3 2.3 - 4.5 mg/dL Blood 07/27/2025 3:58 AM TOUR PRODUCTION SUPERVISOR 07/27/2025 4:24 AM TOUR PRODUCTION SUPERVISOR Fuad Bello MD LAB BLOOD ORDERABLES Final Re sult Performing Organization Address [facility] [place] [address] * Lactate, whole blood (07/27/2025 3:58 AM TOUR PRODUCTION SUPERVISOR) [facility] Lactate, bld 0.9 0.7 - 2.0 mmol/L Blood 07/27/2025 3:58 AM TOUR PRODUCTION SUPERVISOR 07/27/2025 4:14 AM TOUR PRODUCTION SUPERVISOR Fuad Bello MD LAB BLOOD ORDERABLES Final Re sult Performing Organization Address [facility] de Phone Number [facility] [place] [address] * Oxyhemoglobin, central venous (07/27/2025 3:58 AM TOUR PRODUCTION SUPERVISOR) [facility] Oxyhemoglobin, CV 60.0 % Comment: Interpretive Data No reference range established. Current interpretive data was last revised 2019. Blood 07/27/2025 3:58 AM TOUR PRODUCTION SUPERVISOR 07/27/2025 4:14 AM TOUR PRODUCTION SUPERVISOR Fuad Bello MD LAB BLOOD ORDERABLES Final Re sult Performing Organization Address [facility] Co de Phone Number [facility] [employer] [place], [place] [id number] * (ABNORMAL) Hepatic function panel (07/27/2025 3:58 AM TOUR PRODUCTION SUPERVISOR) Bilirubin, total 0.6 0.1 - 1.2 mg/dL Bilirubin, direct 0.2 0.1 - 0.3 mg/dL [facility] Protein, pl 5.1(L) 6.5 - 8.5 g/dL [facility] Albumin 2.8(L) 3.5 - 5.0 g/dL [facility] Alk phos 93 40 - 130 Units/L [facility] ALT 67(H) 7 - 55 Units/L [facility] AST 578(H) 10 - 50 Units/L [facility] Blood 07/27/2025 3:58 AM TOUR PRODUCTION SUPERVISOR 07/27/2025 4:24 AM TOUR PRODUCTION SUPERVISOR us Fuad Bello MD LAB BLOOD ORDERABLES Final Re sult Performing Organization Address [facility] de Phone Number [facility] [employer] [place] [address] * (ABNORMAL) Protime-INR (07/27/2025 3:58 AM TOUR PRODUCTION SUPERVISOR) Pathologist [facility] PT 13.7(H) 10.2 - 13.5 sec INR 1.22(H) 0.90 - 1.20 [facility] Comment: Interpretive data Oral anticoagulant therapeutic ranges: Venous thromboembolism prophylaxis or treatment: 2.0-3.0 CARDIOLOGY Standard range: 2.0-3.0 High-intensity range: 2.5-3.5 Refer to indication-specific guidelines for appropriate target ranges for prosthetic heart valve replacement. Current interpretive data was last revised on 2019. Blood 07/27/2025 3:58 AM TOUR PRODUCTION SUPERVISOR 07/27/2025 4:27 AM TOUR PRODUCTION SUPERVISOR Fuad Bello MD LAB BLOOD ORDERABLES Final Re sult Performing Organization Address [facility] Co de Phone Number [facility] [place] [employer] [place] [address] * aPTT (07/27/2025 3:58 AM TOUR PRODUCTION SUPERVISOR) Pathologist [facility] aPTT 28 26 - 38 sec Comment: Interpretive Data Heparin therapeutic range: 66.0 - 100.0 seconds. Range based on correlation with therapeutic heparin activity range of 0.3 - 0.7 Units/mL. Blood 07/27/2025 3:58 AM TOUR PRODUCTION SUPERVISOR 07/27/2025 4:27 AM TOUR PRODUCTION SUPERVISOR Fuad Bello MD LAB BLOOD ORDERABLES Final Re sult Performing Organization Address [facility] de Phone Number [facility] [employer] [place], [place] [id number] * (ABNORMAL) Troponin I high-sensitivity 4-hour (07/27/2025 1:43 AM TOUR PRODUCTION SUPERVISOR) [facility] Trop I hs 99,160(C) <=35 ng/L Comment: Previous critical value noted within 48 hours ago. Interpretive Data For further hscTnI resources including the diagnostic algorithm and an aid in interpretation, copy and paste this link: [email or web address]/show/[email or web address] Current Interpretive Data last revised 2020. Trop I hs pct delta -41(C) % [facility] Comment:Previous critical va lue noted within 48 hours ago. Trop I hs interp Significa nt(C) [facility] Comment:Previous critical va lue noted within 48 hours ago. Blood 07/27/2025 1:43 AM TOUR PRODUCTION SUPERVISOR 07/27/2025 2:02 AM TOUR PRODUCTION SUPERVISOR Fuad Bello MD LAB BLOOD ORDERABLES Final Re sult Performing Organization Address [facility] de Phone Number JAYY [facility] [place] [employer] [place] [address] * Oxyhemoglobin, central venous (07/27/2025 12:15 AM TOUR PRODUCTION SUPERVISOR) [facility] Oxyhemoglobin, CV 68.9 % Comment: Interpretive Data No reference range established. Current interpretive data was last revised 2019. Blood 07/27/2025 12:1 5 AM TOUR PRODUCTION SUPERVISOR 07/27/2025 12:22 AM TOUR PRODUCTION SUPERVISOR Fuad Bello MD LAB BLOOD ORDERABLES Final Re sult Performing Organization Address [facility] Co de Phone Number [facility] [employer] [place] [address] * (ABNORMAL) Blood gas, arterial (07/27/2025 12:12 AM TOUR PRODUCTION SUPERVISOR) pH, Art 7.43 7.35 - 7.45 PCO2, Arterial 34(L) 35 - 45 mmHg [facility] PO2, Arterial 131(H) 83 - 108 mmHg [facility] HCO3 Art (Calculated) 22 20 - 30 mmol/L [facility] BE, art -1 mmol/L [facility] Comment: Interpretive Data No Reference Range Established Current Interpretive Data was last revised on 2017 O2 Sat Art (Measured) 99(H) 90 - 95 % [facility] Blood 07/27/2025 12:1 2 AM TOUR PRODUCTION SUPERVISOR 07/27/2025 12:22 AM TOUR PRODUCTION SUPERVISOR Fuad Bello MD LAB BLOOD ORDERABLES Final Re sult Performing Organization Address [facility] de Phone Number [facility] [employer] [place] [address] * Lactate, whole blood (07/27/2025 12:12 AM TOUR PRODUCTION SUPERVISOR) Lactate, bld 1.3 0.7 - 2.0 mmol/L Blood 07/27/2025 12:1 2 AM TOUR PRODUCTION SUPERVISOR 07/27/2025 12:22 AM TOUR PRODUCTION SUPERVISOR Fuad Bello MD LAB BLOOD ORDERABLES Final Re sult Performing Organization Address [facility] Co de Phone Number [facility] [place] [address] * ECG 12 lead (07/27/2025 12:05 AM TOUR PRODUCTION SUPERVISOR) Pathologist [facility] Ventricular Rate EKG/Min 86 BPM [facility] Atrial Rate 86 BPM [facility] IA-Interval (MSEC) 170 ms [facility] QRS-Interval (MSEC) 74 ms [facility] QT-Interval (MSEC) 392 ms [facility] QTc 469 ms [facility] P [place] 80 degrees [facility] R [place] -69 degrees [facility] T [place] 92 degrees [facility] Diagnosis Normal sinus rhythm Left axis deviation Inferior infarct (cited on or before 26-JUL-2025) Abnormal ECG Confirmed by Maral GREGORIO, [facility] ([id number]) on 07/27/2025 5:35:39 PM [facility] 07/27/2025 12:0 5 AM TOUR PRODUCTION SUPERVISOR 07/27/2025 5:35 PM TOUR PRODUCTION SUPERVISOR us Fuad Bello MD ECG ORDERABLES Final Result [facility] * (ABNORMAL) POC Blood Gas and Chemistries, Arterial - (07/26/2025 9:51 PM TOUR PRODUCTION SUPERVISOR) Pathologist [facility] pH, Art POC 7.47(H) 7.35 - 7.45 pCO2, Art POC 32(L) 35 - 45 mmHg [facility] pO2, Art POC 246(H) 83 - 108 mmHg [facility] Na, POC 139 135 - 145 mmol/L [facility] K POC 4.0 3.3 - 4.9 mmol/L [facility] Comment: Interpretive Data Not all point of care methods assess for hemolysis. Confirm with instrument and retest K+ if not consistent with clinical signs and symptoms. Current Interpretive Data was last revised on 2023. Cl, POC 112(H) 97 - 110 mmol/L [facility] Ionized Ca, POC 4.59 4.50 - 5.10 mg/dL [facility] Glucose, POC 125 70 - 199 mg/dL [facility] Lactate POC 1.3 0.7 - 2.0 mmol/L [facility] SO2 (daniela) arterial 100(H) 90 - 95 % [facility] Base excess, POC 0.2 mmol/L [facility] HCO3, Art POC 23 20 - 30 mmol/L [facility] Hct, POC 35.0(L) 41.4 - 51.6 % [facility] Total Hb, POC 11.5(L) 13.8 - 17.2 g/dL [facility] Blood 07/26/2025 9:51 PM TOUR PRODUCTION SUPERVISOR 07/26/2025 9:51 PM TOUR PRODUCTION SUPERVISOR us Fuad Bello MD LAB POCT ORDERABLES - DEVICE Final Result [facility] Department [place] [address] * XR Chest 1 View (07/26/2025 9:47 PM TOUR PRODUCTION SUPERVISOR) Anatomical Region Laterality Modality Body, Chest N/A Digital Radiogra phy 07/27/2025 10:1 0 AM TOUR PRODUCTION SUPERVISOR Impressions 07/27/2025 12:26 PM TOUR PRODUCTION SUPERVISOR First exam 07/26/2025 9:42 PM: Comparison made with 07/26/2025 3:05 PM. Endotracheal tube tip at 5.3 cm above frieda. An intra-aortic balloon pump is in place, tip is approximately 1.4 centimeters inferior to the top of the aortic knob. Right central venous catheter tip at the superior vena cava. The cardiomediastinal silhouette is stable from prior. Increased right upper lobe atelectasis versus mild pulmonary edema. No pleural effusion. No pneumothorax. Second exam 07/27/2025 4:58 AM: Endotracheal tube tip at 4.8 cm above frieda. Otherwise no significant interval change. Dictated by: Zach Cleary M.D. The radiology attending physician has personally reviewed this study, and had reviewed and/or edited this written report and agrees with it. Electronically signed by: Stanley Colby M.D. Narrative 07/27/2025 12:26 PM TOUR PRODUCTION SUPERVISOR Examination: 2 portable chests Chest one view portable Chest one view portable Procedure Note Stanley Colby MD - 07/27/2025 Examination: 2 portable chests Chest one view portable Chest one view portable IMPRESSION: First exam 07/26/2025 9:42 PM: Comparison made with 07/26/2025 3:05 PM. Endotracheal tube tip at 5.3 cm above frieda. An intra-aortic balloon pump is in place, tip is approximately 1.4 centimeters inferior to the top of the aortic knob. Right central venous catheter tip at the superior vena cava. The cardiomediastinal silhouette is stable from prior. Increased right upper lobe atelectasis versus mild pulmonary edema. No pleural effusion. No pneumothorax. Second exam 07/27/2025 4:58 AM: Endotracheal tube tip at 4.8 cm above frieda. Otherwise no significant interval change. Dictated by: Zach Cleary M.D. The radiology attending physician has personally reviewed this study, and had reviewed and/or edited this written report and agrees with it. Electronically signed by: Stanley Colby M.D. Fuad Bello MD IMG XR PROCEDURES Final Resul t * eGFR (07/26/2025 9:24 PM TOUR PRODUCTION SUPERVISOR) eGFR 67 >=60 mL/min/1. 73 m2 Comment: Interpretive Data Reference Interval Normal >/= 90 mL/min/1.73m2 Mildly decreased* 60 - 89 mL/min/1.73m2 Mildly to moderately decreased 45 - 59 mL/min/1.73m2 Moderately to severely decreased 30 - 44 mL/min/1.73m2 Severely decreased 15 - 29 mL/min/1.73m2 Kidney Failure < 15 mL/min/1.73m2 *Relative to young adult level Estimated glomerular filtration rate is determined by the 2020 CKD-EPI equation recommended by the National Kidney Foundation (A Unifying Approach to GFR Estimation: Recommendations of the NKF-ASK Task Force on Reassessing the Inclusion of Race in Diagnosing Kidney Disease, JASN 2020). The CKD-EPI equation should not be used for patients with unstable renal function and has not been validated in children and those over 70. Current interpretive data was last reviewed 2021. Blood 07/26/2025 9:24 PM TOUR PRODUCTION SUPERVISOR 07/26/2025 10:17 PM TOUR PRODUCTION SUPERVISOR Fuad Bello MD LAB BLOOD ORDERABLES Final Re sult Performing Organization Address [facility] Co de Phone Number [facility] [place] [address] * Magnesium (07/26/2025 9:24 PM TOUR PRODUCTION SUPERVISOR) Pathologist [facility] Magnesium 1.7 1.4 - 2.5 mg/dL Blood 07/26/2025 9:24 PM TOUR PRODUCTION SUPERVISOR 07/26/2025 9:56 PM TOUR PRODUCTION SUPERVISOR Fuad Bello MD LAB BLOOD ORDERABLES Final Re sult Performing Organization Address [facility] de Phone Number [facility] [place] [address] * Phosphorus (07/26/2025 9:24 PM TOUR PRODUCTION SUPERVISOR) [facility] Phosphorus, pl 3.1 2.3 - 4.5 mg/dL Blood 07/26/2025 9:24 PM TOUR PRODUCTION SUPERVISOR 07/26/2025 9:56 PM TOUR PRODUCTION SUPERVISOR Fuad Bello MD LAB BLOOD ORDERABLES Final Re sult Performing Organization Address [facility] [place] [address] * (ABNORMAL) Differential, auto (07/26/2025 9:24 PM TOUR PRODUCTION SUPERVISOR) [facility] Neutrophil abs 9.16(H) 1.50 - 6.50 K/cumm Imm gran abs 0.05 0.00 - 0.10 K/cumm [facility] Lymphocyte abs 2.06 0.80 - 3.30 K/cumm [facility] Monocyte abs 0.49 0.20 - 0.80 K/cumm [facility] Eosinophil abs 0.19 0.00 - 0.50 K/cumm [facility] Basophil abs 0.05 0.00 - 0.10 K/cumm [facility] Neutrophil pct 76.3 % [facility] Comment: Interpretive Data Percent cell count reference ranges are not reported, since discordance with absolute values may lead to misinterpretation of CBC data. Current Interpretive Data was last revised on 2017. Imm gran pct 0.4 % [facility] Comment: Interpretive Data Percent cell count reference ranges are not reported, since discordance with absolute values may lead to misinterpretation of CBC data. Current Interpretive Data was last revised on 2017. Lymphocyte pct 17.2 % [facility] Comment: Interpretive Data Percent cell count reference ranges are not reported, since discordance with absolute values may lead to misinterpretation of CBC data. Current Interpretive Data was last revised on 2017. Monocyte pct 4.1 % [facility] Comment: Interpretive Data Percent cell count reference ranges are not reported, since discordance with absolute values may lead to misinterpretation of CBC data. Current Interpretive Data was last revised on 2017. Eosinophil pct 1.6 % [facility] Comment: Interpretive Data Percent cell count reference ranges are not reported, since discordance with absolute values may lead to misinterpretation of CBC data. Current Interpretive Data was last revised on 2017. Basophil pct 0.4 % [facility] Comment: Interpretive Data Percent cell count reference ranges are not reported, since discordance with absolute values may lead to misinterpretation of CBC data. Current Interpretive Data was last revised on 2017. Blood 07/26/2025 9:24 PM TOUR PRODUCTION SUPERVISOR 07/26/2025 10:01 PM TOUR PRODUCTION SUPERVISOR us Fuad Bello MD LAB BLOOD ORDERABLES Final Re sult [facility] Department [place] [address] * Oxyhemoglobin, central venous (07/26/2025 9:24 PM TOUR PRODUCTION SUPERVISOR) Oxyhemoglobin, CV 47.1 % Comment: Interpretive Data No reference range established. Current interpretive data was last revised 2019. Blood 07/26/2025 9:24 PM TOUR PRODUCTION SUPERVISOR 07/26/2025 9:56 PM TOUR PRODUCTION SUPERVISOR Fuad Bello MD LAB BLOOD ORDERABLES Final Re sult Performing Organization Address City/[facility] Co de Phone Number [facility] Department [place] [address] * Lactate, whole blood (07/26/2025 9:24 PM TOUR PRODUCTION SUPERVISOR) [facility] Lactate, bld 1.3 0.7 - 2.0 mmol/L Blood 07/26/2025 9:24 PM TOUR PRODUCTION SUPERVISOR 07/26/2025 9:56 PM TOUR PRODUCTION SUPERVISOR Fuad Bello MD LAB BLOOD ORDERABLES Final Re sult Performing Organization Address [facility] de Phone Number [facility] [place] [address] * (ABNORMAL) Comprehensive metabolic panel (07/26/2025 9:24 PM TOUR PRODUCTION SUPERVISOR) [facility] Sodium 139 135 - 145 mmol/L Potassium, pl 4.0 3.3 - 4.9 mmol/L [facility] Chloride 107 97 - 110 mmol/L [facility] CO2 21(L) 22 - 32 mmol/L [facility] Anion gap 11 2 - 15 mmol/L [facility] BUN 23 6 - 25 mg/dL [facility] Creatinine 1.27 0.80 - 1.30 mg/dL [facility] Glucose 108 70 - 199 mg/dL [facility] Comment: Interpretive Data Fasting glucose >/= 126 mg/dl is diagnostic for diabetes. Fasting is defined as no caloric intake for at least 8 hours. Fasting glucose between 100 mg/dl to 125 mg/dl is diagnostic of prediabetes. In a patient with classic symptoms of hyperglycemia or hyperglycemic crisis, a random glucose >/= 200 mg/dl is diagnostic for diabetes. In the absence of unequivocal hyperglycemia, results should be confirmed by repeat testing. The classification and Diagnosis of Diabetes Diabetes Care 2021; 46: S19-S40. Current interpretive data was last revised 2022. Calcium 7.7(L) 8.5 - 10.3 mg/dL [facility] Bilirubin, total 0.6 0.1 - 1.2 mg/dL [facility] Protein, pl 4.8(L) 6.5 - 8.5 g/dL [facility] Albumin 2.7(L) 3.5 - 5.0 g/dL [facility] Alk phos 85 40 - 130 Units/L [facility] ALT 57(H) 7 - 55 Units/L [facility] AST 508(H) 10 - 50 Units/L [facility] Blood 07/26/2025 9:24 PM TOUR PRODUCTION SUPERVISOR 07/26/2025 9:56 PM TOUR PRODUCTION SUPERVISOR us Fuad Bello MD LAB BLOOD ORDERABLES Final Re sult [facility] Department [place] [address] * (ABNORMAL) CBC with auto differential (07/26/2025 9:24 PM TOUR PRODUCTION SUPERVISOR) WBC 12.00(H) 3.80 - 9.90 K/cumm Hgb 10.4(L) 13.0 - 17.5 g/dL [facility] Hct 31.3(L) 38.9 - 50.3 % [facility] Plt 273 150 - 400 K/cumm [facility] MPV 9.7 9.1 - 12.3 fL [facility] RBC 3.46(L) 4.30 - 5.80 M/cumm [facility] MCV 90.5 81.3 - 96.4 fL [facility] MCH 30.1 27.1 - 33.3 pg [facility] MCHC 33.2 32.3 - 35.7 g/dL [facility] RDW CV 12.8 11.1 - 14.9 % [facility] RDW SD 42.2 35.7 - 48.1 fL [facility] NRBC abs 0.00 0.00 - 0.01 K/cumm [facility] Blood 07/26/2025 9:24 PM TOUR PRODUCTION SUPERVISOR 07/26/2025 10:01 PM TOUR PRODUCTION SUPERVISOR us Fuad Bello MD LAB BLOOD ORDERABLES Final [facility] Performing Organization Address [facility] de Phone Number [facility] Department [place] [address] * (ABNORMAL) Troponin I high-sensitivity series (baseline, 2hr, 4hr, 6hr) (07/26/2025 9:24 PM TOUR PRODUCTION SUPERVISOR) Pathologist [facility] Trop I hs 169,040(C ) <=35 ng/L Comment: Previous critical value noted within 48 hours ago. Interpretive Data For further [facility] resources including the diagnostic algorithm and an aid in interpretation, copy and paste this link: [email or web address]/show/[email or web address] Current Interpretive Data last revised 2020. Blood 07/26/2025 9:24 PM TOUR PRODUCTION SUPERVISOR 07/26/2025 10:01 PM TOUR PRODUCTION SUPERVISOR us Fuad Bello MD LAB BLOOD ORDERABLES Final Re sult Performing Organization Address [facility] de Phone Number [facility] [place] [address] * ECG 12 lead (07/26/2025 9:11 PM TOUR PRODUCTION SUPERVISOR) Ventricular Rate EKG/Min 75 BPM [facility] Atrial Rate 75 BPM [facility] IA-Interval (MSEC) 178 ms [facility] QRS-Interval (MSEC) 78 ms [facility] QT-Interval (MSEC) 440 ms [facility] QTc 491 ms [facility] P [place] 85 degrees [facility] R [place] -63 degrees [facility] T [place] 92 degrees [facility] Diagnosis Normal sinus rhythm Left axis deviation Inferior infarct , age undetermined Abnormal ECG No previous ECGs available Confirmed by Deejay Alicia MD ([id number]) on 07/28/2025 9:49:01 AM [facility] [employer] 07/26/2025 9:11 PM TOUR PRODUCTION SUPERVISOR 07/28/2025 9:49 AM TOUR PRODUCTION SUPERVISOR us Fuad Bello MD ECG ORDERABLES Final Result [facility] [employer] [facility] * MILLICENT MAJOR CORONARY, CORONARY OCT, 1ST VESSEL, CORONARY OCT, EA ADD'I VESSEL, TRLUML BALO ANGIOP 1STARTERY S&I [id number] (07/26/2025 8:51 PM TOUR PRODUCTION SUPERVISOR) Anatomical Region Laterality Modality X-Ray Angiograph y Impressions 07/30/2025 5:14 AM TOUR PRODUCTION SUPERVISOR High-grade lesion of the AV groove circumflex as well as the major obtuse marginal branch status post complicated, successful IVUS guided PCI using a 3.0 x 30 mm esteban [place] drug-eluting stent the AV groove circumflex proximally optimized to high pressure with a 4.0 mm balloon post dilated at 3.5 mm in the mid segment. The obtuse marginal branch was ballooned using a 2.75 mm NC emerge balloon in the proximal and mid segment and high pressure as well as an NC Sapphire balloon THERAPEUTIC RECOMMENDATIONS: Continue aspirin 81 mg daily indefinitely. Continue cangrelor and heparin given intra-aortic balloon pump Right femoral artery sheath was removed and closed with CELT ACD. Patient may sit up in 2 hours. Aggressive risk factor modification and medical therapy for secondary prevention of coronary artery disease. The case was reviewed and discussed with the referring physician and patient. The referring physician will determine the future therapy and follow-up. I was present during the entire procedure and personally dictated or confirmed the above report. Narrative 07/30/2025 5:14 AM TOUR PRODUCTION SUPERVISOR Images from the original result were not included. Cardiovascular Procedure Center [facility] [employer] [address] [place] [address] PERCUTANEOUS CORONARY INTERVENTION REPORT Patient: Praveen Hayden : 1970 MR number: [id number] Date of Service: 07/26/2025 Network Intelligence Analyst: Miko Castro MD Fellow: Byron Rodriguez MD and Fabian Mendez MD Referring physician: Fuad Bello MD and Gio Abreu MD INDICATION: salvage PCI post STEMI PATIENT CLINICAL PROFILE: Praveen Hayden is a 55 y.o. male with a history of hypertension, hyperlipidemia, tobacco use who underwent PCI to OM in the setting of an NSTEMI. He presents after a fall and noted to have a STEMI coronary angiogram revealed occluded dominant AV groove. PCI was attempted and they were able to get some flow back in the AV groove circumflex and the obtuse marginal branch. A balloon pump was placed in the patient was intubated and sent to [facility] for further evaluation. He was evaluated by surgeon who deemed him not to be a candidate for emergent CABG. His ST changes had essentially resolved and bedside LV function was relatively preserved. At this point we wanted to ensure that there was no ongoing bleeding or other contraindications for repeat angiography and PCI. CT head obtained revealed no intracranial process. In addition, we evaluated him for oropharyngeal bleeding which was stabilized. At this point, we proceeded with urgent coronary angiography and attempted PCI of the circumflex obtuse marginal branch. PROCEDURE: The risks, benefits and alternatives of the procedures and moderate sedation were explained to the patient and informed consent was obtained. The patient was brought to the record label internship and placed on the table. Bilateral groins were prepped and draped in the usual sterile fashion. Ultrasound guidance was used to obtain access. The RIGHT femoral artery site was infiltrated with 1% lidocaine. The vessel was accessed using a micropuncture kit and the modified Seldinger technique with a Micro needle, a wire was threaded into the vessel, and a 7 Fr Sheath was advanced over the wire into the vessel. Femoral angiogram was performed. Left coronary artery angiogram was performed using a 7 Fr EBU 3.5 guide catheter. Coronary Intervention performed on lesion #1 LCx and OM: equipment included Fielder FC, Turnpike LP, Forte Moderate, Runthrough, Trapper, 2.0, 2.5, 3.0 mm balloons (NC and Emerge), 2.75 NC Sapphire, 3.0 x 30 mm Pocahontas Catahoula MILLICENT, 4.0 mm NC Sapphire, 3.5 mm NC Sapphire 2.75 mm NC Sapphire, Minamo wire, 2.75 mm NC Sapphire and a Cruger [employer] IVUS catheter. The SYNTAX score was low (<22). At the end of the procedure, the right femoral artery sheath was removed and site closed with CELT ACD. Patient was transferred to CCU in stable condition. RESULTS: Hemodynamics: Systemic aortic blood pressure was 94/70 on intra-aortic balloon pump support Coronary Arteriography: Left main coronary: LM coronary artery is patent with mild narrowing. The LM gives rise to LAD and circumflex branches Left anterior descending: The LAD is patent proximally there is a diagonal branch that has a 60-70% narrowing. The LAD itself has mild disease throughout Left circumflex: The circumflex has mild plaquing proximally. Gives rise to a major marginal branch which has a stent with 80% narrowing at the ostium the proximal segment of the mixed had main has a focal 90% lesion. Distally there was no significant disease. The AV groove circumflex itself has a high-grade 90% lesion just distal to the bifurcation. Distal to this the vessel is without significant disease it has JYOTHI 2 flow. CORONARY INTERVENTION REPORT: Coronary Intervention on Lesion #1 and 2: LCx and OM This was an ACC/AHA type C - High risk lesion for intervention. There was no evidence of the transient no-reflow phenomenon. There was JYOTHI 2 flow before the procedure and JYOTHI 3 flow after the procedure. Lesion length 30 mm. A 7 Fr EBU 3.5 guiding catheter was used to cannulate the vessel and angiography was performed in two orthogonal planes. Initial angiography as above. Anticoagulation with unfractionated heparin to achieve an ACT of 300 seconds was maintained throughout the case. Based on the angiogram was clear that the stent was likely protruding into the AV groove circumflex which was wired precluded the other operators to appropriately revascularized the vessel. Hence, we used a Fielder FC guidewire placed in the obtuse marginal branch using a turnpike LP microcatheter. We are able to pass the microcatheter distally and confirmed appropriate placement of the obtuse marginal branch. We swapped this out for a Forte moderate support wire using a Trapper balloon. We subsequently used a Fielder FC wire with the support of a turnpike LP microcatheter into the AV groove circumflex. This was wired with moderate difficulty. The turnpike LP crossed with [id number] difficulty and we confirmed placement of the AV groove circumflex. We subsequently exchanged this out for a run-through wire. We subsequently used 2.0, 2.5, balloons in the AV groove. We also used these balloons in the obtuse marginal branch. A 3.0 balloon was then used in the AV groove circumflex. Intravascular ultrasound was used and it was clear that the stent was protruding into the AV groove circumflex. There was underexpansion of the stent in the obtuse marginal branch. The distal edge of the stent in the obtuse marginal branch was appropriately placed without any concern for distal edge dissection. There was no significant new intimal hyperplasia. On the AV groove circumflex the distal reference diameter was about 3.2 mm. Proximally there was mild plaque burden hence decision was made not to bring the stent back up to the ostium. We placed the landing zone in the proximal circumflex with a lumen diameter of about 4.2 mm. We subsequently used a 3.0 by 30 mm esteban Catahoula drug-eluting stent in the LAD and a 2.75 mm NC emerge balloon in the obtuse marginal branch using jailed balloon technique the stent was deployed. Following this a 4.0 mm balloon was used to proximally optimize the stent in the AV groove circumflex. We recrossed the obtuse marginal branch using a Mj black wire. We subsequently used a 2.75 mm NC emerge balloon in the obtuse marginal branch and a 3.5 mm balloon in the AV groove circumflex side main kissing angioplasty was performed. Intravascular ultrasound would not cross proximally and hence a 4.0 balloon was used to again report. We are able to cross the IVUS catheter proximally this is likely due to wire bias. We are able to see there was no concern of her proximal edge dissection. We had previously IVUS the distal vessel in the AV groove circumflex there was no concern there as well. Post intervention angiogram revealed residual 90% lesion in the mid obtuse marginal branch. Review of IVUS run did not reveal any obvious stenosis. There was an area of under expansion. We subsequently rewired the obtuse marginal branch fairly easily with a Minamo wire. We used a 2.75 mm NC Sapphire balloon to further dilate at high pressure. Intravascular ultrasound after this revealed that the area was well expanded. Post angiogram revealed appropriate expansion. Post-intervention IVUS revealed excellent luminal gain, good stent apposition, and no evidence of dissection proximally or distally. Final angiogram showed normal JYOTHI 3 flow, no residual stenosis, and no dissection. COMPLICATIONS: None. DIAGNOSTIC Fuad Bello MD CV CARDIAC CATH PROCEDURES Fi nal Result * (ABNORMAL) POCT Activated clotting time, low range (07/26/2025 8:22 PM TOUR PRODUCTION SUPERVISOR) ACT 379(H) 123 - 168 sec POC Device Number [id number] [facility] Blood 07/26/2025 8:22 PM TOUR PRODUCTION SUPERVISOR 07/26/2025 8:22 PM TOUR PRODUCTION SUPERVISOR Fuad Bello MD LAB POCT ORDERABLES - DEVICE Final Result Performing Organization Address City/[facility]/ZIP Co de Phone Number [facility] [place] [address] * (ABNORMAL) POCT Activated clotting time, low range (07/26/2025 6:35 PM TOUR PRODUCTION SUPERVISOR) ACT 298(H) 123 - 168 sec POC Device Number [id number] [facility] Blood 07/26/2025 6:35 PM TOUR PRODUCTION SUPERVISOR 07/26/2025 6:35 PM TOUR PRODUCTION SUPERVISOR Fuad Bello MD LAB POCT ORDERABLES - DEVICE Final Result [facility] [place] [place] [address] * (ABNORMAL) POCT Activated clotting time, low range (07/26/2025 6:14 PM TOUR PRODUCTION SUPERVISOR) ACT 395(H) 123 - 168 sec POC Device Number [id number] [facility] Blood 07/26/2025 6:14 PM TOUR PRODUCTION SUPERVISOR 07/26/2025 6:14 PM TOUR PRODUCTION SUPERVISOR us Fuad Bello MD LAB POCT ORDERABLES - DEVICE Final Result Performing Organization Address [facility] Co de Phone Number [facility] [place] [address] * eGFR (07/26/2025 5:46 PM TOUR PRODUCTION SUPERVISOR) eGFR 64 >=60 mL/min/1. 73 m2 Comment: Interpretive Data Reference Interval Normal >/= 90 mL/min/1.73m2 Mildly decreased* 60 - 89 mL/min/1.73m2 Mildly to moderately decreased 45 - 59 mL/min/1.73m2 Moderately to severely decreased 30 - 44 mL/min/1.73m2 Severely decreased 15 - 29 mL/min/1.73m2 Kidney Failure < 15 mL/min/1.73m2 *Relative to young adult level Estimated glomerular filtration rate is determined by the 2020 CKD-EPI equation recommended by the National Kidney Foundation (A Unifying Approach to GFR Estimation: Recommendations of the NKF-ASK Task Force on Reassessing the Inclusion of Race in Diagnosing Kidney Disease, JASN 2020). The CKD-EPI equation should not be used for patients with unstable renal function and has not been validated in children and those over 70. Current interpretive data was last reviewed 2021. Blood 07/26/2025 5:46 PM TOUR PRODUCTION SUPERVISOR 07/26/2025 5:56 PM TOUR PRODUCTION SUPERVISOR us Cece Rainey MD LAB BLOOD ORDERAB LES Final Result Performing Organization Address [facility]/ZIP Co de Phone Number [facility] [place] [address] * (ABNORMAL) Urinalysis, microscopic only (07/26/2025 5:46 PM TOUR PRODUCTION SUPERVISOR) WBC, ur 0-5 0 - 5 /HPF RBC, ur >50(A) 0 - 2 /HPF [facility] Mucous, ur Present(A) [facility] Culture Reflex Comment Reflex conditions for urine culture (WBC >10) not met. [facility] Urine 07/26/2025 5:46 PM TOUR PRODUCTION SUPERVISOR 07/26/2025 5:51 PM TOUR PRODUCTION SUPERVISOR us Fuad Bello MD LAB URINE ORDERABLES Final Re sult Performing Organization Address City/[facility] Co de Phone Number [facility] [place] [address] * Phosphorus (07/26/2025 5:46 PM TOUR PRODUCTION SUPERVISOR) Pathologist [facility] Phosphorus, pl 2.9 2.3 - 4.5 mg/dL Blood 07/26/2025 5:46 PM TOUR PRODUCTION SUPERVISOR 07/26/2025 5:56 PM TOUR PRODUCTION SUPERVISOR us Cece Rainey MD LAB BLOOD ORDERAB LES Final Result Performing Organization Address [facility] Co de Phone Number [facility] [place] [address] * Magnesium (07/26/2025 5:46 PM TOUR PRODUCTION SUPERVISOR) [facility] Magnesium 1.8 1.4 - 2.5 mg/dL Blood 07/26/2025 5:46 PM TOUR PRODUCTION SUPERVISOR 07/26/2025 5:56 PM TOUR PRODUCTION SUPERVISOR us Cece Rainey MD LAB BLOOD ORDERAB LES Final Result Performing Organization Address [facility] [place] [address] * (ABNORMAL) Basic metabolic panel (07/26/2025 5:46 PM TOUR PRODUCTION SUPERVISOR) Pathologist [facility] Sodium 141 135 - 145 mmol/L Potassium, pl 4.1 3.3 - 4.9 mmol/L [facility] Comment:Repeated and Verifie d Chloride 108 97 - 110 mmol/L [facility] CO2 22 22 - 32 mmol/L [facility] Anion gap 11 2 - 15 mmol/L [facility] BUN 24 6 - 25 mg/dL [facility] Creatinine 1.31(H) 0.80 - 1.30 mg/dL [facility] Glucose 123 70 - 199 mg/dL [facility] Comment: Interpretive Data Fasting glucose >/= 126 mg/dl is diagnostic for diabetes. Fasting is defined as no caloric intake for at least 8 hours. Fasting glucose between 100 mg/dl to 125 mg/dl is diagnostic of prediabetes. In a patient with classic symptoms of hyperglycemia or hyperglycemic crisis, a random glucose >/= 200 mg/dl is diagnostic for diabetes. In the absence of unequivocal hyperglycemia, results should be confirmed by repeat testing. The classification and Diagnosis of Diabetes Diabetes Care 202; 46: S19-S40. Current interpretive data was last revised 2022. Calcium 8.2(L) 8.5 - 10.3 mg/dL [facility] Blood 07/26/2025 5:46 PM TOUR PRODUCTION SUPERVISOR 07/26/2025 5:56 PM TOUR PRODUCTION SUPERVISOR Cece Rainey MD LAB BLOOD ORDERAB LES Final Result [facility] Department [place] [address] * (ABNORMAL) Urinalysis reflex to microscopic and culture Urine (07/26/2025 5:46 PM TOUR PRODUCTION SUPERVISOR) Color, ur Yellow Yellow Clarity, ur Clear Clear [facility] Specific gravity, ur >1.042(H) 1.003 - 1.030 [facility] pH, urine 6.5 [facility] Comment: Interpretive Data U rine pH is affected by diet, medications, systemic acid-base disturbances, and renal tubular function. pH may affect urinary stone formation. For example, urine pH below 6.0 may help reduce the tendency for calcium phosphate stones and pH greater than 6.0 may reduce the tendency for uric acid stone formation. Source: [facility] [employer] Current Interpretive Data was last revised on 2017 Protein, ur ql 1+(A) Negative [facility] Glucose, ur ql Negative Negative [facility] Ketones, ur Negative Negative [facility] Bilirubin, ur Negative Negative [facility] Blood, ur 3+(A) Negative [facility] Urobilinogen, ur <2.0 <2.0 mg/dL [facility] Nitrite, ur Negative Negative [facility] Leukocyte esterase, ur Negative Negative [facility] UA reflex comment Reflex to microscopic UA will be performed. [facility] Urine 07/26/2025 5:46 PM TOUR PRODUCTION SUPERVISOR 07/26/2025 5:51 PM TOUR PRODUCTION SUPERVISOR us Fuad Bello MD LAB MICROBIOLOGY - GENERAL OR DERABLES Final Result Performing Organization Address City/[facility] Co de Phone Number [facility] Department [place] [address] * IR Outside Reference (07/26/2025 5:40 PM TOUR PRODUCTION SUPERVISOR) Impressions RAD_PACS_[facility] - 07/26/2025 5:40 PM TOUR PRODUCTION SUPERVISOR These images are for Reference purposes only and have not been reviewed by [facility] Radiology. There will be no report generated by a [facility] Radiologist. Narrative RAD_[facility] - 07/26/2025 5:40 PM TOUR PRODUCTION SUPERVISOR EXAMINATION: Images For Reference Purposes Only Aldo Rodriguez MD IMG IR PROCEDURES Fi nal Result Performing Organization Address City/[facility]/ZIP Co de Phone Number [email or web address] * CT Head WO Contrast (07/26/2025 4:51 PM TOUR PRODUCTION SUPERVISOR) Anatomical Region Laterality Modality Head and Neck N/A Computed Tomogra phy 07/26/2025 5:04 PM TOUR PRODUCTION SUPERVISOR Impressions 07/26/2025 5:20 PM TOUR PRODUCTION SUPERVISOR No acute intracranial process. If there is concern for hypoxic ischemic injury in the setting of resuscitation, consider follow-up head CT. The Non Critical results were discussed with Dr. Rainey by Dr. Bobby Marshall MD on 07/26/2025 5:03 PM. Dictated by: Bobby Marshall MD The radiology attending physician has personally reviewed this study, and had reviewed and/or edited this written report and agrees with it. Electronically signed by: Ming Polo M.D. Narrative 07/26/2025 5:20 PM TOUR PRODUCTION SUPERVISOR EXAMINATION: CT head without contrast HISTORY: Altered mentation, history of recent myocardial infarction with intervention complicated by ventricular fibrillation and respiratory distress TECHNIQUE: CT of the head was performed with images acquired from skull base to vertex without intravenous contrast. COMPARISON: 01/24/2021 FINDINGS: There is no acute intracranial hemorrhage. Ventricles are of normal size and morphology. No mass effect or midline shift is present. The wheeler-white matter differentiation is normal. The visualized portions of the orbits are normal. The visualized portions of the mastoids are normal. Mild ethmoid and maxillary sinus mucosal thickening, as well as sphenoid sinus mucosal thickening. No acute fractures are identified. Chronic right lamina papyracea fracture. Procedure Note Ming Polo MD - 07/26/2025 EXAMINATION: CT head without contrast HISTORY: Altered mentation, history of recent myocardial infarction with intervention complicated by ventricular fibrillation and respiratory distress TECHNIQUE: CT of the head was performed with images acquired from skull base to vertex without intravenous contrast. COMPARISON: 01/24/2021 FINDINGS: There is no acute intracranial hemorrhage. Ventricles are of normal size and morphology. No mass effect or midline shift is present. The wheeler-white matter differentiation is normal. The visualized portions of the orbits are normal. The visualized portions of the mastoids are normal. Mild ethmoid and maxillary sinus mucosal thickening, as well as sphenoid sinus mucosal thickening. No acute fractures are identified. Chronic right lamina papyracea fracture. IMPRESSION: No acute intracranial process. If there is concern for hypoxic ischemic injury in the setting of resuscitation, consider follow-up head CT. The Non Critical results were discussed with Dr. Rainey by Dr. Bobby Marshall MD on 07/26/2025 5:03 PM. Dictated by: Bobby Marshall MD The radiology attending physician has personally reviewed this study, and had reviewed and/or edited this written report and agrees with it. Electronically signed by: Ming Polo M.D. us Fuad Bello MD IMG CT PROCEDURES Final Resul t * IA ARTL CATHJ/CANNULJ MNTR/TRANSFUSION SPX PRQ (07/26/2025 3:43 PM TOUR PRODUCTION SUPERVISOR) Narrative Fuad Bello MD - 07/26/2025 3:43 PM TOUR PRODUCTION SUPERVISOR Fuad Bello MD 07/26/2025 10:00 PM Arterial Line Insertion Date/Time: 07/26/2025 3:43 PM Performed by: Cece Rainey MD Authorized by: Cece Rainey MD [place] Protocol: RN Notified of Procedure: yes Informed consent: Risks, benefits, alternatives discussed and patient/footwear sales representative/guardian agrees and accepts Patient's stated name/ matches armband: Yes Consent form signed, dated, timed; matches correct patient, intended procedure and site: Yes Imaging: Pertinent imaging reviewed, correctly oriented and match to patient identifiers Lab/Diag test results: Pertinent lab/diag tests reviewed and match to patient identifiers Supplies, devices and special equipment are available: yes Site/side marked: yes Immediately prior to the procedure a time out was called: a verbal verification by the procedure participants confirmed correct patient identity, correct site/side marked and visible (if applicable); agreement on procedure to be done; and correct patient positioning Indications: multiple ABGs and hemodynamic monitoring Location: Left radial Anesthesia: None Patient skin preparation: chlorhexidine Ultrasound guidance: Real-time needle guidance Patient preparation: Cap, full body drape, gloves, gown, handwashing, mask, towels and sterile probe cover Catheter gauge: 20 Single percutaneous needle puncture: Yes Seldinger technique used: Yes Number of attempts: 1 Placement confirmed with arterial waveform: Yes Post-procedure: Line sutured, dressing applied and securement device afixed Post-procedure CMS: Normal Patient tolerance: Patient tolerated the procedure well with no immediate complications Complications: no complications noted during insertion Post Procedure Debrief: All guidewires, needles, sponges or other items are accounted for: yes All specimens identified, labeled and matched to patient identification: yes Responsible republican for transporting specimen(s) to lab determined: yes us Cece Rainey MD IV THERAPY ORDERA BLES Final Result * IA INSJ NON-TUNNELED CENTRAL VENOUS CATH AGE 5 YR/> (07/26/2025 3:39 PM TOUR PRODUCTION SUPERVISOR) Narrative Fuad Bello MD - 07/26/2025 3:39 PM TOUR PRODUCTION SUPERVISOR Fuad Bello MD 07/26/2025 9:59 PM Central Line Insertion Date/Time: 07/26/2025 3:39 PM Performed by: Cece Rainey MD Authorized by: Cece Rainey MD [place] Protocol: RN Notified of Procedure: yes Informed consent: Risks, benefits, alternatives discussed and patient/footwear sales representative/guardian agrees and accepts Patient's stated name/ matches armband: Yes Allergies confirmed: yes Consent form signed, dated, timed; matches correct patient, intended procedure and site: Yes Imaging: Pertinent imaging reviewed, correctly oriented and match to patient identifiers Lab/Diag test results: Pertinent lab/diag tests reviewed and match to patient identifiers Supplies, devices and special equipment are available: yes Site/side marked: yes Immediately prior to the procedure a time out was called: a verbal verification by the procedure participants confirmed correct patient identity, correct site/side marked and visible (if applicable); agreement on procedure to be done; and correct patient positioning Indications: Vascular access, administer vasoactive medications and central pressure monitoring Anesthesia (see MAR for exact dosage) Anesthesia method: Local infiltration Local anesthetic: Lidocaine 1% Patient position: Flat Skin preparation: Skin prepped with 2% chlorhexidine Provider preparation: Cap, full body drape, gloves, handwashing, gown, mask and towels Location: Right internal jugular Ultrasound guidance: Real-time needle guidance Assessment: Placement verified by x-ray Catheter type: Quadruple lumen Catheter placed through introducer: Single Catheter size: 7 Fr Needle inserted, vein idenitified then guidewire inserted easily into vein: Yes Number of attempts: 1 Successful placement: Yes Catheter secured at (cm): Hub Line securement: Securement device, line sutured and dressing applied Patient tolerance: Patient tolerated the procedure well with no immediate complications Post Procedure Debrief: All guidewires, needles, sponges or other items are accounted for: yes All specimens identified, labeled and matched to patient identification: yes Responsible republican for transporting specimen(s) to lab determined: yes Cece Rainey MD IN CLINIC/BEDSIDE ORDERABLES Final Result * XR Chest 1 View (07/26/2025 3:13 PM TOUR PRODUCTION SUPERVISOR) Anatomical Region Laterality Modality Body, Chest N/A Digital Radiogra phy 07/26/2025 4:36 PM TOUR PRODUCTION SUPERVISOR Impressions 07/26/2025 4:36 PM TOUR PRODUCTION SUPERVISOR Comparison 07/26/2025 at 12:05 PM. Intra-aortic balloon pump remains in place with tip approximately 1 cm below the top of the aortic knob. Endotracheal tube tip approximately 7 cm above the frieda. Interval placement of a right internal jugular central venous catheter with tip overlying superior vena cava. The lungs are hyperexpanded as before. Subtle right perihilar opacity again seen, compatible with atelectasis versus subtle pneumonia. Attention on follow-up examination recommended. No focal consolidation. No pneumothorax or pleural effusion seen. Heart size remains within normal limits. Electronically signed by: Stanley Colby M.D. Narrative 07/26/2025 4:36 PM TOUR PRODUCTION SUPERVISOR EXAMINATION: 1 view chest radiograph Procedure Note Stanley Colby MD - 07/26/2025 EXAMINATION: 1 view chest radiograph IMPRESSION: Comparison 07/26/2025 at 12:05 PM. Intra-aortic balloon pump remains in place with tip approximately 1 cm below the top of the aortic knob. Endotracheal tube tip approximately 7 cm above the frieda. Interval placement of a right internal jugular central venous catheter with tip overlying superior vena cava. The lungs are hyperexpanded as before. Subtle right perihilar opacity again seen, compatible with atelectasis versus subtle pneumonia. Attention on follow-up examination recommended. No focal consolidation. No pneumothorax or pleural effusion seen. Heart size remains within normal limits. Electronically signed by: Stanley Colby M.D. Fuad Bello MD IMG XR PROCEDURES Final Resul t * (ABNORMAL) POC Blood Gas and Chemistries, Venous - (07/26/2025 2:31 PM TOUR PRODUCTION SUPERVISOR) Pathologist [facility] pH, Lenard POC 7.37 7.32 - 7.43 pCO2, lenard POC 49 40 - 50 mmHg [facility] pO2, lenard POC 31 mmHg [facility] Na, POC 141 135 - 145 mmol/L [facility] K POC 5.0(H) 3.3 - 4.9 mmol/L [facility] Comment: Interpretive Data Not all point of care methods assess for hemolysis. Confirm with instrument and retest K+ if not consistent with clinical signs and symptoms. Current Interpretive Data was last revised on 2023. Cl, POC 108 97 - 110 mmol/L [facility] Ionized Ca, POC 4.77 4.50 - 5.10 mg/dL [facility] Glucose, POC 128 70 - 199 mg/dL [facility] Lactate POC 1.4 0.7 - 2.0 mmol/L [facility] O2 Sat, Lenard POC (Daniela) 43 % [facility] Base excess, POC 2.3 mmol/L [facility] HCO3, Lenard POC 28 20 - 30 mmol/L [facility] Hct, POC 35.0(L) 41.4 - 51.6 % [facility] Total Hb, POC 11.5(L) 13.8 - 17.2 g/dL [facility] Blood 07/26/2025 2:31 PM TOUR PRODUCTION SUPERVISOR 07/26/2025 2:31 PM TOUR PRODUCTION SUPERVISOR us Fuad Bello MD LAB POCT ORDERABLES - DEVICE Final Result [facility] Department [place] [address] * (ABNORMAL) Troponin I high-sensitivity 2-hour (07/26/2025 2:27 PM TOUR PRODUCTION SUPERVISOR) Pathologist [facility] Trop I hs 40,331(C) <=35 ng/L Comment: Previous critical value noted within 48 hours ago. Interpretive Data For further hscTnI resources including the diagnostic algorithm and an aid in interpretation, copy and paste this link: https://bjhlab.testcatalog.org/show/hsTrop-[email or web address] Current Interpretive Data last revised 2020. Trop I hs pct delta 249(C) % [facility] Trop I hs interp Significa nt(C) [facility] Blood 07/26/2025 2:27 PM TOUR PRODUCTION SUPERVISOR 07/26/2025 2:42 PM TOUR PRODUCTION SUPERVISOR us Fuad Bello MD LAB BLOOD ORDERABLES Final Re sult Performing Organization Address City/[facility]/ZIP Co de Phone Number [facility] Department [place] [employer] [address] * eGFR (07/26/2025 12:25 PM TOUR PRODUCTION SUPERVISOR) eGFR 81 >=60 mL/min/1. 73 m2 Comment: Interpretive Data Reference Interval Normal >/= 90 mL/min/1.73m2 Mildly decreased* 60 - 89 mL/min/1.73m2 Mildly to moderately decreased 45 - 59 mL/min/1.73m2 Moderately to severely decreased 30 - 44 mL/min/1.73m2 Severely decreased 15 - 29 mL/min/1.73m2 Kidney Failure < 15 mL/min/1.73m2 *Relative to young adult level Estimated glomerular filtration rate is determined by the 2020 CKD-EPI equation recommended by the National Kidney Foundation (A Unifying Approach to GFR Estimation: Recommendations of the NKF-ASK Task Force on Reassessing the Inclusion of Race in Diagnosing Kidney Disease, JASN 2020). The CKD-EPI equation should not be used for patients with unstable renal function and has not been validated in children and those over 70. Current interpretive data was last reviewed 2021. Blood 07/26/2025 12:2 5 PM TOUR PRODUCTION SUPERVISOR 07/26/2025 12:39 PM TOUR PRODUCTION SUPERVISOR us Fuad Bello MD LAB BLOOD ORDERABLES Final Re sult Performing Organization Address City/[facility]/ZIP Co de Phone Number [facility] Department [place] [address] * Critical result callback Cardio chemistry (07/26/2025 12:25 PM TOUR PRODUCTION SUPERVISOR) Date Notified [id number] Time Notified 3 [facility] Test name Trop I hs base [facility] Called/Read Back Efrain HOPE [facility] Credentials RN [facility] Called By TP [facility] Blood 07/26/2025 12:2 5 PM TOUR PRODUCTION SUPERVISOR 07/26/2025 12:39 PM TOUR PRODUCTION SUPERVISOR us Fuad Bello MD LAB BLOOD ORDERABLES Final Re sult [facility] Department [place] [address] * Type and screen (07/26/2025 12:25 PM TOUR PRODUCTION SUPERVISOR) ABO Rh O Positive Zac, indirect Negative [facility] Blood 07/26/2025 12:2 5 PM TOUR PRODUCTION SUPERVISOR 07/26/2025 12:48 PM TOUR PRODUCTION SUPERVISOR Narrative [facility] - 07/26/2025 1:47 PM TOUR PRODUCTION SUPERVISOR Has the patient had Daratumumab or Isatuximab in the past 6 months?->Unknown us Fuad Bello MD LAB BLOOD BANK TEST ORDERABLE S Final Result Performing Organization Address [facility] Co de Phone Number [facility] Department [place] [address] * (ABNORMAL) Troponin I high-sensitivity series (baseline, 2hr, 4hr, 6hr) (07/26/2025 12:25 PM TOUR PRODUCTION SUPERVISOR) Trop I hs 11,543(C) <=35 ng/L Comment: Interpretive Data For further hscTnI resources including the diagnostic algorithm and an aid in interpretation, copy and paste this link: https://bjhlab.testcatalog.org/show/hsTrop-1 Current Interpretive Data last revised 2020. Blood 07/26/2025 12:2 5 PM TOUR PRODUCTION SUPERVISOR 07/26/2025 12:33 PM TOUR PRODUCTION SUPERVISOR Fuad Bello MD LAB BLOOD ORDERABLES Final Re sult Performing Organization Address [facility] [place] [address] * (ABNORMAL) Lactate (07/26/2025 12:25 PM TOUR PRODUCTION SUPERVISOR) Lactate 2.2(H) 0.7 - 2.0 mmol/L Blood 07/26/2025 12:2 5 PM TOUR PRODUCTION SUPERVISOR 07/26/2025 12:34 PM TOUR PRODUCTION SUPERVISOR Fuad Bello MD LAB BLOOD ORDERABLES Final Re sult Performing Organization Address [facility] [place] [address] * (ABNORMAL) Protime-INR (07/26/2025 12:25 PM TOUR PRODUCTION SUPERVISOR) PT 15.5(H) 10.2 - 13.5 sec INR 1.38(H) 0.90 - 1.20 [facility] Comment: Interpretive data Oral anticoagulant therapeutic ranges: Venous thromboembolism prophylaxis or treatment: 2.0-3.0 CARDIOLOGY Standard range: 2.0-3.0 High-intensity range: 2.5-3.5 Refer to indication-specific guidelines for appropriate target ranges for prosthetic heart valve replacement. Current interpretive data was last revised on 2019. Blood 07/26/2025 12:2 5 PM TOUR PRODUCTION SUPERVISOR 07/26/2025 12:34 PM TOUR PRODUCTION SUPERVISOR Result [facility] us Fuad Bello MD LAB BLOOD ORDERABLES Final Re sult Performing Organization Address [facility] [place] [address] * (ABNORMAL) aPTT (07/26/2025 12:25 PM TOUR PRODUCTION SUPERVISOR) aPTT 45(H) 26 - 38 sec Comment: Interpretive Data Heparin therapeutic range: 66.0 - 100.0 seconds. Range based on correlation with therapeutic heparin activity range of 0.3 - 0.7 Units/mL. Blood 07/26/2025 12:2 5 PM TOUR PRODUCTION SUPERVISOR 07/26/2025 12:34 PM TOUR PRODUCTION SUPERVISOR us Fuad Bello MD LAB BLOOD ORDERABLES Final Re sult [facility] Department [place] [address] * Pro B-type natriuretic peptide (07/26/2025 12:25 PM TOUR PRODUCTION SUPERVISOR) NT-proBNP 288 <=300 pg/mL Comment: Interpretive Comments: A. Dyspnea in Acute Care Setting All Ages: < 300 pg/ml, acute heart failure unlikely. < 50 yrs: 300 - 450 pg/ml, further investigation warranted. > 450 pg/ml, acute heart failure likely. 50 - 74 yrs: 300 - 900 pg/ml, further investigation warranted. > 900 pg/ml, acute heart failure likely . > or = 75 yrs: 450 - 1800 pg/ml, further investigation warranted. > 1800 pg/ml, acute heart failure likely. B. Non-acute Setting < 75 yrs < 125 pg/ml, rules out heart failure. > or = 125 pg/ml, further investigation warranted. > or = 75 yrs < 450 pg/ml, rules out heart failure. > or = 450 pg/ml, further investigation warranted. - Knowledge of each individual patient's NT-proBNP range may be more useful than using similar cut-points for every patient. Please note that marked elevations in NT-proBNP levels may be observed in state other than Left Ventricular Congestive Failure, including: acute coronary syndromes, right heart strain/failure (including pulmonary embolism and cor pulmonale), critical illness, renal failure, as well as advanced age. - References: 1. Gordon GALEANA et.al. Eur Heart J. 2006:27:330-337. 2. Layton RW, Anika CASSIDY. J. AM Soniya Cardiol: Cardiovasc Imag. 2009;2: 216- 225. Interpretive Data Last Revised Date: 2018. Blood 07/26/2025 12:2 5 PM TOUR PRODUCTION SUPERVISOR 07/26/2025 12:33 PM TOUR PRODUCTION SUPERVISOR us Fuad Bello MD LAB BLOOD ORDERABLES Final Re sult Performing Organization Address [facility] Co de Phone Number [facility] [place] [address] * (ABNORMAL) CBC without differential (07/26/2025 12:25 PM TOUR PRODUCTION SUPERVISOR) WBC 14.30(H) 3.80 - 9.90 K/cumm Hgb 12.4(L) 13.0 - 17.5 g/dL [facility] Hct 35.4(L) 38.9 - 50.3 % [facility] Plt 336 150 - 400 K/cumm [facility] MPV 9.9 9.1 - 12.3 fL [facility] RBC 3.80(L) 4.30 - 5.80 M/cumm [facility] MCV 93.2 81.3 - 96.4 fL [facility] MCH 32.6 27.1 - 33.3 pg [facility] MCHC 35.0 32.3 - 35.7 g/dL [facility] RDW CV 12.6 11.1 - 14.9 % [facility] RDW SD 43.4 35.7 - 48.1 fL [facility] NRBC abs 0.00 0.00 - 0.01 K/cumm [facility] Blood 07/26/2025 12:2 5 PM TOUR PRODUCTION SUPERVISOR 07/26/2025 12:33 PM TOUR PRODUCTION SUPERVISOR us Fuad Bello MD LAB BLOOD ORDERABLES Final Re sult Performing Organization Address [facility] Co de Phone Number [facility] [place] [address] * Magnesium (07/26/2025 12:25 PM TOUR PRODUCTION SUPERVISOR) Magnesium 1.9 1.4 - 2.5 mg/dL Blood 07/26/2025 12:2 5 PM TOUR PRODUCTION SUPERVISOR 07/26/2025 12:33 PM TOUR PRODUCTION SUPERVISOR us Fuad Bello MD LAB BLOOD ORDERABLES Final Re sult [facility] Department [place] [address] * (ABNORMAL) Comprehensive metabolic panel (07/26/2025 12:25 PM TOUR PRODUCTION SUPERVISOR) Sodium 133(L) 135 - 145 mmol/L Potassium, pl See Comment 3.3 - 4.9 mmol/L [facility] Comment:Credited; Hemolyzed Specimen Chloride 101 97 - 110 mmol/L [facility] CO2 22 22 - 32 mmol/L [facility] Anion gap 10 2 - 15 mmol/L [facility] BUN 18 6 - 25 mg/dL [facility] Creatinine 1.08 0.80 - 1.30 mg/dL [facility] Glucose 120 70 - 199 mg/dL [facility] Comment: Interpretive Data Fasting glucose >/= 126 mg/dl is diagnostic for diabetes. Fasting is defined as no caloric intake for at least 8 hours. Fasting glucose between 100 mg/dl to 125 mg/dl is diagnostic of prediabetes. In a patient with classic symptoms of hyperglycemia or hyperglycemic crisis, a random glucose >/= 200 mg/dl is diagnostic for diabetes. In the absence of unequivocal hyperglycemia, results should be confirmed by repeat testing. The classification and Diagnosis of Diabetes Diabetes Care 202; 46: S19-S40. Current interpretive data was last revised 2022. Calcium 7.9(L) 8.5 - 10.3 mg/dL [facility] Bilirubin, total 0.5 0.1 - 1.2 mg/dL [facility] Protein, pl 6.3(L) 6.5 - 8.5 g/dL [facility] Albumin 3.3(L) 3.5 - 5.0 g/dL [facility] Alk phos 93 40 - 130 Units/L [facility] Comment:Hemolyzed; result ma y be falsely decreased ALT See Comment 7 - 55 Units/L [facility] Comment:Credited, hemolyzed specimen. AST See Comment 10 - 50 Units/L [facility] Comment:Credited, hemolyzed specimen. Blood 07/26/2025 12:2 5 PM TOUR PRODUCTION SUPERVISOR 07/26/2025 12:33 PM TOUR PRODUCTION SUPERVISOR us Fuad Bello MD LAB BLOOD ORDERABLES Final Re sult [facility] Department [place] [address] * (ABNORMAL) POC Blood Gas and Chemistries, Arterial - (07/26/2025 12:17 PM TOUR PRODUCTION SUPERVISOR) pH, Art POC 7.26(L) 7.35 - 7.45 pCO2, Art POC 58(H) 35 - 45 mmHg [facility] pO2, Art POC 68(L) 83 - 108 mmHg [facility] Na, POC 142 135 - 145 mmol/L [facility] K POC 4.5 3.3 - 4.9 mmol/L [facility] Comment: Interpretive Data Not all point of care methods assess for hemolysis. Confirm with instrument and retest K+ if not consistent with clinical signs and symptoms. Current Interpretive Data was last revised on 2023. Cl, POC 108 97 - 110 mmol/L [facility] Ionized Ca, POC 4.93 4.50 - 5.10 mg/dL [facility] Glucose, POC 153 70 - 199 mg/dL [facility] Lactate POC 1.6 0.7 - 2.0 mmol/L [facility] SO2 (daniela) arterial 93 90 - 95 % [facility] Base excess, POC -2.0 mmol/L [facility] HCO3, Art POC 26 20 - 30 mmol/L [facility] Hct, POC 39.0(L) 41.4 - 51.6 % [facility] Total Hb, POC 12.9(L) 13.8 - 17.2 g/dL [facility] Blood 07/26/2025 12:1 7 PM TOUR PRODUCTION SUPERVISOR 07/26/2025 12:17 PM TOUR PRODUCTION SUPERVISOR us Fuad Bello MD LAB POCT ORDERABLES - DEVICE Final Result [facility]AY[facility] Department [place] [address] * XR chest 1 view (Portable) Urgent (07/26/2025 12:10 PM TOUR PRODUCTION SUPERVISOR) Anatomical Region Laterality Modality Body, Chest N/A Digital Radiogra phy 07/26/2025 1:53 PM TOUR PRODUCTION SUPERVISOR Impressions 07/26/2025 1:53 PM TOUR PRODUCTION SUPERVISOR Comparison 08/16/2023. Interval placement of intra-aortic balloon pump with the tip approximately 1 cm below the top of the aortic knob. Endotracheal tube tip 5 cm above the frieda. The lungs are hyperexpanded as before. No focal consolidation or pulmonary edema seen. No pneumothorax or pleural effusion seen. Heart size remains within normal limits. Electronically signed by: Stanley Colby M.D. Narrative 07/26/2025 1:53 PM TOUR PRODUCTION SUPERVISOR EXAMINATION: 1 view chest radiograph Procedure Note Stanley Colby MD - 07/26/2025 EXAMINATION: 1 view chest radiograph IMPRESSION: Comparison 08/16/2023. Interval placement of intra-aortic balloon pump with the tip approximately 1 cm below the top of the aortic knob. Endotracheal tube tip 5 cm above the frieda. The lungs are hyperexpanded as before. No focal consolidation or pulmonary edema seen. No pneumothorax or pleural effusion seen. Heart size remains within normal limits. Electronically signed by: Stanley Colby M.D. us Fuad Bello MD IMG XR PROCEDURES Final Resul t documented in this encounter Visit Diagnoses Diagnosis STEMI (ST elevation myocardial infarction) (HCC)- Primary Acute myocardial infarction, unspecified site, episode of care unspecified ST 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) ST elevation myocardial infarction involving left anterior descending (LAD) coronary artery (HCC) [I21.02] ST 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) documented in this encounter Admitting Diagnoses Diagnosis STEMI (ST elevation myocardial infarction) ([facility]) Acute myocardial infarction, unspecified site, episode of care unspecified documented in this encounter Administered Medications Active Administered Medications - up to 3 most recent administrations Medication Order MAR Action Action Date Dose Rate Site acetaminophen (TYLENOL) suppository 650 mg 650 mg, rectal, Every 4 hours PRN, fever, Starting on 07/28/25 at 0806 Given 07/28/2025 10:06 AM TOUR PRODUCTION SUPERVISOR 650 mg aspirin suppository 300 mg 300 mg, rectal, Daily, First dose on 07/28/25 at 0900 Given 07/30/2025 7:54 AM TOUR PRODUCTION SUPERVISOR 300 mg Given 07/29/2025 8:31 AM TOUR PRODUCTION SUPERVISOR 300 mg Given 07/28/2025 10:05 AM TOUR PRODUCTION SUPERVISOR 300 mg bisacodyL (DULCOLAX) suppository 10 mg 10 mg, rectal, Daily PRN, constipation, If no results 24 hours after polyethylene glycol (MIRALAX). May give bisacodyl tablet if tolerating PO., Starting on [place] 07/26/25 at 1134, Indications: constipationIndications:con stipation bisacodyl EC (DULCOLAX EC) tablet 10 mg 10 mg, oral, Daily PRN, constipation, If no results 24 hours after polyethylene glycol (MIRALAX). May give bisacodyl supp if not tolerating PO), Starting on [place] 07/26/25 at 1134, Do not crush, chew, cut, dissolve, open or otherwise manipulate tablet/capsule., Indications: constipationIndications:con stipation cangrelor (KENGREAL) 50 mg in sodium chloride 0.9% 250 mL (0.2 mg/mL) infusion 0.75 mcg/kg/min 72.9 kg (16.4025 mL/hr, rounded to 16.4 mL/hr), intravenous, Continuous, Starting on 07/28/25 at 0545, Nurse to discontinue cangrelor infusion order immediately prior to first administration of clopidogrel or prasugrel using o rder condition met order source . Store at room temperature, I /authorizing provider attest that the patient meets the approved [facility] Use Criteria: Yes, Indications: prevention of thrombosis, P2Y12 antiplatelet therapy bridgeIndications:preventio n of thrombosis,P2Y12 antiplatelet therapy bridge Rate/Dose Verify 07/30/2025 11:04 AM TOUR PRODUCTION SUPERVISOR 0.75 mcg/kg/min 16.4 mL/hr New Bag 07/30/2025 10:11 AM TOUR PRODUCTION SUPERVISOR 0.75 mcg/kg/min 16.4 mL /hr Rate/Dose Verify 07/30/2025 9:54 AM TOUR PRODUCTION SUPERVISOR 0.75 mcg/kg/min 16 .4 mL/hr cefTRIAXone (ROCEPHIN) 2,000 mg/20 mL in sterile water (premix) 2,000 mg 2,000 mg, intravenous, at 240 mL/hr, Administer over 5 Minutes, Every 24 hours scheduled, First dose (after last modification) on Wed07/27/25 at 2300, Indications: PneumoniaIndications:Pneumonia Given 07/30/2025 7:54 AM TOUR PRODUCTION SUPERVISOR 2,000 mg 240 mL/hr Given 07/29/2025 8:31 AM TOUR PRODUCTION SUPERVISOR 2,000 mg 240 mL/hr Given 07/27/2025 11:47 PM TOUR PRODUCTION SUPERVISOR 2,000 mg 240 mL/hr dexmedeTOMIDine in 0.9% sodium chloride (PRECEDEX) 400 mcg/100 mL (4 mcg/mL) infusion (premix) 0-0.7 mcg/kg/hr 75 kg (0-13.125 mL/hr, rounded to 0-13.13 mL/hr), 4 mcg/mL, intravenous, Titrated, Starting on 07/30/25 at 0930, Until Discontinued, Titration instructions: Titrate, Initial dose: 0.2 mcg/kg/hr, Titrate: Up/Down, Titrate by: 0.1 mcg/kg/hr, Every: 30 minutes, Goal: RASS, RASS Goal: 0, +1, Routine Rate/Dose Change 07/30/2025 12:00 PM TOUR PRODUCTION SUPERVISOR 0.6 mcg/kg/hr 11.25 mL/hr Rate/Dose Change 07/30/2025 11:30 AM TOUR PRODUCTION SUPERVISOR 0.5 mcg/kg/hr 9.3 8 mL/hr Rate/Dose Change 07/30/2025 11:00 AM TOUR PRODUCTION SUPERVISOR 0.4 mcg/kg/hr 7.5 mL/hr fentaNYL (SUBLIMAZE) bolus from bag 50 mcg 50 mcg, intravenous, Every 15 min PRN, breakthrough pain, Starting on [place] 07/26/25 at 1153, Discontinue when patient extubated. , Indications: PainIndications:Pain Bolus from Bag 07/30/2025 1:05 AM TOUR PRODUCTION SUPERVISOR 5 0 mcg Bolus from Bag 07/28/2025 9:55 PM TOUR PRODUCTION SUPERVISOR 50 mcg Bolus from Bag 07/28/2025 8:15 PM TOUR PRODUCTION SUPERVISOR 50 mcg fentaNYL (SUBLIMAZE) bolus from bag 50 mcg 50 mcg, intravenous, Every 15 min PRN, painful stimuli include turning, bathing, nasotracheal suctioning, physical therapy, dressing changes, and intravenous catheter and invasive line placement., Starting on [place] 07/26/25 at 1153, Discontinue when patient extubated. , Indications: PainIndications:Pain Bolus from Bag 07/30/2025 7:45 AM TOUR PRODUCTION SUPERVISOR 5 0 mcg Bolus from Bag 07/30/2025 7:06 AM TOUR PRODUCTION SUPERVISOR 50 mcg Bolus from Bag 07/30/2025 1:47 AM TOUR PRODUCTION SUPERVISOR 50 mcg ipratropium-albuteroL (DUO-NEB) 0.5-2.5 mg/3 mL nebulizer solution 3 mL 3 mL, nebulization, 4 times daily (socially responsible investment adviser), First dose on [place] 07/26/25 at 1700 Given 07/30/2025 4:52 AM TOUR PRODUCTION SUPERVISOR 3 mL Given 07/29/2025 11:58 PM TOUR PRODUCTION SUPERVISOR 3 mL Given 07/29/2025 4:10 AM TOUR PRODUCTION SUPERVISOR 3 mL nitroglycerin in dextrose 5% 50 mg/250 mL (200 mcg/mL) infusion (premix) 0-400 mcg/min (0-120 mL/hr), 0.2 mg/mL, intravenous, Titrated, Starting on 07/30/25 at 1130, Until Discontinued, Initial rate: 10 mcg/min, Titrate: Up/Down, Titrate by: 10 mcg/min, every: 5 minutes, Goal: SBP, SBP Goal: 130-140 mmHg, Routine New Bag 07/30/2025 11:11 AM TOUR PRODUCTION SUPERVISOR 10 mcg/min 3 mL/hr norepinephrine in dextrose 5% (LEVOPHED) 8,000 mcg/250 mL (32 mcg/mL) infusion (premix) 0-2 mcg/kg/min 72.9 kg (0-273.375 mL/hr, rounded to 0-273.38 mL/hr), 32 mcg/mL, intravenous, Titrated, Starting on [place] 07/26/25 at 1545, Until Discontinued, Initial rate: 0.05 mcg/kg/min, Titrate: Up/Down, Titrate by: 0.01 mcg/kg/min, Every: 2 minutes, Goal: MAP, MAP Goal: 60-70 mmHg, Routine Rate/Dose Verify 07/28/2025 6:00 PM TOUR PRODUCTION SUPERVISOR 0.03 mcg/kg/min 4.1 mL/hr Rate/Dose Change 07/28/2025 5:39 PM TOUR PRODUCTION SUPERVISOR 0.03 mcg/kg/min 4. 1 mL/hr Rate/Dose Verify 07/28/2025 5:00 PM TOUR PRODUCTION SUPERVISOR 0.05 mcg/kg/min 6. 83 mL/hr ondansetron (ZOFRAN) injection 4 mg 4 mg, intravenous, Administer over 2 Minutes, Every 6 hours PRN, nausea, vomiting, if not tolerating PO, Starting on [place] 07/26/25 at 1134, Indications: nausea and vomitingIndications:nausea and vomiting ondansetron ODT (ZOFRAN-ODT) disintegrating tablet 4 mg 4 mg, oral, Every 6 hours PRN, nausea, vomiting, Starting on [place] 07/26/25 at 1134, If administering by mouth, place tablet on tongue and allow to dissolve., Indications: nausea and vomitingIndications:nausea and vomiting pantoprazole (PROTONIX) 40 mg in sodium chloride 0.9% 10 mL IV Syringe 40 mg, intravenous, at 300 mL/hr, Administer over 2 Minutes, Daily, First dose on [place] 07/26/25 at 1830, For IV administration, reconstitute 40 mg vial with 10 mL sodium chloride 0.9% for injection for a final concentration of 4 mg/mL, Indications: Stress Ulcer ProphylaxisIndications:Stress Ulcer Prophylaxis Given 07/30/2025 7:54 AM TOUR PRODUCTION SUPERVISOR 40 mg 300 mL/hr Given 07/29/2025 8:31 AM TOUR PRODUCTION SUPERVISOR 40 mg 300 mL/hr Given 07/28/2025 9:30 AM TOUR PRODUCTION SUPERVISOR 40 mg 300 mL/hr polyethylene glycol (MIRALAX) packet 17 g 17 g, oral, Daily PRN, constipation, Starting on [place] 07/26/25 at 1134, Indications: constipationIndications:constipation Inactive Administered Medications - up to 3 most recent administrations Medication Order MAR Action Action Date Dose Rate Site aspirin suppository 300 mg 300 mg, rectal, Daily, First dose on Wed07/27/25 at 0900 Given 07/27/2025 8:19 AM TOUR PRODUCTION SUPERVISOR 300 mg bisacodyL (DULCOLAX) suppository 10 mg 10 mg, rectal, Once, On 07/28/25 at 0915, For 1 dose, Indications: constipationIndications: constipation Given 07/28/2025 10:05 AM TOUR PRODUCTION SUPERVISOR 10 mg cangrelor (KENGREAL) 50 mg in sodium chloride 0.9% 250 mL (0.2 mg/mL) infusion 0.75 mcg/kg/min 72.9 kg (16.4025 mL/hr, rounded to 16.4 mL/hr), intravenous, Continuous, Starting on [place] 07/26/25 at 1245, Nurse to discontinue cangrelor infusion order immediately prior to first administration of clopidogrel or prasugrel using o rder condition met order source . Store at room temperature, I /authorizing provider attest that the patient meets the approved [facility] Use Criteria: Yes, Indications: prevention of thrombosis, P2Y12 antiplatelet therapy bridgeIndications:preven tion of thrombosis,P2Y12 antiplatelet therapy bridge Rate/Dose Verify 07/27/2025 9:00 PM TOUR PRODUCTION SUPERVISOR 0.75 mcg/kg/min 16.4 mL/hr Rate/Dose Verify 07/27/2025 8:00 PM TOUR PRODUCTION SUPERVISOR 0.75 mcg/kg/min 16 .4 mL/hr Rate/Dose Verify 07/27/2025 7:00 PM TOUR PRODUCTION SUPERVISOR 0.75 mcg/kg/min 16 .4 mL/hr dexmedeTOMIDine in 0.9% sodium chloride (PRECEDEX) 400 mcg/100 mL (4 mcg/mL) infusion (premix) 0-1.5 mcg/kg/hr 75 kg (0-28.125 mL/hr, rounded to 0-28.13 mL/hr), 4 mcg/mL, intravenous, Titrated, Starting on 07/29/25 at 1900, Until 07/30/25 at 0831, Titration instructions: Titrate, Initial dose: 0.2 mcg/kg/hr, Titrate: Up/Down, Titrate by: 0.1 mcg/kg/hr, Every: 30 minutes, Goal: RASS, RASS Goal: 0, -1, -2, Routine Rate/Dose Change 07/30/2025 8:51 AM TOUR PRODUCTION SUPERVISOR 0.2 mcg/kg/hr 3.75 mL/hr Rate/Dose Verify 07/30/2025 8:30 AM TOUR [employer]ODUCTION SUPERVISOR 0.4 mcg/kg/hr 7.5 mL/hr Rate/Dose Verify 07/30/2025 8:00 AM TOUR PRODUCTION SUPERVISOR 0.4 mcg/kg/hr 7.5 mL/hr fentaNYL 2500 mcg/50 mL (50 mcg/mL) infusion syringe (premix) 0-400 mcg/hr (0-8 mL/hr), intravenous, Titrated, Starting on [place] 07/26/25 at 1230, CONTINUE current rate if pain control at goal - less than 2 PRN breakthrough pain doses (not painful stimuli doses) in previous 4 hours. INCREASE infusion per titration instructions if 2 or more PRN breakthrough pain doses (not painful stimuli doses) in previous 4 hours until pain score goal reached. DECREASE infusion per titration instructions if pain controlled but oversedated compared togoal. Discontinue when patient extubated., Titration instructions: Titrate, Initial dose: 25 mcg/hr, Titrate: Up/Down, Titrate by: 25 mcg/hr, Every: 30 minutes, Goal: RASS, RASS Goal: 0, -1, -2, Indications: Pain in Intubated PatientsIndications:Pain in Intubated Patients Rate/Dose Verify 07/30/2025 7:53 AM TOUR [employer]ODUCTION SUPERVISOR 50 mcg/hr 1 mL/hr Rate/Dose Verify 07/30/2025 7:44 AM TOUR [employer]ODUCTION SUPERVISOR 50 mcg/hr 1 mL/hr Rate/Dose Verify 07/30/2025 7:01 AM TOUR [employer]ODUCTION SUPERVISOR 50 mcg/hr 1 mL/hr furosemide (LASIX) 10 mg/mL injection 40 mg 40 mg, intravenous, Once, On Wed07/30/25 at 1115, For 1 dose, For IV push: administer doses < 160 mg at a rate of 20 -40 mg/min. Doses >/= 160 mg should be administered no faster than 4 mg/min. Room temperature only Given 07/30/2025 10:48 AM TOUR PRODUCTION SUPERVISOR 40 mg Lactated Ringer's (LR) bolus 500 mL 500 mL, intravenous, at 167 mL/hr, Administer over 3 Hours, Once, On Wed07/27/25 at 1245, For 1 dose Rate/Dose Verify 07/27/2025 4:00 PM TOUR [employer]ODUCTION SUPERVISOR 167 mL/hr Rate/Dose Verify 07/27/2025 3:00 PM TOUR PRODUCTION SUPERVISOR 167 mL/ hr Rate/Dose Verify 07/27/2025 2:00 PM TOUR PRODUCTION SUPERVISOR 167 mL/ hr Lactated Ringer's (LR) bolus 500 mL 500 mL, intravenous, at 500 mL/hr, Administer over 1 Hours, Once, On 07/27/25 at 2330, For 1 dose Rate/Dose Verify 07/28/2025 12:00 AM TOUR [employer]ODUCTION SUPERVISOR 500 mL/hr New Bag 07/27/2025 11:44 PM TOUR [employer]ODUCTION SUPERVISOR 500 mL 500 mL/hr Lactated Ringer's (LR) bolus 500 mL 500 mL, intravenous, at 250 mL/hr, Administer over 2 Hours, Once, On 07/28/25 at 0915, For 1 dose Rate/Dose Verify 07/28/2025 11:00 AM TOUR [employer]ODUCTION SUPERVISOR 250 mL/hr Rate/Dose Verify 07/28/2025 10:00 AM TOUR PRODUCTION SUPERVISOR 250 mL /hr New Bag 07/28/2025 9:29 AM TOUR [employer]ODUCTION SUPERVISOR 500 mL 250 mL/hr Lactated Ringer's (LR) bolus 500 mL 500 mL, intravenous, at 250 mL/hr, Administer over 2 Hours, Once, On 07/28/25 at 1700, For 1 dose Rate/Dose Verify 07/28/2025 7:00 PM TOUR [employer]ODUCTION SUPERVISOR 250 mL/hr Rate/Dose Verify 07/28/2025 6:00 PM TOUR PRODUCTION SUPERVISOR 250 mL/ hr New Bag 07/28/2025 5:08 PM TOUR [employer]ODUCTION SUPERVISOR 500 mL 250 mL/hr lactulose 200 g/1,000 mL sterile water enema 1,000 mL 1,000 mL, rectal, Once, On 07/28/25 at 1645, For 1 dose, Administer as a retention enema, which requires dwell time of 30-60 minutes to be effective for hepatic encephalopathy. If inadvertently evacuated too promptly: contact the provider to re-order a repeat enema and discuss balloon catheter options and orders. Given 07/28/2025 6:42 PM TOUR PRODUCTION SUPERVISOR 1,000 mL magnesium sulfate 2 g/50 mL in water (premix) 2 g 2 g, intravenous, at 50 mL/hr, Administer over 60 Minutes, Once, On [place] 07/26/25 at 2330, For 1 dose Rate/Dose Verify 07/27/2025 12:00 AM TOUR PRODUCTION SUPERVISOR 50 mL/hr New Bag 07/26/2025 11:23 PM TOUR PRODUCTION SUPERVISOR 2 g 50 mL/hr magnesium sulfate 2 g/50 mL in water (premix) 2 g 2 g, intravenous, at 50 mL/hr, Administer over 60 Minutes, Once, On Wed07/27/25 at 0545, For 1 dose Rate/Dose Verify 07/27/2025 6:00 AM TOUR [employer]ODUCTION SUPERVISOR 50 mL/hr New Bag 07/27/2025 5:18 AM TOUR [employer]ODUCTION SUPERVISOR 2 g 50 mL/hr nitroglycerin in dextrose 5% 50 mg/250 mL (200 mcg/mL) infusion (premix) 0-400 mcg/min (0-120 mL/hr), 0.2 mg/mL, intravenous, Titrated, Starting on [place] 07/26/25 at 1300, Until [place] 07/26/25 at 1504, Initial rate: 10 mcg/min, Titrate: Up/Down, Titrate by: 10 mcg/min, every: 5 minutes, Goal: Other (comment) / Augmented pressure 110, Routine Rate/Dose Change 07/26/2025 12:41 PM TOUR PRODUCTION SUPERVISOR 10 mcg/min 3 mL/hr New Bag 07/26/2025 12:33 PM TOUR PRODUCTION SUPERVISOR 30 mcg/min 9 mL/hr perflutren protein-a (OPTISON) 0.22 mg/mL injection - ADS Override Pull Starting on Wed07/27/25 at 0942, For 1 dose, Created by cabinet override Contrast Given 07/27/2025 10:37 AM TOUR PRODUCTION SUPERVISOR perflutren protein-a (OPTISON) injection 0.1-3 mL 0.1-3 mL, intravenous, Once in imaging, contrast, Starting on Wed07/27/25 at 0712, For 1 dose, Intra-Procedure (CV) Given by Other 07/27/2025 10:10 AM TOUR PRODUCTION SUPERVISOR 3 mL phenylephrine (ALIE-SYNEPHRINE) 1 mg/10 mL (100 mcg/mL) in sodium chloride 0.9% (premix) - ADS Override Pull Starting on [place] 07/26/25 at 1245, For 1 dose, Created by cabinet override For IV push, administer over 30 seconds. Given 07/26/2025 12:50 PM TOUR PRODUCTION SUPERVISOR 200 mcg phenylephrine (ALIE-SYNEPHRINE) 1 mg/10 mL (100 mcg/mL) in sodium chloride 0.9% (premix) 200 mcg 200 mcg, intravenous, Once, On [place] 07/26/25 at 1545, For 1 dose, For IV push, administer over 30 seconds. Given 07/26/2025 1:45 PM TOUR PRODUCTION SUPERVISOR 200 mcg propofol (DIPRIVAN) 10 mg/mL infusion 0-50 mcg/kg/min 72.9 kg (0-21.87 mL/hr), 10 mg/mL, intravenous, Titrated, Starting on [place] 07/26/25 at 1230, Until 07/30/25 at 0855, Titration instructions: Titrate, Initial dose: 20 mcg/kg/min, Titrate: Up/Down, Titrate by: 10 mcg/kg/min, Every: 10 minutes, Goal: RASS, RASS Goal: -1, -2, Do not administer through the same I.V. catheter with blood or plasma. Tubing and any unused portions of propofol vials should be discarded after 12 hours. Room temperature only, Routine Rate/Dose Verify 07/30/2025 8:00 AM TOUR [employer]ODUCTION SUPERVISOR 10 mcg/kg/min 4.37 mL/hr Rate/Dose Change 07/30/2025 7:59 AM TOUR PRODUCTION SUPERVISOR 10 mcg/kg/min 4.37 mL/hr Rate/Dose Verify 07/30/2025 7:53 AM TOUR PRODUCTION SUPERVISOR 20 mcg/kg/min 8.75 mL/hr ticagrelor (BRILINTA) tablet 180 mg 180 mg, feeding tube, Once, On Wed07/27/25 at 2215, For 1 dose Given 07/27/2025 9:58 PM TOUR [employer]ODUCTION SUPERVISOR 180 mg documented in this encounter Active and Recently Administered Medications Times are shown in TOUR [employer]ODUCTION SUPERVISOR. Scheduled Medication Order 07/28/2025 07/29/2025 07/30/2025 aspirin suppository 300 mg 300 mg, rectal, Daily, First dose on 07/28/25 at 0900 1005 (Given - Provider: Yari Bermudez, GEORGE) 0831 (Given - Provider: Aditya Pelayo, RN) 0754 (Given - Provider: Aditya Pelayo, GEORGE) bisacodyL (DULCOLAX) suppository 10 mg (COMPLETED) 10 mg, rectal, Once, On 07/28/25 at 0915, For 1 dose, Indications: constipation 1005 (Given - Provider: Yari Bermudez RN) cefTRIAXone (ROCEPHIN) 2,000 mg/20 mL in sterile water (premix) 2,000 mg 2,000 mg, intravenous, at 240 mL/hr, Administer over 5 Minutes, Every 24 hours scheduled, First dose (after last modification) on Wed07/27/25 at 2300, Indications: Pneumonia 0831 (Given - Provider: Aditya Pelayo, GEORGE) 0754 (Given - Provider: Aditya Pelayo RN) furosemide (LASIX) 10 mg/mL injection 40 mg (COMPLETED) 40 mg, intravenous, Once, On Wed07/30/25 at 1115, For 1 dose, For IV push: administer doses < 160 mg at a rate of 20 -40 mg/min. Doses >/= 160 mg should be administered no faster than 4 mg/min. Room temperature only 1048 (Given - Provider: Aditya Pelayo RN) ipratropium-albuteroL (DUO-NEB) 0.5-2.5 mg/3 mL nebulizer solution 3 mL 3 mL, nebulization, 4 times daily (socially responsible investment adviser), First dose on Wed07/26/25 at 1700 0005 (Given - Provider: Mara Baugh [employer])0435 (Given - Provider: Mara Baugh RRT)1000 (Given - Provider: Nancy Clement, [employer])1646 (Given - Provider: Nancy Clement RRT)2318 (Given - Provider: Jolene Brink RRT) 0410 (Given - Provider: Jolene Brink RRT)1100 (Due - Provider: Judith Mak RRT)1700 (Not Given - Provider: Onofre Mccall RN - Reason: Other)2358 (Given - Provider: Jolene Brink RRT) 0452 (Given - Provider: Jolene Brink RRT)1100 (Due)1700 (Due)2300 (Due) Lactated Ringer's (LR) bolus 500 mL (COMPLETED) 500 mL, intravenous, at 500 mL/hr, Administer over 1 Hours, Once, On Wed07/27/25 at 2330, For 1 dose 0000 (Rate/Dose Verify - Provider: Jonathon Alvarado RN)0045 (Stopped - Provider: Jonathon Alvarado RN) Lactated Ringer's (LR) bolus 500 mL (COMPLETED) 500 mL, intravenous, at 250 mL/hr, Administer over 2 Hours, Once, On 07/28/25 at 0915, For 1 dose 0929 (New Bag - Provider: Yari Bermudez RN)1000 (Rate/Dose Verify - Provider: Jonathon Alvarado RN)1100 (Rate/Dose Verify - Provider: Jonathon Alvarado RN)1132 (Stopped - Provider: Jonathon Alvarado RN) Lactated Ringer's (LR) bolus 500 mL (COMPLETED) 500 mL, intravenous, at 250 mL/hr, Administer over 2 Hours, Once, On 07/28/25 at 1700, For 1 dose 1708 (New Bag - Provider: Yari Bermudez RN)1800 (Rate/Dose Verify - Provider: Jonathon Alvarado RN)1900 (Rate/Dose Verify - Provider: Jonathon Alvarado RN)1910 (Stopped - Provider: Jonathon Alvarado RN) lactulose 200 g/1,000 mL sterile water enema 1,000 mL (COMPLETED) 1,000 mL, rectal, Once, On 07/28/25 at 1645, For 1 dose, Administer as a retention enema, which requires dwell time of 30-60 minutes to be effective for hepatic encephalopathy. If inadvertently evacuated too promptly: contact the provider to re-order a repeat enema and discuss balloon catheter options and orders. 184 (Given - Provider: Yari Bermudez RN) pantoprazole (PROTONIX) 40 mg in sodium chloride 0.9% 10 mL IV Syringe 40 mg, intravenous, at 300 mL/hr, Administer over 2 Minutes, Daily, First dose on [place] 07/26/25 at 1830, For IV administration, reconstitute 40 mg vial with 10 mL sodium chloride 0.9% for injection for a final concentration of 4 mg/mL, Indications: Stress Ulcer Prophylaxis 0930 (Given - Provider: Yari Bermudez RN) 0831 (Given - Provider: Aditya Pelayo, GEORGE) 0754 (Given - Provider: Aditya Pelayo, GEORGE) Continuous Medication Order 07/28/2025 07/29/2025 07/30/2025 cangrelor (KENGREAL) 50 mg in sodium chloride 0.9% 250 mL (0.2 mg/mL) infusion 0.75 mcg/kg/min 72.9 kg (16.4025 mL/hr, rounded to 16.4 mL/hr), intravenous, Continuous, Starting on 07/28/25 at 0545, Nurse to discontinue cangrelor infusion order immediately prior to first administration of clopidogrel or prasugrel using o rder condition met order source . Store at room temperature, I /authorizing provider attest that the patient meets the approved [facility] Use Criteria: Yes, Indications: prevention of thrombosis, P2Y12 antiplatelet therapy bridge 0603 (New Order/Same Infusion - Provider: Jonathon Alvarado RN)0700 (Rate/Dose Verify - Provider: Jonathon Alvarado RN)0800 (Rate/Dose Verify - Provider: Yari Bermudez RN)0900 (Rate/Dose Verify - Provider: Yari Bermudez RN)1000 (Rate/Dose Verify - Provider: Yari Bermudez RN)1100 (Rate/Dose Verify - Provider: Yari Bermudez RN)1200 (Rate/Dose Verify - Provider: Yari Bermudez RN)1224 (Rate/Dose Verify - Provider: Yari Bermudez RN)1240 (Rate/Dose Verify - Provider: Yari Bermudez RN)1254 (Rate/Dose Verify - Provider: Yari Bermudez RN)1300 (Rate/Dose Verify - Provider: Yari Bermudez RN)1303 (Paused - Provider: Yari Bermudez RN)1306 (Restarted (From Pump) - Provider: Yari Bermudez RN)1400 (Rate/Dose Verify - Provider: Yari Bermudez RN)1500 (Rate/Dose Verify - Provider: Yari Bermudez RN)1517 (Rate/Dose Verify - Provider: Yari Bermudez, RN)1536 (New Bag - Provider: Yari Bermudez RN)1600 (Rate/Dose Verify - Provider: Yari Bermudez, GEORGE)1800 (Rate/Dose Verify - Provider: Yari Bermudze, GEORGE)1900 (Rate/Dose Verify - Provider: Yari Bermudez RN)2000 (Rate/Dose Verify - Provider: Jonathon Alvarado RN)2100 (Rate/Dose Verify - Provider: Jonathon Alvarado RN)2200 (Rate/Dose Verify - Provider: Jonathon Jellum, RN)2300 (Rate/Dose Verify - Provider: Jonathon Alvarado RN) 0000 (Rate/Dose Verify - Provider: Jonathon Alvarado RN)0100 (Rate/Dose Verify - Provider: Jonathon Alvarado RN)0200 (Rate/Dose Verify - Provider: Jonathon Alvarado RN)0300 (Rate/Dose Verify - Provider: Jonathon Alvarado RN)0400 (Rate/Dose Verify - Provider: Jonathon Alvarado RN)0500 (Rate/Dose Verify - Provider: Jonathon Alvarado RN)0515 (New Bag - Provider: Jonathon Alvarado RN)0545 (Rate/Dose Verify - Provider: Jonathon Alvarado RN)0600 (Rate/Dose Verify - Provider: Jonahton Alvarado RN)0700 (Rate/Dose Verify - Provider: Jonathon Alvarado RN)0800 (Rate/Dose Verify - Provider: Aditya Pelayo RN)0900 (Rate/Dose Verify - Provider: Aditya Pelayo RN)1000 (Rate/Dose Verify - Provider: Aditya Pelayo RN)1100 (Rate/Dose Verify - Provider: Aditya Pelayo RN)1123 (Rate/Dose Verify - Provider: Aditya Pelayo RN)1200 (Rate/Dose Verify - Provider: Aditya Pelayo RN)1500 (Rate/Dose Verify - Provider: Aditya Pelayo RN)1600 (Rate/Dose Verify - Provider: Aditya Pelayo RN)1700 (Rate/Dose Verify - Provider: Aditya Pelayo RN)2000 (New Bag - Provider: Onofre Mccall RN) 0000 (Rate/Dose Verify - Provider: Onofre Mccall RN)0100 (Rate/Dose Verify - Provider: Onofre Mccall RN)0200 (Rate/Dose Verify - Provider: Onofre Mccall RN)0300 (Rate/Dose Verify - Provider: Onofre Mccall RN)0400 (Rate/Dose Verify - Provider: Onofre Mccall RN)0548 (Rate/Dose Verify - Provider: Onofre Mccall RN)0600 (Rate/Dose Verify - Provider: Onofre Mccall RN)0618 (Rate/Dose Verify - Provider: Onofre Mccall RN)0700 (Rate/Dose Verify - Provider: Onofre Mccall RN)0753 (Rate/Dose Verify - Provider: Aditya Pelayo RN)0800 (Rate/Dose Verify - Provider: Aditya Pelayo RN)0830 (Rate/Dose Verify - Provider: Aditya Pelayo RN)0900 (Rate/Dose Verify - Provider: Aditya Pelayo RN)0954 (Rate/Dose Verify - Provider: Aditya Pelayo RN)1011 (New Bag - Provider: Aditya Pelayo RN)1104 (Rate/Dose Verify - Provider: Aditya Pelayo RN) dexmedeTOMIDine in 0.9% sodium chloride (PRECEDEX) 400 mcg/100 mL (4 mcg/mL) infusion (premix) (CANCELED) 0-1.5 mcg/kg/hr 75 kg (0-28.125 mL/hr, rounded to 0-28.13 mL/hr), 4 mcg/mL, intravenous, Titrated, Starting on Wed07/29/25 at 1900, Until Wed07/30/25 at 0831, Titration instructions: Titrate, Initial dose: 0.2 mcg/kg/hr, Titrate: Up/Down, Titrate by: 0.1 mcg/kg/hr, Every: 30 minutes, Goal: RASS, RASS Goal: 0, -1, -2, Routine 1828 (Hold - Provider: Aditya Pelayo RN - Reason: See Provider Order - Comment: for SBT tomorrow morning) 0543 (New Bag - Provider: Onofre Mccall RN)0543 (Rate/Dose Verify - Provider: Onofre Mccall RN)0548 (Rate/Dose Verify - Provider: Onofre Mccall RN)0554 (Rate/Dose Change - Provider: Onofre Mccall RN)0600 (Rate/Dose Verify - Provider: Onofre Mccall RN)0618 (Rate/Dose Verify - Provider: Onofre Mccall RN)0700 (Rate/Dose Verify - Provider: Onofre Mccall RN)0752 (Paused - Provider: Aditya Pelayo RN)0752 (Rate/Dose Change - Provider: Aditya Pelayo RN)0753 (Rate/Dose Verify - Provider: Aditya Pelayo RN)0800 (Rate/Dose Verify - Provider: Aditya Pelayo RN)0830 (Rate/Dose Verify - Provider: Aditya Pelayo RN)0851 (Rate/Dose Change - Provider: Aditya Pelayo RN)0900 (Stopped - Provider: Aditya Pelayo RN) dexmedeTOMIDine in 0.9% sodium chloride (PRECEDEX) 400 mcg/100 mL (4 mcg/mL) infusion (premix) 0-0.7 mcg/kg/hr 75 kg (0-13.125 mL/hr, rounded to 0-13.13 mL/hr), 4 mcg/mL, intravenous, Titrated, Starting on 07/30/25 at 0930, Until Discontinued, Titration instructions: Titrate, Initial dose: 0.2 mcg/kg/hr, Titrate: Up/Down, Titrate by: 0.1 mcg/kg/hr, Every: 30 minutes, Goal: RASS, RASS Goal: 0, +1, Routine 0903 (Hold - Provider: Aditya Pelayo RN - Reason: See Provider Order - Comment: not needed at the moment)1012 (Restarted - Provider: Aditya Pelayo RN)1030 (Rate/Dose Change - Provider: Aditya Pelayo RN)1100 (Rate/Dose Change - Provider: Aditya Pelayo, RN)1104 (Canceled Entry - Provider: Aditya Pelayo RN - Comment: Cancelled from back documented administration.)113 0 (Rate/Dose Change - Provider: Aditya Pelayo, GEORGE)1200 (Rate/Dose Change - Provider: Aditya Pelayo, RN) fentaNYL 2500 mcg/50 mL (50 mcg/mL) infusion syringe (premix) (CANCELED) 0-400 mcg/hr (0-8 mL/hr), intravenous, Titrated, Starting on [place] 07/26/25 at 1230, CONTINUE current rate if pain control at goal - less than 2 PRN breakthrough pain doses (not painful stimuli doses) in previous 4 hours. INCREASE infusion per titration instructions if 2 or more PRN breakthrough pain doses (not painful stimuli doses) in previous 4 hours until pain score goal reached. DECREASE infusion per titration instructions if pain controlled but oversedated compared togoal. Discontinue when patient extubated., Titration instructions: Titrate, Initial dose: 25 mcg/hr, Titrate: Up/Down, Titrate by: 25 mcg/hr, Every: 30 minutes, Goal: RASS, RASS Goal: 0, -1, -2, Indications: Pain in Intubated Patients 0000 (Rate/Dose Verify - Provider: Jonathon Alvarado RN)0100 (Rate/Dose Verify - Provider: Jonathon Alvarado RN)0200 (Rate/Dose Verify - Provider: Jonathon Alvarado RN)0300 (Rate/Dose Verify - Provider: Jonathon Alvarado RN)0400 (Rate/Dose Verify - Provider: Jonathon Alvarado RN)0500 (Rate/Dose Verify - Provider: Jnoathon Alvarado RN)0600 (Rate/Dose Verify - Provider: Jonathon Alvarado RN)0700 (Rate/Dose Verify - Provider: Jonathon Alvarado RN)0711 (Handoff - Provider: Yari Bermudez RN)0741 (Rate/Dose Verify - Provider: Yari Bermudez RN)0800 (Rate/Dose Verify - Provider: Yari Bermudez RN)0858 (Rate/Dose Verify - Provider: Yari Bermudez RN)0900 (Rate/Dose Verify - Provider: Yari Bermudez RN)1000 (Rate/Dose Verify - Provider: Yari Bermudez RN)1014 (Stopped - Provider: Yari Bermudez RN)1015 (New Syringe/Cartridge - Provider: Yari Bermudez RN)1100 (Rate/Dose Verify - Provider: Yari Bermudez RN)1200 (Rate/Dose Verify - Provider: Yari Bermudez RN)1224 (Rate/Dose Verify - Provider: Yari Bermudez RN)1241 (Rate/Dose Verify - Provider: Yari Bermudez RN)1254 (Rate/Dose Verify - Provider: Yari Bermudez RN)1300 (Rate/Dose Verify - Provider: Yari Bermudez, RN)1400 (Rate/Dose Verify - Provider: Yari Bermudez, RN)1408 (Rate/Dose Verify - Provider: Yari Bermudez, RN)1500 (Rate/Dose Verify - Provider: Yari Bermudez, RN)1534 (Rate/Dose Verify - Provider: Yari Bermudez, RN)1600 (Rate/Dose Verify - Provider: Yari Bermudez RN)1700 (Rate/Dose Verify - Provider: Yari Bermudez RN)1800 (Rate/Dose Verify - Provider: Yari Bermudez RN)1835 (Rate/Dose Change - Provider: Yari Bermudez RN)1900 (Rate/Dose Verify - Provider: Yari Bermudez RN)1928 (Handoff - Provider: Yari Bermudez RN)2000 (Rate/Dose Verify - Provider: Jonathon Alvarado RN)2016 (Rate/Dose Verify - Provider: Jonathon Alvarado RN)2100 (Rate/Dose Verify - Provider: Jonathon Alvarado RN)2156 (Rate/Dose Verify - Provider: Jonathon Alvarado RN)2200 (Rate/Dose Verify - Provider: Jonathon Alvarado RN)2200 (Rate/Dose Change - Provider: Jonathon Alvarado RN)2300 (Rate/Dose Verify - Provider: Jonathon Alvarado RN) 0000 (Rate/Dose Verify - Provider: Jonathon Alvarado RN)0100 (Rate/Dose Verify - Provider: Jonathon Alvarado RN)0200 (Rate/Dose Verify - Provider: Jonathon Alvarado RN)0300 (Rate/Dose Verify - Provider: Jonathon Alvarado RN)0400 (Rate/Dose Verify - Provider: Jonathon Alvarado RN)0500 (Rate/Dose Verify - Provider: Jonathon Alvarado RN)0600 (Rate/Dose Verify - Provider: Jonathon Alvarado RN)0700 (Rate/Dose Verify - Provider: Jonathon Alvarado RN)0722 (Controlled Drug Documentation (Dual Sign) - Provider: Jonathon Alvarado RN)0800 (Rate/Dose Verify - Provider: Aditya Pelayo RN)0900 (Rate/Dose Verify - Provider: Aditya Pelayo RN)1000 (Rate/Dose Verify - Provider: Aditya Pelayo RN)1100 (Rate/Dose Verify - Provider: Aditya Pelayo RN)1123 (Rate/Dose Verify - Provider: Aditya Pelayo RN)1200 (Rate/Dose Verify - Provider: Aditya Pelayo, GEORGE)1325 (Stopped - Provider: Aditya Pelayo RN)1333 (New Syringe/Cartridge - Provider: Aixa aMurice RN)1500 (Rate/Dose Verify - Provider: Aditya Pelayo RN)1600 (Rate/Dose Verify - Provider: Aditya Pelayo RN)1700 (Rate/Dose Verify - Provider: Aditya Pelayo RN)1809 (Rate/Dose Verify - Provider: Onofre Mccall RN)1924 (Handoff - Provider: Aditya Pelayo RN) 0000 (Rate/Dose Verify - Provider: Onofre Mccall RN)0057 (Rate/Dose Verify - Provider: Onofre Mccall RN)0100 (Rate/Dose Verify - Provider: Onofre Mccall RN)0120 (Rate/Dose Verify - Provider: Onofre Mccall RN)0200 (Rate/Dose Verify - Provider: Onofre Mccall RN)0300 (Rate/Dose Verify - Provider: Onofre Mccall RN)0400 (Rate/Dose Verify - Provider: Onofre Mccall RN)0530 (Rate/Dose Verify - Provider: Onofre Mccall RN)0548 (Rate/Dose Verify - Provider: Onofre Mccall RN)0600 (Rate/Dose Verify - Provider: Onofre Mccall RN)0610 (Rate/Dose Change - Provider: Onofre Mccall RN)0618 (Rate/Dose Verify - Provider: Onofre Mccall RN)0700 (Rate/Dose Verify - Provider: Onofre Mccall RN)0701 (Rate/Dose Verify - Provider: Aditya Pelayo RN)0707 (Handoff - Provider: Aditya Pelayo RN)0744 (Rate/Dose Verify - Provider: Aditya Pelayo RN)0753 (Rate/Dose Verify - Provider: Aditya Pelayo RN)0759 (Stopped - Provider: Aditya Pelayo RN)0945 (Stopped (Dual Sign) - Provider: Aditya Pelayo, GEORGE) nitroglycerin in dextrose 5% 50 mg/250 mL (200 mcg/mL) infusion (premix) 0-400 mcg/min (0-120 mL/hr), 0.2 mg/mL, intravenous, Titrated, Starting on Wed07/30/25 at 1130, Until Discontinued, Initial rate: 10 mcg/min, Titrate: Up/Down, Titrate by: 10 mcg/min, every: 5 minutes, Goal: SBP, SBP Goal: 130-140 mmHg, Routine 1111 (New Bag - Provider: Aditya Pelayo RN) norepinephrine in dextrose 5% (LEVOPHED) 8,000 mcg/250 mL (32 mcg/mL) infusion (premix) 0-2 mcg/kg/min 72.9 kg (0-273.375 mL/hr, rounded to 0-273.38 mL/hr), 32 mcg/mL, intravenous, Titrated, Starting on [place] 07/26/25 at 1545, Until Discontinued, Initial rate: 0.05 mcg/kg/min, Titrate: Up/Down, Titrate by: 0.01 mcg/kg/min, Every: 2 minutes, Goal: MAP, MAP Goal: 60-70 mmHg, Routine 0000 (Rate/Dose Verify - Provider: Jonathon Alvarado RN)0013 (Rate/Dose Change - Provider: Jonathon Alvarado RN)0100 (Rate/Dose Verify - Provider: Jonathon Alvarado RN)0158 (Rate/Dose Change - Provider: Jonathon Alvarado RN)0200 (Rate/Dose Verify - Provider: Jonathon Alvarado RN)0300 (Rate/Dose Verify - Provider: Jonathon Alvarado RN)0400 (Rate/Dose Verify - Provider: Jonathon Alvarado RN)0500 (Rate/Dose Verify - Provider: Jonathon Alvarado RN)0600 (Rate/Dose Verify - Provider: Jonathon Alvraado RN)0621 (Rate/Dose Change - Provider: Jonathon Alvarado RN)0700 (Rate/Dose Verify - Provider: Jonathon Alvarado RN)0800 (Rate/Dose Verify - Provider: Yari Bermudez RN)0900 (Rate/Dose Verify - Provider: Yari Bermudez RN)1000 (Rate/Dose Verify - Provider: Yari Bermudez RN)1000 (Rate/Dose Change - Provider: Yari Bermudez RN)1032 (Rate/Dose Change - Provider: Yari Bermudez RN)1059 (Rate/Dose Change - Provider: Yari Bermudez, RN)1100 (Rate/Dose Verify - Provider: Yari Bermudez RN)1128 (Rate/Dose Change - Provider: Yari Bermudez, RN)1200 (Rate/Dose Verify - Provider: Yari Bermudez RN)1224 (Rate/Dose Verify - Provider: Yari Bermudez RN)1228 (Paused - Provider: Yari Bermudez RN)1243 (Restarted (From Pump) - Provider: Yari Bermudez RN)1253 (Rate/Dose Change - Provider: Yari Bermudez RN)1254 (Rate/Dose Verify - Provider: Yari Bermudez RN)1300 (Rate/Dose Verify - Provider: Yari Bermudez RN)1307 (Rate/Dose Change - Provider: Yari Bermudez RN)1400 (Rate/Dose Verify - Provider: Yari Bermudez RN)1409 (Rate/Dose Change - Provider: Yari Bermudez RN)1418 (Rate/Dose Change - Provider: Yari Bermudez RN)1437 (Stopped - Provider: Yari Bermudez RN)1501 (Restarted (From Pump) - Provider: Yari Bermudez RN)1524 (Rate/Dose Change - Provider: Yari Bermudez RN)1525 (Rate/Dose Change - Provider: Yari Bermudez RN)1529 (Rate/Dose Change - Provider: Yari Bermudez RN)1533 (Rate/Dose Change - Provider: Yari Bermudez RN)1600 (Rate/Dose Verify - Provider: Yari Bermudez RN)1700 (Rate/Dose Verify - Provider: Yari Bermudez RN)1739 (Rate/Dose Change - Provider: Yari Bermudez, RN)1800 (Rate/Dose Verify - Provider: Yari Bermudez RN)1838 (Stopped - Provider: Yari Bermudez RN) propofol (DIPRIVAN) 10 mg/mL infusion (CANCELED) 0-50 mcg/kg/min 72.9 kg (0-21.87 mL/hr), 10 mg/mL, intravenous, Titrated, Starting on [place] 07/26/25 at 1230, Until 07/30/25 at 0855, Titration instructions: Titrate, Initial dose: 20 mcg/kg/min, Titrate: Up/Down, Titrate by: 10 mcg/kg/min, Every: 10 minutes, Goal: RASS, RASS Goal: -1, -2, Do not administer through the same I.V. catheter with blood or plasma. Tubing and any unused portions of propofol vials should be discarded after 12 hours. Room temperature only, Routine 0000 (Rate/Dose Verify - Provider: Jonathon Alvarado RN)0012 (Rate/Dose Verify - Provider: Jonathon Alvarado RN)0045 (New Bag - Provider: Jonathon Alvarado RN)0100 (Rate/Dose Verify - Provider: Jonathon Alvarado RN)0200 (Rate/Dose Verify - Provider: Jonathon Alvarado RN)0300 (Rate/Dose Verify - Provider: Jonathon Alvarado, RN)0400 (Rate/Dose Verify - Provider: Jonathon Alvarado, RN)0500 (Rate/Dose Verify - Provider: Jonathon Alvarado RN)0600 (Rate/Dose Verify - Provider: Jonathon Alvarado RN)0700 (Rate/Dose Verify - Provider: Jonathon Alvarado RN)0800 (Rate/Dose Verify - Provider: Yari Bermudez RN)0823 (Rate/Dose Verify - Provider: Yari Bermudez RN)0900 (Rate/Dose Verify - Provider: Yari Bermudez RN)0934 (New Bag - Provider: Yari Bermudez RN)0936 (Paused - Provider: Yari Bermudez RN)0938 (Restarted (From Pump) - Provider: Yari Bermudez RN)0938 (Rate/Dose Verify - Provider: Yari Bermudez RN)1000 (Rate/Dose Verify - Provider: Yari Bermudez RN)1100 (Rate/Dose Verify - Provider: Yari Bermudez RN)1200 (Rate/Dose Verify - Provider: Yari Bermudez RN)1224 (Stopped - Provider: Yari Bermudez RN)1240 (Restarted (From Pump) - Provider: Yari Bermudez RN)1244 (Rate/Dose Verify - Provider: Yari Bermudez, GEORGE)1254 (Rate/Dose Verify - Provider: Yari Bermudez, RN)1300 (Rate/Dose Verify - Provider: Yari Bermudez, RN)1400 (Rate/Dose Verify - Provider: Yari Bermudez, RN)1500 (Rate/Dose Verify - Provider: Yari Bermudez RN)1501 (Rate/Dose Verify - Provider: Yari Bermudez RN)1533 (Rate/Dose Change - Provider: Yari Bermudez RN)1535 (Rate/Dose Verify - Provider: Yari Bermudez RN)1537 (Rate/Dose Verify - Provider: Yari Bermudez RN)1540 (New Bag - Provider: Yari Bermudez RN)1600 (Rate/Dose Verify - Provider: Yari Bermudez RN)1605 (Rate/Dose Verify - Provider: Yari Bermudez RN)1700 (Rate/Dose Verify - Provider: Yari Bermudez RN)1800 (Rate/Dose Verify - Provider: Yari Bermudez RN)1900 (Rate/Dose Verify - Provider: Yari Bermudez RN)2000 (Rate/Dose Verify - Provider: Jonathon Alvarado RN)2047 (Rate/Dose Change - Provider: Jonathon Alvarado RN)2100 (Rate/Dose Verify - Provider: Jonathon Alvarado RN)2152 (Rate/Dose Change - Provider: Jonathon Alvarado RN)2157 (Rate/Dose Verify - Provider: Jonathon Alvarado RN)2200 (Rate/Dose Verify - Provider: Jonathon Alvarado RN)2205 (New Bag - Provider: Jonathon Alvarado RN)2300 (Rate/Dose Verify - Provider: Jonathon Alvarado RN) 0000 (Rate/Dose Verify - Provider: Jonathon Alvarado RN)0100 (Rate/Dose Verify - Provider: Jonathon Alvarado RN)0200 (Rate/Dose Verify - Provider: Jonathon Alvarado RN)0220 (New Bag - Provider: Jonathon Alvarado RN)0300 (Rate/Dose Verify - Provider: Jonathon Alvarado RN)0400 (Rate/Dose Verify - Provider: Jonathon Alvarado RN)0500 (Rate/Dose Verify - Provider: Jonathon Alvarado RN)0600 (Rate/Dose Verify - Provider: Jonathon Alvarado RN)0700 (Rate/Dose Verify - Provider: Jonathon Alvarado RN)0751 (New Bag - Provider: Aditya Pelayo RN)0752 (Rate/Dose Verify - Provider: Aditya Pelayo RN)0800 (Rate/Dose Verify - Provider: Aditya Pelayo RN)0837 (Rate/Dose Change - Provider: Aditya Pelayo RN)0837 (Rate/Dose Change - Provider: Aditya Pelayo RN)0900 (Rate/Dose Verify - Provider: Aditya Pelayo RN)1000 (Rate/Dose Verify - Provider: Aditya Pelayo RN)1100 (Rate/Dose Verify - Provider: Aditya Pelayo RN)1120 (Rate/Dose Change - Provider: Aditya Pelayo RN)1123 (Rate/Dose Verify - Provider: Aditya Pelayo RN)1200 (Rate/Dose Verify - Provider: Aditya Pelayo RN)1334 (New Bag - Provider: Aixa Maurice RN)1500 (Rate/Dose Verify - Provider: Aditya Pelayo, GEORGE)1515 (Rate/Dose Change - Provider: Aditya Pelayo, RN)1600 (Rate/Dose Verify - Provider: Aditya Pelayo, GEORGE)1604 (Rate/Dose Change - Provider: Aditya Pelayo, RN)1700 (Rate/Dose Verify - Provider: Aditya Pelayo RN)1845 (New Bag - Provider: Aditya Pelayo RN)2234 (Rate/Dose Verify - Provider: Onofre Mccall RN) 0000 (Rate/Dose Verify - Provider: Onofre Mccall RN)0036 (New Bag - Provider: Onofre Mccall RN)0057 (Rate/Dose Verify - Provider: Onofre Mccall RN)0100 (Rate/Dose Verify - Provider: Onofre Mccall RN)0200 (Rate/Dose Verify - Provider: Onofre Mccall RN)0300 (Rate/Dose Verify - Provider: Onofre Mccall RN)0400 (Rate/Dose Verify - Provider: Onofre Mccall, RN)0525 (New Bag - Provider: Onofre Mccall RN)0525 (Rate/Dose Verify - Provider: Onofre Mccall, RN)0526 (Rate/Dose Change - Provider: Onofre Mccall, RN)0531 (Rate/Dose Verify - Provider: Onofre Mccall, RN)0548 (Rate/Dose Verify - Provider: Onofre Mccall, RN)0600 (Rate/Dose Verify - Provider: Onofre Mccall RN)0610 (Rate/Dose Change - Provider: Onofre Mccall RN)0618 (Rate/Dose Verify - Provider: Onofre Mccall RN)0641 (Paused - Provider: Onofre Mccall RN)0642 (Restarted (From Pump) - Provider: Onofre Mccall RN)0700 (Rate/Dose Verify - Provider: Onofre Mccall RN)0705 (Rate/Dose Verify - Provider: Aditya Pelayo RN)0722 (Rate/Dose Verify - Provider: Aditya Pelayo RN)0753 (Rate/Dose Verify - Provider: Aditya Pelayo RN)0759 (Rate/Dose Change - Provider: Aditya Pelayo RN)0800 (Rate/Dose Verify - Provider: Aditya Pelayo RN)0807 (Stopped - Provider: Aditya Pelayo RN) PRN Medication Order 07/28/2025 07/29/2025 07/30/2025 acetaminophen (TYLENOL) suppository 650 mg 650 mg, rectal, Every 4 hours PRN, fever, Starting on 07/28/25 at 0806 1006 (Given - Provider: Yari Bermudez RN) bisacodyL (DULCOLAX) suppository 10 mg 10 mg, rectal, Daily PRN, constipation, If no results 24 hours after polyethylene glycol (MIRALAX). May give bisacodyl tablet if tolerating PO., Starting on [place] 07/26/25 at 1134, Indications: constipation bisacodyl EC (DULCOLAX EC) tablet 10 mg 10 mg, oral, Daily PRN, constipation, If no results 24 hours after polyethylene glycol (MIRALAX). May give bisacodyl supp if not tolerating PO), Starting on [place] 07/26/25 at 1134, Do not crush, chew, cut, dissolve, open or otherwise manipulate tablet/capsule., Indications: constipation fentaNYL (SUBLIMAZE) bolus from bag 50 mcg 50 mcg, intravenous, Every 15 min PRN, breakthrough pain, Starting on [place] 07/26/25 at 1153, Discontinue when patient extubated. , Indications: Pain 2014 (Bolus from Bag - Provider: Jonathon Alvarado RN)2154 (Bolus from Bag - Provider: Jonathon Alvarado RN) 104 (Bolus from Bag - Provider: Gintare Cal, RN) fentaNYL (SUBLIMAZE) bolus from bag 50 mcg 50 mcg, intravenous, Every 15 min PRN, painful stimuli include turning, bathing, nasotracheal suctioning, physical therapy, dressing changes, and intravenous catheter and invasive line placement., Starting on [place] 07/26/25 at 1153, Discontinue when patient extubated. , Indications: Pain 1122 (Bolus from Bag - Provider: Aditya Pelayo, RN)1809 (Bolus from Bag - Provider: Aditya Pelayo, GEORGE) 0147 (Bolus from Bag - Provider: Onofre Mccall, GEORGE)0706 (Bolus from Bag - Provider: Aditya Pelayo, RN)0745 (Bolus from Bag - Provider: Aditya Pelayo, RN) ondansetron (ZOFRAN) injection 4 mg(Linked Group 1) 4 mg, intravenous, Administer over 2 Minutes, Every 6 hours PRN, nausea, vomiting, if not tolerating PO, Starting on [place] 07/26/25 at 1134, Indications: nausea and vomiting ondansetron ODT (ZOFRAN-ODT) disintegrating tablet 4 mg(Linked Group 1) 4 mg, oral, Every 6 hours PRN, nausea, vomiting, Starting on [place] 07/26/25 at 1134, If administering by mouth, place tablet on tongue and allow to dissolve., Indications: nausea and vomiting polyethylene glycol (MIRALAX) packet 17 g 17 g, oral, Daily PRN, constipation, Starting on [place] 07/26/25 at 1134, Indications: constipation Linked Groups Order Group 1: ondansetron ODT (ZOFRAN-ODT) disintegrating tablet 4 mgJump to med 4 mg, oral, Every 6 hours PRN, nausea, vomiting, Starting on [place] 07/26/25 at 1134, If administering by mouth, place tablet on tongue and allow to dissolve., Indications: nausea and vomiting Or ondansetron (ZOFRAN) injection 4 mgJump to med 4 mg, intravenous, Administer over 2 Minutes, Every 6 hours PRN, nausea, vomiting, if not tolerating PO, Starting on [place] 1225 at 1134, Indications: nausea and vomiting documented in this encounter Orders Medications Ordered That Alonzo ht Not Have Been Administered Count Last Ordered Date First Ordered Date acetaminophen (TYLENOL) suppository 650 mg 1 07/28/2025 aspirin chewable tablet 81 mg 2 07/27/2025 07/26/2025 cefTRIAXone (ROCEPHIN) 1,000 mg/10 mL in sterile water (premix) 1,000 mg 1 07/27/2025 cefTRIAXone (ROCEPHIN) 2,000 mg/20 mL in sterile water (premix) 2,000 mg 1 07/27/2025 magnesium sulfate 2 g/50 mL in water (premix) 2 g 1 07/27/2025 ticagrelor (BRILINTA) tablet 90 mg 4 2024 acetaminophen (TYLENOL) tablet 650 mg 1 atropine 0.1 mg/mL injection - ADS Override Pull 1 07/26/2025 bisacodyL (DULCOLAX) suppository 10 mg 1 bisacodyl EC (DULCOLAX EC) tablet 10 mg 1 1 09/26/2024 cangrelor (KENGREAL) 50 mg i n sodium chloride 0.9% 250 mL (0.2 mg/mL) infusion 1 07/26/2025 cangrelor (KENGREAL) 50,000 mcg in sodium chloride 0.9% 250 mL (200 mcg/mL) infusion 1 07/26/2025 heparin 1,000 unit/mL injection 1 ioversoL (OPTIRAY 350) injection 1 07/26/20 lidocaine (XYLOCAINE) 10 mg/ mL (1 %) injection 1 07/26/2025 niCARdipine (CARDENE) 1 mg/1 0 mL in sodium chloride 0.9% (premix) 1 07/26/2025 nitroglycerin injection 100 mcg/mL in D5W 10 mL 1 07/26/2025 norepinephrine in dextrose 5 % (LEVOPHED) 8,000 mcg/250 mL (32 mcg/mL) infusion (premix) 1 07/26/2025 ondansetron (ZOFRAN) injection 4 mg 1 07/26 ondansetron ODT (ZOFRAN-ODT) disintegrating tablet 4 mg 1 07/26/2025 phenylephrine (ALIE-SYNEPHRIN E) 0.5 mg/5 mL (100 mcg/mL) in sodium chloride 0.9% (premix) 1 07/26/2025 phenylephrine (ALIE-SYNEPHRIN E) 1 mg/10 mL (100 mcg/mL) in sodium chloride 0.9% (premix) 200 mcg 1 07/26/2025 polyethylene glycol (MIRALAX) packet 17 g 1 07/26/2025 sodium chloride 0.9% 0.9% in fusion - ADS Override Pull 1 07/26/2025 Imaging Orders Without Results Count Last Order ed Date First Ordered Date EXTUBATION 1 07/30/2025 EKG Orders Without Results Count Last Ordered D ate First Ordered Date ECG 12-LEAD 3 07/27/2025 07/26/2025 Diet Count Last Ordered Date First Orde red Date NPO DIET 1 07/26/2025 Nursing Count Last Ordered Date First Orde red Date CAM ICU ASSESSMENT 9 07/30/2025 DOCUMENT SLEEP QUANTITY 10 07/30/2025 12/11/2024 NEUROLOGICAL CHECKS 9 07/30/2025 07/26/20 NEUROVASCULAR CHECKS 9 07/30/2025 025 DAILY WEIGHTS 1 07/27/2025 NURSING COMMUNICATION 9 07/27/20252024 ACTIVITY 1 07/26/2025 CARDIORESPIRATORY MONITOR 1 07/26/2025 HEIGHT AND WEIGHT 1 07/26/2025 NOTIFY PROVIDER (SPECIFY) 1 07/26/2025 POSITIONING INSTRUCTION 1 07/26/2025 PULSE OXIMETRY - RN 1 07/26/2025 QTC MONITORING 1 07/26/2025 STRICT INTAKE AND OUTPUT 1 07/26/2025 TURN PATIENT 1 07/26/2025 VITAL SIGNS 2 07/26/2025 Code Status Count Last Ordered Date First Orde red Date FULL CODE 1 07/26/2025 Consult Count Last Ordered Date First Orde red Date SMALL BOWEL FEEDING TUBE PLACEMENT CONSULT 1 07/28/2025 IP CONSULT TO ENT 1 07/26/2025 IP CONSULT TO NUTRITION SERVICES 1 07/26/20 Nourishments Count Last Ordered Date First Orde red Date TUBE FEEDING DIET 1 07/27/2025 OT Count Last Ordered Date First Orde red Date OT EVALUATE AND TREAT 1 07/26/2025 PT Count Last Ordered Date First Orde red Date PT EVALUATE AND TREAT 1 07/26/2025 Admission Count Last Ordered Date First Orde red Date ADMIT TO INPATIENT 1 07/26/2025 Precaution Count Last Ordered Date First Orde red Date LOW RISK NON SUICIDAL SELF I NJURIOUS PRECAUTIONS 1 07/27/2025 FALL PRECAUTIONS 1 07/26/2025 CORE MEASURES Count Last Ordered Date First Ord ered Date REASON FOR NO VTE PROPHYLAXIS AT ADMISSION 2 07/26/2025 Case Request Count Last Ordered Date First Orde red Date CASE REQUEST FEED PROJECT ENGINEER 1 07/26/2025 ADT Patient Update Count Last Ordered Date Firs t Ordered Date PROVIDER TREATMENT TEAM 1 07/26/2025 documented in this encounter Additional Health Concerns Infection Onset Date Last Indicated Resolved Time Ring Surveillance: C. auris 07/27/2025 07/27/2025 documented as of this encounter Care Teams Food Service Counter Clerk Relationship Specialty Start Date End Date Fuad Vidales MD [address] [place] [address] PCP - General 01/24/21 documented as of this encounter
--- OUTSIDE RECORDS SUMMARY | 2025-07-30 12:16 | XMS_ITS | Encounter Summary ---
Author Organization [facility] Address [address] [place] [address] Care Team Providers Care Turn Laster Name Role Phone Johnathan Bardales Primary Care Provider [phone] [phone] Encounter Details Date Type Department Care Team (Late Contact Info) Description 12/22/2004 Outpatient Historical [facility] [id number] [facility] [address] 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 Gender Identity Not on file Sexual Orientation Not on file documented as of this encounter Plan of Treatment Upcoming Encounters Date Type Department Care Team (Late Contact Info) Description 09/03/2025 10:00 AM GRAIN BROKER AND MARKET OPERATOR Office Visit [facility] - [address] [place] [address] Sina King DO [address] [place] [address] documented as of this encounter Visit Diagnoses Not on filedocumented in this encounter Additional Health Concerns Infection Onset Date Last Indicated Resolved Time R/O Respiratory 05/19/2025 05/19/2025 05/19/2025 1 0:45 PM CDT documented as of this encounter Care Teams Turn Laster Relationship Specialty Start Date End Date Johnathan Bardales DO [address] [place] [address] PCP - General Family Practice 05/01/25 documented as of this encounter
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
--- OUTSIDE RECORDS SUMMARY | 2025-07-30 12:16 | XMS_ITS | Encounter Summary ---
Author Organization [facility] Address [address] [place] [address] Care Team Providers Care Enrolled Nurse Name Role Phone BardalesJohnathan vines Primary Care Provider [phone] [phone] Encounter Details Date Type Department Care Team (Latest Contact Info) Description 03/01/2000 Outpatient Historical [facility] IOP Emiliano Kruger MD [address] [place] [address] Cocaine dependence, unspecified (CMS/HCC) (Primary Dx) Social History Tobacco Use Types Packs/Day Years Used Date Smoking Tobacco: Never Assessed Sex and Gender Information Value Date Recorded Sex Assigned at Not on file Legal Sex Male 4:02 AM INJURY PREVENTION COORDINATOR Gender Identity Not on file Sexual Orientation Not on file documented as of this encounter Plan of Treatment Upcoming Encounters Date Type Department Care Team (Late st Contact Info) Description 09/03/2025 10:00 AM INJURY PREVENTION COORDINATOR Office Visit [facility] Heart and Vascular - [address] [place] [address] Sina King DO [address] [place] [address] documented as of this encounter Visit Diagnoses Diagnosis Cocaine dependence, unspecified (CMS/HCC)- Primary Cocaine dependence, unspecified documented in this encounter Additional Health Concerns Infection Onset Date Last Indicated Resolved Time R/O Respiratory 05/19/2025 05/19/2025 05/19/2025 1 0:45 PM CDT documented as of this encounter Care Teams Enrolled Nurse Relationship Specialty Start Date End Date Johnathan Bardales DO [address] [place] [address] PCP - General Family Practice 05/01/25 documented as of this encounter
--- OUTSIDE RECORDS SUMMARY | 2025-07-30 12:18 | XMS_ITS | Clinical Summary ---
Author Organization [facility] Address [address] [place] [address] Phone Care Team Providers Care Museum Attendant Name Role Phone Johnathan Bardales DO Primary Care Provider [phone] Allergies Active Allergy Reactions Criticality Noted Date [...] Diagnosed Date Coronary artery disease invo lving wales coronary artery of wales heart without angina pectoris 05/22/2025 Hyperlipidemia 05/21/2025 S/P coronary artery stent placement 05/21/2025 Overview (05/21/2025): 05/21/25 MILLICENT x 1 OM 1, Dr. Gabriel MHW Chest pain 05/20/2025 Unstable angina 05/19/2025 Non-ST elevation TN (NSTEMI) 05/19/2025 Benign hypertension 05/19/2025 Shortness of breath 05/19/2025 Tobacco dependence 05/19/2025 Dental abscess 10/31/2012 Encounters Date Type Department Care Team Description 07/24/2025 External Device Data STL ABSTRACTION Provider, Abstract 07/24/2025 External Device Data STL ABSTRACTION Provider, Abstract 07/17/2025 External Device Data STL ABSTRACTION Provider, Abstract 07/11/2025 Results Follow-Up [facility] Heart and Vascular - [address] [place] [address] Dara Hidalgo PA-C HOLTER MONITOR 07/10/2025 9:00 AM HAMMER SETTER - 07/10/2025 11:59 PM HAMMER SETTER Hospital Encounter [facility] Cardiac [address] [place] [address] Clifton Andres MD Discharge Disposition: Home or Self Care 06/19/2025 External Device Data STL ABSTRACTION Provider, Abstract 06/19/2025 External Device Data STL ABSTRACTION Provider, Abstract 06/19/2025 External Device Data STL ABSTRACTION Provider, Abstract 06/01/2025 10:40 AM CDT Office Visit [facility] Heart and Vascular - [address] [place] [address] Mahogany Rose PA Non-ST elevation TN (NSTEMI) ([facility]) (Primary Dx); Coronary artery disease involving wales coronary artery of wales heart without angina pectoris; Benign hypertension; Mixed hyperlipidemia; Tobacco dependence 05/23/2025 External Device Data STL ABSTRACTION Provider, Abstract 05/23/2025 External Device Data STL ABSTRACTION Provider, Abstract 05/22/2025 11:30 AM CDT - 05/22/2025 11:59 PM CDT Hospital Encounter [facility] Cardiac [address] [place] [address] Discharge Disposition: Home or Self Care 05/22/2025 External Device Data STL ABSTRACTION Provider, Abstract 05/21/2025 9:00 AM CDT - 05/21/2025 9:40 AM CDT Surgery [facility] Power Lineman [address] [place] [address] Heri Gabriel MD Left heart cath 05/19/2025 11:03 AM CDT - 05/22/2025 12:05 PM CDT Hospital Encounter [facility] Cardiac Telemetry [address] [place] [address] Omega Gleason MD Parker, Jaya, MD Qureshi, Rocky Rossi MD Non-ST elevation [place] (NSTEMI) ([facility]) Discharge Disposition: Home or Self Care 05/19/2025 Travel 05/15/2025 External Device Data STL ABSTRACTION Provider, Abstract 05/10/2025 Nurse Triage [facility] [address] [place] [address] Johnathan Bardales DO 05/01/2025 11:00 AM CDT Office Visit [facility] [address] [place] [address] Johnathan Bardales DO Shipp, Daniel, APN Primary [...] worry about transportation for future doctor visits, order picker/assembler medication, etc.? No 2024 Housing Stability Answer [...] on file Legal Sex Male 4:02 AM HAMMER SETTER Gender Identity Not on file Sexual Orientation [...] st Contact Info) Description 09/03/2025 10:00 AM HAMMER SETTER Office Visit [facility] Heart and Vascular - [address] [place] [address] Sina King DO [address] [place] [address] Health Maintenance Due Date Last [...] Completed 12/27/2024 Medical Devices Implanted Type Area Special Tax Auditor Device Identifier Shelf Expiration Date Model / Serial / Lot Dev Closure Angioseal 6fr Vip [id number] - [id number] Implanted:Qty : 1 on 05/21/2025 by Heri Gabriel MD at [facility] Closure Device N/A: Groin TERUMO- CARDIOVASC SYS [id number] 01/16/2026 [id number] / / [id number] Stent Orsiro Locke [id number] [facility] Drug Eluting [id number] - [id number] Implanted:Qty : 1 on 05/21/2025 by Heri Gabriel MD at [facility] Stent N/A: Coronary [employer] 11/16/2025 [id number] / / [id number] Procedures Procedure Name Priority Date/Time Associated Diagnosis [...] INTERFACE SYSTEM - 06/01/2025 2:08 PM CDT [address] [address] Test Date: 2025-05-22 Pat Name: SOCORRO URBANO Department: 17 Room: [address] [place] [address] Gender: M 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1970 Requested By: OMEGA GLEASON Order Number: [id number] Reading MD: Karlo Ramos MD Measurements Intervals Randolph Rate: 94 P: 85 MS: 170 QRS: -81 QRSD: 85 T: 97 QT: 344 QTc: 432 Interpretive Statements Sinus rhythm Right atrial enlargement Left atrial enlargement Inferior myocardial infarction , of indeterminate age Electronically Signed On 06-01-2025 14:08:46 CDT by Karlo Ramos MD Procedure Note Karlo Ramos MD - 06/01/[address] [address] Test Date: 2025-05-22 Pat Name: SOCORRO UBRANO Department: 17 Room: [address] [place] [address] Gender: M 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1970 Requested By: OMEGA GLEASON Order Number: [id number] Reading MD: Maci GREGORIO Measurements Intervals Randolph Rate: 94 P: 85 MS: 170 QRS: -81 QRSD: 85 T: 97 [...] - 9.8 K/uL 05/22/2025 4:16 AM CDT [email or web address] [facility] Comment:ANC = 6.45K/uL RBC 5.27 4.50 - 5.40 M/uL 05/22/2025 4:16 AM CDT [email or web address] [facility] HEMOGLOBIN 16.0 13.6 - 16.5 g/dL 05/22/2025 4:16 AM CDT [email or web address] [facility] HEMATOCRIT 48.8(H) 40.0 - 48.0 % 05/22/2025 4:16 AM CDT [email or web address] [facility] MCV 92.6 82.0 - 99.0 fL 05/22/2025 4:16 AM CDT [email or web address] [facility] MCH 30.4 27.2 - 32.6 pg 05/22/2025 4:16 AM CDT [email or web address] [facility] MCHC 32.8 31.5 - 35.5 g/dL 05/22/2025 4:16 AM CDT [email or web address] [facility] RDW 11.6 11.5 - 14.5 % 05/22/2025 4:16 AM CDT [email or web address] [facility] RDW-STDEV 39.8 37.1 - 48.7 fL 05/22/2025 4:16 AM CDT [email or web address] [facility] [place] PLATELETS 356(H) 140 - 350 K/uL 05/22/2025 4:16 AM CDT [email or web address] [facility] [place] MPV 9.1(L) 9.3 - 12.4 fL 05/22/2025 4:16 AM CDT [email or web address] [facility] [place] NEUTROPHILS 64 % 05/22/2025 4:16 AM CDT [email or web address] [facility] [place] LYMPHOCYTES 23 % 05/22/2025 4:16 AM CDT [email or web address] [facility] [place] MONOCYTES 9 % 05/22/2025 4:16 AM CDT [email or web address] [facility] [place] EOSINOPHILS 3 % 05/22/2025 4:16 AM CDT [email or web address] [facility] [place] BASOPHILS 1 % 05/22/2025 4:16 AM CDT [email or web address] [facility] [place] IMMATURE GRANULOCYTES 1 % 05/22/2025 4:16 AM CDT [email or web address] [facility] [place] NEUTROPHIL ABSOLUTE 6.45 1.90 - 7.00 K/uL 05/22/2025 4:16 AM CDT [email or web address] [facility] [place] LYMPHOCYTE ABSOLUTE 2.30 0.70 - 4.50 K/uL 05/22/2025 4:16 AM CDT [email or web address] [facility] [place] MONOCYTE ABSOLUTE 0.86 0.10 - 1.30 K/uL 05/22/2025 4:16 AM CDT [email or web address] [facility] [place] EOSINOPHIL ABSOLUTE 0.34 0.00 - 0.70 K/uL 05/22/2025 4:16 AM CDT [email or web address] [facility] [place] BASOPHILS ABSOLUTE 0.06 0.00 - 0.20 K/uL 05/22/2025 4:16 AM CDT [email or web address] [facility] [place] IMMATURE GRANULOCYTES ABSOLUTE 0.05(H) 0.00 - 0.03 K/uL 05/22/2025 4:16 AM CDT [email or web address] [facility] [place] Blood Venipuncture / Unknown 05/22/2025 3:49 AM CDT 05/22/2025 4:14 AM CDT us Rocky Coles MD HEMATOLOGY ORDERABLES Final Result [employer] [facility] [place] CLIA# [id number] [address] [place] [address] * (ABNORMAL) COMPREHENSIVE METABOLIC PANEL (05/22/2025 3:49 AM CDT) Only the most recent of5 resultswithin the time period is included. SODIUM 140 136 - 145 mmol/L 05/22/2025 4:44 AM CDT [email or web address] [facility] [place] POTASSIUM 3.7 3.5 - 4.9 mmol/L 05/22/2025 4:44 AM CDT [employer] [facility] [place] CHLORIDE 105 98 - 107 mmol/L 05/22/2025 4:44 AM CDT [employer] [facility] [place] CO2 26 22 - 29 mmol/L 05/22/2025 4:44 AM CDT [employer] [facility] CALCIUM 9.0 8.6 - 10.2 mg/dL 05/22/2025 4:44 AM T [employer] [facility] BUN 21(H) 6 - 20 mg/dL 05/22/2025 4:44 AM CDT [employer] [facility] CREATININE 0.86 0.67 - 1.17 mg/dL 05/22/2025 4:44 AM CDT [employer] [facility] GLUCOSE 156(H) 74 - 99 mg/dL 05/22/2025 4:44 AM T [employer] [facility] TOTAL PROTEIN 6.8 6.0 - 8.3 g/dL 05/22/2025 4:44 AM CDT [employer] [facility] ALBUMIN 3.9 3.4 - 4.8 g/dL 05/22/2025 4:44 AM CDT [employer] [facility] BILIRUBIN TOTAL 0.4 0.0 - 1.0 mg/dL 05/22/2025 4:44 AM CDT [email or web address] [facility] ALKALINE PHOSPHATASE 112 40 - 129 U/L 05/22/2025 4:44 AM T [employer] [facility] AST 32 12 - 38 U/L 05/22/2025 4:44 AM CDT [employer] [facility] ALT 21 <41 U/L 05/22/2025 4:44 AM CDT [employer] [facility] GFR >60 >=60 mL/min/1.7 3 sq meter 05/22/2025 4:44 AM CDT [facility] Move In History [facility] Comment:eGFR calculated with 2020 CKD-EPI equation. Vegetarian diet, extremely high or low muscle mass, and may affect results. Cystatin C with Glomerular Filtration Rate is a suitable alternative for these patients. ANION GAP 9 8 - 16 mmol/L 05/22/2025 4:[address] [facility] Blood Venipuncture / Unknown 05/22/2025 3:49 AM CDT 05/22/2025 4:14 AM CDT Rocky Coles MD CHEMISTRY ORDERABLES F inal Result Performing Organization Address [facility]/ZIP Co de Phone Number [facility] CLIA# [id number] [address] [place] [address] * (ABNORMAL) POC GLUCOSE (05/21/2025 5:43 PM CDT) Only the most recent of8 resultswithin the time period is included. GLUCOSE POC 141(H) 74 - 99 mg/dL 05/21/2025 5:[address] [facility] SPECIMEN SOURCE, GLUCOSE POC Whole Blood 05/21/2025 5:[address] [facility] Blood, whole 05/21/2025 5:43 PM CDT 05/21/2025 5:52 PM CDT Rocky Coles MD POINT OF CARE TESTING Final Result Performing Organization Address [facility]/ZIP Co de Phone Number [facility] CLIA# [id number] [address] [place] [address] * ECHO COMPLETE - CONTRAST AND STRAIN IF INDICATED (05/21/2025 1:11 PM CDT) EJECTION FRACTION 60 INTERFACE SYSTEM 05/21/2025 12:1 9 PM CDT Narrative INTERFACE SYSTEM - 05/21/2025 3:28 PM CDT [address] [address] [email or web address] [email or web address] Echocardiogram Patient: Socorro Urbano Study ID: [id number] Gender: Jeanna : 1970 Age: 55 Race: JOSE Height 172.7cm Study Date: 05/21/2025 Weight: 70.9kg Access. #: [id number] BP: 160 / 95 *Referring Physician:* Mackenzie Samuel *Ordering Physician:* Mackenzie Samuel *Apartment House Manager:Josefa Quinn executive vice president: Nurse: Indications: Acute Coronary Syndrome. History: Risk [...] Bedside. Prepared and Electronically Authenticated Vaughn Rodriguez [id number] Procedure Note Vaughn Rodriguez DO - 05/21/2025 [place] [address] [email or web address] Transthoracic Echocardiogram Patient: Socorro Urbano Study ID: [id number] Gender: M : 1970 Age: 55 Race: CAU Height 172.7cm Study Date: 05/21/2025 Weight: 70.9kg Access. #: [id number] BP: 160 / 95 *Referring Physician:* Mackenzie Samuel *Ordering Physician:* Mackenzie Samuel *Apartment House Manager:* Josefa Nails executive vice president: Nurse: Indications: Acute Coronary Syndrome. History: Risk [...] Bedside. Prepared and Electronically Authenticated Vaughn Rodriguez [id number]:27:50 us Mackenzie MOORE ORDERABLES Bridgett martinez Result INTERFACE SYSTEM Refer to clinic/hospital department * LEFT HEART CATH, PERCUTANEOUS CORONARY INTERVENTION (05/21/2025 9:15 AM CDT) 05/21/2025 8:36 AM CDT Narrative [facility] [address] - 05/21/2025 11:15 AM CDT Successful stenting of the OM1 stenosis with 2.75 x 35 mm drug-eluting stent Procedure Details [place], [place] Power Lineman Procedure Note (see [employer] or dictated note for full details) Patient Name: Socorro Urbano : 1970 Date of Service: 05/21/2025 Procedures: Conscious sedation with physician supervision Left heart catheterization with coronary angiography CPT code 54590 Ultrasound guided arterial access, cpt code 21419 PCI/stenting of the 75% long OM1 stenosis [...] Gabriel MD CUP CATH ORDERABLES Final Result [facility] [address] DOS SANTOS# [id number] [address] [place] [phone] * (ABNORMAL) TROPONIN (05/21/2025 3:52 AM CDT) TROPONIN T, 5TH GEN 243(HH) <=15 ng/L 05/21/2025 10:18 AM CDT [facility] Move In History [facility] Blood Venipuncture / Unknown 05/21/2025 3:52 AM CDT 05/21/2025 4:22 AM CDT Narrative [facility] Move In History [facility] - 05/21/2025 10:18 AM CDT Troponin elevated. us Dara Hidalgo PA-C CHEMISTRY ORDERABLES Final Result Performing Organization Address City/[facility]/ZIP Co de Phone Number [facility] Move In History [facility] CLIA# [id number] [address] [place] [address] * MAGNESIUM LEVEL (05/21/2025 3:52 AM CDT) Pathologist [facility] MAGNESIUM 1.9 1.5 - 2.5 mg/dL 05/21/2025 4:51 AM CDT [facility] Move In History [facility] Blood Venipuncture / Unknown 05/21/2025 3:52 AM CDT 05/21/2025 4:22 AM CDT Ken Rodrigues MD CHEMISTRY ORDERABLES Fin al Result Performing Organization Address City/[facility]/ZIP Co de Phone Number [facility] Move In History [facility] CLIA# [id number] [address] [place] [id number] * XR CHEST PA OR AP 1 VW (05/21/2025 3:19 AM CDT) Only the most recent of2 resultswithin the time period is included. Anatomical Region Laterality Modality Chest Computed Radiogr aphy 05/21/2025 3:19 AM CDT Impressions 05/21/2025 8:04 AM CDT IMPRESSION: 1. Normal chest. DICTATION LOCATION: Location [address] [place] [address] Narrative 05/21/2025 8:04 AM CDT XR CHEST [...] IMPRESSION: 1. Normal chest. DICTATION LOCATION: Location [address] [place] [address] Ken Rodrigues MD DIAGNOSTIC IMAGING ORDER JONA Final Result * (ABNORMAL) TROPONIN BASELINE, 5TH GEN (05/20/2025 3:57 AM CDT) Only the most recent of2 resultswithin the time period is included. TROPONIN T, BASELINE 5TH GEN 312(HH) <=15 ng/L 05/20/2025 8:[address] [facility] Blood Venipuncture / Unknown 05/20/2025 3:57 AM CDT 05/20/2025 4:[address] [facility] - 05/20/2025 8:43 AM CDT Troponin elevated. Vaughn Rodriguez DO CHEMISTRY ORDERABLES Fi nal Result [facility] CLIA# [id number] [address] [place] [address] * (ABNORMAL) LIPID RFLX (05/20/2025 3:57 AM CDT) CHOLESTEROL 178 <200 mg/dL [facility]/20[facility]2025 5:[facility] TRIGLY[facility]ERIDE 125 <150 mg/dL 05/20/2025 5:[address] [facility] HDL 38(L) 40 - 59 mg/dL 05/20/2025 5:[address] [facility] LDL CALCULATED 115(H) <100 mg/dL 05/20/2025 5:[address] [facility] NON-HDL CHOLESTEROL 140(H) <130 mg/dL 05/20/2025 5:[address] [facility] Blood Venipuncture / Unknown 05/20/2025 3:57 AM CDT 05/20/2025 4:[address] [facility] - 05/20/2025 5:08 AM CDT [...] . Mackenzie MOORE CHEMISTRY ORDERABLES Final Result [facility] CLIA# [id number] [address] [place] [address] * CTA CHEST W AND/OR WO CONTRAST [...] 135(HH) <=15 ng/L 05/19/2025 6:45 PM CDT [facility] Move In History [facility] DELTA 6HR TROPONIN T 119(HH) See Interp. 05/19/2025 6:45 PM CDT [facility] Move In History [facility] Blood Venipuncture / Unknown 05/19/2025 5:40 PM CDT 05/19/2025 6:04 PM CDT Narrative [facility] LABORATORY [facility] - 05/19/2025 6:45 PM CDT Troponin elevated. Delta significant change. Omega Gleason MD CHEMISTRY ORDERABLES Final Resu lt [facility] Move In History [facility] CLIA# [id number] [address] [place] [address] * RESPIRATORY PATHOGEN PCR PANEL (05/19/2025 3:52 PM CDT) Pathologist [facility] Respiratory Pathogen PCR Panel NOT DETECTED No respiratory pathogen nucleic acids detected. 05/19/2025 10:45 PM CDT [facility] Move In History [facility] COVID-19 PCR NOT DETECTED Not Detected 05/19/2025 10:45 PM CDT [facility] Upper Respiratory ENTIRE NASOPHARYNX / Unknown Collection / Unknown 05/19/2025 3:52 PM CDT 05/19/2025 3:58 PM CDT Narrative [facility] LABORATORY [facility] - 05/19/2025 10:45 PM CDT The [...] MICROBIOLOGY - GENER AL ORDERABLES Final Result [facility] LABORATORY [facility] CLIA# [id number] [address] [facility] [place] [address] * (ABNORMAL) TROPONIN 2 HR, 5TH GEN (05/19/2025 1:08 PM CDT) TROPONIN T, 2 HR 5TH GEN 42(H) <=15 ng/L 05/19/2025 1:35 PM CDT [facility] Move In History [facility] DELTA 2HR TROPONIN T 26(HH) See Interp. 05/19/2025 1:35 PM CDT [facility] Move In History [facility] Blood Venipuncture / Unknown 05/19/2025 1:08 PM CDT 05/19/2025 1:11 PM CDT [facility] Move In History [facility] - 05/19/2025 1:35 PM CDT Troponin elevated. Delta significant change. us Omega Gleason MD CHEMISTRY ORDERABLES Final Resu lt [facility] Move In History [facility] CLIA# [id number] [address] [place] [address] * D-DIMER (05/19/2025 12:09 PM CDT) Pathologist [facility] D-DIMER QUANT <0.27 <0.50 ug/mL FEU 05/19/2025 12:39 PM CDT [facility] Move In History [facility] Blood Venipuncture / Unknown 05/19/2025 12:09 PM CDT 05/19/2025 12:11 PM CDT [facility] Move In History [facility] - 05/19/2025 12:39 PM CDT D-Dimer [...] FEU 71-80 years: 0.71-0.80 ug/mL FEU Result [facility] Omega Gleason MD HEMATOLOGY ORDERABLES Final Res ult Performing Organization Address City/[facility]/ZIP Co de Phone Number [facility] Move In History [facility] CLIA# [id number] [address] [place] [address] * LIPASE (05/19/2025 11:11 AM CDT) LIPASE 55 13 - 60 U/L 05/19/2025 11:38 AM CDT [facility] Move In History [facility] Blood Venipuncture / Unknown 05/19/2025 11:11 AM CDT 05/19/2025 11:15 AM CDT Result [facility] Omega Gleason MD CHEMISTRY ORDERABLES Final Resu lt Performing Organization Address [facility] Co de Phone Number [facility] Move In History [facility] CLIA# [id number] [address] [place] [address] * Critical Care (05/19/2025 11:01 AM CDT) [...] of the following conditions: Chest pain-non-ST elevation TN. Critical care was time spent personally by [...] no Care discussed with: admitting provider Result [facility] Omega Gleason MD PROCEDURE/MINOR SURGICAL ORDERA BLES Final Result * TSH (05/01/2025 11:36 AM CDT) TSH 4.48 0.40 - 4.50 mIU/L [facility] Comment: Test Performed at: [place] [id number] Administration [place]EL [place] [phone] Fadia-Sarai Garg Vo Blood 05/01/2025 11:3 6 AM CDT 05/02/2025 2:52 AM CDT Fabian Melvin SECURITIES VAULT SUPERVISOR CHEMISTRY ORDERABLES Final Resu lt [facility] [phone] [place] [address] Administration [place] [phone] * (ABNORMAL) HEMOGLOBIN A1C (05/01/2025 11:36 AM CDT) HEMOGLOBIN A1C 6.5(H) <5.7 % of total Hgb Rakesh [employer] AccountingHomero [place] Comment: For someone without known diabetes, [...] children. ESTIMATED AVERAGE GLUCOSE (MG/DL) 140 mg/dL [facility] ESTIMATED AVERAGE GLUCOSE (MMOL/L) 7.7 mmol/L [facility] [place] Comment: Test Performed at: [facility] [address] Administration [place] [phone] Fadia-Robertu Britany Vo Blood 05/01/2025 11:3 6 AM CDT 05/02/2025 2:52 AM CDT [employer] SECURITIES VAULT SUPERVISOR CHEMISTRY ORDERABLES Final Resu lt [facility] [phone] [place] [address] Administration [place] [phone] * (ABNORMAL) LIPID PANEL (05/01/2025 11:36 AM CDT) CHOLESTEROL 214(H) <200 mg/dL [facility]ino AccountingNannette [facility] HDL 56 > OR = 40 mg/dL [facility] TRIGLYCERIDE 82 <150 mg/dL [facility] LDL CALCULATED 140(H) mg/dL (calc) [facility] Comment: Reference range: <100 Desirable range <100 mg/dL for primary prevention; <70 mg/dL for patients with CHD or diabetic patients with > or = 2 CHD risk factors. LDL-C is now calculated using the Alicia calculation, which is a validated novel method providing better accuracy than the Friedewald equation in the estimation of LDL-C. Mohamud SOMMERS et al. CARSON. 2013;310(19): 7927-5309 (http://education.v2 Ratings/faq/IQW984) CHOL/HDL RATIO 3.8 <5.0 (calc) Rakesh RichardsNannette [place] NON-HDL CHOLESTEROL 158(H) <130 mg/dL (calc) [facility] Comment: For patients with diabetes plus 1 major ASCVD risk factor, treating to a non-HDL-C goal of <100 mg/dL (LDL-C of <70 mg/dL) is considered a therapeutic option. Test Performed at: [place] [address] Administration [place] [phone] Lacho Garg Blood 05/01/2025 11:3 6 AM CDT 05/02/2025 2:52 AM CDT us Fabian Charles APN CHEMISTRY ORDERABLES Final Resu lt [facility] [phone] [place] [address] Administration [place] [phone] from Last 3 Months Insurance [facility] [id number] [facility] Address: [address] [address] Advance Directives For more information, please contact: [phone] * Full Code (Latest Code Status on File) Date Activated Date Inactivated Comments 05/19/2025 6:50 PM 05/22/2025 2:21 PM Care Teams Museum Attendant Relationship Specialty Start Date End Date Johnathan Bardales DO [address] [place] [address] PCP - General Family Practice 05/01/25
--- OUTSIDE RECORDS SUMMARY | 2025-07-30 12:18 | XMS_ITS | Clinical Summary ---
Author Organization [facility] Address [address] [place] [address] Care Team Providers Care Ground Wirer Name Role Phone Pee Vidales MD Primary Care Provider [phone] Allergies No known active allergies Medications HYDROcodone-amaya taminophen (NORCO) 5-325 mg per tabletIndicatio ns:Pain Take 1-2 tablets by mouth every 4 (four) hours as needed for pain Do not exceed 8 tablets/day. 15 tablet 1 Suspended albuterol HFA (PROVENTIL HFA,VENTOLIN HFA,PROAIR HFA) 90 mcg/actuation inhaler Inhale 2 puffs every 4 (four) hours as needed for wheezing 1 each 2 Suspended benzonatate (TESSALON) 100 mg capsuleIndicati ons:Cough Take 1 capsule (100 mg total) by mouth every 8 (eight) hours 21 capsule 4 Suspended promethazine-DM (PROMETHAZINE-D M) 1.25-3 mg/mL syrup Take 5 mL by mouth 4 (four) times a day as needed for cough 118 mL 4 Suspended Active Problems Problem Noted Date Diagnosed Date STEMI (ST elevation myocardial infarction) 07/26 Encounters Date Type Department Care Team Description 07/26/2025 5:55 PM CAN WASHER - 07/26/2025 8:04 PM CAN WASHER Surgery [facility] [address] [place] [address] Miko Castro MD PCI MILLICENT MAJOR CORONARY [id number] - [id number] 07/26/2025 11:33 AM CAN WASHER - Present Hospital Encounter [facility] [address] [place] [address] Pee Bello MD May, Adam Maurice, MD ST 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) (Primary Dx); ST elevation myocardial infarction involving left anterior descending (LAD) coronary artery (HCC) [I21.02] from Last 3 Months Surgical History Surgery Date Site/Laterality Comments HERNIA REPAIR CARPAL TUNNEL RELEASE CARDIAC CATHETERIZATION 07/26/2025 N/A Procedure: PCI MILLICENT MAJOR CORONARY [id number] - [id number]; Surgeon: Miko Castro MD; Location: [facility]; Service: Cardiovascular; Laterality: N/A; Medical devices from this surgery are in the Medical Devices section. CARDIAC CATHETERIZATION 07/26/2025 N/A Procedure: IVUS/OCT CORS OR GRAFTS, FIRST VESSEL (+) [id number]; Surgeon: Miko Castro MD; Location: [facility]; Service: Cardiovascular; Laterality: N/A; Medical devices from this surgery are in the Medical Devices section. CARDIAC CATHETERIZATION 07/26/2025 N/A Procedure: IVUS/OCT CORS OR GRAFTS, EACH ADDTN'L VESSEL (+) [id number]; Surgeon: Miko Castro MD; Location: [facility]; Service: Cardiovascular; Laterality: N/A; Medical devices from this surgery are in the Medical Devices section. CARDIAC CATHETERIZATION 07/26/2025 N/A Procedure: VAULT MANAGER BALLOON ANGIOPLASTY, 1ST ARTERY [id number]; Surgeon: Miko Castro MD; Location: [facility]; Service: Cardiovascular; Laterality: N/A; Medical devices from this surgery are in the Medical Devices section. Medical History Medical History Date Comments Hypertension [...] on file Legal Sex Male 6:00 PM CAN WASHER Gender Identity Not on file Sexual Orientation Not on file Last Filed Vital Signs Vital Sign Reading Time Taken Comments Blood Pressure 129/93 07/30/2025 12:00 PM CAN WASHER Pulse 101 07/30/2025 12:00 PM CAN WASHER Temperature 37.5 C (99.5 F) 07/30/2025 12:00 PM CAN WASHER Respiratory Rate 35 07/30/2025 12:00 PM CAN WASHER Oxygen Saturation 100% 07/30/2025 12:00 PM CAN WASHER Inhaled Oxygen Concentration - - Weight 75 kg (165 lb 5.5 oz) 07/27/2025 4:00 AM CAN WASHER Height 172.7 cm (5' 7.99) 07/26/2025 11:[address] Body Mass Index 25.15 07/26/2025 11:45 AM CAN WASHER Plan of Treatment Health Maintenance Due Date [...] season) 2025, 07/01/2021 Influenza Vaccine (#1) 2025 Medical Devices Implanted Type Area Hoe Worker Device Identifier Shelf Expiration Date Model / Serial / Lot Medtronic Card Vasc Surgery 3.0 X 30mm [place] Rx Coronary Stent [id number] - [id number] - [id number] Implanted:Qt y: 1 on 07/26/2025 by Miko Castro MD at [facility] Stent N/A: Circumflex Coronary Artery Medtronic Card Vasc Surgery 03/14/2028 [id number] / [id number] / [id number] [employer] Kit Clip Closure 7fr Celt Acd Vasc Implant Strl Plus Device Clt-07 - [id number] - [id number] Implanted:Qt y: 1 on 07/26/2025 by Miko Castro MD at [facility] Vascular Closure Device Right: Femoral [employer] 04/16/2028 T-07 / [id number] / [id number] Procedures * The patient is currently admitted. The information in this section might not be complete until the patient is discharged. Procedure Name Priority Date/Time Associated Diagnosis Comments XR CHEST 1 VIEW ED Urgent/IP Urgent 07/30/2025 11:46 AM CAN WASHER POCT GLUCOSE DEVICE Routine 07/30/2025 1 0:56 AM CAN WASHER EGFR Timed 07/30/2025 10:54 AM CAN WASHER MAGNESIUM Timed 07/30/2025 10:54 AM CAN WASHER BASIC METABOLIC PANEL Timed 07/30/2025 10:54 AM CAN WASHER CBC WITHOUT DIFFERENTIAL Timed 07/30/2025 10:54 AM CAN WASHER LACTATE, WHOLE BLOOD Timed 07/30/2025 10:54 AM CAN WASHER OXYHEMOGLOBIN, CENTRAL VENOUS Timed 07/30/2025 10:54 AM CAN WASHER EXTUBATION Routine 07/30/2025 8:31 AM CAN WASHER POCT GLUCOSE DEVICE Routine 07/30/2025 8 :01 AM CAN WASHER EGFR Timed 07/30/2025 6:00 AM CAN WASHER MAGNESIUM Timed 07/30/2025 6:00 AM CAN WASHER BASIC METABOLIC PANEL Timed 07/30/2025 6:00 AM CAN WASHER CBC WITHOUT DIFFERENTIAL Timed 07/30/2025 5:49 AM CAN WASHER PHOSPHORUS Routine 07/30/2025 5:49 AM CAN WASHER HEPATIC FUNCTION PANEL Routine 07/30/2025 5:49 AM CAN WASHER POCT GLUCOSE DEVICE Routine 07/30/2025 5 :47 AM CAN WASHER XR CHEST 1 VIEW IP Routine 07/30/2025 5:30 AM CAN WASHER LACTATE, WHOLE BLOOD Timed 07/30/2025 12:30 AM CAN WASHER OXYHEMOGLOBIN, CENTRAL VENOUS Timed 07/30/2025 12:30 AM CAN WASHER PROTIME-INR Routine 07/30/2025 12:30 AM CAN WASHER APTT Routine 07/30/2025 12:30 AM CAN WASHER HEMOGLOBIN, PLASMA Routine 07/30/2025 12 :30 AM CAN WASHER CBC WITHOUT DIFFERENTIAL Timed 07/30/2025 12:30 AM CAN WASHER POCT GLUCOSE DEVICE Routine 07/30/2025 1 2:26 AM CAN WASHER POCT GLUCOSE DEVICE Routine 07/30/2025 1 2:10 AM CAN WASHER POCT GLUCOSE DEVICE Routine 07/29/2025 8 :14 PM CAN WASHER BLOOD GAS, ARTERIAL STAT 07/29/2025 8 :04 PM CAN WASHER LACTATE, WHOLE BLOOD Timed 07/29/2025 8:04 PM CAN WASHER OXYHEMOGLOBIN, CENTRAL VENOUS Timed 07/29/2025 8:04 PM CAN WASHER EGFR Timed 07/29/2025 4:29 PM CAN WASHER MAGNESIUM Timed 07/29/2025 4:29 PM CAN WASHER BASIC METABOLIC PANEL Timed 07/29/2025 4:29 PM CAN WASHER CBC WITHOUT DIFFERENTIAL Timed 07/29/2025 4:29 PM CAN WASHER OXYHEMOGLOBIN, CENTRAL VENOUS Timed 07/29/2025 4:29 PM CAN WASHER POCT GLUCOSE DEVICE Routine 07/29/2025 4 :27 PM CAN WASHER TYPE AND SCREEN Timed 07/29/2025 4:27 PM CAN WASHER POCT GLUCOSE DEVICE Routine 07/29/2025 4 :18 PM CAN WASHER POCT GLUCOSE DEVICE Routine 07/29/2025 1 1:37 AM CAN WASHER EGFR Timed 07/29/2025 11:34 AM CAN WASHER MAGNESIUM Timed 07/29/2025 11:34 AM CAN WASHER BASIC METABOLIC PANEL Timed 07/29/2025 11:34 AM CAN WASHER CBC WITHOUT DIFFERENTIAL Timed 07/29/2025 11:34 AM CAN WASHER LACTATE, WHOLE BLOOD Timed 07/29/2025 11:34 AM CAN WASHER OXYHEMOGLOBIN, CENTRAL VENOUS Timed 07/29/2025 11:34 AM CAN WASHER BLOOD GAS, ARTERIAL Routine 07/29/2025 1 0:17 AM CAN WASHER POCT GLUCOSE DEVICE Routine 07/29/2025 7 :51 AM CAN WASHER POCT GLUCOSE DEVICE Routine 07/29/2025 7 :50 AM CAN WASHER XR CHEST 1 VIEW Timed 07/29/2025 5:36 AM CAN WASHER BASIC METABOLIC PANEL Routine 07/29/2025 4:47 AM CAN WASHER EGFR Routine 07/29/2025 4:47 AM CAN WASHER MAGNESIUM Routine 07/29/2025 4:47 AM CAN WASHER CBC WITHOUT DIFFERENTIAL Timed 07/29/2025 4:47 AM CAN WASHER PHOSPHORUS Routine 07/29/2025 4:47 AM CAN WASHER LACTATE, WHOLE BLOOD Timed 07/29/2025 4:47 AM CAN WASHER OXYHEMOGLOBIN, CENTRAL VENOUS Timed 07/29/2025 4:47 AM CAN WASHER HEPATIC FUNCTION PANEL Routine 07/29/2025 4:47 AM CAN WASHER PROTIME-INR Routine 07/29/2025 4:47 AM CAN WASHER APTT Routine 07/29/2025 4:47 AM CAN WASHER HEMOGLOBIN, PLASMA Routine 07/29/2025 4: 47 AM CAN WASHER POCT GLUCOSE DEVICE Routine 07/29/2025 4 :45 AM CAN WASHER POCT GLUCOSE DEVICE Routine 07/29/2025 1 :25 AM CAN WASHER EGFR Timed 07/29/2025 12:20 AM CAN WASHER MAGNESIUM Timed 07/29/2025 12:20 AM CAN WASHER BASIC METABOLIC PANEL Timed 07/29/2025 12:20 AM CAN WASHER CBC WITHOUT DIFFERENTIAL Timed 07/29/2025 12:20 AM CAN WASHER LACTATE, WHOLE BLOOD Timed 07/28/2025 11:42 PM CAN WASHER OXYHEMOGLOBIN, CENTRAL VENOUS Timed 07/28/2025 11:42 PM CAN WASHER POCT GLUCOSE DEVICE Routine 07/28/2025 8 :04 PM CAN WASHER POCT GLUCOSE DEVICE Routine 07/28/2025 8 :02 PM CAN WASHER EGFR Timed 07/28/2025 5:14 PM CAN WASHER MAGNESIUM Timed 07/28/2025 5:14 PM CAN WASHER BASIC METABOLIC PANEL Timed 07/28/2025 5:14 PM CAN WASHER LACTATE, WHOLE BLOOD Timed 07/28/2025 5:13 PM CAN WASHER OXYHEMOGLOBIN, CENTRAL VENOUS Timed 07/28/2025 5:13 PM CAN WASHER CBC WITHOUT DIFFERENTIAL Timed 07/28/2025 5:13 PM CAN WASHER EGFR Timed 07/28/2025 12:11 PM CAN WASHER MAGNESIUM Timed 07/28/2025 12:11 PM CAN WASHER BASIC METABOLIC PANEL Timed 07/28/2025 12:11 PM CAN WASHER POCT GLUCOSE DEVICE Routine 07/28/2025 1 2:08 PM CAN WASHER LACTATE, WHOLE BLOOD Timed 07/28/2025 11:09 AM CAN WASHER OXYHEMOGLOBIN, CENTRAL VENOUS Timed 07/28/2025 11:09 AM CAN WASHER XR ABDOMEN AP 1 VIEW ED Urgent/IP Urgent 07/28/2025 6:45 AM CAN WASHER XR CHEST 1 VIEW Timed 07/28/2025 6:33 AM CAN WASHER BLOOD GAS, ARTERIAL STAT 07/28/2025 5 :53 AM CAN WASHER EGFR Timed 07/28/2025 5:51 AM CAN WASHER LACTATE, WHOLE BLOOD Timed 07/28/2025 5:51 AM CAN WASHER MAGNESIUM Timed 07/28/2025 5:51 AM CAN WASHER BASIC METABOLIC PANEL Timed 07/28/2025 5:51 AM CAN WASHER CBC WITHOUT DIFFERENTIAL Timed 07/28/2025 5:51 AM CAN WASHER PHOSPHORUS Routine 07/28/2025 5:51 AM CAN WASHER OXYHEMOGLOBIN, CENTRAL VENOUS Timed 07/28/2025 5:51 AM CAN WASHER HEPATIC FUNCTION PANEL Routine 07/28/2025 5:51 AM CAN WASHER PROTIME-INR Routine 07/28/2025 5:51 AM CAN WASHER APTT Routine 07/28/2025 5:51 AM CAN WASHER HEMOGLOBIN, PLASMA Routine 07/28/2025 5: 51 AM CAN WASHER POCT GLUCOSE DEVICE Routine 07/28/2025 3 :49 AM CAN WASHER POCT GLUCOSE DEVICE Routine 07/27/2025 1 1:44 PM CAN WASHER EGFR Timed 07/27/2025 11:39 PM CAN WASHER LACTATE, WHOLE BLOOD Timed 07/27/2025 11:39 PM CAN WASHER OXYHEMOGLOBIN, CENTRAL VENOUS Timed 07/27/2025 11:39 PM CAN WASHER MAGNESIUM Timed 07/27/2025 11:39 PM CAN WASHER BASIC METABOLIC PANEL Timed 07/27/2025 11:39 PM CAN WASHER CBC WITHOUT DIFFERENTIAL Timed 07/27/2025 11:39 PM CAN WASHER BLOOD CULTURE Routine 07/27/2025 9:12 PM CAN WASHER BLOOD CULTURE Routine 07/27/2025 9:12 PM CAN WASHER POCT GLUCOSE DEVICE Routine 07/27/2025 8 :47 PM CAN WASHER EGFR Timed 07/27/2025 5:40 PM CAN WASHER BLOOD GAS, ARTERIAL STAT 07/27/2025 5 :40 PM CAN WASHER MAGNESIUM Timed 07/27/2025 5:40 PM CAN WASHER BASIC METABOLIC PANEL Timed 07/27/2025 5:40 PM CAN WASHER CBC WITHOUT DIFFERENTIAL Timed 07/27/2025 5:40 PM CAN WASHER LACTATE, WHOLE BLOOD Timed 07/27/2025 5:40 PM CAN WASHER OXYHEMOGLOBIN, CENTRAL VENOUS Timed 07/27/2025 5:40 PM CAN WASHER PNEUMONIA PCR Routine 07/27/2025 5:40 PM CAN WASHER PNEUMONIA PCR WITH AEROBIC CULTURE AND GRAM STAIN Routine 07/27/2025 5:40 PM CAN WASHER XR ABDOMEN AP 1 VIEW IP Routine 07/27/2025 3:01 PM CAN WASHER TROPONIN I HIGH-SENSITIVITY Timed 07/27/2025 12:58 PM CAN WASHER EGFR Timed 07/27/2025 11:34 AM CAN WASHER BLOOD GAS, ARTERIAL STAT 07/27/2025 1 1:34 AM CAN WASHER MAGNESIUM Timed 07/27/2025 11:34 AM CAN WASHER BASIC METABOLIC PANEL Timed 07/27/2025 11:34 AM CAN WASHER CBC WITHOUT DIFFERENTIAL Timed 07/27/2025 11:34 AM CAN WASHER LACTATE, WHOLE BLOOD Timed 07/27/2025 11:34 AM CAN WASHER OXYHEMOGLOBIN, CENTRAL VENOUS Timed 07/27/2025 11:34 AM CAN WASHER OPIATES CONFIRMATION MS, URINE Routine 07/27/2025 10:16 AM CAN WASHER FENTANYL CONFIRMATION, MS URINE Routine 07/27/2025 10:16 AM CAN WASHER AMPHETAMINE, URINE, CONFIRMATION Routine 07/27/2025 10:16 AM CAN WASHER BENZODIAZEPINE CONFIRMATION BY MS Routine 07/27/2025 10:16 AM CAN WASHER DRUGS OF ABUSE SCREEN, URINE WITH REFLEX CONFIRMATION Routine 07/27/2025 10:16 AM CAN WASHER TRANSTHORACIC ECHO (TTE) COMPLETE W DOPPLER/CF W CONTRAST Routine 07/27/2025 10:10 AM CAN WASHER XR ABDOMEN AP 1 VIEW ED Urgent/IP Urgent 07/27/2025 8:51 AM CAN WASHER BLOOD GAS, ARTERIAL STAT 07/27/2025 8 :26 AM CAN WASHER LACTATE, WHOLE BLOOD STAT 07/27/2025 8:26 AM CAN WASHER TROPONIN I HIGH-SENSITIVITY Timed 07/27/2025 8:26 AM CAN WASHER INFECTION PREVENTION ANNETTE AURIS PCR, SURVEILLANCE Routine 07/27/2025 8:26 AM CAN WASHER TROPONIN I HIGH-SENSITIVITY Timed 07/27/2025 6:35 AM CAN WASHER XR CHEST 1 VIEW Timed 07/27/2025 4:59 AM CAN WASHER EGFR Timed 07/27/2025 3:58 AM CAN WASHER HEMOGLOBIN, PLASMA Timed 07/27/2025 3: 58 AM CAN WASHER MAGNESIUM Timed 07/27/2025 3:58 AM CAN WASHER BASIC METABOLIC PANEL Timed 07/27/2025 3:58 AM CAN WASHER CBC WITHOUT DIFFERENTIAL Timed 07/27/2025 3:58 AM CAN WASHER TROPONIN I HIGH-SENSITIVITY 6-HOUR Timed 07/27/2025 3:58 AM CAN WASHER BLOOD GAS, ARTERIAL Timed 07/27/2025 3 :58 AM CAN WASHER PHOSPHORUS Routine 07/27/2025 3:58 AM CAN WASHER LACTATE, WHOLE BLOOD Timed 07/27/2025 3:58 AM CAN WASHER OXYHEMOGLOBIN, CENTRAL VENOUS Timed 07/27/2025 3:58 AM CAN WASHER HEPATIC FUNCTION PANEL Routine 07/27/2025 3:58 AM CAN WASHER PROTIME-INR Routine 07/27/2025 3:58 AM CAN WASHER APTT Routine 07/27/2025 3:58 AM CAN WASHER TROPONIN I HIGH-SENSITIVITY 4-HOUR Timed 07/27/2025 1:43 AM CAN WASHER OXYHEMOGLOBIN, CENTRAL VENOUS Timed 07/27/2025 12:15 AM CAN WASHER BLOOD GAS, ARTERIAL Timed 07/27/2025 1 2:12 AM CAN WASHER LACTATE, WHOLE BLOOD Timed 07/27/2025 12:12 AM CAN WASHER ECG 12-LEAD Routine 07/27/2025 12:05 AM CAN WASHER POC BLOOD GAS AND CHEMISTRIES, ARTERIAL Routine 07/26/2025 9:51 PM CAN WASHER XR CHEST 1 VIEW ED Urgent/IP Urgent 07/26/2025 9:47 PM CAN WASHER EGFR Timed 07/26/2025 9:24 PM CAN WASHER MAGNESIUM Timed 07/26/2025 9:24 PM CAN WASHER PHOSPHORUS Timed 07/26/2025 9:24 PM CAN WASHER DIFFERENTIAL AUTO Timed 07/26/2025 9:2 4 PM CAN WASHER OXYHEMOGLOBIN, CENTRAL VENOUS Timed 07/26/2025 9:24 PM CAN WASHER LACTATE, WHOLE BLOOD Timed 07/26/2025 9:24 PM CAN WASHER COMPREHENSIVE METABOLIC PANEL Timed 07/26/2025 9:24 PM CAN WASHER CBC WITH AUTO DIFFERENTIAL Timed 07/26/2025 9:24 PM CAN WASHER TROPONIN I HIGH-SENSITIVITY SERIES (BASELINE, 2HR, 4HR, 6HR) Routine 07/26/2025 9:24 PM CAN WASHER ECG 12-LEAD Routine 07/26/2025 9:11 PM CAN WASHER TRLUML BALO ANGIOP 1ST ARTERY S&I [id number] Routine 07/26/2025 8:[address] 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) CORONARY OCT, EA ADD'I VESSEL Routine 07/26/2025 8:[address] 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) CORONARY OCT, 1ST VESSEL Routine 07/26/2025 8:[address] 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) MILLICENT MAJOR CORONARY Routine 07/26/2025 8: [address] 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) POCT ACTIVATED CLOTTING TIME, LOW RANGE Routine 07/26/2025 8:22 PM CAN WASHER POCT ACTIVATED CLOTTING TIME, LOW RANGE Routine 07/26/2025 6:35 PM CAN WASHER POCT ACTIVATED CLOTTING TIME, LOW RANGE Routine 07/26/2025 6:14 PM CAN WASHER EGFR Routine 07/26/2025 5:46 PM CAN WASHER URINALYSIS, MICROSCOPIC ONLY Routine 07/26/2025 5:46 PM CAN WASHER PHOSPHORUS Routine 07/26/2025 5:46 PM CAN WASHER MAGNESIUM Routine 07/26/2025 5:46 PM CAN WASHER BASIC METABOLIC PANEL Routine 07/26/2025 5:46 PM CAN WASHER URINALYSIS AND REFLEX TO MICROSCOPIC AND CULTURE Routine 07/26/2025 5:46 PM CAN WASHER IR OUTSIDE REFERENCE Routine 07/26/2025 5:[address] HEAD WO CONTRAST ED Urgent/IP Urgent 07/26/2025 4:51 PM CAN WASHER NJ ARTL CATHJ/CANNULJ MNTR/TRANSFUSION SPX PRQ Routine 07/26/2025 3:[address] 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) NJ INSJ NON-TUNNELED CENTRAL VENOUS CATH AGE 5 YR/> Routine 07/26/2025 3:[address] 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) XR CHEST 1 VIEW ED Urgent/IP Urgent 07/26/2025 3:13 PM CAN WASHER POC BLOOD GAS AND CHEMISTRIES, VENOUS Routine 07/26/2025 2:31 PM CAN WASHER TROPONIN I HIGH-SENSITIVITY 2-HOUR Timed 07/26/2025 2:27 PM CAN WASHER BLOOD CULTURE Routine 07/26/2025 1:04 PM CAN WASHER BLOOD CULTURE Routine 07/26/2025 1:04 PM CAN WASHER EGFR STAT 07/26/2025 12:25 PM CAN WASHER CRITICAL RESULT CALLBACK CARDIO CHEM Routine 07/26/2025 12:25 PM CAN WASHER TYPE AND SCREEN Timed 07/26/2025 12:25 PM CAN WASHER TROPONIN I HIGH-SENSITIVITY SERIES (BASELINE, 2HR, 4HR, 6HR) Routine 07/26/2025 12:25 PM CAN WASHER LACTATE Routine 07/26/2025 12:25 PM CAN WASHER PROTIME-INR STAT 07/26/2025 12:25 PM CAN WASHER APTT STAT 07/26/2025 12:25 PM CAN WASHER PRO B-TYPE NATRIURETIC PEPTIDE STAT 07/26/2025 12:25 PM CAN WASHER CBC WITHOUT DIFFERENTIAL STAT 07/26/2025 12:25 PM CAN WASHER MAGNESIUM STAT 07/26/2025 12:25 PM CAN WASHER COMPREHENSIVE METABOLIC PANEL STAT 07/26/2025 12:25 PM CAN WASHER POC BLOOD GAS AND CHEMISTRIES, ARTERIAL Routine 07/26/2025 12:17 PM CAN WASHER XR CHEST 1 VIEW ED Urgent/IP Urgent 07/26/2025 12:10 PM CAN WASHER from Last 3 Months Results * XR Chest 1 View (07/30/2025 11:46 AM CAN WASHER) Anatomical Region Laterality Modality Body, Chest N/A Digital Radiogra phy 07/30/2025 11:5 1 AM CAN WASHER Impressions 07/30/2025 11:51 AM CAN WASHER Removal of endotracheal and gastric tubes. Right internal jugular catheter tip at superior cavoatrial junction. Increased streaky and patchy opacities in the lung bases which could be due to mild atelectasis or aspiration. Indistinct right costophrenic angle opacity could be due to trace pleural effusion or atelectasis. No pneumothorax. Electronically signed by: Mir Castano M.D. Narrative 07/30/2025 11:51 AM CAN WASHER EXAMINATION: 1 view chest radiograph COMPARISON: 07/30/2025 [...] lt * POCT glucose (07/30/2025 10:56 AM CAN WASHER) Glucose, POC 98 70 - 199 mg/dL Blood 07/30/2025 10:5 6 AM CAN WASHER 07/30/2025 10:56 AM CAN WASHER us Darrell Avalos MD LAB POCT ORDERABLES - DEVICE Final Result Performing Organization Address [facility] Co de Phone Number [facility] [employer] [place] [address] * Oxyhemoglobin, central venous (07/30/2025 10:54 AM CAN WASHER) Oxyhemoglobin, CV 60.9 % Comment: Interpretive Data No reference range established. Current interpretive data was last revised 2019. Blood 07/30/2025 10:5 4 AM CAN WASHER 07/30/2025 11:20 AM CAN WASHER us Pee Bello MD LAB BLOOD ORDERABLES Final Re sult Performing Organization Address City/[facility]/ZIP [facility] [place] [address] * eGFR (07/30/2025 10:54 AM CAN WASHER) eGFR >90 >=60 mL/min/1. 73 m2 Comment: [...] reviewed 2021. Blood 07/30/2025 10:5 4 AM CAN WASHER 07/30/2025 11:23 AM CAN WASHER Pee Bello MD LAB BLOOD ORDERABLES Final Re sult Performing Organization Address [facility] Co de Phone Number [facility] [place] [address] * Lactate, whole blood (07/30/2025 10:54 AM CAN WASHER) Pathologist [facility] Lactate, bld 1.3 0.7 - 2.0 mmol/L Blood 07/30/2025 10:5 4 AM CAN WASHER 07/30/2025 11:20 AM CAN WASHER Pee Bello MD LAB BLOOD ORDERABLES Final Re sult Performing Organization Address [facility]/ZIP [facility] [place] [address] * (ABNORMAL) CBC without differential (07/30/2025 10:54 AM CAN WASHER) [facility] WBC 11.91(H) 3.80 - 9.90 K/cumm Hgb 8.5(L) 13.0 - 17.5 g/dL [facility] Hct 26.1(L) 38.9 - 50.3 % [facility] Plt 225 150 - 400 K/cumm [facility] MPV 10.0 9.1 - 12.3 fL [facility] RBC 2.78(L) 4.30 - 5.80 M/cumm [facility] MCV 93.9 81.3 - 96.4 fL [facility] MCH 30.6 27.1 - 33.3 pg [facility] MCHC 32.6 32.3 - 35.7 g/dL [facility] RDW CV 12.8 11.1 - 14.9 % [facility] RDW SD 43.8 35.7 - 48.1 fL [facility] NRBC abs 0.00 0.00 - 0.01 K/cumm [facility] Blood 07/30/2025 10:5 4 AM CAN WASHER 07/30/2025 11:23 AM CAN WASHER Pee Bello MD LAB BLOOD ORDERABLES Final Re sult Performing Organization Address City/[facility] Co de Phone Number [facility] [employer] [place] [address] * Magnesium (07/30/2025 10:54 AM CAN WASHER) [facility] Magnesium 1.8 1.4 - 2.5 mg/dL Blood 07/30/2025 10:5 4 AM CAN WASHER 07/30/2025 11:23 AM CAN WASHER Pee Bello MD LAB BLOOD ORDERABLES Final Re sult Performing Organization Address City/[facility]/ZIP Co de Phone Number [facility] [place] [address] * (ABNORMAL) Basic metabolic panel (07/30/2025 10:54 AM CAN WASHER) Sodium 140 135 - 145 mmol/L Potassium, pl 4.1 3.3 - 4.9 mmol/L [facility] Chloride 106 97 - 110 mmol/L [facility] CO2 20(L) 22 - 32 mmol/L [facility] Anion gap 14 2 - 15 mmol/L [facility] BUN 20 6 - 25 mg/dL [facility] Creatinine 0.79(L) 0.80 - 1.30 mg/dL [facility] Glucose 87 70 - 199 mg/dL [facility] Comment: Interpretive Data Fasting glucose >/= 126 [...] 2022. Calcium 7.5(L) 8.5 - 10.3 mg/dL [facility] Blood 07/30/2025 10:5 4 AM CAN WASHER 07/30/2025 11:23 AM CAN WASHER us Pee Bello MD LAB BLOOD ORDERABLES Final Re sult [facility] [place] [address] * POCT glucose (07/30/2025 8:01 AM CAN WASHER) Glucose, POC 76 70 - 199 mg/dL Blood 07/30/2025 8:01 AM CAN WASHER 07/30/2025 8:01 AM CAN WASHER us Darrell Avalos MD LAB POCT ORDERABLES - DEVICE Final Result JAYY NICOLE [facility] [place] [address] * eGFR (07/30/2025 6:00 AM CAN WASHER) eGFR >90 >=60 mL/min/1. 73 m2 Comment: [...] last reviewed 2021. Blood 07/30/2025 6:00 AM CAN WASHER 07/30/2025 12:44 AM CAN WASHER us Pee Bello MD LAB BLOOD ORDERABLES Final Re sult Performing Organization Address [facility] de Phone [facility] [place] [address] * Magnesium (07/30/2025 6:00 AM CAN WASHER) Magnesium 2.3 1.4 - 2.5 mg/dL Blood 07/30/2025 6:00 AM CAN WASHER 07/30/2025 12:44 AM CAN WASHER Pee Bello MD LAB BLOOD ORDERABLES Final Re sult Performing Organization Address [facility] de Phone Number [facility] [place] [address] * (ABNORMAL) Basic metabolic panel (07/30/2025 6:00 AM CAN WASHER) [facility] Sodium 138 135 - 145 mmol/L Potassium, pl 4.6 3.3 - 4.9 mmol/L [facility] Chloride 106 97 - 110 mmol/L [facility] CO2 22 22 - 32 mmol/L [facility] Anion gap 10 2 - 15 mmol/L [facility] BUN 21 6 - 25 mg/dL [facility] Creatinine 0.82 0.80 - 1.30 mg/dL [facility] Glucose 92 70 - 199 mg/dL [facility] Comment: Interpretive Data Fasting glucose >/= 126 [...] 2022. Calcium 8.0(L) 8.5 - 10.3 mg/dL [facility] Blood 07/30/2025 6:00 AM CAN WASHER 07/30/2025 12:44 AM CAN WASHER Pee Bello MD LAB BLOOD ORDERABLES Final Re sult [facility] [place] [address] * (ABNORMAL) CBC without differential (07/30/2025 5:49 AM CAN WASHER) [facility] WBC 11.98(H) 3.80 - 9.90 K/cumm Hgb 9.5(L) 13.0 - 17.5 g/dL [facility] Hct 28.9(L) 38.9 - 50.3 % [facility] Plt 214 150 - 400 K/cumm [facility] MPV 9.7 9.1 - 12.3 fL [facility] RBC 3.09(L) 4.30 - 5.80 M/cumm [facility] MCV 93.5 81.3 - 96.4 fL [facility] MCH 30.7 27.1 - 33.3 pg [facility] MCHC 32.9 32.3 - 35.7 g/dL [facility] RDW CV 13.2 11.1 - 14.9 % [facility] RDW SD 45.2 35.7 - 48.1 fL [facility] NRBC abs 0.00 0.00 - 0.01 K/cumm [facility] Blood 07/30/2025 5:49 AM CAN WASHER 07/30/2025 6:02 AM CAN WASHER Pee Bello MD LAB BLOOD ORDERABLES Final Re sult Performing Organization Address [facility] de Phone Number [facility] [place] [address] * Phosphorus (07/30/2025 5:49 AM CAN WASHER) Pathologist [facility] Phosphorus, pl 3.4 2.3 - 4.5 mg/dL Blood 07/30/2025 5:49 AM CAN WASHER 07/30/2025 6:02 AM CAN WASHER Pee Bello MD LAB BLOOD ORDERABLES Final Re sult Performing Organization Address [facility] de Phone Number [facility] [place] [address] * (ABNORMAL) Hepatic function panel (07/30/2025 5:49 AM CAN WASHER) Pathologist [facility] Bilirubin, total 0.3 0.1 - 1.2 mg/dL Bilirubin, direct <0.2 0.1 - 0.3 mg/dL [facility] Protein, pl 6.2(L) 6.5 - 8.5 g/dL [facility] Albumin 2.9(L) 3.5 - 5.0 g/dL [facility] Alk phos 107 40 - 130 Units/L [facility] ALT 36 7 - 55 Units/L [facility] AST 88(H) 10 - 50 Units/L [facility] Blood 07/30/2025 5:49 AM CAN WASHER 07/30/2025 6:02 AM CAN WASHER us Pee Bello MD LAB BLOOD ORDERABLES Final Re sult Performing Organization Address City/[facility]/ZIP Co de Phone Number [facility] [place] [address] * POCT glucose (07/30/2025 5:47 AM CAN WASHER) Glucose, POC 96 70 - 199 mg/dL Blood 07/30/2025 5:47 AM CAN WASHER 07/30/2025 5:47 AM CAN WASHER us Darrell Avalos MD LAB POCT ORDERABLES - DEVICE Final Result Performing Organization Address [facility] Co de Phone Number [facility] [place] [address] * XR Chest 1 View (07/30/2025 5:30 AM CAN WASHER) Anatomical Region Laterality Modality Body, Chest N/A Computed Radiogr aphy 07/30/2025 10:2 8 AM CAN WASHER Impressions 07/30/2025 10:28 AM CAN WASHER Endotracheal tube tip 4.5 cm above frieda. Right internal jugular catheter tip at superior cavoatrial junction. Gastric tube in left upper quadrant with tip below field of view. Removal of intra-aortic balloon pump. Normal heart size. Clear lungs. No edema, pneumonia, or other pulmonary disease. No pleural effusion or pneumothorax. Electronically signed by: Mir Castano M.D. Narrative 07/30/2025 10:28 AM CAN WASHER EXAMINATION: 1 view chest radiograph COMPARISON: 07/29/2025 [...] Electronically signed by: Mir Castano M.D. us Pee Bello MD IMG XR PROCEDURES Final Resul t * Oxyhemoglobin, central venous (07/30/2025 12:30 AM CAN WASHER) Oxyhemoglobin, CV 67.1 % Comment: Interpretive Data No reference range established. Current interpretive data was last revised 2019. Blood 07/30/2025 12:3 0 AM CAN WASHER 07/30/2025 12:39 AM CAN WASHER us Pee Bello MD LAB BLOOD ORDERABLES Final Re sult Performing Organization Address [facility] Co de Phone Number [facility] [place] [employer] [place] [address] * Hemoglobin, plasma (07/30/2025 12:30 AM CAN WASHER) Hemoglobin, Plasma <30 <=50 mg/dL Blood 07/30/2025 12:3 0 AM CAN WASHER 07/30/2025 12:38 AM CAN WASHER Pee Bello MD LAB BLOOD ORDERABLES Final Re sult Performing Organization Address [facility] Co de Phone Number [facility] [place] [address] * Lactate, whole blood (07/30/2025 12:30 AM CAN WASHER) Lactate, bld 1.1 0.7 - 2.0 mmol/L Blood 07/30/2025 12:3 0 AM CAN WASHER 07/30/2025 12:39 AM CAN WASHER us Pee Bello MD LAB BLOOD ORDERABLES Final Re sult Performing Organization Address [facility] de Phone Number [facility] [place] [address] * (ABNORMAL) aPTT (07/30/2025 12:30 AM CAN WASHER) aPTT 25(L) 26 - 38 sec Comment: Interpretive Data Heparin therapeutic range: 66.0 - 100.0 seconds. Range based on correlation with therapeutic heparin activity range of 0.3 - 0.7 Units/mL. Blood 07/30/2025 12:3 0 AM CAN WASHER 07/30/2025 12:51 AM CAN WASHER us Pee Bello MD LAB BLOOD ORDERABLES Final Re sult Performing Organization Address [facility] de Phone Number [facility] [place] [address] * (ABNORMAL) Protime-INR (07/30/2025 12:30 AM CAN WASHER) PT 13.6(H) 10.2 - 13.5 sec INR 1.21(H) 0.90 - 1.20 [facility] Comment: Interpretive data Oral anticoagulant therapeutic ranges: Venous thromboembolism prophylaxis or treatment: 2.0-3.0 CARDIOLOGY Standard range: 2.0-3.0 High-intensity range: 2.5-3.5 Refer to indication-specific guidelines for appropriate target ranges for prosthetic heart valve replacement. Current interpretive data was last revised on 2019. Blood 07/30/2025 12:3 0 AM CAN WASHER 07/30/2025 12:51 AM CAN WASHER us Pee Bello MD LAB BLOOD ORDERABLES Final Re sult Performing Organization Address [facility]/ZIP Co de Phone Number [facility] [place] [address] * (ABNORMAL) CBC without differential (07/30/2025 12:30 AM CAN WASHER) Pathologist [facility] WBC 12.69(H) 3.80 - 9.90 K/cumm Hgb 9.1(L) 13.0 - 17.5 g/dL [facility] Hct 28.5(L) 38.9 - 50.3 % [facility] Plt 184 150 - 400 K/cumm [facility] MPV 9.9 9.1 - 12.3 fL [facility] RBC 2.99(L) 4.30 - 5.80 M/cumm [facility] MCV 95.3 81.3 - 96.4 fL [facility] MCH 30.4 27.1 - 33.3 pg [facility] MCHC 31.9(L) 32.3 - 35.7 g/dL [facility] RDW CV 13.2 11.1 - 14.9 % [facility] RDW SD 45.9 35.7 - 48.1 fL [facility] NRBC abs 0.00 0.00 - 0.01 K/cumm [facility] Blood 07/30/2025 12:3 0 AM CAN WASHER 07/30/2025 12:38 AM CAN WASHER us Pee Bello MD LAB BLOOD ORDERABLES Final Re sult Performing Organization Address [facility] Co de Phone Number [facility] [place] [address] * POCT glucose (07/30/2025 12:26 AM CAN WASHER) [facility] Glucose, POC 99 70 - 199 mg/dL Blood 07/30/2025 12:2 6 AM CAN WASHER 07/30/2025 12:26 AM CAN WASHER us Darrell Avalos MD LAB POCT ORDERABLES - DEVICE Final Result Performing Organization Address [facility] Co de Phone Number [facility] [place] [employer] [address] * (ABNORMAL) POCT glucose (07/30/2025 12:10 AM CAN WASHER) Glucose, POC 57(L) 70 - 199 mg/dL Blood 07/30/2025 12:1 0 AM CAN WASHER 07/30/2025 12:10 AM CAN WASHER us Darrell Avalos MD LAB POCT ORDERABLES - DEVICE Final Result Performing Organization Address [facility] [place] [address] * POCT glucose (07/29/2025 8:14 PM CAN WASHER) Glucose, POC 72 70 - 199 mg/dL Blood 07/29/2025 8:14 PM CAN WASHER 07/29/2025 8:14 PM CAN WASHER us Darrell Avalos MD LAB POCT ORDERABLES - DEVICE Final Result Performing Organization Address [facility] de Phone Number [facility] [place] [address] * Oxyhemoglobin, central venous (07/29/2025 8:04 PM CAN WASHER) Pathologist [facility] Oxyhemoglobin, CV 71.8 % Comment: Interpretive Data No reference range established. Current interpretive data was last revised 2019. Blood 07/29/2025 8:04 PM CAN WASHER 07/29/2025 8:11 PM CAN WASHER us Pee Bello MD LAB BLOOD ORDERABLES Final Re sult Performing Organization Address [facility] Co de Phone Number [facility] [place] [address] * Lactate, whole blood (07/29/2025 8:04 PM CAN WASHER) Lactate, bld 0.9 0.7 - 2.0 mmol/L Blood 07/29/2025 8:04 PM CAN WASHER 07/29/2025 8:11 PM CAN WASHER Pee Bello MD LAB BLOOD ORDERABLES Final Re sul Performing Organization Address [facility] Co de Phone Number [facility] [place] [address] * (ABNORMAL) Blood gas, arterial (07/29/2025 8:04 PM CAN WASHER) [facility] pH, Art 7.33(L) 7.35 - 7.45 PCO2, Arterial 42 35 - 45 mmHg [facility] PO2, Arterial 143(H) 83 - 108 mmHg [facility] HCO3 Art (Calculated) 22 20 - 30 mmol/L [facility] BE, art -3 mmol/L [facility] Comment: Interpretive Data No Reference Range Established Current Interpretive Data was last revised on 2017 O2 Sat Art (Measured) 99(H) 90 - 95 % [facility] Blood 07/29/2025 8:04 PM CAN WASHER 07/29/2025 8:10 PM CAN WASHER Pee Bello MD LAB BLOOD ORDERABLES Final Re sult Performing Organization Address [facility] Co de Phone Number [facility] [place] [address] * Oxyhemoglobin, central venous (07/29/2025 4:29 PM CAN WASHER) Pathologist [facility] Oxyhemoglobin, CV 72.5 % Comment: Interpretive Data No reference range established. Current interpretive data was last revised 2019. Blood 07/29/2025 4:29 PM CAN WASHER 07/29/2025 4:35 PM CAN WASHER Pee Bello MD LAB BLOOD ORDERABLES Final Re sult Performing Organization Address [facility] Co de Phone Number [facility] [place] [address] * eGFR (07/29/2025 4:29 PM CAN WASHER) eGFR 89 >=60 mL/min/1. 73 m2 Comment: [...] last reviewed 2021. Blood 07/29/2025 4:29 PM CAN WASHER 07/29/2025 4:51 PM CAN WASHER Pee Bello MD LAB BLOOD ORDERABLES Final Re sult Performing Organization Address [facility] Co de Phone Number [facility] [place] [address] * (ABNORMAL) CBC without differential (07/29/2025 4:29 PM CAN WASHER) WBC 11.51(H) 3.80 - 9.90 K/cumm Hgb 8.2(L) 13.0 - 17.5 g/dL [facility] Hct 25.3(L) 38.9 - 50.3 % [facility] Plt 172 150 - 400 K/cumm [facility] MPV 10.1 9.1 - 12.3 fL [facility] RBC 2.67(L) 4.30 - 5.80 M/cumm [facility] MCV 94.8 81.3 - 96.4 fL [facility] MCH 30.7 27.1 - 33.3 pg [facility] MCHC 32.4 32.3 - 35.7 g/dL [facility] RDW CV 13.3 11.1 - 14.9 % [facility] RDW SD 45.9 35.7 - 48.1 fL [facility] NRBC abs 0.00 0.00 - 0.01 K/cumm [facility] Blood 07/29/2025 4:29 PM CAN WASHER 07/29/2025 4:51 PM CAN WASHER Pee Bello MD LAB BLOOD ORDERABLES Final Re sult Performing Organization Address [facility] Co de Phone Number [facility] [place] [address] * Magnesium (07/29/2025 4:29 PM CAN WASHER) [facility] Magnesium 2.4 1.4 - 2.5 mg/dL Blood 07/29/2025 4:29 PM CAN WASHER 07/29/2025 4:51 PM CAN WASHER Pee Bello MD LAB BLOOD ORDERABLES Final Re sult Performing Organization Address City/[facility] Co de Phone Number [facility] [place] [address] * (ABNORMAL) Basic metabolic panel (07/29/2025 4:29 PM CAN WASHER) [facility] Sodium 139 135 - 145 mmol/L Potassium, pl 4.2 3.3 - 4.9 mmol/L [facility] Chloride 106 97 - 110 mmol/L [facility] CO2 24 22 - 32 mmol/L [facility] Anion gap 9 2 - 15 mmol/L [facility] BUN 22 6 - 25 mg/dL [facility] Creatinine 1.00 0.80 - 1.30 mg/dL [facility] Glucose 96 70 - 199 mg/dL [facility] Comment: Interpretive Data Fasting glucose >/= 126 [...] 2022. Calcium 7.8(L) 8.5 - 10.3 mg/dL [facility] Blood 07/29/2025 4:29 PM CAN WASHER 07/29/2025 4:51 PM CAN WASHER us Pee Bello MD LAB BLOOD ORDERABLES Final Re sult Performing Organization Address City/[facility]/ZIP Co de Phone Number [facility] [place] [address] * POCT glucose (07/29/2025 4:27 PM CAN WASHER) Glucose, POC 100 70 - 199 mg/dL Blood 07/29/2025 4:27 PM CAN WASHER 07/29/2025 4:27 PM CAN WASHER us Darrell Avalos MD LAB POCT ORDERABLES - DEVICE Final Result Performing Organization Address [facility]/ZIP Co de Phone Number [facility] [place] [address] * Type and screen (07/29/2025 4:27 PM CAN WASHER) Zac, indirect Negative ABO Rh O Positive [facility] Blood 07/29/2025 4:27 PM CAN WASHER 07/29/2025 4:57 PM CAN WASHER Narrative [facility] - 07/29/2025 5:40 PM CAN WASHER Has the patient had Daratumumab or Isatuximab in the past 6 months?->Unknown us Pee Bello MD LAB BLOOD BANK TEST ORDERABLE S Final Result Performing Organization Address [facility] Co de Phone Number [facility] [place] [address] * (ABNORMAL) POCT glucose (07/29/2025 4:18 PM CAN WASHER) Glucose, POC 68(L) 70 - 199 mg/dL Comment:Glu2: RN/MD Notified Glucose comment 1 Glu2: RN/MD Notified [facility] Blood 07/29/2025 4:18 PM CAN WASHER 07/29/2025 4:18 PM CAN WASHER us Darrell Avalos MD LAB POCT ORDERABLES - DEVICE Final Result Performing Organization Address [facility] de Phone Number [facility] [place] [address] * POCT glucose (07/29/2025 11:37 AM CAN WASHER) Glucose, POC 77 70 - 199 mg/dL Blood 07/29/2025 11:3 7 AM CAN WASHER 07/29/2025 11:37 AM CAN WASHER us Darrell Avalos MD LAB POCT ORDERABLES - DEVICE Final Result Performing Organization Address [facility] de Phone Number [facility] [place] [address] * Oxyhemoglobin, central venous (07/29/2025 11:34 AM CAN WASHER) Oxyhemoglobin, CV 73.5 % Comment: Interpretive Data No reference range established. Current interpretive data was last revised 2019. Blood 07/29/2025 11:3 4 AM CAN WASHER 07/29/2025 11:40 AM CAN WASHER us Pee Bello MD LAB BLOOD ORDERABLES Final Re sult Performing Organization Address City/[facility] Co de Phone [facility] [place] [address] * eGFR (07/29/2025 11:34 AM CAN WASHER) eGFR >90 >=60 mL/min/1. 73 m2 Comment: [...] reviewed 2021. Blood 07/29/2025 11:3 4 AM CAN WASHER 07/29/2025 11:47 AM CAN WASHER us Pee Bello MD LAB BLOOD ORDERABLES Final Re sult Performing Organization Address City/[facility]/ZIP Co de Phone Number JAYY NICOLE [facility] [place] [address] * Lactate, whole blood (07/29/2025 11:34 AM CAN WASHER) Lactate, bld 1.7 0.7 - 2.0 mmol/L Blood 07/29/2025 11:3 4 AM CAN WASHER 07/29/2025 11:40 AM CAN WASHER us Pee Bello MD LAB BLOOD ORDERABLES Final Re sult [facility] [place] [address] * (ABNORMAL) CBC without differential (07/29/2025 11:34 AM CAN WASHER) WBC 14.15(H) 3.80 - 9.90 K/cumm Hgb 8.8(L) 13.0 - 17.5 g/dL [facility] Hct 26.7(L) 38.9 - 50.3 % [facility] Plt 171 150 - 400 K/cumm [facility] MPV 9.8 9.1 - 12.3 fL [facility] RBC 2.85(L) 4.30 - 5.80 M/cumm [facility] MCV 93.7 81.3 - 96.4 fL [facility] MCH 30.9 27.1 - 33.3 pg [facility] MCHC 33.0 32.3 - 35.7 g/dL [facility] RDW CV 13.1 11.1 - 14.9 % [facility] RDW SD 45.1 35.7 - 48.1 fL [facility] NRBC abs 0.00 0.00 - 0.01 K/cumm [facility] Blood 07/29/2025 11:3 4 AM CAN WASHER 07/29/2025 11:47 AM CAN WASHER us Pee Bello MD LAB BLOOD ORDERABLES Final Re sult [facility] [place] [address] * Magnesium (07/29/2025 11:34 AM CAN WASHER) Magnesium 2.4 1.4 - 2.5 mg/dL Blood 07/29/2025 11:3 4 AM CAN WASHER 07/29/2025 11:47 AM CAN WASHER Pee Bello MD LAB BLOOD ORDERABLES Final Re sult [facility] [place] [address] * (ABNORMAL) Basic metabolic panel (07/29/2025 11:34 AM CAN WASHER) Pathologist [facility] Sodium 138 135 - 145 mmol/L Potassium, pl 4.2 3.3 - 4.9 mmol/L [facility] Chloride 105 97 - 110 mmol/L [facility] CO2 22 22 - 32 mmol/L [facility] Anion gap 11 2 - 15 mmol/L [facility] BUN 24 6 - 25 mg/dL [facility] Creatinine 0.97 0.80 - 1.30 mg/dL [facility] Glucose 102 70 - 199 mg/dL [facility] Comment: Interpretive Data Fasting glucose >/= 126 [...] 2022. Calcium 7.9(L) 8.5 - 10.3 mg/dL [facility] Blood 07/29/2025 11:3 4 AM CAN WASHER 07/29/2025 11:47 AM CAN WASHER us Pee Bello MD LAB BLOOD ORDERABLES Final Re sult Performing Organization Address City/[facility]/ZIP Co de Phone Number [facility] [place] [address] * (ABNORMAL) Blood gas, arterial (07/29/2025 10:17 AM CAN WASHER) Pathologist [facility] pH, Art 7.35 7.35 - 7.45 PCO2, Arterial 40 35 - 45 mmHg [facility] PO2, Arterial 131(H) 83 - 108 mmHg [facility] HCO3 Art (Calculated) 22 20 - 30 mmol/L [facility] BE, art -3 mmol/L [facility] Comment: Interpretive Data No Reference Range Established Current Interpretive Data was last revised on 2017 O2 Sat Art (Measured) 99(H) 90 - 95 % [facility] Blood 07/29/2025 10:1 7 AM CAN WASHER 07/29/2025 10:23 AM CAN WASHER us Darrell Avalos MD LAB BLOOD ORDERABLES Final R esult Performing Organization Address [facility] Co de Phone Number [facility] [place] [address] * POCT glucose (07/29/2025 7:51 AM CAN WASHER) Glucose, POC 106 70 - 199 mg/dL Blood 07/29/2025 7:51 AM CAN WASHER 07/29/2025 7:51 AM CAN WASHER us Darrell Avalos MD LAB POCT ORDERABLES - DEVICE Final Result Performing Organization Address [facility] de Phone Number [facility] [place] [address] * (ABNORMAL) POCT glucose (07/29/2025 7:50 AM CAN WASHER) Glucose, POC 43(C) 70 - 199 mg/dL Comment:Glu2: RN/MD Notified Glucose comment 1 Glu2: RN/MD Notified [facility] Blood 07/29/2025 7:50 AM CAN WASHER 07/29/2025 7:50 AM CAN WASHER us Darrell Avalos MD LAB POCT ORDERABLES - DEVICE Final Result Performing Organization Address [facility] Co de Phone Number [facility] [place] [address] * XR Chest 1 View (07/29/2025 5:36 AM CAN WASHER) Anatomical Region Laterality Modality Body, Chest N/A Digital Radiogra phy 07/29/2025 6:01 AM CAN WASHER Impressions 07/29/2025 6:01 AM CAN WASHER Comparison is made to prior from 07/28/2025. [...] Gene Kolb M.D. Narrative 07/29/2025 6:01 AM CAN WASHER EXAMINATION: 1 view chest radiograph Procedure Note [...] pneumothorax. Electronically signed by: Gene Kolb M.D. Pee Bello MD IMG XR PROCEDURES Final Resul t * Oxyhemoglobin, central venous (07/29/2025 4:47 AM CAN WASHER) Oxyhemoglobin, CV 42.6 % Comment: Interpretive Data No reference range established. Current interpretive data was last revised 2019. Blood 07/29/2025 4:47 AM CAN WASHER 07/29/2025 5:39 AM CAN WASHER Pee Bello MD LAB BLOOD ORDERABLES Final Re sult Performing Organization Address City/[facility] Co de Phone Number [facility] [place] [address] * Hemoglobin, plasma (07/29/2025 4:47 AM CAN WASHER) Hemoglobin, Plasma <30 <=50 mg/dL Blood 07/29/2025 4:47 AM CAN WASHER 07/29/2025 5:35 AM CAN WASHER Pee Bello MD LAB BLOOD ORDERABLES Final Re sult Performing Organization Address [facility] de Phone Number [facility] [place] [address] * eGFR (07/29/2025 4:47 AM CAN WASHER) eGFR >90 >=60 mL/min/1. 73 m2 Comment: [...] last reviewed 2021. Blood 07/29/2025 4:47 AM CAN WASHER 07/29/2025 6:20 AM CAN WASHER Darrell Avalos MD LAB BLOOD ORDERABLES Final R esult Performing Organization Address [facility] Co de Phone Number [facility] [place] [address] * (ABNORMAL) Lactate, whole blood (07/29/2025 4:47 AM CAN WASHER) Lactate, bld 2.4(H) 0.7 - 2.0 mmol/L Blood 07/29/2025 4:47 AM CAN WASHER 07/29/2025 5:39 AM CAN WASHER Pee Bello MD LAB BLOOD ORDERABLES Final Re sult Performing Organization Address [facility] Co de Phone Number [facility] [place] [employer] [address] * aPTT (07/29/2025 4:47 AM CAN WASHER) aPTT 26 26 - 38 sec Comment: Interpretive Data Heparin therapeutic range: 66.0 - 100.0 seconds. Range based on correlation with therapeutic heparin activity range of 0.3 - 0.7 Units/mL. Blood 07/29/2025 4:47 AM CAN WASHER 07/29/2025 5:49 AM CAN WASHER Pee Bello MD LAB BLOOD ORDERABLES Final Re sult Performing Organization Address [facility] Co de Phone Number [facility] [place] [address] * (ABNORMAL) Protime-INR (07/29/2025 4:47 AM CAN WASHER) PT 13.7(H) 10.2 - 13.5 sec INR 1.22(H) 0.90 - 1.20 [facility] Comment: Interpretive data Oral anticoagulant therapeutic ranges: Venous thromboembolism prophylaxis or treatment: 2.0-3.0 CARDIOLOGY Standard range: 2.0-3.0 High-intensity range: 2.5-3.5 Refer to indication-specific guidelines for appropriate target ranges for prosthetic heart valve replacement. Current interpretive data was last revised on 2019. Blood 07/29/2025 4:47 AM CAN WASHER 07/29/2025 5:49 AM CAN WASHER us Pee Bello MD LAB BLOOD ORDERABLES Final Re sult Performing Organization Address [facility]/ZIP Co de Phone Number [facility] [place] [address] * (ABNORMAL) CBC without differential (07/29/2025 4:47 AM CAN WASHER) WBC 13.16(H) 3.80 - 9.90 K/cumm Hgb 8.5(L) 13.0 - 17.5 g/dL [facility] Hct 25.4(L) 38.9 - 50.3 % [facility] Plt 181 150 - 400 K/cumm [facility] MPV 10.3 9.1 - 12.3 fL [facility] RBC 2.72(L) 4.30 - 5.80 M/cumm [facility] MCV 93.4 81.3 - 96.4 fL [facility] MCH 31.3 27.1 - 33.3 pg [facility] MCHC 33.5 32.3 - 35.7 g/dL [facility] RDW CV 13.2 11.1 - 14.9 % [facility] RDW SD 44.7 35.7 - 48.1 fL [facility] NRBC abs 0.00 0.00 - 0.01 K/cumm [facility] Blood 07/29/2025 4:47 AM CAN WASHER 07/29/2025 5:35 AM CAN WASHER us Pee Bello MD LAB BLOOD ORDERABLES Final Re sult Performing Organization Address City/[facility]/ZIP Co de Phone Number [facility] [place] [address] * Phosphorus (07/29/2025 4:47 AM CAN WASHER) Pathologist [facility] Phosphorus, pl 3.2 2.3 - 4.5 mg/dL Blood 07/29/2025 4:47 AM CAN WASHER 07/29/2025 5:50 AM CAN WASHER us Pee Bello MD LAB BLOOD ORDERABLES Final Re sult [facility] [place] [address] * Magnesium (07/29/2025 4:47 AM CAN WASHER) [facility] Magnesium 2.3 1.4 - 2.5 mg/dL Blood 07/29/2025 4:47 AM CAN WASHER 07/29/2025 5:50 AM CAN WASHER us Darrell Avalos MD LAB BLOOD ORDERABLES Final R esult Performing Organization Address [facility]/[place] [address] * (ABNORMAL) Hepatic function panel (07/29/2025 4:47 AM CAN WASHER) [facility] Bilirubin, total 0.3 0.1 - 1.2 mg/dL Bilirubin, direct <0.2 0.1 - 0.3 mg/dL [facility] Protein, pl 5.5(L) 6.5 - 8.5 g/dL [facility] Albumin 2.6(L) 3.5 - 5.0 g/dL [facility] Alk phos 93 40 - 130 Units/L [facility] ALT 37 7 - 55 Units/L [facility] AST 137(H) 10 - 50 Units/L [facility] Blood 07/29/2025 4:47 AM CAN WASHER 07/29/2025 5:50 AM CAN WASHER us Pee Bello MD LAB BLOOD ORDERABLES Final Re sult [facility] [place] [address] * (ABNORMAL) Basic metabolic panel (07/29/2025 4:47 AM CAN WASHER) Sodium 136 135 - 145 mmol/L Potassium, pl 4.2 3.3 - 4.9 mmol/L [facility] Chloride 104 97 - 110 mmol/L [facility] CO2 21(L) 22 - 32 mmol/L [facility] Anion gap 11 2 - 15 mmol/L [facility] BUN 23 6 - 25 mg/dL [facility] Creatinine 0.95 0.80 - 1.30 mg/dL [facility] Glucose 91 70 - 199 mg/dL [facility] Comment: Interpretive Data Fasting glucose >/= 126 [...] 2022. Calcium 7.9(L) 8.5 - 10.3 mg/dL [facility] Blood 07/29/2025 4:47 AM CAN WASHER 07/29/2025 5:50 AM CAN WASHER us Darrell Avalos MD LAB BLOOD ORDERABLES Final R esult [facility] [place] [address] * POCT glucose (07/29/2025 4:45 AM CAN WASHER) Glucose, POC 95 70 - 199 mg/dL Blood 07/29/2025 4:45 AM CAN WASHER 07/29/2025 4:45 AM CAN WASHER Darrell Avalos MD LAB POCT ORDERABLES - DEVICE Final Result Performing Organization Address City/[facility] Co de Phone Number [facility] [place] [address] * POCT glucose (07/29/2025 1:25 AM CAN WASHER) Glucose, POC 113 70 - 199 mg/dL Blood 07/29/2025 1:25 AM CAN WASHER 07/29/2025 1:25 AM CAN WASHER Darrell Avalos MD LAB POCT ORDERABLES - DEVICE Final Result Performing Organization Address [facility] de Phone Number [facility] [place] [address] * eGFR (07/29/2025 12:20 AM CAN WASHER) eGFR 90 >=60 mL/min/1. 73 m2 Comment: [...] reviewed 2021. Blood 07/29/2025 12:2 0 AM CAN WASHER 07/29/2025 1:07 AM CAN WASHER us Pee Bello MD LAB BLOOD ORDERABLES Final Re sult [facility] [place] [facility] [place] [address] * (ABNORMAL) CBC without differential (07/29/2025 12:20 AM CAN WASHER) Pathologist [facility] WBC 11.64(H) 3.80 - 9.90 K/cumm Hgb 8.3(L) 13.0 - 17.5 g/dL [facility] Hct 25.2(L) 38.9 - 50.3 % [facility] Plt 183 150 - 400 K/cumm [facility] MPV 10.1 9.1 - 12.3 fL [facility] RBC 2.71(L) 4.30 - 5.80 M/cumm [facility] MCV 93.0 81.3 - 96.4 fL [facility] MCH 30.6 27.1 - 33.3 pg [facility] MCHC 32.9 32.3 - 35.7 g/dL [facility] RDW CV 13.1 11.1 - 14.9 % [facility] RDW SD 44.0 35.7 - 48.1 fL [facility] NRBC abs 0.00 0.00 - 0.01 K/cumm [facility] Blood 07/29/2025 12:2 0 AM CAN WASHER 07/29/2025 1:08 AM CAN WASHER us Pee Bello MD LAB BLOOD ORDERABLES Final Re sult [facility] [place] [address] * Magnesium (07/29/2025 12:20 AM CAN WASHER) Magnesium 2.3 1.4 - 2.5 mg/dL Blood 07/29/2025 12:2 0 AM CAN WASHER 07/29/2025 1:07 AM CAN WASHER us Pee Bello MD LAB BLOOD ORDERABLES Final Re sult Performing Organization Address City/[facility]/ZIP Co de Phone Number [facility] [place] [address] * (ABNORMAL) Basic metabolic panel (07/29/2025 12:20 AM CAN WASHER) Pathologist [facility] Sodium 135 135 - 145 mmol/L Potassium, pl 4.3 3.3 - 4.9 mmol/L [facility] Chloride 104 97 - 110 mmol/L [facility] CO2 20(L) 22 - 32 mmol/L [facility] Anion gap 11 2 - 15 mmol/L [facility] BUN 24 6 - 25 mg/dL [facility] Creatinine 0.99 0.80 - 1.30 mg/dL [facility] Glucose 110 70 - 199 mg/dL [facility] Comment: Interpretive Data Fasting glucose >/= 126 [...] 2022. Calcium 7.8(L) 8.5 - 10.3 mg/dL [facility] Blood 07/29/2025 12:2 0 AM CAN WASHER 07/29/2025 1:07 AM CAN WASHER Pee Bello MD LAB BLOOD ORDERABLES Final Re sult Performing Organization Address [facility] Co de Phone Number [facility] [place] [address] * Oxyhemoglobin, central venous (07/28/2025 11:42 PM CAN WASHER) Oxyhemoglobin, CV 62.7 % Comment: Interpretive Data No reference range established. Current interpretive data was last revised 2019. Blood 07/28/2025 11:4 2 PM CAN WASHER 07/29/2025 12:31 AM CAN WASHER us Pee Bello MD LAB BLOOD ORDERABLES Final Re sult Performing Organization Address [facility] Co de Phone Number [facility] [place] [address] * Lactate, whole blood (07/28/2025 11:42 PM CAN WASHER) [facility] Lactate, bld 1.2 0.7 - 2.0 mmol/L Blood 07/28/2025 11:4 2 PM CAN WASHER 07/29/2025 12:31 AM CAN WASHER us Pee Bello MD LAB BLOOD ORDERABLES Final Re sult Performing Organization Address [facility] Co de Phone Number [facility] [place] [address] * POCT glucose (07/28/2025 8:04 PM CAN WASHER) Glucose, POC 117 70 - 199 mg/dL Blood 07/28/2025 8:04 PM CAN WASHER 07/28/2025 8:04 PM CAN WASHER us Darrell Avalos MD LAB POCT ORDERABLES - DEVICE Final Result Performing Organization Address [facility] Co de Phone Number [facility] [place] [employer] [place] [address] * POCT glucose (07/28/2025 8:02 PM CAN WASHER) Glucose, POC 88 70 - 199 mg/dL Blood 07/28/2025 8:02 PM CAN WASHER 07/28/2025 8:02 PM CAN WASHER Darrell Avalos MD LAB POCT ORDERABLES - DEVICE Final Result Performing Organization Address City/[facility] Co de Phone Number [facility] [place] [address] * eGFR (07/28/2025 5:14 PM CAN WASHER) eGFR 79 >=60 mL/min/1. 73 m2 Comment: [...] last reviewed 2021. Blood 07/28/2025 5:14 PM CAN WASHER 07/28/2025 5:44 PM CAN WASHER Pee Bello MD LAB BLOOD ORDERABLES Final Re sult Performing Organization Address City/[facility]/ZIP Co de Phone Number [facility] [place] [address] * Magnesium (07/28/2025 5:14 PM CAN WASHER) Magnesium 2.1 1.4 - 2.5 mg/dL Blood 07/28/2025 5:14 PM CAN WASHER 07/28/2025 5:44 PM CAN WASHER Pee Bello MD LAB BLOOD ORDERABLES Final Re sult Performing Organization Address City/[facility]/ZIP Co de Phone Number [facility] [place] [address] * (ABNORMAL) Basic metabolic panel (07/28/2025 5:14 PM CAN WASHER) Sodium 137 135 - 145 mmol/L Potassium, pl 4.3 3.3 - 4.9 mmol/L [facility] Chloride 105 97 - 110 mmol/L [facility] CO2 21(L) 22 - 32 mmol/L [facility] Anion gap 11 2 - 15 mmol/L [facility] BUN 27(H) 6 - 25 mg/dL [facility] Creatinine 1.10 0.80 - 1.30 mg/dL [facility] Glucose 123 70 - 199 mg/dL [facility] Comment: Interpretive Data Fasting glucose >/= 126 [...] 2022. Calcium 7.9(L) 8.5 - 10.3 mg/dL [facility] Blood 07/28/2025 5:14 PM CAN WASHER 07/28/2025 5:44 PM CAN WASHER us Pee Bello MD LAB BLOOD ORDERABLES Final Re sult Performing Organization Address City/[facility] Co de Phone Number [facility] [place] [address] * Oxyhemoglobin, central venous (07/28/2025 5:13 PM CAN WASHER) Oxyhemoglobin, CV 85.7 % Comment: Interpretive Data No reference range established. Current interpretive data was last revised 2019. Blood 07/28/2025 5:13 PM CAN WASHER 07/28/2025 5:28 PM CAN WASHER Pee Bello MD LAB BLOOD ORDERABLES Final Re sult Performing Organization Address City/[facility] Co de Phone Number [facility] [place] [address] * Lactate, whole blood (07/28/2025 5:13 PM CAN WASHER) [facility] Lactate, bld 1.2 0.7 - 2.0 mmol/L Blood 07/28/2025 5:13 PM CAN WASHER 07/28/2025 5:28 PM CAN WASHER Pee Bello MD LAB BLOOD ORDERABLES Final Re sult Performing Organization Address [facility] de Phone Number [facility] [place] [address] * (ABNORMAL) CBC without differential (07/28/2025 5:13 PM CAN WASHER) [facility] WBC 13.37(H) 3.80 - 9.90 K/cumm Hgb 8.2(L) 13.0 - 17.5 g/dL [facility] Hct 24.3(L) 38.9 - 50.3 % [facility] Plt 185 150 - 400 K/cumm [facility] MPV 9.9 9.1 - 12.3 fL [facility] RBC 2.65(L) 4.30 - 5.80 M/cumm [facility] MCV 91.7 81.3 - 96.4 fL [facility] MCH 30.9 27.1 - 33.3 pg [facility] MCHC 33.7 32.3 - 35.7 g/dL [facility] RDW CV 13.1 11.1 - 14.9 % [facility] RDW SD 43.1 35.7 - 48.1 fL [facility] NRBC abs 0.00 0.00 - 0.01 K/cumm [facility] Blood 07/28/2025 5:13 PM CAN WASHER 07/28/2025 5:45 PM CAN WASHER us Pee Bello MD LAB BLOOD ORDERABLES Final Re sult Performing Organization Address [facility]/ZIP Co de Phone Number [facility] [place] [address] * eGFR (07/28/2025 12:11 PM CAN WASHER) eGFR 76 >=60 mL/min/1. 73 m2 Comment: [...] reviewed 2021. Blood 07/28/2025 12:1 1 PM CAN WASHER 07/28/2025 12:34 PM CAN WASHER us Pee Bello MD LAB BLOOD ORDERABLES Final Re sult Performing Organization Address [facility]/ZIP Co de Phone Number [facility] [place] [address] * Magnesium (07/28/2025 12:11 PM CAN WASHER) Magnesium 2.1 1.4 - 2.5 mg/dL Blood 07/28/2025 12:1 1 PM CAN WASHER 07/28/2025 12:34 PM CAN WASHER Pee Bello MD LAB BLOOD ORDERABLES Final Re sult Performing Organization Address City/[facility] Co de Phone Number [facility] [place] [address] * (ABNORMAL) Basic metabolic panel (07/28/2025 12:11 PM CAN WASHER) [facility] Sodium 136 135 - 145 mmol/L Potassium, pl 4.0 3.3 - 4.9 mmol/L [facility] Chloride 107 97 - 110 mmol/L [facility] CO2 21(L) 22 - 32 mmol/L [facility] Anion gap 8 2 - 15 mmol/L [facility] BUN 25 6 - 25 mg/dL [facility] Creatinine 1.14 0.80 - 1.30 mg/dL [facility] Glucose 115 70 - 199 mg/dL [facility] Comment: Interpretive Data Fasting glucose >/= 126 [...] 2022. Calcium 7.8(L) 8.5 - 10.3 mg/dL [facility] Blood 07/28/2025 12:1 1 PM CAN WASHER 07/28/2025 12:34 PM CAN WASHER Pee Bello MD LAB BLOOD ORDERABLES Final Re sult Performing Organization Address [facility] Co de Phone Number [facility] [place] [address] * POCT glucose (07/28/2025 12:08 PM CAN WASHER) Glucose, POC 126 70 - 199 mg/dL Blood 07/28/2025 12:0 8 PM CAN WASHER 07/28/2025 12:08 PM CAN WASHER us Darrell Avalos MD LAB POCT ORDERABLES - DEVICE Final Result Performing Organization Address [facility] de Phone Number [facility] [employer] [place], [place] [id number] * Oxyhemoglobin, central venous (07/28/2025 11:09 AM CAN WASHER) Oxyhemoglobin, CV 74.6 % Comment: Interpretive Data No reference range established. Current interpretive data was last revised 2019. Blood 07/28/2025 11:0 9 AM CAN WASHER 07/28/2025 11:16 AM CAN WASHER us Pee Bello MD LAB BLOOD ORDERABLES Final Re sult Performing Organization Address [facility] Co de Phone Number [facility] [place] [place] [address] * Lactate, whole blood (07/28/2025 11:09 AM CAN WASHER) Lactate, bld 1.5 0.7 - 2.0 mmol/L Blood 07/28/2025 11:0 9 AM CAN WASHER 07/28/2025 11:16 AM CAN WASHER Pee Bello MD LAB BLOOD ORDERABLES Final Re sult Performing Organization Address [facility] Co de Phone Number [facility] [employer] [place], [place] [id number] * XR Abdomen 1 View AP (07/28/2025 6:45 AM CAN WASHER) Anatomical Region Laterality Modality Body, Abdomen N/A Digital Radiogra phy 07/28/2025 8:25 AM CAN WASHER Impressions 07/28/2025 9:47 AM CAN WASHER Gastric tube with side-port and tip overlying [...] Jhon Gay M.D. Narrative 07/28/2025 9:47 AM CAN WASHER EXAMINATION: Abdomen, one view. HISTORY: Evaluate for [...] it. Electronically signed by: Jhon Gay M.D. Pee Bello MD IMG XR PROCEDURES Final Resul t * XR Chest 1 View (07/28/2025 6:33 AM CAN WASHER) Anatomical Region Laterality Modality Body, Chest N/A Digital Radiogra phy 07/28/2025 8:29 AM CAN WASHER Impressions 07/28/2025 8:46 AM CAN WASHER The current study is compared with the prior radiograph dated 07/27/2025. Endotracheal tube tip is 6 cm above the frieda. Right internal jugular approach central venous catheter tip over the superior cavoatrial junction. Gastric tube terminates below the diaphragm and outside the [id number]. Radiopaque marker of intra-aortic balloon pump projects [...] Mir Castano M.D. Narrative 07/28/2025 8:46 AM CAN WASHER EXAMINATION: 1 view chest radiograph Procedure Note Mir Castano MD - 07/28/2025 EXAMINATION: 1 view chest radiograph IMPRESSION: The current study is compared with the prior radiograph dated 07/27/2025. Endotracheal tube tip is 6 cm above the frieda. Right internal jugular approach central venous catheter tip over the superior cavoatrial junction. Gastric tube terminates below the diaphragm and outside the [id number]. Radiopaque marker of intra-aortic balloon pump projects [...] it. Electronically signed by: Mir Castano M.D. Pee Bello MD IMG XR PROCEDURES Final Resul t * (ABNORMAL) Blood gas, arterial (07/28/2025 5:53 AM CAN WASHER) pH, Art 7.41 7.35 - 7.45 PCO2, Arterial 34(L) 35 - 45 mmHg [facility] PO2, Arterial 145(H) 83 - 108 mmHg [facility] HCO3 Art (Calculated) 21 20 - 30 mmol/L [facility] BE, art -2 mmol/L [facility] Comment: Interpretive Data No Reference Range Established Current Interpretive Data was last revised on 2017 O2 Sat Art (Measured) 99(H) 90 - 95 % [facility] Blood 07/28/2025 5:53 AM CAN WASHER 07/28/2025 6:04 AM CAN WASHER us Pee Bello MD LAB BLOOD ORDERABLES Final Re sult Performing Organization Address [facility] de Phone Number [facility] [place] [address] * Oxyhemoglobin, central venous (07/28/2025 5:51 AM CAN WASHER) Pathologist [facility] Oxyhemoglobin, CV 84.4 % Comment: Interpretive Data No reference range established. Current interpretive data was last revised 2019. Blood 07/28/2025 5:51 AM CAN WASHER 07/28/2025 6:04 AM CAN WASHER us Pee Bello MD LAB BLOOD ORDERABLES Final Re sult Performing Organization Address [facility] de Phone Number [facility] [place] [place] [address] * Hemoglobin, plasma (07/28/2025 5:51 AM CAN WASHER) [facility] Hemoglobin, Plasma <30 <=50 mg/dL Blood 07/28/2025 5:51 AM CAN WASHER 07/28/2025 6:07 AM CAN WASHER us Pee Bello MD LAB BLOOD ORDERABLES Final Re sult Performing Organization Address [facility] de Phone Number [facility] [place] [employer] [place] [address] * eGFR (07/28/2025 5:51 AM CAN WASHER) eGFR 70 >=60 mL/min/1. 73 m2 Comment: [...] last reviewed 2021. Blood 07/28/2025 5:51 AM CAN WASHER 07/28/2025 6:07 AM CAN WASHER us Pee Bello MD LAB BLOOD ORDERABLES Final Re sult Performing Organization Address [facility] Co de Phone Number [facility] [place] [address] * Lactate, whole blood (07/28/2025 5:51 AM CAN WASHER) Pathologist [facility] Lactate, bld 1.3 0.7 - 2.0 mmol/L Blood 07/28/2025 5:51 AM CAN WASHER 07/28/2025 6:04 AM CAN WASHER us Darrell Avalos MD LAB BLOOD ORDERABLES Final R esult Performing Organization Address [facility] Co de Phone Number [facility] [place] [address] * (ABNORMAL) aPTT (07/28/2025 5:51 AM CAN WASHER) aPTT 21(L) 26 - 38 sec Comment: Interpretive Data Heparin therapeutic range: 66.0 - 100.0 seconds. Range based on correlation with therapeutic heparin activity range of 0.3 - 0.7 Units/mL. Blood 07/28/2025 5:51 AM CAN WASHER 07/28/2025 6:20 AM CAN WASHER us Pee Bello MD LAB BLOOD ORDERABLES Final Re sult Performing Organization Address City/[facility] Co de Phone Number [facility] [place] [address] * (ABNORMAL) Protime-INR (07/28/2025 5:51 AM CAN WASHER) [facility] PT 13.8(H) 10.2 - 13.5 sec INR 1.23(H) 0.90 - 1.20 [facility] Comment: Interpretive data Oral anticoagulant therapeutic ranges: Venous thromboembolism prophylaxis or treatment: 2.0-3.0 CARDIOLOGY Standard range: 2.0-3.0 High-intensity range: 2.5-3.5 Refer to indication-specific guidelines for appropriate target ranges for prosthetic heart valve replacement. Current interpretive data was last revised on 2019. Blood 07/28/2025 5:51 AM CAN WASHER 07/28/2025 6:20 AM CAN WASHER us Pee Bello MD LAB BLOOD ORDERABLES Final Re sult Performing Organization Address City/[facility] Co de Phone Number [facility] [place] [address] * (ABNORMAL) CBC without differential (07/28/2025 5:51 AM CAN WASHER) [facility] WBC 13.10(H) 3.80 - 9.90 K/cumm Hgb 8.6(L) 13.0 - 17.5 g/dL [facility] Hct 25.8(L) 38.9 - 50.3 % [facility] Plt 222 150 - 400 K/cumm [facility] MPV 10.0 9.1 - 12.3 fL [facility] RBC 2.78(L) 4.30 - 5.80 M/cumm [facility] MCV 92.8 81.3 - 96.4 fL [facility] MCH 30.9 27.1 - 33.3 pg [facility] MCHC 33.3 32.3 - 35.7 g/dL [facility] RDW CV 13.0 11.1 - 14.9 % [facility] RDW SD 43.9 35.7 - 48.1 fL [facility] NRBC abs 0.00 0.00 - 0.01 K/cumm [facility] Blood 07/28/2025 5:51 AM CAN WASHER 07/28/2025 6:07 AM CAN WASHER us Pee Bello MD LAB BLOOD ORDERABLES Final Re sult [facility] [place] [address] * Phosphorus (07/28/2025 5:51 AM CAN WASHER) Pathologist [facility] Phosphorus, pl 2.5 2.3 - 4.5 mg/dL Blood 07/28/2025 5:51 AM CAN WASHER 07/28/2025 6:07 AM CAN WASHER us Pee Bello MD LAB BLOOD ORDERABLES Final Re sult Performing Organization Address City/[facility] Co de Phone Number [facility] [place] [address] * Magnesium (07/28/2025 5:51 AM CAN WASHER) Pathologist [facility] Magnesium 2.2 1.4 - 2.5 mg/dL Blood 07/28/2025 5:51 AM CAN WASHER 07/28/2025 6:07 AM CAN WASHER Pee Bello MD LAB BLOOD ORDERABLES Final Re sult Performing Organization Address City/[facility]/ZIP Co de Phone Number [facility] [place] [address] * (ABNORMAL) Hepatic function panel (07/28/2025 5:51 AM CAN WASHER) Bilirubin, total 0.3 0.1 - 1.2 mg/dL Bilirubin, direct <0.2 0.1 - 0.3 mg/dL [facility] Comment:Repeated and Verifie d Protein, pl 5.3(L) 6.5 - 8.5 g/dL [facility] Albumin 2.7(L) 3.5 - 5.0 g/dL [facility] Alk phos 87 40 - 130 Units/L [facility] ALT 51 7 - 55 Units/L [facility] AST 266(H) 10 - 50 Units/L [facility] [facility] Blood 07/28/2025 5:51 AM CAN WASHER 07/28/2025 6:07 AM CAN WASHER us Pee Bello MD LAB BLOOD ORDERABLES Final Re sult [facility] [place] [address] * (ABNORMAL) Basic metabolic panel (07/28/2025 5:51 AM CAN WASHER) [facility] Sodium 138 135 - 145 mmol/L Potassium, pl 4.0 3.3 - 4.9 mmol/L [facility] Chloride 107 97 - 110 mmol/L [facility] CO2 24 22 - 32 mmol/L [facility] Anion gap 7 2 - 15 mmol/L [facility] BUN 24 6 - 25 mg/dL [facility] Creatinine 1.22 0.80 - 1.30 mg/dL [facility] Glucose 123 70 - 199 mg/dL [facility] Comment: Interpretive Data Fasting glucose >/= 126 [...] 2022. Calcium 7.8(L) 8.5 - 10.3 mg/dL [facility] Blood 07/28/2025 5:51 AM CAN WASHER 07/28/2025 6:07 AM CAN WASHER us Pee Bello MD LAB BLOOD ORDERABLES Final Re sult Performing Organization Address [facility] Co de Phone Number [facility] [place] [address] * POCT glucose (07/28/2025 3:49 AM CAN WASHER) Glucose, POC 104 70 - 199 mg/dL Blood 07/28/2025 3:49 AM CAN WASHER 07/28/2025 3:49 AM CAN WASHER us Darrell Avalos MD LAB POCT ORDERABLES - DEVICE Final Result Performing Organization Address [facility] Co de Phone Number [facility] [place] [address] * POCT glucose (07/27/2025 11:44 PM CAN WASHER) Glucose, POC 126 70 - 199 mg/dL Blood 07/27/2025 11:4 4 PM CAN WASHER 07/27/2025 11:44 PM CAN WASHER us Pee Bello MD LAB POCT ORDERABLES - DEVICE Final Result Performing Organization Address [facility] Co de Phone Number [facility] [place] [employer] [place] [address] * Oxyhemoglobin, central venous (07/27/2025 11:39 PM CAN WASHER) Oxyhemoglobin, CV 67.0 % Comment: Interpretive Data No reference range established. Current interpretive data was last revised 2019. Blood 07/27/2025 11:3 9 PM CAN WASHER 07/27/2025 11:51 PM CAN WASHER us Pee Bello MD LAB BLOOD ORDERABLES Final Re sult Performing Organization Address City/[facility]/ZIP Co de Phone Number [facility] [place] [address] * eGFR (07/27/2025 11:39 PM CAN WASHER) eGFR 71 >=60 mL/min/1. 73 m2 Comment: [...] reviewed 2021. Blood 07/27/2025 11:3 9 PM CAN WASHER 07/27/2025 11:53 PM CAN WASHER us Pee Bello MD LAB BLOOD ORDERABLES Final Re sult Performing Organization Address City/[facility]/ZIP Co de Phone Number [facility] [place] [address] * Lactate, whole blood (07/27/2025 11:39 PM CAN WASHER) Lactate, bld 1.3 0.7 - 2.0 mmol/L Blood 07/27/2025 11:3 9 PM CAN WASHER 07/27/2025 11:51 PM CAN WASHER us Pee Bello MD LAB BLOOD ORDERABLES Final Re sult Performing Organization Address City/[facility]/ZIP Co de Phone Number [facility] [place] [address] * (ABNORMAL) CBC without differential (07/27/2025 11:39 PM CAN WASHER) WBC 15.64(H) 3.80 - 9.90 K/cumm Hgb 8.8(L) 13.0 - 17.5 g/dL [facility] Hct 27.3(L) 38.9 - 50.3 % [facility] Plt 232 150 - 400 K/cumm [facility] MPV 9.6 9.1 - 12.3 fL [facility] RBC 2.90(L) 4.30 - 5.80 M/cumm [facility] MCV 94.1 81.3 - 96.4 fL [facility] MCH 30.3 27.1 - 33.3 pg [facility] MCHC 32.2(L) 32.3 - 35.7 g/dL [facility] RDW CV 13.0 11.1 - 14.9 % [facility] RDW SD 45.1 35.7 - 48.1 fL [facility] NRBC abs 0.00 0.00 - 0.01 K/cumm [facility] Blood 07/27/2025 11:3 9 PM CAN WASHER 07/27/2025 11:54 PM CAN WASHER us Pee Bello MD LAB BLOOD ORDERABLES Final Re sult [facility] [place] [address] * Magnesium (07/27/2025 11:39 PM CAN WASHER) Pathologist [facility] Magnesium 2.2 1.4 - 2.5 mg/dL Blood 07/27/2025 11:3 9 PM CAN WASHER 07/27/2025 11:53 PM CAN WASHER us Pee Bello MD LAB BLOOD ORDERABLES Final Re sult [facility] [place] [address] * (ABNORMAL) Basic metabolic panel (07/27/2025 11:39 PM CAN WASHER) Pathologist [facility] Sodium 137 135 - 145 mmol/L Potassium, pl 4.2 3.3 - 4.9 mmol/L [facility] Chloride 106 97 - 110 mmol/L [facility] CO2 22 22 - 32 mmol/L [facility] Anion gap 9 2 - 15 mmol/L [facility] BUN 25 6 - 25 mg/dL [facility] Creatinine 1.21 0.80 - 1.30 mg/dL [facility] Glucose 115 70 - 199 mg/dL [facility] Comment: Interpretive Data Fasting glucose >/= 126 [...] 2022. Calcium 7.8(L) 8.5 - 10.3 mg/dL [facility] Blood 07/27/2025 11:3 9 PM CAN WASHER 07/27/2025 11:53 PM CAN WASHER us Pee Bello MD LAB BLOOD ORDERABLES Final Re sult [facility] [place] [address] * POCT glucose (07/27/2025 8:47 PM CAN WASHER) Glucose, POC 122 70 - 199 mg/dL Blood 07/27/2025 8:47 PM CAN WASHER 07/27/2025 8:47 PM CAN WASHER Pee Bello MD LAB POCT ORDERABLES - DEVICE Final Result [facility] [place] [address] * Pneumonia PCR Sputum (07/27/2025 5:40 PM CAN WASHER) C. pneumoniae DNA Not Detected Not Detected Legionella pneumophila DNA Not Detected Not Detected [facility] M. pneumoniae DNA Not Detected Not Detected [facility] Adenovirus DNA Not Detected Not Detected [facility] Coronavirus (229E, OC43, HKU1, NL63) RNA Not Detected Not Detected [facility] Metapneumovirus RNA Not Detected Not Detected [facility] Rhinovirus/Enterov irus RNA Not Detected Not Detected [facility] Influenza A RNA Not Detected Not Detected [facility] Influenza B RNA Not Detected Not Detected [facility] Parainfluenza virus (1-4) RNA Not Detected Not Detected [facility] RSV RNA Not Detected Not Detected [facility] Sputum 07/27/2025 5:40 PM CAN WASHER 07/27/2025 7:27 PM CAN WASHER Narrative [facility] - 07/27/2025 8:53 PM CAN WASHER The [employer] Pneumonia Panel is a multiplexed [...] of this assay have been determined by [facility]. Current interpretive data was last revised on 2024. Pee Bello MD LAB MICROBIOLOGY - GENERAL OR DERABLES Final Result Performing Organization Address [facility] [place] [address] * Oxyhemoglobin, central venous (07/27/2025 5:40 PM CAN WASHER) Pathologist [facility] Oxyhemoglobin, CV 65.1 % Comment: Interpretive Data No reference range established. Current interpretive data was last revised 2019. Blood 07/27/2025 5:40 PM CAN WASHER 07/27/2025 5:47 PM CAN WASHER Pee Bello MD LAB BLOOD ORDERABLES Final Re sult Performing Organization Address [facility] Co de Phone Number [facility] [place] [employer] [place] [address] * eGFR (07/27/2025 5:40 PM CAN WASHER) eGFR 65 >=60 mL/min/1. 73 m2 Comment: [...] last reviewed 2021. Blood 07/27/2025 5:40 PM CAN WASHER 07/27/2025 6:02 PM CAN WASHER us Pee Bello MD LAB BLOOD ORDERABLES Final Re sult Performing Organization Address City/[facility]/ZIP Co de Phone Number [facility] [place] [address] * Lactate, whole blood (07/27/2025 5:40 PM CAN WASHER) [facility] Lactate, bld 1.5 0.7 - 2.0 mmol/L Blood 07/27/2025 5:40 PM CAN WASHER 07/27/2025 5:47 PM CAN WASHER us Pee Bello MD LAB BLOOD ORDERABLES Final Re sult Performing Organization Address City/[facility] Co de Phone Number [facility] [place] [employer] [place] [address] * (ABNORMAL) CBC without differential (07/27/2025 5:40 PM CAN WASHER) [facility] WBC 18.17(H) 3.80 - 9.90 K/cumm Hgb 9.6(L) 13.0 - 17.5 g/dL [facility] Hct 28.9(L) 38.9 - 50.3 % [facility] Plt 274 150 - 400 K/cumm [facility] MPV 9.9 9.1 - 12.3 fL [facility] RBC 3.14(L) 4.30 - 5.80 M/cumm [facility] MCV 92.0 81.3 - 96.4 fL [facility] MCH 30.6 27.1 - 33.3 pg [facility] MCHC 33.2 32.3 - 35.7 g/dL [facility] RDW CV 13.1 11.1 - 14.9 % [facility] RDW SD 43.9 35.7 - 48.1 fL [facility] NRBC abs 0.00 0.00 - 0.01 K/cumm [facility] Blood 07/27/2025 5:40 PM CAN WASHER 07/27/2025 6:02 PM CAN WASHER us Pee Bello MD LAB BLOOD ORDERABLES Final Re sult [facility] [place] [place] [address] * Magnesium (07/27/2025 5:40 PM CAN WASHER) Pathologist [facility] Magnesium 2.2 1.4 - 2.5 mg/dL Blood 07/27/2025 5:40 PM CAN WASHER 07/27/2025 6:02 PM CAN WASHER us Pee Bello MD LAB BLOOD ORDERABLES Final Re sult Performing Organization Address City/[facility] Co de Phone Number [facility] [place] [place] [address] * (ABNORMAL) Blood gas, arterial (07/27/2025 5:40 PM CAN WASHER) pH, Art 7.36 7.35 - 7.45 PCO2, Arterial 37 35 - 45 mmHg [facility] PO2, Arterial 107 83 - 108 mmHg [facility] HCO3 Art (Calculated) 21 20 - 30 mmol/L [facility] BE, art -4 mmol/L [facility] Comment: Interpretive Data No Reference Range Established Current Interpretive Data was last revised on 2017 O2 Sat Art (Measured) 98(H) 90 - 95 % [facility] Blood 07/27/2025 5:40 PM CAN WASHER 07/27/2025 5:47 PM CAN WASHER us Pee Bello MD LAB BLOOD ORDERABLES Final Re sult [facility] [place] [address] * (ABNORMAL) Basic metabolic panel (07/27/2025 5:40 PM CAN WASHER) Sodium 139 135 - 145 mmol/L Potassium, pl 4.0 3.3 - 4.9 mmol/L [facility] Chloride 108 97 - 110 mmol/L [facility] CO2 21(L) 22 - 32 mmol/L [facility] Anion gap 10 2 - 15 mmol/L [facility] BUN 28(H) 6 - 25 mg/dL [facility] Creatinine 1.29 0.80 - 1.30 mg/dL [facility] Glucose 118 70 - 199 mg/dL [facility] Comment: Interpretive Data Fasting glucose >/= 126 [...] 2022. Calcium 8.0(L) 8.5 - 10.3 mg/dL [facility] Blood 07/27/2025 5:40 PM CAN WASHER 07/27/2025 6:02 PM CAN WASHER us Pee Bello MD LAB BLOOD ORDERABLES Final Re sult Performing Organization Address City/[facility]/ZIP Co de Phone Number JAY[facility] [place] [address] * XR Abdomen Ap 1 Vw (07/27/2025 3:01 PM CAN WASHER) Anatomical Region Laterality Modality Body, Abdomen N/A Computed Radiogr aphy 07/27/2025 4:13 PM CAN WASHER Impressions 07/27/2025 4:19 PM CAN WASHER Gastric tube projects over the fundus of [...] Carrie Riley M.D. Narrative 07/27/2025 4:19 PM CAN WASHER EXAMINATION: Abdomen, one view. HISTORY: NG tube [...] it. Electronically signed by: Carrie Riley M.D. Pee Bello MD IMG XR PROCEDURES Final Resul t * (ABNORMAL) Troponin I high-sensitivity (07/27/2025 12:58 PM CAN WASHER) Trop I hs 157,860(C ) <=35 ng/L Comment: Previous critical value noted within 48 hours ago. Repeated on dilution. Interpretive Data For further hscTnI resources including the diagnostic algorithm and an aid in interpretation, copy and paste this link: [email or web address]/[email or web address] Current Interpretive Data last revised 2020. Blood 07/27/2025 12:5 8 PM CAN WASHER 07/27/2025 1:13 PM CAN WASHER Pee Bello MD LAB BLOOD ORDERABLES Final Re sult Performing Organization Address City/[facility] Co de Phone Number [facility] [place] [address] * Oxyhemoglobin, central venous (07/27/2025 11:34 AM CAN WASHER) Oxyhemoglobin, CV 61.5 % Comment: Interpretive Data No reference range established. Current interpretive data was last revised 2019. Blood 07/27/2025 11:3 4 AM CAN WASHER 07/27/2025 11:49 AM CAN WASHER Pee Bello MD LAB BLOOD ORDERABLES Final Re sult Performing Organization Address [facility] Co de Phone Number JAYY [facility] [place] [address] * eGFR (07/27/2025 11:34 AM CAN WASHER) eGFR 60 >=60 mL/min/1. 73 m2 Comment: [...] reviewed 2021. Blood 07/27/2025 11:3 4 AM CAN WASHER 07/27/2025 11:53 AM CAN WASHER us Pee Bello MD LAB BLOOD ORDERABLES Final Re sult [facility] [place] [address] * Lactate, whole blood (07/27/2025 11:34 AM CAN WASHER) [facility] Lactate, bld 1.1 0.7 - 2.0 mmol/L Blood 07/27/2025 11:3 4 AM CAN WASHER 07/27/2025 11:49 AM CAN WASHER us Pee Bello MD LAB BLOOD ORDERABLES Final Re sult Performing Organization Address [facility] Co de Phone Number [facility] [place] [address] * (ABNORMAL) CBC without differential (07/27/2025 11:34 AM CAN WASHER) [facility] WBC 16.25(H) 3.80 - 9.90 K/cumm Hgb 9.4(L) 13.0 - 17.5 g/dL [facility] Hct 27.8(L) 38.9 - 50.3 % [facility] Plt 277 150 - 400 K/cumm [facility] MPV 9.7 9.1 - 12.3 fL [facility] RBC 3.08(L) 4.30 - 5.80 M/cumm [facility] MCV 90.3 81.3 - 96.4 fL [facility] MCH 30.5 27.1 - 33.3 pg [facility] MCHC 33.8 32.3 - 35.7 g/dL [facility] RDW CV 13.1 11.1 - 14.9 % [facility] RDW SD 43.2 35.7 - 48.1 fL [facility] NRBC abs 0.00 0.00 - 0.01 K/cumm [facility] Blood 07/27/2025 11:3 4 AM CAN WASHER 07/27/2025 11:54 AM CAN WASHER Pee Bello MD LAB BLOOD ORDERABLES Final Re sult Performing Organization Address [facility] de Phone Number [facility] [place] [address] * Magnesium (07/27/2025 11:34 AM CAN WASHER) Pathologist [facility] Magnesium 2.4 1.4 - 2.5 mg/dL Blood 07/27/2025 11:3 4 AM CAN WASHER 07/27/2025 11:53 AM CAN WASHER Pee Bello MD LAB BLOOD ORDERABLES Final Re sult Performing Organization Address [facility] [place] [address] * (ABNORMAL) Blood gas, arterial (07/27/2025 11:34 AM CAN WASHER) [facility] pH, Art 7.43 7.35 - 7.45 PCO2, Arterial 33(L) 35 - 45 mmHg [facility] PO2, Arterial 89 83 - 108 mmHg [facility] HCO3 Art (Calculated) 22 20 - 30 mmol/L [facility] BE, art -2 mmol/L [facility] Comment: Interpretive Data No Reference Range Established Current Interpretive Data was last revised on 2017 O2 Sat Art (Measured) 97(H) 90 - 95 % [facility] Blood 07/27/2025 11:3 4 AM CAN WASHER 07/27/2025 11:49 AM CAN WASHER Pee Bello MD LAB BLOOD ORDERABLES Final Re sult Performing Organization Address [facility] [place] [address] * (ABNORMAL) Basic metabolic panel (07/27/2025 11:34 AM CAN WASHER) [facility] Sodium 138 135 - 145 mmol/L Potassium, pl 4.2 3.3 - 4.9 mmol/L [facility] Chloride 108 97 - 110 mmol/L [facility] CO2 22 22 - 32 mmol/L [facility] Anion gap 8 2 - 15 mmol/L [facility] BUN 29(H) 6 - 25 mg/dL [facility] Creatinine 1.39(H) 0.80 - 1.30 mg/dL [facility] Glucose 116 70 - 199 mg/dL [facility] Comment: Interpretive Data Fasting glucose >/= 126 [...] 2022. Calcium 8.2(L) 8.5 - 10.3 mg/dL [facility] Blood 07/27/2025 11:3 4 AM CAN WASHER 07/27/2025 11:53 AM CAN WASHER us Pee Bello MD LAB BLOOD ORDERABLES Final Re sult [facility] [place] [address] * (ABNORMAL) Benzodiazepine Confirmation by MS (07/27/2025 10:16 AM CAN WASHER) Pathologist [facility] Alprazolam, ur Does Not Confirm CutOff 20 ng/ml Clonazepam, ur Does Not Confirm CutOff 20 ng/ml [facility] Flunitrazepam, ur Does Not Confirm CutOff 20 ng/ml [facility] Lorazepam, ur Does Not Confirm CutOff 20 ng/ml [facility] Midazolam, ur Confirmed Positive(A) CutOff 100 ng/mL [facility] Nordiazepam, ur Does Not Confirm CutOff 20 ng/ml [facility] Oxazepam, ur Does Not Confirm CutOff 20 ng/ml [facility] Temazepam, ur Does Not Confirm CutOff 20 ng/ml [facility] Comment: Interpretive Data This test is performed by liquid chromatography tandem mass spectrometry and detects both free and conjugated drug metabolites. Questions concerning interpretation should be directed to the laboratory. The results of this test are intended for clinical use. This test was developed and its performance characteristics determined by [facility]. It has not been cleared or approved by the U.S. Food and Drug Administration. Urine 07/27/2025 10:1 6 AM CAN WASHER 07/27/2025 10:32 AM CAN WASHER us Pee Bello MD LAB URINE ORDERABLES Final Re sult [facility] [place] [address] * (ABNORMAL) Fentanyl Confirmation, Urine (07/27/2025 10:16 AM CAN WASHER) Fentanyl Conf, Ur Confirmed Positive(A) Cutoff 0.3ng/mL Acetylfentanyl Conf, Ur Does Not Confirm Cutoff 1 ng/mL [facility] Acrylfentanyl Conf, Ur Does Not Confirm Cutoff 1 ng/mL [facility] Furanylfentanyl Conf, Ur Does Not Confirm Cutoff 1 ng/mL [facility] Fentanyl Metabolite (Norfentanyl) Conf, Ur Confirmed Positive(A) CutOff 5 ng/mL [facility] Xylazine MS Does Not Confirm Cutoff 1 ng/mL [facility] Comment: Interpretive Data This test detects the presence or absence of drug compounds using LC Tandem mass spectrometry and is not intended to assess compliance with prescribed medications. While this test is highly specific, false positive and false negative results may occur in very rare circumstances. Contact the laboratory for consultation, if needed. Performance characteristics were determined by the [facility] in a manner consistent with CLIA requirement and has not been cleared or approved by the U.S. Food and Drug Administration. Current interpretive data was last revised 2020. Urine 07/27/2025 10:1 6 AM CAN WASHER 07/27/2025 10:32 AM CAN WASHER us Pee Bello MD LAB URINE ORDERABLES Final Re sult [facility] [place] [address] * (ABNORMAL) Drugs of Abuse Screen, Urine with Reflex Confirmation (07/27/2025 10:16 AM CAN WASHER) Amphetamine, ur Screen Positive, presumptive (A) CutOff 500ng/mL Comment: Interpretive Data - Amphetamines: Samples containing greater than 500 ng/mL d-methamphetamine or other cross-reacting amphetamine compounds are reported as positive. Amphetamine immunoassays are subject to significant false positive rates due to cross-reactivity of non-amphetamine drugs. Confirmatory testing required for definitive results. Current Interpretive Data was last reviewed 2023. Barbiturates, ur Not Detected CutOff 200ng/mL [facility] Comment: Interpretive Data - Barbiturates: Samples containing greater than 200 ng/mL secobarbital or other cross-reacting barbiturate compounds are reported as positive. False positive and false negative results are possible. Confirmatory testing required for definitive results. Current Interpretive Data was last reviewed 2023. Benzodiazepines, ur Screen Positive, presumptive (A) CutOff 100ng/mL [facility] Comment: Interpretive Data - Benzodiazepines: Samples containing greater than 100 ng/mL nordiazepam or other cross-reacting compounds are reported as positive. False positive and false negative results are possible. Confirmatory testing required for definitive results. Current Interpretive Data was last reviewed 2023. Cannabinoids, ur Screen Positive, presumptive (A) CutOff 50 ng/mL [facility] Comment: Interpretive Data - Cannabinoids: Samples containing greater than 50 ng/mL delta-9 THC -COOH or other cross- reacting compounds are reported as positive. False positive and false negative results are possible. Confirmatory testing required for definitive results. Current Interpretive Data was last reviewed 2023. Cocaine, ur Not Detected CutOff 150ng/mL [facility] Comment: Interpretive Data - Cocaine: Samples containing greater than 150 ng/mL benzoylecgonine or other cross- reacting compounds are reported as positive. False positive and false negative results are possible. Confirmatory testing required for definitive results. Current Interpretive Data was last reviewed 2023. Fentanyl, Ur Screen Positive, presumptive (A) CutOff 5 ng/mL [facility] Comment: Interpretive Data - Fentanyl: Samples containing greater than 5 ng/mL norfentanyl, fentanyl, or other cross-reacting fentanyl compounds are reported as positive. False positive and false negative results are possible. Confirmatory testing required for definitive results. Current Interpretive Data was last reviewed 2023. Methadone, ur Not Detected CutOff 300ng/mL [facility] Comment: Interpretive Data - Methadone: Samples containing greater than 300 ng/mL d,l-methadone or other cross-reacting compounds are reported as positive. False positive and false negative results are possible. Confirmatory testing required for definitive results. Current Interpretive Data was last reviewed 2023. Opiates, ur Screen Positive, presumptive (A) CutOff 300ng/mL [facility] Comment: Interpretive Data - Opiates: Samples containing greater than 300 ng/mL morphine or other cross-reacting compounds are reported as positive. False positive and false negative results are possible. Confirmatory testing required for definitive results. Current Interpretive Data was last reviewed 2023. Oxycodone, ur Not Detected CutOff 100ng/mL [facility] Comment: Interpretive Data - Oxycodone: Samples containing greater than 100 ng/mL oxycodone or other cross-reacting compounds are reported as positive. False positive and false negative results are possible. Confirmatory testing required for definitive results. Current Interpretive Data was last reviewed 2023. Phencyclidine, ur Not Detected CutOff 25 ng/mL [facility] Comment: Interpretive Data - Phencyclidine: Samples containing greater than 25 ng/mL phencyclidine or other cross-reacting compounds are reported as positive. False positive and false negative results are possible. Confirmatory testing required for definitive results. Current Interpretive Data was last reviewed 2023. Urine Creatinine 201 mg/dL CERYAKOV [facility] Comment: Interpretive Data Urine Creatinine: < 10 mg/dL is extremely dilute = or > 10 but < 20 mg/dL is dilute = or > 20 mg/dL is normal Current Interpretive Data was last revised on 2017. Urine 07/27/2025 10:1 6 AM CAN WASHER 07/27/2025 10:32 AM CAN WASHER Narrative [facility] 07/27/2025 11:01 AM CAN WASHER Drug Screening is performed by immunoassay for medical purposes. If positive, confirmation testing will be performed for amphetamines, benzodiazepines, cocaine, fentanyl, methadone, opiates, oxycodone, and phencyclidine. Pee Bello MD LAB URINE ORDERABLES Final Re sult Performing Organization Address City/[facility]/ZIP Co de Phone Number [facility] [place] [address] * Opiates Confirmation, Urine (07/27/2025 10:16 AM CAN WASHER) Codeine Conf, Ur Does Not Confirm CutOff 50 ng/mL 6- Acetylmorphine Conf, Ur Does Not Confirm CutOff 10 ng/mL [facility] Hydrocodone Conf, Ur Does Not Confirm CutOff 50 ng/mL [facility] Morphine Conf, Ur Does Not Confirm CutOff 50 ng/mL [facility] Hydromorphone Conf, Ur Does Not Confirm CutOff 50 ng/mL [facility] Comment: Interpretive Data This test detects the presence or absence of drug compounds using LC Tandem mass spectrometry and is not intended to assess compliance with prescribed medications. While this test is highly specific, false positive and false negative results may occur in very rare circumstances. Contact the laboratory for consultation, if needed. Performance characteristics were determined by the [facility] in a manner consistent with CLIA requirement and has not been cleared or approved by the U.S. Food and Drug Administration. Current interpretive data was last revised 2020. Urine 07/27/2025 10:1 6 AM CAN WASHER 07/27/2025 10:32 AM CAN WASHER Pee Bello MD LAB URINE ORDERABLES Final Re sult Performing Organization Address [facility]/ZIP Co de Phone Number [facility] [place] [address] * (ABNORMAL) Amphetamine Confirmation, Urine (07/27/2025 10:16 AM CAN WASHER) Amphetamine Conf, Ur Confirmed Positive(A) CutOff 150ng/mL Methamphetamine Conf, Ur Confirmed Positive(A) CutOff 150ng/mL [facility]ER [facility] MDA Conf, Ur Does Not Confirm CutOff 150ng/mL [facility] MDMA Conf, Ur Does Not Confirm CutOff 50 ng/mL [facility] MDEA Conf, Ur Does Not Confirm CutOff 150ng/mL [facility] MBDB Conf, Ur Does Not Confirm CutOff 150ng/mL [facility] Comment: Interpretive Data This test detects the presence or absence of drug compounds using LC Tandem mass spectrometry. While this test is highly specific, false positive and false negative results may occur in very rare circumstances. Contact the laboratory for consultation, if needed. Performance characteristics were determined by the [facility] in a manner consistent with CLIA requirement and has not been cleared or approved by the U.S. Food and Drug Administration. Current interpretive data was last revised on 2020. Urine 07/27/2025 10:1 6 AM CAN WASHER 07/27/2025 10:32 AM CAN WASHER us Pee Bello MD LAB URINE ORDERABLES Final Re sult [facility] [place] [address] * TRANSTHORACIC ECHO (TTE) COMPLETE W DOPPLER/CF W CONTRAST (07/27/2025 10:10 AM CAN WASHER) EF Mod BP 65 % CONS SCIMAGE Anatomical Region Laterality Modality Ultrasound 07/27/2025 8:59 AM CAN WASHER Narrative 07/27/2025 1:24 PM CAN WASHER [facility] [place] [address] Transthoracic Echocardiographic Report Patient Name: SOCORRO URBANO M : 1970 (55y 3m) Sex: M Study Date: 07/27/2025 08:59:56 AM Ht(Inch): 68 Wt(Lb): 164.9 BSA: 1.88 Interventional Sale Consultant: Kristin Schilling RDCS Location: [id number] Order Provider: PEE BELLO Heart Rate: 93 BMI: 25.07 Ref Provider: ACEPEE PROCEDURES: Echocardiographic Report: Transthoracic complete echo with [...] [ 2.5 - 4.2 ] MV Decel Juab 470 IVC Diam 1.9 cm MV Decel [...] By: Deejay Alicia MD 07/27/2025 1:23:54 PM CAN WASHER Procedure Note Deejay Alicia MD - 07/27/2025 [facility] [place] [address] Transthoracic Echocardiographic Report Patient Name: SOCORRO URBANO M : 1970 (55y 3m) Sex: M Study Date: 07/27/2025 08:59:56 AM Ht(Inch): 68 Wt(Lb): 164.9 BSA: 1.88 Interventional Sale Consultant: Kristin Schilling RDCS Location: [id number] Order Provider:PEE BELLO Heart Rate: 93 BMI: 25.07 Ref Provider: PEE BELLO PROCEDURES: Echocardiographic Report: Transthoracic complete echo [...] [ 2.5 - 4.2 ] MV Decel [id number] IVC Diam 1.9 cm MV Decel [id number] msec [ 104 - 258 ] AoR Diam 2D 3.5 cm [ 3.1 - 3.7 ] PV Peak Vel0.9 m/s [ 0.4 - 0.8 ] Ao Root Index 1.9 cm/m2 [ 1.0 - 2.0 ] PV Peak PG3 mmHg Asc Ao Diam 2D3.6 cm Asc Ao Index1.9 cm/m2 Electronically Signed By: Deejay Alicia MD 07/27/2025 1:23:54 PM CAN WASHER us Pee Bello MD CV ECHO PROCEDURES Final Resu lt * XR Abdomen Ap 1 Vw (07/27/2025 8:51 AM CAN WASHER) Anatomical Region Laterality Modality Body, Abdomen N/A Digital Radiogra phy 07/27/2025 9:24 AM CAN WASHER Impressions 07/27/2025 9:24 AM CAN WASHER Intra-aortic balloon pump with proximal radiopaque marker [...] Yenni Nelson M.D. Narrative 07/27/2025 9:24 AM CAN WASHER EXAMINATION: Abdomen, one view. HISTORY: Evaluate balloon [...] Electronically signed by: Yenni Nelson M.D. us Pee Bello MD IMG XR PROCEDURES Final Resul t * Infection Prevention Annette auris PCR, surveillance Axilla/Groin (07/27/2025 8:26 AM CAN WASHER) Annette auris DNA Not Detected Not Detected [facility] Comment: Interpretive Data Testing performed by [facility]ious Disease [facility] using the [employer] Annette auris assay. This assay detects DNA from Annette auris using Real-Time PCR. This assay is laboratory developed and is not cleared by the [place] Food and Drug Administration. The performance characteristics have been verified by the [facility] Infectious Disease Laboratory. Axilla/Groin 07/27/2025 8:26 AM CAN WASHER 07/27/2025 8:45 AM CAN WASHER Narrative JAYY [facility] - 07/27/2025 1:09 PM CAN WASHER Order placed by [facility] due to ring surveillance. us Instant Order Generic Provider LAB MICROBIOLOGY - GENERAL ORDERABLES Final Result [facility] [place] [address] [facility] * (ABNORMAL) Troponin I high-sensitivity (07/27/2025 8:26 AM CAN WASHER) Trop I hs 166,960(C ) <=35 ng/L Comment: Previous critical value noted within 48 hours ago. Interpretive Data For further hscTnI resources including the diagnostic algorithm and an aid in interpretation, copy and paste this link: https://bjhlab.testcatalog.org/show/hsTrop-1 Current Interpretive Data last revised 2020. Blood 07/27/2025 8:26 AM CAN WASHER 07/27/2025 8:42 AM CAN WASHER us Pee Bello MD LAB BLOOD ORDERABLES Final Re sult [facility] [place] [address] * Lactate, whole blood (07/27/2025 8:26 AM CAN WASHER) [facility] Lactate, bld 1.2 0.7 - 2.0 mmol/L Blood 07/27/2025 8:26 AM CAN WASHER 07/27/2025 8:38 AM CAN WASHER Pee Bello MD LAB BLOOD ORDERABLES Final Re sult Performing Organization Address [facility] Co de Phone Number [facility] [place] [address] * (ABNORMAL) Blood gas, arterial (07/27/2025 8:26 AM CAN WASHER) [facility] pH, Art 7.37 7.35 - 7.45 PCO2, Arterial 39 35 - 45 mmHg [facility] PO2, Arterial 124(H) 83 - 108 mmHg [facility] HCO3 Art (Calculated) 22 20 - 30 mmol/L [facility] BE, art -2 mmol/L [facility] Comment: Interpretive Data No Reference Range Established Current Interpretive Data was last revised on 2017 O2 Sat Art (Measured) 99(H) 90 - 95 % [facility] Blood 07/27/2025 8:26 AM CAN WASHER 07/27/2025 8:38 AM CAN WASHER us Pee Bello MD LAB BLOOD ORDERABLES Final Re sult Performing Organization Address City/[facility] Co de Phone Number [facility] [place] [address] * (ABNORMAL) Troponin I high-sensitivity (07/27/2025 6:35 AM CAN WASHER) [facility] Trop I hs 164,280(C ) <=35 ng/L Comment: Previous critical value noted within 48 hours ago. Repeated on dilution. Interpretive Data For further hscTnI resources including the diagnostic algorithm and an aid in interpretation, copy and paste this link: https://bjhlab.testcatalog.org/show/hsTrop-1 Current Interpretive Data last revised 2020. Blood 07/27/2025 6:35 AM CAN WASHER 07/27/2025 6:41 AM CAN WASHER us Pee Bello MD LAB BLOOD ORDERABLES Final Re sult JAYY [facility] [place] [address] * XR Chest 1 View (07/27/2025 4:59 AM CAN WASHER) Anatomical Region Laterality Modality Body, Chest N/A Digital Radiogra phy 07/27/2025 10:1 0 AM CAN WASHER Impressions 07/27/2025 12:26 PM CAN WASHER First exam 07/26/2025 9:42 PM: Comparison made [...] Stanley Colby M.D. Narrative 07/27/2025 12:26 PM CAN WASHER Examination: 2 portable chests Chest one view [...] Electronically signed by: Stanley Colby M.D. us Pee Bello MD IMG XR PROCEDURES Final Resul t * (ABNORMAL) Troponin I high-sensitivity 6-hour (07/27/2025 3:58 AM CAN WASHER) Pathologist [facility] Trop I hs 175,040(C ) <=35 ng/L Comment: Previous critical value noted within 48 hours ago. Repeated on dilution. Interpretive Data For further hscTnI resources including the diagnostic algorithm and an aid in interpretation, copy and paste this link: https://bjhlab.testcatalog.org/show/hsTrop-1 Current Interpretive Data last revised 2020. Trop I hs pct delta -95(C) % [facility] Trop I hs interp Significa nt(C) [facility] Blood 07/27/2025 3:58 AM CAN WASHER 07/27/2025 4:17 AM CAN WASHER Pee Bello MD LAB BLOOD ORDERABLES Final Re sult [facility] Department [place] [address] * Oxyhemoglobin, central venous (07/27/2025 3:58 AM CAN WASHER) Oxyhemoglobin, CV 60.0 % Comment: Interpretive Data No reference range established. Current interpretive data was last revised 2019. Blood 07/27/2025 3:58 AM CAN WASHER 07/27/2025 4:14 AM CAN WASHER Pee Bello MD LAB BLOOD ORDERABLES Final Re sult Performing Organization Address [facility] de Phone Number [facility] [place] [address] * Hemoglobin, plasma (07/27/2025 3:58 AM CAN WASHER) Pathologist [facility] Hemoglobin, Plasma 40 <=50 mg/dL Blood 07/27/2025 3:58 AM CAN WASHER 07/27/2025 4:17 AM CAN WASHER Pee Bello MD LAB BLOOD ORDERABLES Final Re sult Performing Organization Address [facility] de Phone Number [facility] [place] [address] * eGFR (07/27/2025 3:58 AM CAN WASHER) Pathologist [facility] eGFR 61 >=60 mL/min/1. 73 m2 Comment: [...] last reviewed 2021. Blood 07/27/2025 3:58 AM CAN WASHER 07/27/2025 4:24 AM CAN WASHER us Pee Bello MD LAB BLOOD ORDERABLES Final Re sult Performing Organization Address [facility] de Phone Number [facility] [place] [employer] [address] * Lactate, whole blood (07/27/2025 3:58 AM CAN WASHER) Lactate, bld 0.9 0.7 - 2.0 mmol/L Blood 07/27/2025 3:58 AM CAN WASHER 07/27/2025 4:14 AM CAN WASHER us Pee Bello MD LAB BLOOD ORDERABLES Final Re sult Performing Organization Address [facility] de Phone Number [facility] [place] [address] * aPTT (07/27/2025 3:58 AM CAN WASHER) aPTT 28 26 - 38 sec Comment: Interpretive Data Heparin therapeutic range: 66.0 - 100.0 seconds. Range based on correlation with therapeutic heparin activity range of 0.3 - 0.7 Units/mL. Blood 07/27/2025 3:58 AM CAN WASHER 07/27/2025 4:27 AM CAN WASHER us Pee Bello MD LAB BLOOD ORDERABLES Final Re sult Performing Organization Address [facility] de Phone Number [facility] [place] [place] [address] * (ABNORMAL) Protime-INR (07/27/2025 3:58 AM CAN WASHER) PT 13.7(H) 10.2 - 13.5 sec INR 1.22(H) 0.90 - 1.20 [facility] Comment: Interpretive data Oral anticoagulant therapeutic ranges: Venous thromboembolism prophylaxis or treatment: 2.0-3.0 CARDIOLOGY Standard range: 2.0-3.0 High-intensity range: 2.5-3.5 Refer to indication-specific guidelines for appropriate target ranges for prosthetic heart valve replacement. Current interpretive data was last revised on 2019. Blood 07/27/2025 3:58 AM CAN WASHER 07/27/2025 4:27 AM CAN WASHER us Pee Blelo MD LAB BLOOD ORDERABLES Final Re sult Performing Organization Address [facility] Co de Phone Number [facility] [place] [address] * (ABNORMAL) CBC without differential (07/27/2025 3:58 AM CAN WASHER) WBC 15.45(H) 3.80 - 9.90 K/cumm Hgb 9.7(L) 13.0 - 17.5 g/dL [facility] Hct 29.7(L) 38.9 - 50.3 % [facility] Plt 302 150 - 400 K/cumm [facility] MPV 9.8 9.1 - 12.3 fL [facility] RBC 3.21(L) 4.30 - 5.80 M/cumm [facility] MCV 92.5 81.3 - 96.4 fL [facility] MCH 30.2 27.1 - 33.3 pg [facility] MCHC 32.7 32.3 - 35.7 g/dL [facility] RDW CV 13.0 11.1 - 14.9 % [facility] RDW SD 44.0 35.7 - 48.1 fL [facility] NRBC abs 0.00 0.00 - 0.01 K/cumm [facility] Blood 07/27/2025 3:58 AM CAN WASHER 07/27/2025 4:24 AM CAN WASHER us Pee Bello MD LAB BLOOD ORDERABLES Final Re sult Performing Organization Address City/[facility] Co de Phone Number [facility] [place] [address] * Phosphorus (07/27/2025 3:58 AM CAN WASHER) Pathologist [facility] Phosphorus, pl 2.3 2.3 - 4.5 mg/dL Blood 07/27/2025 3:58 AM CAN WASHER 07/27/2025 4:24 AM CAN WASHER Pee Bello MD LAB BLOOD ORDERABLES Final Re sult Performing Organization Address [facility] [place] [address] * Magnesium (07/27/2025 3:58 AM CAN WASHER) [facility] Magnesium 1.7 1.4 - 2.5 mg/dL Blood 07/27/2025 3:58 AM CAN WASHER 07/27/2025 4:24 AM CAN WASHER Pee Bello MD LAB BLOOD ORDERABLES Final Re sult Performing Organization Address [facility] Co de Phone Number [facility] [place] [address] * (ABNORMAL) Blood gas, arterial (07/27/2025 3:58 AM CAN WASHER) [facility] pH, Art 7.43 7.35 - 7.45 PCO2, Arterial 34(L) 35 - 45 mmHg [facility] PO2, Arterial 105 83 - 108 mmHg [facility] HCO3 Art (Calculated) 22 20 - 30 mmol/L [facility] BE, art -1 mmol/L [facility] Comment: Interpretive Data No Reference Range Established Current Interpretive Data was last revised on 2017 O2 Sat Art (Measured) 98(H) 90 - 95 % [facility] Blood 07/27/2025 3:58 AM CAN WASHER 07/27/2025 4:14 AM CAN WASHER Pee Bello MD LAB BLOOD ORDERABLES Final Re sult Performing Organization Address City/[facility]/ZIP Co de Phone Number [facility] [place] [address] * (ABNORMAL) Hepatic function panel (07/27/2025 3:58 AM CAN WASHER) Bilirubin, total 0.6 0.1 - 1.2 mg/dL Bilirubin, direct 0.2 0.1 - 0.3 mg/dL [facility] Protein, pl 5.1(L) 6.5 - 8.5 g/dL [facility] Albumin 2.8(L) 3.5 - 5.0 g/dL [facility] Alk phos 93 40 - 130 Units/L [facility] ALT 67(H) 7 - 55 Units/L [facility] AST 578(H) 10 - 50 Units/L [facility] Blood 07/27/2025 3:58 AM CAN WASHER 07/27/2025 4:24 AM CAN WASHER Pee Bello MD LAB BLOOD ORDERABLES Final Re sult Performing Organization Address [facility] Co de Phone Number [facility] [place] [address] * (ABNORMAL) Basic metabolic panel (07/27/2025 3:58 AM CAN WASHER) Pathologist [facility] Sodium 139 135 - 145 mmol/L Potassium, pl 4.1 3.3 - 4.9 mmol/L [facility] Chloride 108 97 - 110 mmol/L [facility] CO2 21(L) 22 - 32 mmol/L [facility] Anion gap 10 2 - 15 mmol/L [facility] BUN 25 6 - 25 mg/dL [facility] Creatinine 1.36(H) 0.80 - 1.30 mg/dL [facility] Glucose 107 70 - 199 mg/dL [facility] Comment: Interpretive Data Fasting glucose >/= 126 [...] 2022. Calcium 7.9(L) 8.5 - 10.3 mg/dL [facility] Blood 07/27/2025 3:58 AM CAN WASHER 07/27/2025 4:24 AM CAN WASHER Pee Bello MD LAB BLOOD ORDERABLES Final Re sult Performing Organization Address [facility] de Phone Number [facility] [place] [address] * (ABNORMAL) Troponin I high-sensitivity 4-hour (07/27/2025 1:43 AM CAN WASHER) Trop I hs 99,160(C) <=35 ng/L Comment: Previous critical value noted within 48 hours ago. Interpretive Data For further hscTnI resources including the diagnostic algorithm and an aid in interpretation, copy and paste this link: https://bjhlab.testcatalog.org/show/hsTrop-1 Current Interpretive Data last revised 2020. Trop I hs pct delta -41(C) % [facility] Comment:Previous critical va lue noted within 48 hours ago. Trop I hs interp Significa nt(C) [facility] Comment:Previous critical va lue noted within 48 hours ago. Blood 07/27/2025 1:43 AM CAN WASHER 07/27/2025 2:02 AM CAN WASHER Pee Bello MD LAB BLOOD ORDERABLES Final Re sult Performing Organization Address [facility] Co de Phone Number [facility] [place] [address] * Oxyhemoglobin, central venous (07/27/2025 12:15 AM CAN WASHER) Oxyhemoglobin, CV 68.9 % Comment: Interpretive Data No reference range established. Current interpretive data was last revised 2019. Blood 07/27/2025 12:1 5 AM CAN WASHER 07/27/2025 12:22 AM CAN WASHER us Pee Bello MD LAB BLOOD ORDERABLES Final Re sult Performing Organization Address City/State/[facility] Co de Phone Number [facility] [place] [address] * Lactate, whole blood (07/27/2025 12:12 AM CAN WASHER) Pathologist [facility] Lactate, bld 1.3 0.7 - 2.0 mmol/L Blood 07/27/2025 12:1 2 AM CAN WASHER 07/27/2025 12:22 AM CAN WASHER us Pee Bello MD LAB BLOOD ORDERABLES Final Re sult Performing Organization Address City/[facility] Co de Phone Number [facility] [place] [address] * (ABNORMAL) Blood gas, arterial (07/27/2025 12:12 AM CAN WASHER) pH, Art 7.43 7.35 - 7.45 PCO2, Arterial 34(L) 35 - 45 mmHg [facility] PO2, Arterial 131(H) 83 - 108 mmHg [facility] HCO3 Art (Calculated) 22 20 - 30 mmol/L [facility] BE, art -1 mmol/L [facility] Comment: Interpretive Data No Reference Range Established Current Interpretive Data was last revised on 2017 O2 Sat Art (Measured) 99(H) 90 - 95 % [facility] Blood 07/27/2025 12:1 2 AM CAN WASHER 07/27/2025 12:22 AM CAN WASHER us Pee Bello MD LAB BLOOD ORDERABLES Final Re sult [facility] [place] [address] * ECG 12 lead (07/27/2025 12:05 AM CAN WASHER) Ventricular Rate EKG/Min 86 BPM [facility] Atrial Rate 86 BPM [facility] [place]-Interval (MSEC) 170 ms [facility] QRS-Interval (MSEC) 74 ms [facility] QT-Interval (MSEC) 392 ms [facility] QTc 469 ms [facility] P [place] 80 degrees [facility] R [place] -69 degrees [facility] T [place] 92 degrees [facility] Diagnosis Normal sinus rhythm Left axis deviation Inferior infarct (cited on or before 26-JUL-2025) Abnormal ECG Confirmed by Mar[facility] ([id number]) on 07/27/2025 5:35:39 PM [facility] 07/27/2025 12:0 5 AM CAN WASHER 07/27/2025 5:35 PM CAN WASHER Pee Bello MD ECG ORDERABLES Final Result Performing Organization Address [facility]/ZIP Co de Phone Number [facility] * (ABNORMAL) POC Blood Gas and Chemistries, Arterial - (07/26/2025 9:51 PM CAN WASHER) pH, Art POC 7.47(H) 7.35 - 7.45 pCO2, Art POC 32(L) 35 - 45 mmHg [facility] pO2, Art POC 246(H) 83 - 108 mmHg [facility] Na, POC 139 135 - 145 mmol/L [facility] K POC 4.0 3.3 - 4.9 mmol/L [facility] Comment: Interpretive Data Not all point of care methods assess for hemolysis. Confirm with instrument and retest K+ if not consistent with clinical signs and symptoms. Current Interpretive Data was last revised on 2023. Cl, POC 112(H) 97 - 110 mmol/L [facility] Ionized Ca, POC 4.59 4.50 - 5.10 mg/dL [facility] Glucose, POC 125 70 - 199 mg/dL [facility] Lactate POC 1.3 0.7 - 2.0 mmol/L [facility] SO2 (addi) arterial 100(H) 90 - 95 % [facility] Base excess, POC 0.2 mmol/L [facility] HCO3, Art POC 23 20 - 30 mmol/L [facility] Hct, POC 35.0(L) 41.4 - 51.6 % [facility] Total Hb, POC 11.5(L) 13.8 - 17.2 g/dL [facility] Blood 07/26/2025 9:51 PM CAN WASHER 07/26/2025 9:51 PM CAN WASHER us Pee Bello MD LAB POCT ORDERABLES - DEVICE Final Result [facility] [place] [address] * XR Chest 1 View (07/26/2025 9:47 PM CAN WASHER) Anatomical Region Laterality Modality Body, Chest N/A Digital Radiogra phy 07/27/2025 10:1 0 AM CAN WASHER Impressions 07/27/2025 12:26 PM CAN WASHER First exam 07/26/2025 9:42 PM: Comparison made [...] Otherwise no significant interval change. Dictated by: aZch Cleary M.D. The radiology attending physician has personally reviewed this study, and had reviewed and/or edited this written report and agrees with it. Electronically signed by: Stanley Colby M.D. Narrative 07/27/2025 12:26 PM CAN WASHER Examination: 2 portable chests Chest one view [...] it. Electronically signed by: Stanley Colby M.D. Pee Bello MD IMG XR PROCEDURES Final Resul t * (ABNORMAL) Troponin I high-sensitivity series (baseline, 2hr, 4hr, 6hr) (07/26/2025 9:24 PM CAN WASHER) Trop I hs 169,040(C ) <=35 ng/L Comment: Previous critical value noted within 48 hours ago. Interpretive Data For further hscTnI resources including the diagnostic algorithm and an aid in interpretation, copy and paste this link: [email or web address] Current Interpretive Data last revised 2020. Blood 07/26/2025 9:24 PM CAN WASHER 07/26/2025 10:01 PM CAN WASHER Pee Bello MD LAB BLOOD ORDERABLES Final Re sult JAYY [facility] [place] [address] * Oxyhemoglobin, central venous (07/26/2025 9:24 PM CAN WASHER) Oxyhemoglobin, CV 47.1 % Comment: Interpretive Data No reference range established. Current interpretive data was last revised 2019. Blood 07/26/2025 9:24 PM CAN WASHER 07/26/2025 9:56 PM CAN WASHER us Pee Bello MD LAB BLOOD ORDERABLES Final Re sult Performing Organization Address [facility] Co de Phone Number JAYY [facility] [place] [address] * eGFR (07/26/2025 9:24 PM CAN WASHER) eGFR 67 >=60 mL/min/1. 73 m2 Comment: [...] last reviewed 2021. Blood 07/26/2025 9:24 PM CAN WASHER 07/26/2025 10:17 PM CAN WASHER us Pee Bello MD LAB BLOOD ORDERABLES Final Re sult Performing Organization Address [facility]/ZIP Co de Phone Number JAYY [facility] [place] [address] * (ABNORMAL) Differential, auto (07/26/2025 9:24 PM CAN WASHER) Neutrophil abs 9.16(H) 1.50 - 6.50 K/cumm Imm gran abs 0.05 0.00 - 0.10 K/cumm [facility] Lymphocyte abs 2.06 0.80 - 3.30 K/cumm [facility] Monocyte abs 0.49 0.20 - 0.80 K/cumm [facility] Eosinophil abs 0.19 0.00 - 0.50 K/cumm [facility] Basophil abs 0.05 0.00 - 0.10 K/cumm [facility] Neutrophil pct 76.3 % [facility] Comment: Interpretive Data Percent cell count reference ranges are not reported, since discordance with absolute values may lead to misinterpretation of CBC data. Current Interpretive Data was last revised on 2017. Imm gran pct 0.4 % [facility] Comment: Interpretive Data Percent cell count reference ranges are not reported, since discordance with absolute values may lead to misinterpretation of CBC data. Current Interpretive Data was last revised on 2017. Lymphocyte pct 17.2 % [facility] Comment: Interpretive Data Percent cell count reference ranges are not reported, since discordance with absolute values may lead to misinterpretation of CBC data. Current Interpretive Data was last revised on 2017. Monocyte pct 4.1 % [facility] Comment: Interpretive Data Percent cell count reference ranges are not reported, since discordance with absolute values may lead to misinterpretation of CBC data. Current Interpretive Data was last revised on 2017. Eosinophil pct 1.6 % [facility] Comment: Interpretive Data Percent cell count reference ranges are not reported, since discordance with absolute values may lead to misinterpretation of CBC data. Current Interpretive Data was last revised on 2017. Basophil pct 0.4 % [facility] Comment: Interpretive Data Percent cell count reference ranges are not reported, since discordance with absolute values may lead to misinterpretation of CBC data. Current Interpretive Data was last revised on 2017. Blood 07/26/2025 9:24 PM CAN WASHER 07/26/2025 10:01 PM CAN WASHER us Pee Bello MD LAB BLOOD ORDERABLES Final Re sult Performing Organization Address City/[facility]/ZIP Co de Phone Number [facility] [place] [address] * (ABNORMAL) CBC with auto differential (07/26/2025 9:24 PM CAN WASHER) Pathologist [facility] WBC 12.00(H) 3.80 - 9.90 K/cumm Hgb 10.4(L) 13.0 - 17.5 g/dL [facility] Hct 31.3(L) 38.9 - 50.3 % [facility] Plt 273 150 - 400 K/cumm [facility] MPV 9.7 9.1 - 12.3 fL [facility] RBC 3.46(L) 4.30 - 5.80 M/cumm [facility] MCV 90.5 81.3 - 96.4 fL [facility] MCH 30.1 27.1 - 33.3 pg [facility] MCHC 33.2 32.3 - 35.7 g/dL [facility] RDW CV 12.8 11.1 - 14.9 % [facility] RDW SD 42.2 35.7 - 48.1 fL [facility] NRBC abs 0.00 0.00 - 0.01 K/cumm [facility] Blood 07/26/2025 9:24 PM CAN WASHER 07/26/2025 10:01 PM CAN WASHER us Pee Bello MD LAB BLOOD ORDERABLES Final Re sult Performing Organization Address City/[facility]/ZIP Co de Phone Number [facility] [place] [address] * Lactate, whole blood (07/26/2025 9:24 PM CAN WASHER) Lactate, bld 1.3 0.7 - 2.0 mmol/L Blood 07/26/2025 9:24 PM CAN WASHER 07/26/2025 9:56 PM CAN WASHER us Pee Bello MD LAB BLOOD ORDERABLES Final Re sult Performing Organization Address [facility] de Phone Number [facility] [place] [address] * Phosphorus (07/26/2025 9:24 PM CAN WASHER) [facility] Phosphorus, pl 3.1 2.3 - 4.5 mg/dL Blood 07/26/2025 9:24 PM CAN WASHER 07/26/2025 9:56 PM CAN WASHER us Pee Bello MD LAB BLOOD ORDERABLES Final Re sult Performing Organization Address [facility] de Phone Number [facility] [place] [employer] [place] [address] * Magnesium (07/26/2025 9:24 PM CAN WASHER) [facility] Magnesium 1.7 1.4 - 2.5 mg/dL Blood 07/26/2025 9:24 PM CAN WASHER 07/26/2025 9:56 PM CAN WASHER us Pee Bello MD LAB BLOOD ORDERABLES Final Re sult Performing Organization Address [facility] [place] [address] * (ABNORMAL) Comprehensive metabolic panel (07/26/2025 9:24 PM CAN WASHER) [facility] Sodium 139 135 - 145 mmol/L Potassium, pl 4.0 3.3 - 4.9 mmol/L [facility] Chloride 107 97 - 110 mmol/L [facility] CO2 21(L) 22 - 32 mmol/L [facility] Anion gap 11 2 - 15 mmol/L [facility] BUN 23 6 - 25 mg/dL [facility] Creatinine 1.27 0.80 - 1.30 mg/dL [facility] Glucose 108 70 - 199 mg/dL [facility] Comment: Interpretive Data Fasting glucose >/= 126 [...] 2022. Calcium 7.7(L) 8.5 - 10.3 mg/dL [facility] Bilirubin, total 0.6 0.1 - 1.2 mg/dL [facility] Protein, pl 4.8(L) 6.5 - 8.5 g/dL [facility] Albumin 2.7(L) 3.5 - 5.0 g/dL [facility] Alk phos 85 40 - 130 Units/L [facility] ALT 57(H) 7 - 55 Units/L [facility] AST 508(H) 10 - 50 Units/L [facility] Blood 07/26/2025 9:24 PM CAN WASHER 07/26/2025 9:56 PM CAN WASHER Pee Bello MD LAB BLOOD ORDERABLES Final Re sult [facility] [place] [address] * ECG 12 lead (07/26/2025 9:11 PM CAN WASHER) Ventricular Rate EKG/Min 75 BPM [facility] Atrial Rate 75 BPM [facility] [place]-Interval (MSEC) 178 ms [facility] QRS-Interval (MSEC) 78 ms [facility] QT-Interval (MSEC) 440 ms [facility] QTc 491 ms [facility] P [place] 85 degrees [facility] R [place] -63 degrees [facility] T [place] 92 degrees [facility] Diagnosis Normal sinus rhythm Left axis deviation Inferior infarct , age undetermined Abnormal ECG No previous ECGs available Confirmed by Deejay Alicia MD ([id number]) on 07/28/2025 9:49:01 AM [facility] 07/26/2025 9:11 PM CAN WASHER 07/28/2025 9:49 AM CAN WASHER us Pee Bello MD ECG ORDERABLES Final Result [facility] * MILLICENT MAJOR CORONARY, CORONARY OCT, 1ST VESSEL, CORONARY OCT, EA ADD'I VESSEL, TRLUML BALO ANGIOP 1STARTERY S&I [id number] (07/26/2025 8:51 PM CAN WASHER) Anatomical Region Laterality Modality X-Ray Angiograph y Impressions 07/30/2025 5:14 AM CAN WASHER High-grade lesion of the AV groove circumflex as well as the major obtuse marginal branch status post complicated, successful IVUS guided PCI using a 3.0 x 30 mm esteban [place] drug-eluting stent the AV groove circumflex proximally [...] the above report. Narrative 07/30/2025 5:14 AM CAN WASHER Images from the original result were not included. Cardiovascular Procedure Center [facility] [employer] [facility] [address] [place] [address] PERCUTANEOUS CORONARY INTERVENTION REPORT Patient: Socorro Urbano : 1970 MR number: [id number] Date of Service: 07/26/2025 Chemical Pumper: Miko Castro MD Fellow: Byron Rodriguez MD and Fabian Mendez MD Referring physician: Pee Bello MD and Gio Abreu MD INDICATION: salvage PCI post STEMI PATIENT CLINICAL PROFILE: Socorro Urbano is a 55 y.o. male with a history of hypertension, hyperlipidemia, tobacco use who underwent PCI to in the setting of an NSTEMI. He presents after a fall and noted to have a STEMI coronary angiogram revealed occluded dominant AV groove. PCI was attempted and they were able to get some flow back in the AV groove circumflex and the obtuse marginal branch. A balloon pump was placed in the patient was intubated and sent to [facility] for further evaluation. He was evaluated by [...] obtained. The patient was brought to the label printing machinist and placed on the table. Bilateral groins [...] 2.75 NC Sapphire, 3.0 x 30 mm Esteban [place] MILLICENT, 4.0 mm NC [place], 3.5 mm NC [place] 2.75 mm NC [place], [place] wire, 2.75 mm NC Sapphire and a [employer] [place] [facility] [employer] IVUS catheter. The SYNTAX score was low [...] moderate difficulty. The turnpike LP crossed with [id number] difficulty and we confirmed placement of the [...] used a 3.0 by 30 mm esteban [place] drug-eluting stent in the LAD and a [...] stenosis, and no dissection. COMPLICATIONS: None. DIAGNOSTIC Pee Bello MD CV CARDIAC CATH PROCEDURES Fi nal Result * (ABNORMAL) POCT Activated clotting time, low range (07/26/2025 8:22 PM CAN WASHER) ACT 379(H) 123 - 168 sec POC Device Number [id number] [facility] Blood 07/26/2025 8:22 PM CAN WASHER 07/26/2025 8:22 PM CAN WASHER Pee Bello MD LAB POCT ORDERABLES - DEVICE Final Result Performing Organization Address City/[facility]/ZIP Co de Phone Number [facility] [place] [address] * (ABNORMAL) POCT Activated clotting time, low range (07/26/2025 6:35 PM CAN WASHER) ACT 298(H) 123 - 168 sec POC Device Number [id number] [facility] Blood 07/26/2025 6:35 PM CAN WASHER 07/26/2025 6:35 PM CAN WASHER Pee Bello MD LAB POCT ORDERABLES - DEVICE Final Result [facility] [place] [address] * (ABNORMAL) POCT Activated clotting time, low range (07/26/2025 6:14 PM CAN WASHER) ACT 395(H) 123 - 168 sec POC Device Number [id number] [facility] Blood 07/26/2025 6:14 PM CAN WASHER 07/26/2025 6:14 PM CAN WASHER us Pee Bello MD LAB POCT ORDERABLES - DEVICE Final Result Performing Organization Address [facility] Co de Phone Number [facility] [employer] [place] [address] * eGFR (07/26/2025 5:46 PM CAN WASHER) eGFR 64 >=60 mL/min/1. 73 m2 Comment: [...] last reviewed 2021. Blood 07/26/2025 5:46 PM CAN WASHER 07/26/2025 5:56 PM CAN WASHER us Cece Rainey MD LAB BLOOD ORDERAB LES Final Result Performing Organization Address [facility]/ZIP Co de Phone Number [facility] [place] [address] * (ABNORMAL) Urinalysis reflex to microscopic and culture Urine (07/26/2025 5:46 PM CAN WASHER) Color, ur Yellow Yellow Clarity, ur Clear Clear [facility] Specific gravity, ur >1.042(H) 1.003 - 1.030 [facility] pH, urine 6.5 [facility] Comment: Interpretive Data U rine pH is affected by diet, medications, systemic acid-base disturbances, and renal tubular function. pH may affect urinary stone formation. For example, urine pH below 6.0 may help reduce the tendency for calcium phosphate stones and pH greater than 6.0 may reduce the tendency for uric acid stone formation. Source: [facility] Current Interpretive Data was last revised on 2017 Protein, ur ql 1+(A) Negative [facility] Glucose, ur ql Negative Negative [facility] Ketones, ur Negative Negative [facility] Bilirubin, ur Negative Negative [facility] Blood, ur 3+(A) Negative [facility] Urobilinogen, ur <2.0 <2.0 mg/dL [facility] Nitrite, ur Negative Negative [facility] Leukocyte esterase, ur Negative Negative [facility] UA reflex comment Reflex to microscopic UA will be performed. [facility] Urine 07/26/2025 5:46 PM CAN WASHER 07/26/2025 5:51 PM CAN WASHER Pee Bello MD LAB MICROBIOLOGY - GENERAL OR DERABLES Final Result [facility] [place] [address] * (ABNORMAL) Urinalysis, microscopic only (07/26/2025 5:46 PM CAN WASHER) WBC, ur 0-5 0 - 5 /HPF RBC, ur >50(A) 0 - 2 /HPF [facility] Mucous, ur Present(A) [facility] Culture Reflex Comment Reflex conditions for urine culture (WBC >10) not met. [facility] Urine 07/26/2025 5:46 PM CAN WASHER 07/26/2025 5:51 PM CAN WASHER us Pee Bello MD LAB URINE ORDERABLES Final Re sult Performing Organization Address City/[facility]/ZIP Co de Phone Number [facility] [place] [address] * Phosphorus (07/26/2025 5:46 PM CAN WASHER) [facility] Phosphorus, pl 2.9 2.3 - 4.5 mg/dL Blood 07/26/2025 5:46 PM CAN WASHER 07/26/2025 5:56 PM CAN WASHER us Cece Rainey MD LAB BLOOD ORDERAB LES Final Result Performing Organization Address [facility] Co de Phone Number [facility] [place] [address] * Magnesium (07/26/2025 5:46 PM CAN WASHER) [facility] Magnesium 1.8 1.4 - 2.5 mg/dL Blood 07/26/2025 5:46 PM CAN WASHER 07/26/2025 5:56 PM CAN WASHER Cece Rainey MD LAB BLOOD ORDERAB LES Final Result Performing Organization Address [facility] Co de Phone Number [facility] [place] [address] * (ABNORMAL) Basic metabolic panel (07/26/2025 5:46 PM CAN WASHER) [facility] Sodium 141 135 - 145 mmol/L Potassium, pl 4.1 3.3 - 4.9 mmol/L [facility] Comment:Repeated and Verifie d Chloride 108 97 - 110 mmol/L [facility] CO2 22 22 - 32 mmol/L [facility] Anion gap 11 2 - 15 mmol/L [facility] BUN 24 6 - 25 mg/dL [facility] Creatinine 1.31(H) 0.80 - 1.30 mg/dL [facility] Glucose 123 70 - 199 mg/dL [facility] Comment: Interpretive Data Fasting glucose >/= 126 [...] 2022. Calcium 8.2(L) 8.5 - 10.3 mg/dL [facility] Blood 07/26/2025 5:46 PM CAN WASHER 07/26/2025 5:56 PM CAN WASHER Cece Rainey MD LAB BLOOD ORDERAB LES Final Result Performing Organization Address [facility]/ZIP Co de Phone Number [facility] [place] [address] * IR Outside Reference (07/26/2025 5:40 PM CAN WASHER) Impressions [facility] - 07/26/2025 5:40 PM CAN WASHER These images are for Reference purposes only and have not been reviewed by [facility] Radiology. There will be no report generated by a [facility] Radiologist. Narrative [facility] - 07/26/2025 5:40 PM CAN WASHER EXAMINATION: Images For Reference Purposes Only Aldo Rodriguez MD IMG IR PROCEDURES Fi nal Result Performing Organization Address [facility]/ZIP Co de Phone Number [email or web address] * CT Head WO Contrast (07/26/2025 4:51 PM CAN WASHER) Anatomical Region Laterality Modality Head and Neck N/A Computed Tomogra phy 07/26/2025 5:04 PM CAN WASHER Impressions 07/26/2025 5:20 PM CAN WASHER No acute intracranial process. If there is [...] Ming Polo M.D. Narrative 07/26/2025 5:20 PM CAN WASHER EXAMINATION: CT head without contrast HISTORY: Altered [...] effect or midline shift is present. The hawthorne-white matter differentiation is normal. The visualized portions [...] effect or midline shift is present. The hawthorne-white matter differentiation is normal. The visualized portions [...] it. Electronically signed by: Ming Polo M.D. Pee Bello MD IMG CT PROCEDURES Final Resul t * [place] ARTL CATHJ/CANNULJ MNTR/TRANSFUSION SPX PRQ (07/26/2025 3:43 PM CAN WASHER) Narrative Pee Bello MD - 07/26/2025 3:43 PM CAN WASHER Pee Bello MD 07/26/2025 10:00 PM Arterial Line Insertion Date/Time: 07/26/2025 3:43 PM Performed by: Cece Rainey MD Authorized by: Cece Rainey MD [place] Protocol: RN Notified of Procedure: yes Informed consent: Risks, benefits, alternatives discussed and patient/care support representative/guardian agrees and accepts Patient's stated name/ [...] and matched to patient identification: yes Responsible constitution party for transporting specimen(s) to lab determined: yes Cece Rainey MD IV THERAPY ORDERA BLES Final Result * [place] INSJ NON-TUNNELED CENTRAL VENOUS CATH AGE 5 YR/> (07/26/2025 3:39 PM CAN WASHER) Narrative Pee Bello MD - 07/26/2025 3:39 PM CAN WASHER Pee Bello MD 07/26/2025 9:59 PM Central Line Insertion Date/Time: 07/26/2025 3:39 PM Performed by: Cece Rainey MD Authorized by: Cece Rainey MD [place] Protocol: RN Notified of Procedure: yes Informed consent: Risks, benefits, alternatives discussed and patient/care support representative/guardian agrees and accepts Patient's stated name/ [...] and matched to patient identification: yes Responsible constitution party for transporting specimen(s) to lab determined: yes Cece Rainey MD IN CLINIC/BEDSIDE ORDERABLES Final Result * XR Chest 1 View (07/26/2025 3:13 PM CAN WASHER) Anatomical Region Laterality Modality Body, Chest N/A Digital Radiogra phy 07/26/2025 4:36 PM CAN WASHER Impressions 07/26/2025 4:36 PM CAN WASHER Comparison 07/26/2025 at 12:05 PM. Intra-aortic balloon [...] Stanley Colby M.D. Narrative 07/26/2025 4:36 PM CAN WASHER EXAMINATION: 1 view chest radiograph Procedure Note [...] Electronically signed by: Stanley Colby M.D. us Pee Bello MD IMG XR PROCEDURES Final Resul t * (ABNORMAL) POC Blood Gas and Chemistries, Venous - (07/26/2025 2:31 PM CAN WASHER) pH, Frank POC 7.37 7.32 - 7.43 pCO2, frank POC 49 40 - 50 mmHg [facility] pO2, frank POC 31 mmHg [facility] Na, POC 141 135 - 145 mmol/L [facility] K POC 5.0(H) 3.3 - 4.9 mmol/L [facility] Comment: Interpretive Data Not all point of care methods assess for hemolysis. Confirm with instrument and retest K+ if not consistent with clinical signs and symptoms. Current Interpretive Data was last revised on 2023. Cl, POC 108 97 - 110 mmol/L [facility] Ionized Ca, POC 4.77 4.50 - 5.10 mg/dL [facility] Glucose, POC 128 70 - 199 mg/dL [facility] Lactate POC 1.4 0.7 - 2.0 mmol/L [facility] O2 Sat, Frank POC (Addi) 43 % [facility] Base excess, POC 2.3 mmol/L [facility] HCO3, Frank POC 28 20 - 30 mmol/L [facility] Hct, POC 35.0(L) 41.4 - 51.6 % [facility] Total Hb, POC 11.5(L) 13.8 - 17.2 g/dL [facility] Blood 07/26/2025 2:31 PM CAN WASHER 07/26/2025 2:31 PM CAN WASHER us Pee Bello MD LAB POCT ORDERABLES - DEVICE Final Result [facility] Department of [facility] [place], [place] [id number] * (ABNORMAL) Troponin I high-sensitivity 2-hour (07/26/2025 2:27 PM CAN WASHER) Pathologist [facility] Trop I hs 40,331(C) <=35 ng/L Comment: Previous critical value noted within 48 hours ago. Interpretive Data For further hscTnI resources including the diagnostic algorithm and an aid in interpretation, copy and paste this link: [email or web address] Current Interpretive Data last revised 2020. Trop I hs pct delta 249(C) % [facility] Trop I hs interp Significa nt(C) [facility] Blood 07/26/2025 2:27 PM CAN WASHER 07/26/2025 2:42 PM CAN WASHER Pee Bello MD LAB BLOOD ORDERABLES Final Re sult Performing Organization Address [facility] Co de Phone Number [facility] [place] [address] * (ABNORMAL) Troponin I high-sensitivity series (baseline, 2hr, 4hr, 6hr) (07/26/2025 12:25 PM CAN WASHER) Trop I hs 11,543(C) <=35 ng/L Comment: Interpretive Data For further hscTnI resources including the diagnostic algorithm and an aid in interpretation, copy and paste this link: [email or web address] Current Interpretive Data last revised 2020. Blood 07/26/2025 12:2 5 PM CAN WASHER 07/26/2025 12:33 PM CAN WASHER us Pee Bello MD LAB BLOOD ORDERABLES Final Re sult Performing Organization Address City/[facility]/ZIP Co de Phone Number [facility] [place] [address] * (ABNORMAL) Lactate (07/26/2025 12:25 PM CAN WASHER) Lactate 2.2(H) 0.7 - 2.0 mmol/L Blood 07/26/2025 12:2 5 PM CAN WASHER 07/26/2025 12:34 PM CAN WASHER us Pee Bello MD LAB BLOOD ORDERABLES Final Re sult [facility] [place] [address] * Critical result callback Cardio chemistry (07/26/2025 12:25 PM CAN WASHER) Date Notified [id number] Time Notified 1332 [facility] Test name Trop I hs base [facility] Called/Read Back Efrain Jaskaran [facility] Credentials RN JAYY [facility] Called By [facility] Blood 07/26/2025 12:2 5 PM CAN WASHER 07/26/2025 12:39 PM CAN WASHER us Pee Bello MD LAB BLOOD ORDERABLES Final Re sult Performing Organization Address City/[facility] Co de Phone Number [facility] [place] [address] * eGFR (07/26/2025 12:25 PM CAN WASHER) eGFR 81 >=60 mL/min/1. 73 m2 Comment: [...] reviewed 2021. Blood 07/26/2025 12:2 5 PM CAN WASHER 07/26/2025 12:39 PM CAN WASHER us Pee Bello MD LAB BLOOD ORDERABLES Final Re sult [facility] [place] [address] * Pro B-type natriuretic peptide (07/26/2025 12:25 PM CAN WASHER) NT-proBNP 288 <=300 pg/mL Comment: Interpretive Comments: [...] et.al. Eur Heart J. 2006:27:330-337. 2. Layton TAN, Anika CASSIDY. J. AM Soniya Cardiol: Cardiovasc Imag. 2009;2: 216- 225. Interpretive Data Last Revised Date: 2018. Blood 07/26/2025 12:2 5 PM CAN WASHER 07/26/2025 12:33 PM CAN WASHER us Pee Bello MD LAB BLOOD ORDERABLES Final Re sult Performing Organization Address [facility] de Phone Number [facility] [place] [employer] [place] [address] * (ABNORMAL) aPTT (07/26/2025 12:25 PM CAN WASHER) aPTT 45(H) 26 - 38 sec Comment: Interpretive Data Heparin therapeutic range: 66.0 - 100.0 seconds. Range based on correlation with therapeutic heparin activity range of 0.3 - 0.7 Units/mL. Blood 07/26/2025 12:2 5 PM CAN WASHER 07/26/2025 12:34 PM CAN WASHER Pee Bello MD LAB BLOOD ORDERABLES Final Re sult Performing Organization Address [facility] [place] [address] * (ABNORMAL) Protime-INR (07/26/2025 12:25 PM CAN WASHER) PT 15.5(H) 10.2 - 13.5 sec INR 1.38(H) 0.90 - 1.20 [facility] Comment: Interpretive data Oral anticoagulant therapeutic ranges: Venous thromboembolism prophylaxis or treatment: 2.0-3.0 CARDIOLOGY Standard range: 2.0-3.0 High-intensity range: 2.5-3.5 Refer to indication-specific guidelines for appropriate target ranges for prosthetic heart valve replacement. Current interpretive data was last revised on 2019. Blood 07/26/2025 12:2 5 PM CAN WASHER 07/26/2025 12:34 PM CAN WASHER Pee Bello MD LAB BLOOD ORDERABLES Final Re sult Performing Organization Address [facility] Co de Phone Number [facility] [place] [employer] [place] [address] * (ABNORMAL) CBC without differential (07/26/2025 12:25 PM CAN WASHER) WBC 14.30(H) 3.80 - 9.90 K/cumm Hgb 12.4(L) 13.0 - 17.5 g/dL [facility] Hct 35.4(L) 38.9 - 50.3 % [facility] Plt 336 150 - 400 K/cumm [facility] MPV 9.9 9.1 - 12.3 fL [facility] RBC 3.80(L) 4.30 - 5.80 M/cumm [facility] MCV 93.2 81.3 - 96.4 fL [facility] MCH 32.6 27.1 - 33.3 pg [facility] MCHC 35.0 32.3 - 35.7 g/dL [facility] RDW CV 12.6 11.1 - 14.9 % [facility] RDW SD 43.4 35.7 - 48.1 fL [facility] NRBC abs 0.00 0.00 - 0.01 K/cumm [facility] Blood 07/26/2025 12:2 5 PM CAN WASHER 07/26/2025 12:33 PM CAN WASHER us Pee Bello MD LAB BLOOD ORDERABLES Final Re sult Performing Organization Address City/[facility]/ZIP Co de Phone Number [facility] [place] [address] * Type and screen (07/26/2025 12:25 PM CAN WASHER) Pathologist [facility] ABO Rh O Positive Zac, indirect Negative [facility] Blood 07/26/2025 12:2 5 PM CAN WASHER 07/26/2025 12:48 PM CAN WASHER Narrative [facility] - 07/26/2025 1:47 PM CAN WASHER Has the patient had Daratumumab or Isatuximab in the past 6 months?->Unknown Pee Bello MD LAB BLOOD BANK TEST ORDERABLE S Final Result Performing Organization Address City/[facility]/ZIP Co de Phone Number [facility] [place] [address] * Magnesium (07/26/2025 12:25 PM CAN WASHER) Magnesium 1.9 1.4 - 2.5 mg/dL Blood 07/26/2025 12:2 5 PM CAN WASHER 07/26/2025 12:33 PM CAN WASHER us Pee Bello MD LAB BLOOD ORDERABLES Final Re sult [facility] [place] [address] * (ABNORMAL) Comprehensive metabolic panel (07/26/2025 12:25 PM CAN WASHER) Sodium 133(L) 135 - 145 mmol/L Potassium, pl See Comment 3.3 - 4.9 mmol/L [facility] Comment:Credited; Hemolyzed Specimen Chloride 101 97 - 110 mmol/L [facility] CO2 22 22 - 32 mmol/L [facility] Anion gap 10 2 - 15 mmol/L [facility] BUN 18 6 - 25 mg/dL [facility] Creatinine 1.08 0.80 - 1.30 mg/dL [facility] Glucose 120 70 - 199 mg/dL [facility] Comment: Interpretive Data Fasting glucose >/= 126 [...] 2022. Calcium 7.9(L) 8.5 - 10.3 mg/dL [facility] Bilirubin, total 0.5 0.1 - 1.2 mg/dL [facility] Protein, pl 6.3(L) 6.5 - 8.5 g/dL [facility] Albumin 3.3(L) 3.5 - 5.0 g/dL [facility] Alk phos 93 40 - 130 Units/L [facility] Comment:Hemolyzed; result ma y be falsely decreased ALT See Comment 7 - 55 Units/L [facility] Comment:Credited, hemolyzed specimen. AST See Comment 10 - 50 Units/L [facility] Comment:Credited, hemolyzed specimen. Blood 07/26/2025 12:2 5 PM CAN WASHER 07/26/2025 12:33 PM CAN WASHER us Pee Bello MD LAB BLOOD ORDERABLES Final Re sult [facility] [place] [address] * (ABNORMAL) POC Blood Gas and Chemistries, Arterial - (07/26/2025 12:17 PM CAN WASHER) pH, Art POC 7.26(L) 7.35 - 7.45 pCO2, Art POC 58(H) 35 - 45 mmHg [facility] pO2, Art POC 68(L) 83 - 108 mmHg [facility] Na, POC 142 135 - 145 mmol/L [facility] K POC 4.5 3.3 - 4.9 mmol/L [facility] Comment: Interpretive Data Not all point of care methods assess for hemolysis. Confirm with instrument and retest K+ if not consistent with clinical signs and symptoms. Current Interpretive Data was last revised on 2023. Cl, POC 108 97 - 110 mmol/L [facility] Ionized Ca, POC 4.93 4.50 - 5.10 mg/dL [facility] Glucose, POC 153 70 - 199 mg/dL [facility] Lactate POC 1.6 0.7 - 2.0 mmol/L [facility] SO2 (addi) arterial 93 90 - 95 % [facility] Base excess, POC -2.0 mmol/L [facility] HCO3, Art POC 26 20 - 30 mmol/L [facility] Hct, POC 39.0(L) 41.4 - 51.6 % [facility] Total Hb, POC 12.9(L) 13.8 - 17.2 g/dL [facility] Blood 07/26/2025 12:1 7 PM CAN WASHER 07/26/2025 12:17 PM CAN WASHER us Pee Bello MD LAB POCT ORDERABLES - DEVICE Final Result [facility] [place] [address] * XR chest 1 view (Portable) Urgent (07/26/2025 12:10 PM CAN WASHER) Anatomical Region Laterality Modality Body, Chest N/A Digital Radiogra phy 07/26/2025 1:53 PM CAN WASHER Impressions 07/26/2025 1:53 PM CAN WASHER Comparison 08/16/2023. Interval placement of intra-aortic balloon [...] Stanley Colby M.D. Narrative 07/26/2025 1:53 PM CAN WASHER EXAMINATION: 1 view chest radiograph Procedure Note [...] Electronically signed by: Stanley Colby M.D. us Pee Bello MD IMG XR PROCEDURES Final Resul t from Last 3 Months Additional Health Concerns Infection Onset Date Last Indicated Resolved Time Ring Surveillance: C. auris 07/27/2025 07/27/2025 Insurance [facility] H[facility]/PPO Address: [place] [id number] Advance Directives For more information, please contact: [phone] * Full Code (Latest Code Status on File) Date Activated Date Inactivated Comments 07/26/2025 11:34 AM Care Teams Ground Wirer Relationship Specialty Start Date End Date Pee Vidales MD [address] [place] [address] [place] [id number] PCP - General 01/24/21
--- OUTSIDE RECORDS SUMMARY | 2025-07-30 12:18 | XMS_ITS | Encounter Summary ---
Author Organization [facility] Address [address] [place] [address] Care Team Providers Care Sheet Metal Journeyman Name Role Phone BardalesJohnathan vinesfranklyn PEDRAZA Primary Care Provider [phone] Encounter Details Date Type Department Care Team (Late st Contact Info) Description 03/30/2007 Emergency [facility] Rasta Dawson MD [facility] [place] [id number] Er, Authorized P NO ADDRESS ON FILE Disturbance of Skin Sensation (Primary Dx) Social History Tobacco Use Types Packs/Day Years Used Date Smoking Tobacco: Never Assessed Sex and Gender Information Value Date Recorded Sex Assigned at Not on file Legal Sex Male 4:02 AM SET UP [employer] Gender Identity Not on file Sexual Orientation Not on file documented as of this encounter Plan of Treatment Upcoming Encounters Date Type Department Care Team (Late Contact Info) Description 09/03/2025 10:00 AM SET UP [employer] Office Visit [facility] - [address] [place] [address] Sina King DO [address] [place] [address] documented as of this encounter Visit Diagnoses Diagnosis Disturbance of skin sensation- Primary documented in this encounter Additional Health Concerns Infection Onset Date Last Indicated Resolved Time R/O Respiratory 05/19/2025 05/19/2025 05/19/2025 1 0:45 PM CDT documented as of this encounter Care Teams Sheet Metal Journeyman Relationship Specialty Start Date End Date Johnathan Bardales DO [address] [place] [address] PCP - General Family Practice 05/01/25 documented as of this encounter
== END 2025-07-26 11:43 | disposition short-term general hospital (02) | DRG 271 ==
LOC: ANHED 07-30 11:38 → ANHSURGERY 07-30 11:38 → ANH2MED 07-30 11:43
PROVIDERS: Admitting Provider Internal Medicine Cardiovascular Disease; Emergency Provider Emergency Medicine; Visit Provider Internal Medicine Cardiovascular Disease
PROC: 4A023N7 Measurement of Cardiac Sampling and Pressure, Left Heart, Percutaneous Approach (ICD-10-PCS; CPT 93452; principal; 2025-07-26 07:10)
PROC: 5A02210 Assistance with Cardiac Output using Balloon Pump, Continuous (ICD-10-PCS; 2025-07-26 07:10)
PROC: 5A02210 Assistance with Cardiac Output using Balloon Pump, Continuous (ICD-10-PCS; 2025-07-26 07:10)
PROC: 5A02210 Assistance with Cardiac Output using Balloon Pump, Continuous (ICD-10-PCS; 2025-07-26 07:10)
DX: I21.21 ST elevation (STEMI) myocardial infarction involving left circumflex coronary artery (principal); I47.29 Other ventricular tachycardia; I97.790 Other intraoperative cardiac functional disturbances during cardiac surgery; J95.89 Other postprocedural complications and disorders of respiratory system, not elsewhere classified; R06.89 Other abnormalities of breathing; I95.81 Postprocedural hypotension; R41.82 Altered mental status, unspecified; I10 Essential (primary) hypertension
CPT/HCPCS: 31500; 33967; 36415; 70450; 71045; 80053; 83690; 84484; 85025; 85610; 85730; 92920; 93005; 93458; A9270; C1725; C1760; C1769; C1887; C1894; G0269; J0461; J0583; J1644; J2003; J2250; J2270; J2371; J2704; J3010; J7030; J7040